=== PATIENT | female | born 1950 | race Caucasian/White ===

== ENCOUNTER 2019-10-05 01:14 | Day surgery (SDC) | payer MEDICARE, SELFPAY ==
[2019-10-03 10:12] VITALS: BMI 29.5
--- NOTE | 2019-10-05 08:41 | P.PNAN_ITS ---
Anes - Initial Pre Proc Eval Procedure: Operation Date: 10/05/19 10:30 Proposed Procedures p Removal Of Vaginal Cyst - Nick Foster MD Date/Time: 10/05/19 08:41 Surgeon: Nick Foster MD Pre Op Diagnosis: Vulvar Cyst Patient Data Age: 68 Gender: F Height: 5 ft 6.5 in Weight: 84.09 kg Allergies Allergy/AdvReac Type Severity Reaction Status Date / Time Penicillins Allergy Intermediate HIVES/RASH Verified 10/03/19 10:18 Home Medications Medication Instructions Recorded Confirmed Type levothyroxine 75 mcg PO DAILY 10/03/19 10/03/19 History quetiapine 100 mg PO DAILY 10/03/19 10/03/19 History quetiapine 300 mg PO HS 10/03/19 10/03/19 History Patient hx anesthesia problems: none Family hx anesthesia problems: none [facility] Past Medical History Medical History Hypothyroid Schizophrenia Seizure disorder Social History Social History Smoking status: Never smoker Anes - Eval Final PreProcedure Day of Procedure 10/05/19 08:41 Patient weight: overweight Heart: regular rate and rhythm Lungs: clear to auscultation Airway: Mallampati scale class II Neurological: other (alert) Last oral intake: >/= 8 hours ASA classification: III Emergent: no Anesthetic plan: proceed Anesthesia type and monitoring: general GIVS and standard monitoring Informed Consent: The patient's anesthetic plan and its attendant risks and benefits were discussed with the patient/family/POA. Questions were solicited and answers provided to the satisfaction of the patient/family/POA.
[2019-10-05] MEDS: LACTATED RINGERS 1,000 ML 30 ML IV CONT (09:00)
[2019-10-05] MEDS: IBUPROFEN IV 800 MG/200 ML 800 MG/200 ML BAG 400 MG IVPB (09:00)
--- NOTE | 2019-10-05 11:13 | WPDHPUPDATE1 ---
History and Physical Update Update Date/Time: 10/05/19 11:13 History and Physical has been reviewed, including an updated exam of the patient. There are NO changes in the patient's condition. Risks, benefits, and alternatives have been discussed and questions answered. Patient agrees to proceed with procedure.
[2019-10-05 11:20] VITALS: BP 129/85; PULSE 58; RESP 16; TEMP 36.9; O2SAT 97
--- NOTE | 2019-10-05 11:29 | SUR.PREOP ---
1129-PT INFORMED PRIOR SURGEON DELAYS ROOM ~30 MINUTES.
[2019-10-05] MEDS: CLINDAMYCIN 900 MG/NS 50 ML 900 MG/50 ML PIGGYBACK 50 MG IVPB (11:39)
[2019-10-05] MEDS: LIDO 1%/EPINEPHRINE 1:100,000 20 ML VIAL 10 ML INFILTRATE (12:01)
[2019-10-05 12:22] VITALS: BP 99/62; PULSE 73; RESP 16; O2SAT 99
--- NOTE | 2019-10-05 12:41 | PM.PROC ---
Procedure Note - Detailed Date of procedure: 10/05/19 Pre-op diagnosis: Vulvar Cyst Post-op diagnosis: same Procedure performed: Resection of vulvar cyst Description of procedure: The patient was placed in the dorsal lithotomy position after she was taken the operating room and mac anesthesia was administered. The subcutaneous tissue in the superior aspect of the vulva on the right side near the clitoris was infiltrated with lidocaine. A skin incision was made over the cyst. The cyst was dissected out using sharp,blunt dissection and Cautery. The base of the cyst was cauterized and again hemostatic. Subcutaneous sutures were placed to close the defect deep under the skin. The sutures with 3 0 Vicryl. 30 Vicryl was then used to close the skin in interrupted fashion. The patient tolerated the procedure well. Anesthesia: MAC Surgeon: Nick Foster MD Estimated blood loss (mL): 5 Drains: No Packing: No Pathology: yes Complications: No immediate complications Condition: stable Disposition: same day Findings: To have cm vulvar cyst in the periclitoral area on the right side. It was just beyond the inferior margin of the mons on the superior aspect of the vulva.
[2019-10-05 12:50] VITALS: BP 98/62; PULSE 69; RESP 14; O2SAT 95
--- NOTE | 2019-10-05 13:08 | SUR.PHASEII ---
130; report given to shahbaz garcia
[2019-10-05 13:15] VITALS: BP 109/67; PULSE 67; RESP 14; O2SAT 98
[2019-10-05 13:40] VITALS: BP 109/67; PULSE 62; RESP 14
== END 2019-10-05 13:41 | disposition home or self-care (01) ==
PROVIDERS: Visit Provider Obstetrics & Gynecology
PROC: (CPT 57135; principal; 2019-10-05 10:30)
DX: N90.7 Vulvar cyst (principal); E03.9 Hypothyroidism, unspecified; G40.909 Epilepsy, unspecified, not intractable, without status epilepticus; F20.9 Schizophrenia, unspecified
CPT/HCPCS: 57135; 88304; 88305; A9270; J1741; J2250; J2405; J2704; J3010; J7120

== ENCOUNTER → 2020-05-07 10:40 | Outpatient (CLI) | payer MEDICARE, SELFPAY ==
--- NOTE | ~2020-05-07 | MM_ITS ---
EXAMINATION: MM screening yaron BI w jenifer HISTORY: Screening mammogram TECHNIQUE: Craniocaudal and mediolateral oblique 3-D tomosynthesis images were obtained and synthetic 2-D images were generated. CAD analysis was submitted and interpreted. COMPARISON: 10/28/2018, 09/24/2017, 03/18/2016 bilateral digital screening mammogram examinations BREAST PARENCHYMAL COMPOSITION: The breasts are heterogeneously dense, which may obscure small masses ... FINDINGS: There are scattered bilateral benign calcifications. There is no evidence of suspicious mas s, calcification, or architectural distortion to suggest malignancy in either breast. There has been no suspicious interval change. IMPRESSION: 1. No mammographic evidence of malignancy. 2. Recommend routine screening mammography in one year. BI-RADS Category 2: Benign finding(s). Reviewed, dictated and finalized at location A.
== END ==
PROVIDERS: Visit Provider Obstetrics & Gynecology
DX: Z12.31 Encounter for screening mammogram for malignant neoplasm of breast (principal)
CPT/HCPCS: 77063; 77067

== ENCOUNTER → 2021-05-22 15:39 | Outpatient (CLI) | payer MEDICARE, SELFPAY ==
--- NOTE | ~2021-05-22 | MM_ITS ---
EXAMINATION: MM screening yaron BI w jenifer HISTORY: Screening TECHNIQUE: Craniocaudal and mediolateral oblique 3-D tomosynthesis images were obtained and synthetic 2-D images were generated. CAD analysis was submitted and interpreted. COMPARISON: Comparison to multiple prior studies sequentially, with oldest reviewed study dated 12/09. BREAST PARENCHYMAL COMPOSITION: The breasts are heterogenously dense, which may obscure small masses. FINDINGS: There is no evidence of suspicious mass, calcification, or architectural distortion to sugg est malignancy in either breast. There has been no suspicious interval change. IMPRESSION: 1. No mammographic evidence of malignancy. 2. Recommend routine screening mammography in one year. BI-RADS Category 1: Negative Reviewed, dictated and finalized at location A.
== END ==
PROVIDERS: PCP Family Medicine; Visit Provider Obstetrics & Gynecology
DX: Z12.31 Encounter for screening mammogram for malignant neoplasm of breast (principal)
CPT/HCPCS: 77063; 77067

== ENCOUNTER 2022-05-20 11:44 | Outpatient (CLI) | payer MEDICARE, SELFPAY ==
[2022-05-20 19:27] LABS: Basophils Percent Auto 0.4 % (0.2-1.2); Eosinophils Absolute Auto 0.2 K/mm3 (0-0.3); Eosinophils Percent Auto 3.2 % (0-4.4); Hemoglobin 10.9 g/dL (12.0-15.0); Immature Granulocyte Absolute 0.02 K/mm3 (0.00-0.031); Immature Granulocyte Percent A 0.4 % (0-0.5); Lymphocytes Absolute Auto 1.02 K/mm3 (0.9-3.2); Lymphocytes Percent Auto 18.4 % (18.3-44.2); Mean Corpuscular HGB Conc 31.1 g/dl (32-36); Mean Corpuscular Hemoglobin 30.1 pg (26-34); Mean Corpuscular Volume 96.7 fl (80-100); Mean Platelet Volume 10.4 fl (7.4-10.4); Monocytes Absolute Auto 0.8 K/mm3 (0.1-0.6); Neutrophils Absolute Auto 3.5 K/mm3 (1.3-6.7); Neutrophils Percent Auto 62.6 % (45.5-73.1); Platelet Count Result 166 k/mm3 (150-375); Red Blood Count 3.62 M/mm3 (4.2-5.4); Red Cell Distribution Width 13.5 % (11.5-14.5); White Blood Count 5.6 K/mm3 (4.5-10.0)
[2022-05-20 19:54] LABS: Alanine Aminotransferase 15 U/L (6-35); Albumin Level 3.5 g/dL (3.5-5.1); Alkaline Phosphatase 75 U/L (38-126); Anion Gap 9 mmol/L (8-16); Aspartate Amino Transferase 29 U/L (14-36); Bilirubin,Total 0.5 mg/dL (0.2-1.3); Blood Urea Nitrogen 11 mg/dL (7-17); Calcium 9.1 mg/dL (8.4-10.2); Carbon Dioxide 31 mmol/L (22-30); Chloride 103 mmol/L (98-107); Cholesterol 189 mg/dL (0-200); Estimated Glomerular Filt Rate 54; Glucose 111 mg/dL (65-110); HDL Direct 41 mg/dL; Sodium 143 mmol/L (137-145); Triglycerides 114 mg/dL (<150)
[2022-05-20 20:08] LABS: LDL Cholesterol Direct 90 mg/dL
== END 2022-05-20 11:45 | disposition home or self-care (01) ==
PROVIDERS: PCP Family Medicine; Visit Provider Family Medicine
DX: G40.909 Epilepsy, unspecified, not intractable, without status epilepticus (principal); F20.9 Schizophrenia, unspecified; E03.9 Hypothyroidism, unspecified
CPT/HCPCS: 36415; 80053; 80061; 84443; 85025

== ENCOUNTER → 2022-06-09 12:43 | Outpatient (CLI) | payer MEDICARE, SELFPAY ==
--- NOTE | ~2022-06-09 | MM_ITS ---
EXAMINATION: MM screening yaron BI w jenifer HISTORY: Screening mammogram TECHNIQUE: Craniocaudal and mediolateral oblique 3-D tomosynthesis images were obtained and synthetic 2-D images were generated. CAD analysis was submitted and interpreted. COMPARISON: 06/08/2021, 05/07/2020, 10/28/2018 bilateral screening mammogram examinations BREAST PARENCHYMAL COMPOSITION: The breasts are heterogeneously dense, which may obscure small masses . FINDINGS: Scattered bilateral benign calcifications. There is no evidence of suspicious mass, calcifi cation, or architectural distortion to suggest malignancy in either breast. There has been no suspici ous interval change. IMPRESSION: 1. No mammographic evidence of malignancy. 2. Recommend routine screening mammography in one year. BI-RADS Category 2: Benign finding(s). Reviewed, dictated and finalized at location A. [employer]
== END ==
PROVIDERS: PCP Family Medicine; Visit Provider Obstetrics & Gynecology
DX: Z12.31 Encounter for screening mammogram for malignant neoplasm of breast (principal)
CPT/HCPCS: 77063; 77067

== ENCOUNTER 2022-06-24 11:50 | Outpatient (CLI) | payer MEDICARE, SELFPAY ==
[2022-06-24 19:01] LABS: Hematocrit 36.8 % (37.0-47.0); Hemoglobin 11.6 g/dL (12.0-15.0); Mean Corpuscular HGB Conc 31.5 g/dl (32-36); Mean Corpuscular Hemoglobin 30.9 pg (26-34); Mean Corpuscular Volume 98.1 fl (80-100); Mean Platelet Volume 10.8 fl (7.4-10.4); Platelet Count Result 162 k/mm3 (150-375); Red Blood Count 3.75 M/mm3 (4.2-5.4); Red Cell Distribution Width 14.5 % (11.5-14.5); White Blood Count 3.9 K/mm3 (4.5-10.0)
== END 2022-06-24 11:51 | disposition home or self-care (01) ==
PROVIDERS: PCP Family Medicine; Visit Provider Family Medicine
DX: D23.5 Other benign neoplasm of skin of trunk (principal); E03.9 Hypothyroidism, unspecified; F20.9 Schizophrenia, unspecified; F32.9 Major depressive disorder, single episode, unspecified; G40.909 Epilepsy, unspecified, not intractable, without status epilepticus; M19.90 Unspecified osteoarthritis, unspecified site; R19.5 Other fecal abnormalities; R79.89 Other specified abnormal findings of blood chemistry
CPT/HCPCS: 36415; 85027

== ENCOUNTER 2022-07-01 13:47 | Outpatient (CLI) | payer MEDICARE, SELFPAY ==
[2022-07-01 19:47] LABS: Aspartate Amino Transferase 23 U/L (14-36)
[2022-07-01 20:28] LABS: Valproic Acid 41.6 ug/mL (50-120)
== END 2022-07-01 13:48 | disposition home or self-care (01) ==
PROVIDERS: PCP Family Medicine
DX: Z51.81 Encounter for therapeutic drug level monitoring (principal); Z79.899 Other long term (current) drug therapy
CPT/HCPCS: 36415; 80164; 84450

== ENCOUNTER 2022-08-05 00:37 | Day surgery (SDC) | payer MEDICARE, SELFPAY ==
[2022-07-24 09:56] VITALS: BMI 30.7
[2022-08-05 11:04] VITALS: BP 126/68; PULSE 82; RESP 16; TEMP 36.1; O2SAT 97; BMI 30.4
[2022-08-05] MEDS: LACTATED RINGERS 1,000 ML 150 ML IV CONT (11:08)
--- NOTE | 2022-08-05 11:42 | P.PNAN_ITS ---
Anes - Initial Pre Proc Eval Procedure: Operation Date: 08/05/22 12:30 Proposed Procedures p Screening Colonoscopy - Vinayak Sharp MD Date/Time: 08/05/22 11:42 Surgeon: Vinayak Sharp MD Pre Op Diagnosis: neoplasm screening Patient Data Age: 71 Gender: F Height: 1.68 m Weight: 85.4 kg Last Vital Signs Temp 96.9 F L 08/05/22 11:04 Pulse 82 08/05/22 11:04 Resp 16 08/05/22 11:04 BP 126/68 08/05/22 11:04 Pulse Ox 97 08/05/22 11:04 O2 Del Method Room Air 08/05/22 11:04 Allergies Allergy/AdvReac Type Severity Reaction Status Date / Time Penicillins Allergy Intermediate HIVES/RASH Verified 08/05/22 11:03 Home Medications Medication Instructions Recorded Confirmed Type levothyroxine 75 mcg tablet 75 mcg PO DAILY 10/03/19 08/05/22 History quetiapine 300 mg tablet 300 mg PO HS 10/03/19 08/05/22 History brexpiprazole 4 mg tablet (Rexulti) 4 mg PO DAILY 08/02/20 08/05/22 History divalproex 250 mg tablet,delayed 250 mg PO Q12H 08/02/20 08/05/22 History release omega-3 fatty acids 1,000 mg 1,000 mg PO DAILY 08/02/20 08/05/22 History capsule (Fish Oil Concentrate) sertraline 50 mg tablet 50 mg PO DAILY 07/24/22 08/05/22 History trifluoperazine 5 mg tablet 5 mg PO BID 07/24/22 08/05/22 History Patient hx anesthesia problems: none Family hx anesthesia problems: none Results Review: All pre-operative results and documents have been reviewed as part of the pre- operative evaluation. [facility] Past Medical History Medical History (Updated 05/15/22 @ 09:16 by Molina Medina MD) Arthritis Benign tumor of skin of breast Depression Hypothyroid Schizophrenia Seizure disorder Seizure disorder Thyroid disorder Surgical History Surgical History H/O tubal ligation Hx of tonsillectomy Family History Family History Mother COPD (chronic obstructive pulmonary disease) Father No problems noted. Social History Social History Smoking status: Never smoker Alcohol intake: never Substance use: never Substance use type: does not use Living arrangements: with family Gender identity (if verbalized by the patient): Female Sexual Orientation (if Verbalized by the Patient): Straight or Heterosexual Spiritual care concerns: No Anes - Eval Final PreProcedure Day of Procedure 08/05/22 11:42 Patient weight: obese Heart: regular rate and rhythm Lungs: clear to auscultation Airway: Mallampati scale class II Neurological: alert and oriented Last oral intake: >/= 8 hours ASA classification: III Emergent: no Anesthetic plan: proceed Anesthesia type and monitoring: general GIVS and standard monitoring Results Review: All pre-operative results and documents have been reviewed as part of the pre- operative evaluation. Informed Consent: The patient's anesthetic plan and its attendant risks and benefits were discussed with the patient/family/POA. Questions were solicited and answers provided to the satisfaction of the patient/family/POA.
--- NOTE | 2022-08-05 12:00 | PM.HPGS ---
History of Present Illness History of Present Illness Consent: Risks, benefits, and alternatives have been discussed and questions answered. Patient agrees to proceed with procedure. Chief complaint: neoplasm screening Narrative: Quinton Mckeon is a 71 year old female here for first screening colonoscopy Review of Systems Constitutional: Constitutional: Denies headache(s) and Denies weakness Eyes: Eyes: Denies blurry vision ENT: Reports Normal hearing present, Denies headache(s) and Denies neck pain Cardiovascular: Cardiovascular: Denies chest pain and Denies dyspnea Respiratory: Respiratory: Denies dyspnea Gastrointestinal: Gastrointestinal: Reports no additional gastrointestinal complaints Genitourinary: Genitourinary: Denies dysuria Musculoskeletal: Musculoskeletal: Denies neck pain Integumentary/Breasts: Skin/Breast: Denies dry skin Neurologic: Reports Normal hearing present, Denies headache(s) and Denies weakness Psychiatric: Psychiatric: Denies anxiety Endocrine: Endocrine: Denies change in body appearance Hematologic/Lymphatic: Hematologic/Lymphatic: Denies easy bleeding Allergic/Immunologic: Allergic/Immunologic: Denies urticaria PMFSH Past Medical History Medical History (Updated 05/15/22 @ 09:16 by Molina Medina MD) Arthritis Benign tumor of skin of breast Depression Hypothyroid Schizophrenia Seizure disorder Seizure disorder Thyroid disorder Surgical History Surgical History H/O tubal ligation Hx of tonsillectomy Family History Family History Mother COPD (chronic obstructive pulmonary disease) Father No problems noted. Social History Social History Smoking status: Never smoker Alcohol intake: never Substance use: never Substance use type: does not use Living arrangements: with family Gender identity (if verbalized by the patient): Female Sexual Orientation (if Verbalized by the Patient): Straight or Heterosexual Spiritual care concerns: No Meds Home Medications and Allergies Home Medications Medication Instructions Recorded Confirmed Type levothyroxine 75 mcg tablet 75 mcg PO DAILY 10/03/19 08/05/22 History quetiapine 300 mg tablet 300 mg PO HS 10/03/19 08/05/22 History brexpiprazole 4 mg tablet (Rexulti) 4 mg PO DAILY 08/02/20 08/05/22 History divalproex 250 mg tablet,delayed 250 mg PO Q12H 08/02/20 08/05/22 History release omega-3 fatty acids 1,000 mg 1,000 mg PO DAILY 08/02/20 08/05/22 History capsule (Fish Oil Concentrate) sertraline 50 mg tablet 50 mg PO DAILY 07/24/22 08/05/22 History trifluoperazine 5 mg tablet 5 mg PO BID 07/24/22 08/05/22 History Allergies Allergy/AdvReac Type Severity Reaction Status Date / Time Penicillins Allergy Intermediate HIVES/RASH Verified 08/05/22 11:03 Vital Signs Vital Signs - 24 hr 08/05/22 11:04 Temperature 96.9 F L Pulse Rate 82 Respiratory Rate 16 Blood Pressure 126/68 Pulse Oximetry 97 Oxygen Delivery Room Air Exam Const: General: comfortable and no acute distress HENMT: Face/Nose/Sinus: Normal nares present Eyes: General: appearance normal, both eyes and all related structures Neck: Neck: no JVD Resp: Auscultation: clear to auscultation bilaterally Cardio: Rate: regular rate Rhythm: regular rhythm GI: Inspection: non-distended GI Palp: Yes Soft to palpation Skin: General skin exam: normal color Neuro: General: gait normal Speech: normal speech Extrem: General: normal to inspection Psych: Mental Status: mental status grossly normal Assessment and Plan Assessment and plan (1) Colon cancer screening: Code(s): Z12.11 - Encounter for screening for malignant neoplasm of colon Status: Acute Assessment and Plan: colonoscopy
[2022-08-05 12:26] VITALS: BP 113/70; PULSE 66; RESP 21; O2SAT 98
[2022-08-05 12:36] VITALS: BP 135/60; PULSE 58; RESP 18; O2SAT 99
[2022-08-05 12:46] VITALS: BP 123/65; PULSE 54; RESP 18; O2SAT 97
[2022-08-05 13:10] LABS: Hematocrit 38.4 % (37.0-47.0); Hemoglobin 12.1 g/dL (12.0-15.0); Immature Platelet Fraction Pct 4.8 % (0.9-11.2); Mean Corpuscular HGB Conc 31.5 g/dl (32-36); Mean Corpuscular Hemoglobin 30.6 pg (26-34); Mean Platelet Volume 9.8 fl (7.4-10.4); Platelet Count Result 150 k/mm3 (150-375); Red Blood Count 3.96 M/mm3 (4.2-5.4); Red Cell Distribution Width 13.9 % (11.5-14.5); White Blood Count 3.2 K/mm3 (4.5-10.0)
[2022-08-05 13:23] LABS: Alanine Aminotransferase 10 U/L (6-35); Albumin Level 3.9 g/dL (3.5-5.1); Alkaline Phosphatase 59 U/L (38-126); Anion Gap 5 mmol/L (8-16); Aspartate Amino Transferase 17 U/L (14-36); Bilirubin,Total 0.4 mg/dL (0.2-1.3); Blood Urea Nitrogen 11 mg/dL (7-17); Carbon Dioxide 32 mmol/L (22-30); Chloride 103 mmol/L (98-107); Estimated CRCL calculation 49 ml/min; Estimated Glomerular Filt Rate 54; Glucose 117 mg/dL (65-110); Potassium 4.2 mmol/L (3.4-5.0); Sodium 140 mmol/L (137-145)
[2022-08-05 13:52] LABS: Carcinoembryonic Antigen 3.7 ng/mL (0.0-3.0)
== END 2022-08-05 13:28 | disposition home or self-care (01) ==
PROVIDERS: PCP Family Medicine; Visit Provider Internal Medicine Gastroenterology
PROC: 0DJD8ZZ Inspection of Lower Intestinal Tract, Via Natural or Artificial Opening Endoscopic (ICD-10-PCS; CPT 45378; principal; 2022-08-05 12:30)
DX: Z12.11 Encounter for screening for malignant neoplasm of colon (principal); C18.4 Malignant neoplasm of transverse colon; K57.30 Diverticulosis of large intestine without perforation or abscess without bleeding; E03.9 Hypothyroidism, unspecified; G40.909 Epilepsy, unspecified, not intractable, without status epilepticus; F20.9 Schizophrenia, unspecified; F32.A Depression, unspecified; E66.9 Obesity, unspecified; Z68.30 Body mass index [BMI] 30.0-30.9, adult
CPT/HCPCS: 45380; 45381; 36415; 80053; 82378; 85027; 85055; 88305; J2704; J7120

== ENCOUNTER 2022-08-07 06:53 | Outpatient (CLI) | payer MEDICARE, SELFPAY ==
--- NOTE | ~2022-08-07 | CT_ITS ---
EXAMINATION: CT abdomen pelvis w con DATE: 08/07/2022 07:35 INDICATION: Soft tissue mass of transverse colon detected during 08/05/2022 colonoscopy examination TECHNIQUE: Computed tomography (CT) of the abdomen and pelvis was performed with 100 CC Omnipaque 350 intravenous contrast. Automated exposure control and iterative reconstruction technique were employe d. Exam dose: 475.61 mGy-cm total exam DLP. COMPARISON: None. FINDINGS: The lung bases are clear of infiltrate or consolidation. Normal heart size. No pericardial or pleural effusion. There are multiple masses of left and right hepatic lobes consistent with metastatic disease, the lar gest situated in the lateral segment left hepatic lobe, measuring up to 2.2 cm. 1 cm splenic cyst. Occasional splenic calcified granulomas. No pancreatic mass lesion, calcification or ductal dilatation. The gallbladder is present. No gallbladder wall thickening or pericholecystic fluid or fat stranding. No bile duct dilatation. Normal morphology of the adrenal glands. Approximately 1.6 cm medial lower pole left renal mass lesion with mildly irregular margins. Differen tial diagnosis includes hypernephroma, metastasis, less likely infarct, infection or oncocytoma. No urinary tract calculus or hydroureteronephrosis. There is mild diffuse thickening of the urinary b ladder wall and some shagginess of the bladder outline which may indicate cystitis. 5.7 cm right adnexal cyst. Up to 1 cm left ovarian cyst or cluster of cysts. Bilateral fallopian tubal ligation. The uterus and adnexal areas are unremarkable. There is atherosclerotic calcification of the abdominal aorta but no aneurysm. There is calcification of the origins of celiac and superior mesenteric and renal arteries. No intraperitoneal or retroperi toneal or pelvic mass lesion or adenopathy is noted otherwise. Diverticulosis of colon; no CT evidence of diverticulitis. There is approximately 5.7 cm long prominent circumferential soft tissue thickening of the mid transv erse colon consistent with colon carcinoma. There is a prominent of fecal material in the colon proxi mal to this mass. Normal appendix. No intraperitoneal free air. Probable hemangioma of the right side of T10 and L1 and left side of L4 vertebral bodies. Mild anterior wedge compression fracture deformity of L2. Moderate anterior wedge compression fracture deformity of L3. These compression fracture deformities appear chronic. 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 Reviewed, dictated and finalized at location L. 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
== END 2022-08-07 06:54 | disposition home or self-care (01) ==
LOC: CHSIMG 06:56
PROVIDERS: PCP Family Medicine; Visit Provider Internal Medicine Gastroenterology
DX: C18.9 Malignant neoplasm of colon, unspecified (principal); K63.89 Other specified diseases of intestine; C18.4 Malignant neoplasm of transverse colon; C78.7 Secondary malignant neoplasm of liver and intrahepatic bile duct; N28.89 Other specified disorders of kidney and ureter; N83.8 Other noninflammatory disorders of ovary, fallopian tube and broad ligament; N83.202 Unspecified ovarian cyst, left side; K57.90 Diverticulosis of intestine, part unspecified, without perforation or abscess without bleeding; M48.56XA Collapsed vertebra, not elsewhere classified, lumbar region, initial encounter for fracture; D18.09 Hemangioma of other sites
CPT/HCPCS: 74177; Q9967

== ENCOUNTER 2022-08-14 14:23 | Outpatient (CLI) | payer MEDICARE, SELFPAY ==
[2022-08-14 14:58] LABS: Basophils Percent Auto 0.4 % (0.2-1.2); Eosinophils Absolute Auto 0.1 K/mm3 (0-0.3); Eosinophils Percent Auto 1.9 % (0-4.4); Hematocrit 39.1 % (37.0-47.0); Hemoglobin 12.3 g/dL (12.0-15.0); Immature Granulocyte Absolute 0.01 K/mm3 (0.00-0.031); Immature Granulocyte Percent A 0.2 % (0-0.5); Lymphocytes Absolute Auto 1.36 K/mm3 (0.9-3.2); Lymphocytes Percent Auto 29.2 % (18.3-44.2); Mean Corpuscular HGB Conc 31.5 g/dl (32-36); Mean Corpuscular Hemoglobin 30.4 pg (26-34); Mean Corpuscular Volume 96.8 fl (80-100); Mean Platelet Volume 10.1 fl (7.4-10.4); Monocytes Absolute Auto 0.5 K/mm3 (0.1-0.6); Monocytes Percent Auto 10.8 % (2.6-8.5); Neutrophils Absolute Auto 2.7 K/mm3 (1.3-6.7); Neutrophils Percent Auto 57.5 % (45.5-73.1); Platelet Count Result 159 k/mm3 (150-375); Red Blood Count 4.04 M/mm3 (4.2-5.4); Red Cell Distribution Width 13.8 % (11.5-14.5); White Blood Count 4.7 K/mm3 (4.5-10.0)
[2022-08-14 15:05] LABS: Partial Thromboplastin Time 25.5 SECONDS (22.3-36.8); Prothrombin Time 12.6 Seconds (11.1-14.7)
[2022-08-14 15:15] LABS: Valproic Acid 51.9 ug/mL (50-120)
== END 2022-08-14 14:24 | disposition home or self-care (01) ==
LOC: ANHSURGERY 14:26
PROVIDERS: Anesthesiology; PCP Family Medicine; Visit Provider Surgery
DX: Z01.812 Encounter for preprocedural laboratory examination (principal); C18.9 Malignant neoplasm of colon, unspecified; G40.909 Epilepsy, unspecified, not intractable, without status epilepticus
CPT/HCPCS: 36415; 80164; 85025; 85610; 85730

== ENCOUNTER 2022-08-18 01:11 | Day surgery (SDC) | payer MEDICARE, SELFPAY ==
[2022-08-14 11:10] VITALS: BMI 30.2
--- NOTE | 2022-08-14 11:17 | PC.NURSE ---
PRE-OP INSTRUCTIONS, PLEASE READ CAREFULLY Report to the Outpatient Waiting Room, entrance under the green pavilion located off [facility], at time _0930_ on date _08/18/22_. Planned Procedure Time: __1130 . Time changes happen often and if your time is changed the preop area will call you the afternoon before. - You and your visitor will be asked to self-screen and do not enter if you have any COVID symptoms. - Only one visitor is requested with a max of two and NO children visitors are allowed at this time. - The patient visitor may be requested to leave or wait in car when not with patient due to distancing restrictions. - A mask is optional within the hospital at this time. Patients may have clear liquids (water, carbonated beverages, clear teas, apple juice) until 3 hours prior to surgery (0830 AM) with a maximum of 20 ounces. - No food from midnight until time of surgery Take the following medications with a SIP of water the morning of surgery: _LEVOTHYROXINE, TRIFLUOPERAZINE_ DO NOT STOP ANY OF YOUR OTHER PRESCRIPTION MEDICATIONS PRIOR TO SURGERY ?EXCEPT THE FOLLOWING Medications to discontinue per physician _FISH OIL__ Date to take last dose____08/14/22 Please no make-up, nail korean, hairspray, perfume, deodorant, or body powder the day of surgery. No jewelry (including any body piercings) or valuables the day of surgery, leave them at home. Please take a shower or bath the night before, or the morning of, surgery with an antibacterial soap. Wear comfortable, loose fitting clothing. - Jewelry must be removed prior to entering the operating room. Rings and piercings that are not removed may be cut off. - The hospital will not accept responsibility for valuables. - Please leave all valuables, including medications, at home the day of surgery. If you are going home after surgery, a licensed dairy truck driver must drive you home. - NO public transportation without another adult if you receive anesthesia. - We recommend that an adult stay with you for 24 hours following discharge. - We also recommend that you do not drive, make important decision, drink alcoholic beverages, or take any drugs that were not prescribed by your health care provider for at least 24 hours after your discharge time. Follow any additional instructions given to you from your surgeon. If you or anyone in your household have experienced Covid symptoms in the past week, please notify your surgeon or the nurse liaison at the phone number below for possible testing. Telephone instructions given to _PATIENT & SPOUSE__and asked if any additional questions and then verbalized understanding. Patient advised to call surgeon office or pre surgery nurse liaison [phone] if any additional questions.
--- NOTE | ~2022-08-18 | XR_ITS ---
EXAMINATION: XR fl guide central line place DATE: 08/18/2022 12:30 INDICATION: Port catheter insertion TECHNIQUE: Single fluoroscopic image of the inferomedial right chest was obtained during procedure pe rformed by Dr. Turner. Radiologist was not present for the imaging or procedure. The amount of fluorosc opy time used during this procedure was 0.3 minutes. COMPARISON: None. FINDINGS/IMPRESSION: Central venous catheter tip at the superior cavoatrial junction. See procedure note for further kristin blackwell. Reviewed, dictated and finalized at location A. 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
--- NOTE | ~2022-08-18 | XR_ITS ---
EXAMINATION: XR chest port-a-cath/central INDICATION: Port-A-Cath insertion TECHNIQUE: Portable AP chest at 1248 hours COMPARISON: None available FINDINGS: A right internal jugular Port-A-Cath ends with its tip in the midsuperior vena cava. The cabrera ngs are free of acute opacities. No pleural effusion or pneumothorax. The cardiomediastinal silhouett e is normal. IMPRESSION: 1. Right internal jugular Port-A-Cath insertion. No pneumothorax. Reviewed, dictated and finalized at location B. HER MACHINE
[2022-08-18 09:45] VITALS: BP 145/82; PULSE 78; RESP 14; TEMP 36.1; O2SAT 93
[2022-08-18] MEDS: LACTATED RINGERS 1,000 ML 30 ML IV CONT (09:50)
--- NOTE | 2022-08-18 09:59 | WPDANESEPPF ---
Anes - Initial Pre Proc Eval Procedure: Operation Date: 08/18/22 11:30 Proposed Procedures p Insertion Agata Cath - Abad Turner MD Date/Time: 08/18/22 09:59 Surgeon: Abad Turner MD Pre Op Diagnosis: metastatic colon cancer in female Patient Data Age: 71 Gender: F Height: 1.68 m Weight: 87.45 kg Last Vital Signs Temp 36.1 C L 08/18/22 09:45 Pulse 78 08/18/22 09:45 Resp 14 08/18/22 09:45 BP 145/82 H 08/18/22 09:45 Pulse Ox 93 08/18/22 09:45 O2 Del Method Room Air 08/18/22 09:45 Allergies Allergy/AdvReac Type Severity Reaction Status Date / Time Penicillins Allergy Intermediate HIVES/RASH Verified 08/18/22 09:51 Home Medications Medication Instructions Recorded Confirmed Type levothyroxine 75 mcg tablet 75 mcg PO DAILY 10/03/19 08/14/22 History quetiapine 300 mg tablet 300 mg PO HS 10/03/19 08/14/22 History brexpiprazole 4 mg tablet (Rexulti) 4 mg PO DAILY 08/02/20 08/14/22 History divalproex 250 mg tablet,delayed 250 mg PO Q12H 08/02/20 08/14/22 History release omega-3 fatty acids 1,000 mg 1,000 mg PO DAILY 08/02/20 08/14/22 History capsule (Fish Oil Concentrate) sertraline 50 mg tablet 50 mg PO DAILY 07/24/22 08/14/22 History trifluoperazine 5 mg tablet 5 mg PO BID 07/24/22 08/14/22 History Patient hx anesthesia problems: none Family hx anesthesia problems: none Results Review: All pre-operative results and documents have been reviewed as part of the pre-operative evaluation. [facility] Past Medical History Medical History Adenocarcinoma of transverse colon Arthritis Benign tumor of skin of breast Depression Hypothyroid Schizophrenia Seizure disorder Seizure disorder Thyroid disorder Surgical History Surgical History H/O tubal ligation Hx of tonsillectomy Family History Family History Mother COPD (chronic obstructive pulmonary disease) Father No problems noted. Social History Social History Smoking status: Never smoker Alcohol intake: never Substance use: never Substance use type: does not use Living arrangements: with family Gender identity (if verbalized by the patient): Female Sexual Orientation (if Verbalized by the Patient): Straight or Heterosexual Spiritual care concerns: No Anes - Eval Final PreProcedure Day of Procedure 08/18/22 09:59 Patient weight: obese Heart: regular rate and rhythm Lungs: clear to auscultation Airway: Mallampati scale class II Neurological: alert and oriented Last oral intake: >/= 8 hours ASA classification: III Emergent: no Anesthetic plan: proceed Anesthesia type and monitoring: general GIVS and standard monitoring Results Review: All pre-operative results and documents have been reviewed as part of the pre-operative evaluation. Informed Consent: The patient's anesthetic plan and its attendant risks and benefits were discussed with the patient/family/POA. Questions were solicited and answers provided to the satisfaction of the patient/family/POA.
--- NOTE | 2022-08-18 11:44 | PM.IMHP ---
H&P: HPI History of Present Illness Date/Time: 08/18/22 11:44 Chief Complaint: Needs portacatheter placed. Narrative: Pt found to have large non obstructing transverse colon cancer on endoscopy. Also has evidence of multipe liver mets on CT scan. She is to start chemotherapy treatments and presents for placement of a portacatheter to administer the chemotherapy. Review of Systems Review of Systems: The remainder of the review of systems to include constitutional, HEENT, cardiovascular, respiratory, GI, , integumentary, musculoskeletal, endocrine, immunologic, hematologic, psychiatric, and neurologic are all negative except for which is mentioned above in the HPI. [facility]LY [facility] Past Medical History Medical History Adenocarcinoma of transverse colon Arthritis Benign tumor of skin of breast Depression Hypothyroid Schizophrenia Seizure disorder Seizure disorder Thyroid disorder Surgical History Surgical History H/O tubal ligation Hx of tonsillectomy Family History Family History Mother COPD (chronic obstructive pulmonary disease) Father No problems noted. Social History Social History Smoking status: Never smoker Alcohol intake: never Substance use: never Substance use type: does not use Living arrangements: with family Gender identity (if verbalized by the patient): Female Sexual Orientation (if Verbalized by the Patient): Straight or Heterosexual Spiritual care concerns: No Meds Home Medications and Allergies Home Medications Medication Instructions Recorded Confirmed Type levothyroxine 75 mcg tablet 75 mcg PO DAILY 10/03/19 08/14/22 History quetiapine 300 mg tablet 300 mg PO HS 10/03/19 08/14/22 History brexpiprazole 4 mg tablet (Rexulti) 4 mg PO DAILY 08/02/20 08/14/22 History divalproex 250 mg tablet,delayed 250 mg PO Q12H 08/02/20 08/14/22 History release omega-3 fatty acids 1,000 mg 1,000 mg PO DAILY 08/02/20 08/14/22 History capsule (Fish Oil Concentrate) sertraline 50 mg tablet 50 mg PO DAILY 07/24/22 08/14/22 History trifluoperazine 5 mg tablet 5 mg PO BID 07/24/22 08/14/22 History Allergies Allergy/AdvReac Type Severity Reaction Status Date / Time Penicillins Allergy Intermediate HIVES/RASH Verified 08/18/22 09:51 Vital Signs Vital Signs - 24 hr 08/18/22 09:45 Temperature 36.1 C L Pulse Rate 78 Respiratory Rate 14 Blood Pressure 145/82 H Pulse Oximetry 93 Oxygen Delivery Room Air Exam Const: General: comfortable and no acute distress HENMT: Ears: TM's normal bilaterally Face/Nose/Sinus: Normal nares present Mouth: Yes moist mucous membranes Eyes: General: appearance normal, both eyes and all related structures Sclera: sclerae normal Pupils: Equal, round and reactive pupils present Neck: Neck: supple and no JVD Resp: Effort & Inspection: normal respiratory effort Auscultation: clear to auscultation bilaterally Cardio: Rate: regular rate Rhythm: regular rhythm GI: GI Palp: Yes Soft to palpation Auscultation: normal bowel sounds Skin: General skin exam: normal color and no rashes or lesions noted Neuro: Speech: normal speech Motor exam (neuro): 5/5 motor strength present throughout Sensory Exam: normal sensation Extrem: General: normal to inspection Psych: Affect: normal affect Assessment and Plan Assessment and plan (1) Adenocarcinoma of transverse colon: Code(s): C18.4 - Malignant neoplasm of transverse colon Status: Acute Assessment and Plan: Pt presents for placement of portacatheter to administer chemotherapy treatments for her metastatic colon cancer. Risks, benefits, indications, and expected outcomes were discussed in detail with the patient and/or family. They und
[2022-08-18] MEDS: levoFLOXacin 500 MG/D5W 100 ML 500 MG/100 ML BAG 100 MG IVPB (11:47)
--- NOTE | 2022-08-18 11:48 | WPDHPUPDATE1 ---
History and Physical Update Update Date/Time: 08/18/22 11:48 History and Physical has been reviewed, including an updated exam of the patient. There are NO changes in the patient's condition. Risks, benefits, and alternatives have been discussed and questions answered. Patient agrees to proceed with procedure.
[2022-08-18] MEDS: LIDO 2%/EPINEPHRINE 1:100,000 50 ML VIAL 20 ML INFILTRATE (12:20)
[2022-08-18] MEDS: HEPARIN SODIUM, PORCINE 10,000 UNITS/10 ML VIAL 1000 UNITS IRRIGATION (12:22)
[2022-08-18] MEDS: HEPARIN SODIUM 5,000 UNITS/ML VIAL 5000 UNITS IRRIGATION (12:24)
--- NOTE | 2022-08-18 12:35 | W.PM.PROC2 ---
Procedure Note - Detailed Date of Procedure 08/18/22 Pre-op Diagnosis Transverse colon cancer with liver metastasis Post-op Diagnosis Same Procedure Performed Placement of right internal jugular vein single-lumen port a catheter with intraoperative ostomy Surgeon Abad Turner MD Student Activities Director Vannessa Vazquez MECHANICAL DRAWING TEACHER Anesthesia MAC Indications Patient is a 71-year-old female who presented for evaluation after endoscopic finding of a large nonobstructing transverse colon cancer. CT scan showed she had evidence of multiple liver Mets. She presents now for placement of a portacatheter for chemotherapy treatments. Findings None significant Description of Procedure After informed consent was obtained patient is brought to the operating room she is placed supine position and then IV sedation was administered. The bilateral upper anterior neck and chest was then prepped and draped in usual sterile fashion. A time-out was then performed tp correctly identify the patient as well as procedure to be performed and verified she was given Levaquin for IV antibiotics. We then placed her in the head down Trendelenburg position and I utilize a long 18gauge spinal needle to cannulate the right internal jugular vein between the 2 heads of the right sternocleidomastoid muscle on the 1st pass without any difficulty. There was prompt return of dark venous appearing blood and then a guidewire is advanced through the needle into the right internal jugular vein and subsequently into the superior vena cava. Intraoperative fluoroscopy was then used to analyze the tip of the guidewire and to confirm its proper positioning. I then anesthetized the area the port pocket the right upper anterior chest utilizing the 0.5% Marcaine see 2% lidocaine with epinephrine. I then made a transverse incision just below the medial 1/3 of the clavicle and then dissected down through the subcutaneous tissues with electric cautery until I encounterd the fascia of the pectoralis major muscle. Then with electro cautery and blunt finger dissection I created a subcutaneous port pocket. I then enlarged in neck incision where the insertion site of the wire was located with a scalpel and then tunneled the 9.6 Mohawk single-lumen catheter between the chest incision and the neck incision. I then advanced a dilator breakaway sheath over the guidewire and then removed the guide wire and dilator leaving the sheath in place. I then advanced the single-lumen catheter into the sheath and into right internal jugular vein and subsequently down into the right atrium of the heart. The sheath was then torn away then I used intraoperative fluoroscopy to visualize the tip of the catheter and then pulled back on the catheter until the tip was at the superior vena cava right atrial junction. We then cut the catheter to the appropriate length at the skin level and attached it to the Smart Port. The port was then secured inside the subcutaneous port pocket with 3 sutures utilizing 3 0 Prolene sutures. I then accessed the port and it aspirated blood easily and then was flushed with heparinized saline solution. I then proceeded to close the neck incision with a single 4 0 Monocryl suture and then the right upper chest wall incision was closed utilizing interrupted 3 0 Vicryl subcutaneous tissues. The skin edges were approximated utilizing a running subcuticular 4 Monocryl suture. I then accessed the the port 1 last time percutaneously and it norris back blood easily and was flushed with 5000 units of heparin. The incisions were then cleaned and then skin glue was applied. The patient tolerated the procedure well no complications. All sponges, needles, and instrument counts were correct at the end procedure. EBL was _10__cc. The patient was awakened and taken to recovery in stable satisfactory condition. Portable CXR post op reading pending at time of dictation. Implants Smart port with 9.6 latvian single lumen catheter. Estimated Bl
[2022-08-18 12:36] VITALS: BP 121/54; PULSE 57; RESP 12; O2SAT 98
--- NOTE | 2022-08-18 12:46 | SUR.PHASEII ---
PORTABLE CXR IN PROGRESS.
[2022-08-18 13:00] VITALS: BP 117/59; PULSE 61; RESP 20
[2022-08-18 13:25] VITALS: BP 117/59; PULSE 61; RESP 20
== END 2022-08-18 13:33 | disposition home or self-care (01) ==
PROVIDERS: PCP Family Medicine; Visit Provider Surgery
PROC: (CPT 36561; principal; 2022-08-18 11:30)
DX: C18.4 Malignant neoplasm of transverse colon (principal); C78.7 Secondary malignant neoplasm of liver and intrahepatic bile duct; G40.909 Epilepsy, unspecified, not intractable, without status epilepticus; F20.9 Schizophrenia, unspecified; E03.9 Hypothyroidism, unspecified; F32.A Depression, unspecified; E66.9 Obesity, unspecified; Z68.31 Body mass index [BMI] 31.0-31.9, adult
CPT/HCPCS: 36561; 77001; C1788; J1644; J1956; J2704; J3010; J7030; J7120

== ENCOUNTER 2022-11-28 07:40 | Outpatient (CLI) | payer MEDICARE, SELFPAY ==
--- NOTE | ~2022-11-28 | CT_ITS ---
Clinical Indication: Colon cancer CT Scan of the Chest, Abdomen, and Pelvis with Contrast: Technique: Contiguous sections were acquired throughout the chest, abdomen, and pelvis after intraven ous administration of 100 cc of Omnipaque 350. Dose reduction technique was used on this scan by uti monicoing automated exposure control and iterative reconstruction technique. The dose-length product (DL P) was 807.92 mGy-cm. COMPARISON: 08/07/2022 Findings: There is no evidence of any significant mediastinal, hilar or axillary lymphadenopathy. The mediastin al soft tissues appear normal. No aortic aneurysm or dissection. No large central pulmonary embolus. There is no evidence of pleural or pericardial effusion. The lungs are clear. No pulmonary nodules or infiltrates are noted. Previously noted hepatic metastases are decreased in size and density from prior exam. In particular, the largest lesion seen on prior exam the left hepatic lobe, now measures 1.3 cm in diameter (axial image 132 (previously 2.5 cm). Stable small cystic-appearing lesion in the spleen. The pancreas, gall bladder, adrenals and right kidney are within normal limits. Stable 1.5 cm low-density, noncystic jairo e cystic lesion at the lower pole the left kidney (axial image 137). There are atherosclerotic calcif ications of the aorta. No lymphadenopathy. There is a probable focal apple core type lesion of the mid transverse colon, which could reflect the underlying colon carcinoma. No delma bowel obstruction evident. Urinary bladder is unremarkable. 6.1 cm simple appearing right ovarian cyst is present. No other adne xal mass seen. No ascites. Stable chronic compression deformities of L2 and L3 noted. Impression: Hepatic metastases are significantly decreased in size and density as compared to prior exam, consist ent with significant partial interval response to therapy. Wall thickening and focal luminal narrowing at the mid transverse colon, consistent with colonic robert ocarcinoma at this region. No delma bowel obstruction evident, though there is prominent stool in the right colon proximal to the lesion. Stable 1.5 cm indeterminate lesion at the lower pole the left kidney. 6.1 cm right ovarian cyst, similar to prior exam. Reviewed, dictated and finalized at location M. Impression: Hepatic metastases are significantly decreased in size and density as compared to prior exam, consistent with significant partial interval response to therapy . Wall thickening and focal luminal narrowing at the mid transverse colon, consis tent with colonic adenocarcinoma at this region. No delma bowel obstruction lynette dent, though there is prominent stool in the right colon proximal to the lesion . Stable 1.5 cm indeterminate lesion at the lower pole the left kidney. 6.1 cm right ovarian cyst, similar to prior exam.
== END 2022-11-28 07:41 | disposition home or self-care (01) ==
LOC: CHSIMG 07:42
PROVIDERS: PCP Family Medicine; Visit Provider Internal Medicine Hematology & Oncology
DX: C18.9 Malignant neoplasm of colon, unspecified (principal); C78.7 Secondary malignant neoplasm of liver and intrahepatic bile duct; N28.9 Disorder of kidney and ureter, unspecified; N83.201 Unspecified ovarian cyst, right side
CPT/HCPCS: 71260; 74177; Q9967

== ENCOUNTER 2023-03-19 07:46 | Outpatient (CLI) | payer MEDICARE, SELFPAY ==
--- NOTE | ~2023-03-19 | MR_ITS ---
EXAMINATION: MR abdomen wo/w con DATE: 03/19/2023 11:18 INDICATION: Adenocarcinoma of colon metastatic to liver. TECHNIQUE: Magnetic resonance imaging (MRI) of the abdomen was performed without and with 18 mL Multi Mele intravenous contrast. COMPARISON: CT abdomen and pelvis 03/19/2023, 11/28/22 FINDINGS: There are 10 mm and 8 mm necrotic lesions in left hepatic lobe that previously measured 13 mm and 9 m m, respectively. There is a 13 mm cyst in the spleen. The gallbladder, pancreas, and adrenal glands a re normal. There are cysts in the kidneys measuring up to 13 mm on the left. There are no dilated loo ps of bowel. There is focal wall thickening of the transverse colon. There are no pathologically enla rged lymph nodes. There is no free intraperitoneal fluid. IMPRESSION: 1. Focal wall thickening of the transverse colon, consistent with primary malignancy. 2. Necrotic hepatic lesions with improvement from 11/28/2022, consistent metastatic disease. Reviewed, dictated and finalized at location E. IMPRESSION: 1. Focal wall thickening of the transverse colon, consistent with primary malig jose. 2. Necrotic hepatic lesions with improvement from 11/28/2022, consistent metasta tic disease.
--- NOTE | ~2023-03-19 | CT_ITS ---
Clinical Indication: Colon cancer CT Scan of the Chest, Abdomen, and Pelvis with Contrast: Technique: Contiguous sections were acquired throughout the chest, abdomen, and pelvis after intraven ous administration of 100 cc of Omnipaque 350. Dose reduction technique was used on this scan by sergio walker automated exposure control and iterative reconstruction technique. The dose-length product (DL P) was 505.63 mGy-cm. COMPARISON: 11/28/2022 Findings: There is no evidence of any significant mediastinal, hilar or axillary lymphadenopathy. The mediastin al soft tissues and vascular structures appear normal. There is no evidence of pleural or pericardial effusion. The lungs are clear. No pulmonary nodules or infiltrates are noted. 1 cm hypodense structure the left hepatic lobe is mildly decreased from prior exam (axial image 154). Other hepatic lesion seen on prior exam are difficult to appreciate on the current exam, nearly comp letely resolved. Stable splenic cyst. The pancreas, gallbladder, adrenals and right kidney are within normal limits. Stable 1.6 cm medial left lower pole renal mass. There are atherosclerotic calcificat ions of the aorta. No lymphadenopathy. There is persistent apple core type lesion of the mid transverse colon measuring approximately 3 cm i n length. There is prominent stool in the ascending colon and proximal transverse colon proximal to t he lesion. Urinary bladder is unremarkable. 5.4 cm right adnexal cyst present. No other adnexal mass seen. No as cites. Stable mild compression deformities of L2 and L3 noted. Impression: Colonic adenocarcinoma at the mid transverse colon, measuring approximately 3 cm in length. Prominent stool in the proximal large bowel, which could reflect an element of low-grade or partial bowel obst ruction/impaired transit through the lesion. Hepatic metastatic disease is improved from prior exam, as detailed above. This is compatible with pa rtial response to therapy. 5.4 cm right adnexal cyst. Stable compression deformities of L2 and L3. There is stable 1.6 cm medial left lower pole renal mass , indeterminate. Reviewed, dictated and finalized at location M. Impression: Colonic adenocarcinoma at the mid transverse colon, measuring approximately 3 c m in length. Prominent stool in the proximal large bowel, which could reflect a n element of low-grade or partial bowel obstruction/impaired transit through th e lesion. Hepatic metastatic disease is improved from prior exam, as detailed above. This is compatible with partial response to therapy. 5.4 cm right adnexal cyst. Stable compression deformities of L2 and L3. There is stable 1.6 cm medial left lower pole renal mass, indeterminate.
[2023-03-19 08:32] LABS: Estimated Glomerular Filt Rate 51
== END 2023-03-19 07:47 | disposition home or self-care (01) ==
LOC: CHSIMG 07:49
PROVIDERS: PCP Family Medicine; Visit Provider Internal Medicine Hematology & Oncology
DX: C18.9 Malignant neoplasm of colon, unspecified (principal); C78.7 Secondary malignant neoplasm of liver and intrahepatic bile duct; N83.8 Other noninflammatory disorders of ovary, fallopian tube and broad ligament; M48.56XA Collapsed vertebra, not elsewhere classified, lumbar region, initial encounter for fracture; N28.89 Other specified disorders of kidney and ureter
CPT/HCPCS: 71260; 74177; 74183; A9577; Q9967

== ENCOUNTER 2023-03-26 10:40 | Outpatient (CLI) | payer MEDICARE, SELFPAY ==
[2023-03-26 11:41] LABS: Alanine Aminotransferase 13 U/L (14-59); Albumin Level 3.4 g/dL (3.4-5.0); Alkaline Phosphatase 83 U/L (46-116); Aspartate Amino Transferase 19 U/L (15-37); Bilirubin Direct 0.1 mg/dL (0-0.2); Bilirubin,Total 0.4 mg/dL (0.00-1.00); Thyroid Stimulating Hormone 4.22 uIU/mL (0.36-3.74); Total Protein 6.8 g/dL (6.4-8.2)
[2023-04-03 06:07] LABS: CA 19-9 33 U/mL (<34)
[2023-04-04 06:51] LABS: Carcinoembryonic Antigen 2.9 ng/mL (<2.5)
== END 2023-03-26 10:41 | disposition home or self-care (01) ==
LOC: CHSLAB 10:48
PROVIDERS: PCP Family Medicine
DX: C78.7 Secondary malignant neoplasm of liver and intrahepatic bile duct (principal); C18.9 Malignant neoplasm of colon, unspecified; Z79.899 Other long term (current) drug therapy
CPT/HCPCS: 36415; 80076; 80164; 82378; 84443; 86301

== ENCOUNTER 2023-05-21 11:15 | Outpatient (CLI) | payer MEDICARE, SELFPAY | END 2023-05-21 11:16 | disposition home or self-care (01) | LOC: ANHBWCLAB 11:17 | PROVIDERS: PCP Nurse Practitioner Adult Health; Visit Provider Nurse Practitioner Adult Health | DX: E03.9 Hypothyroidism, unspecified (principal) | CPT/HCPCS: 36415; 84443 ==

== ENCOUNTER 2023-08-06 14:38 | Outpatient (CLI) | payer MEDICARE, SELFPAY ==
--- NOTE | ~2023-08-06 | CT_ITS ---
EXAMINATION: CT brain w con DATE: 08/06/2023 15:20 INDICATION: Dizziness. Headache. Numbness and tingling of hands, primarily on the right TECHNIQUE: Computed tomography (CT) of the head was performed without and subsequently with 100 CC Om nipaque 350 intravenous contrast. The mA was adjusted according to patient size. Iterative reconstruc tion technique was employed. Exam dose: 1362.00 mGy-cm total exam DLP. COMPARISON: None FINDINGS: Bilateral carotid siphon internal carotid artery calcifications. No intracranial mass lesion or hemorrhage or cerebrovascular accident is detected. No midline shift o r mass effect. Normal ventricular size. No subdural or epidural hematoma. The mastoid air cells and included paranasal sinuses are normally developed and aerated. Bilateral hyperostosis frontalis interna, which is not likely of any clinical significance. No skull fracture or bone destruction is detected. IMPRESSION: Cerebral atherosclerosis No significant intracranial abnormality Reviewed, dictated and finalized at Location A. Reviewed, dictated and finalized at location L. UNDER
== END 2023-08-06 14:39 | disposition home or self-care (01) ==
PROVIDERS: PCP Family Medicine; Visit Provider Internal Medicine Hematology & Oncology
DX: R42 Dizziness and giddiness (principal); I67.2 Cerebral atherosclerosis
CPT/HCPCS: 70460; 99212; G0463; Q9967

== ENCOUNTER 2023-08-10 14:39 | Emergency (ER) | payer MEDICARE, SELFPAY ==
--- NOTE | ~2023-08-10 | CT_ITS ---
EXAMINATION: CT orbit BI w con DATE: 08/10/2023 15:59 INDICATION: Right eye redness and swelling TECHNIQUE: High resolution computed tomography (CT) of the bilateral orbits was performed with 75 mL Omnipaque-350 intravenous contrast. Additional sagittal and coronal reconstructions were performed. A utomated exposure control and iterative reconstruction technique were employed. The dose-length produ ct was 282.77 mGy-cm. COMPARISON: Head CT dated 08/06/2023 FINDINGS: Mild preseptal soft tissue swelling and subcutaneous edema at the right orbit. Bilateral orbits appea r otherwise unremarkable with intact appearing globes and no post septal inflammatory stranding. No a bscess. Visualized portion of the brain are unremarkable. Small amount of atherosclerotic calcific a cyst without hemodynamically significant stenosis at the bilateral carotid siphons. Mild mucosal thic kening the bilateral ethmoid and maxillary sinuses. IMPRESSION: 1. Nonspecific mild preseptal inflammatory stranding and subcutaneous edema at the right orbit which could be seen with synovitis. No abscess or post septal stranding. Reviewed, dictated and finalized at location A. 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 Nonspecific mild preseptal inflammatory stranding and subcutaneous edema at the right orbit which could be seen with synovitis. No abscess or post septal s tranding.
[2023-08-10 14:39] VITALS: BP 132/84; PULSE 75; RESP 20; TEMP 36.6; O2SAT 96
--- NOTE | 2023-08-10 14:53 | ED.EYEPROB ---
HPI - Eye Problem General Chief complaint: Eye Problems Stated complaint: right eye redness and swelling Time Seen by Provider: 08/10/23 14:47 Source: patient and family (spouse) Mode of arrival: ambulatory Limitations: no limitations History of Present Illness HPI Narrative: 72 year old female presents to the Emergency Department complaining of right periorbital redness and swelling. Onset 5 days ago. Was started on Acyclovir yesterday for suspected shingles. Patient has a history of colon cancer with liver mets. She is currently on chemotherapy. Denies any visual problems. Periorbital region is tender to touch. Has had a little mattering from corner of eye. Patient was given Rx for Acyclovir that she started yesterday. States it is getting worse. chief complaint: eye redness Onset (ago): day(s) (5) Duration: constant Location: right eye Eye Symptoms: redness Severity: moderate Associated symptoms: none Treatments Prior to Arrival: other (acyclovir) Related Data Home Medications Medication Instructions Recorded Confirmed levothyroxine 75 mcg tablet 75 mcg PO DAILY 10/03/19 08/10/23 quetiapine 300 mg tablet 300 mg PO HS 10/03/19 08/10/23 divalproex 250 mg tablet,delayed 250 mg PO Q12H 08/02/20 08/10/23 release omega-3 fatty acids 1,000 mg 1,000 mg PO DAILY 08/02/20 08/10/23 capsule (Fish Oil Concentrate) sertraline 50 mg tablet 50 mg PO DAILY 07/24/22 08/10/23 trifluoperazine 5 mg tablet 5 mg PO BID 07/24/22 08/10/23 acyclovir 400 mg tablet 400 mg PO TID 08/10/23 08/10/23 gabapentin 300 mg capsule 300 mg PO DAILY 08/10/23 08/10/23 Allergies Allergy/AdvReac Type Severity Reaction Status Date / Time Penicillins Allergy Intermediate HIVES/RASH Verified 08/10/23 14:57 Review of Systems Review of Systems: All systems reviewed & are unremarkable except as noted in HPI and below Constitutional: Constitutional: Reports as per HPI, Reports no additional constitutional complaints, Denies chills and Denies fever(s) Eyes: Eyes: Reports as per HPI and Denies change in vision Comments: redness and right periorbital swelling ENT: Reports system reviewed and no additional complaints, except as documented, Denies nasal congestion and Denies sore throat Cardiovascular: Cardiovascular: Reports as per HPI Respiratory: Respiratory: Reports as per HPI Gastrointestinal: Gastrointestinal: Reports as per HPI Genitourinary: Genitourinary: Reports no additional female genitourinary complaints Musculoskeletal: Musculoskeletal: Reports no additional musculoskeletal complaints Neurologic: Reports system reviewed and no additional complaints, except as documented [facility] Past Medical History Medical History Adenocarcinoma of transverse colon Arthritis Benign tumor of skin of breast Depression Hypothyroid Schizophrenia Seizure disorder Seizure disorder Thyroid disorder Surgical History Surgical History H/O tubal ligation Hx of tonsillectomy Family History Family History Mother COPD (chronic obstructive pulmonary disease) Father No problems noted. Social History Social History Smoking status: Former smoker Alcohol intake: never Substance use: never Substance use type: does not use Lack of Transportation: No Lack of Food: Never True Current Housing: I Have Housing Concerned About Future Housing: No Difficulty Paying Gas/Electric Bills: No Difficulty Paying for Meds: No Currently Unemployed: No Education: Bachelor's Degree Difficulty w/ Childcare or Family Care: No Living arrangements: with family Gender identity (if verbalized by the patient): Female Sexual Orientation (if Verbalized by the Patient): Straight or Heterosexual Spir
[2023-08-10 15:11] LABS: Hematocrit 35.7 % (35.0-42.0); Hemoglobin 11.1 g/dL (11.7-13.8); Immature Platelet Fraction Pct 1.7 % (1.0-7.0); Mean Corpuscular HGB Conc 31.1 g/dL (32.0-36.0); Mean Corpuscular Hemoglobin 30.4 pg (27.0-31.0); Mean Corpuscular Volume 97.8 fL (78.0-102.0); Mean Platelet Volume 9.4 fl (9.2-11.8); Platelet Count Result 99 K/mm3 (150-420); Red Blood Count 3.65 M/mm3 (4.20-5.40); Red Cell Distribution Width 17.4 % (11.6-14.4); White Blood Count 2.6 K/mm3 (4.8-10.8)
[2023-08-10 15:24] LABS: Band Neutrophils Percent 0 % (0-6); Eosinophils Absolute Manual 0.05 K/mm3 (0.02-0.5); Eosinophils Percent Manual 2 % (1-6); Lymphocytes Percent Manual 31 % (18-44); Monocytes Absolute Manual 0.26 K/mm3 (0.1-0.90); Monocytes Percent Manual 10 % (3-9); Neutrophils Absolute Manual 1.48 K/mm3 (1.7-7.2); Neutrophils Percent Manual 57 % (46-73); Platelet Estimate Decreased (Adequate); Total Cells Counted 100
[2023-08-10 15:26] LABS: Alanine Aminotransferase 23 U/L (14-59); Albumin Level 2.9 g/dL (3.4-5.0); Alkaline Phosphatase 68 U/L (46-116); Anion Gap 7 mmol/L (8-16); Aspartate Amino Transferase 21 U/L (15-37); Bilirubin,Total 0.4 mg/dL (0.00-1.00); Blood Urea Nitrogen 17 mg/dL (7-18); Calcium 8.8 mg/dL (8.5-10.1); Carbon Dioxide 31 mmol/L (21-32); Chloride 101 mmol/L (98-108); Estimated CRCL calculation 46 ml/min; Estimated Glomerular Filt Rate 52; Glucose 93 mg/dL (70-99); Osmolality Calculated 289 mOsm/kg (285-295); Potassium 4.3 mmol/L (3.5-5.1); Sodium 139 mmol/L (136-145); Total Protein 6.9 g/dL (6.4-8.2)
--- NOTE | 2023-08-10 16:12 | PC.NURSE ---
PT IS SITTING ON STRETCHER IN EXAM ROOM WITH AT BEDSIDE. NAD NOTED. PT DENIES ANY NEEDS OR COMPLAINTS. PT REQUESTS SODA, ERP ADVISES TO AWAIT RESULTS, PT INFORMED. WILL CONTINUE TO MONITOR.
[2023-08-10 16:40] VITALS: BP 134/79; PULSE 72; RESP 18; O2SAT 99
== END 2023-08-10 16:40 | disposition home or self-care (01) ==
PROVIDERS: Emergency Provider Emergency Medicine; PCP Family Medicine
DX: L03.811 Cellulitis of head [any part, except face] (principal); B02.39 Other herpes zoster eye disease; E03.9 Hypothyroidism, unspecified; F32.A Depression, unspecified; Z79.899 Other long term (current) drug therapy; Z87.891 Personal history of nicotine dependence
CPT/HCPCS: 36415; 70481; 80053; 85025; 85055; 99284; Q9967

== ENCOUNTER 2023-09-28 09:45 | Outpatient (CLI) | payer MEDICARE, SELFPAY ==
--- NOTE | ~2023-09-28 | CT_ITS ---
EXAMINATION: CT chest abdomen pelvis w con DATE: 09/28/2023 10:17 INDICATION: Malignant neoplasm of colon. TECHNIQUE: Computed tomography (CT) of the chest, abdomen, and pelvis was performed without intraveno us contrast. Automated exposure control and iterative reconstruction technique were employed. The dos e-length product was 809.59 mGy-cm. COMPARISON: CT 03/19/2023 FINDINGS: CHEST CT: The lungs demonstrate mild atelectasis. No pleural effusion. The heart size is normal. There are linda nary artery calcifications. No pericardial effusion. There is a right internal jugular port with tip in right atrium. There are hemangiomas in T9, T10, and L1 vertebral bodies. There is moderate thoraci c spondylosis. ABDOMEN/PELVIS CT: There are 4 hypodense masses in the liver. For example, a 3.9 cm mass in left hepatic lobe measured 1 .1 cm on 03/09/2023. A 4.1 cm mass in left hepatic lobe measured 0.6 cm on 03/19/2023. Calcifications i n the spleen are consistent with old granulomatous disease. There is a 14 mm cyst in the spleen. The gallbladder, pancreas, and adrenal glands are normal. There is cortical thinning of the kidneys. Ther e is a 16 mm cyst in left kidney. There are no dilated loops of bowel. There is diverticulosis of the colon without evidence of diverticulitis. There are changes of right hemicolectomy. There is calcifi ed atherosclerosis of the aorta and many of the other arteries. There are no pathologically enlarged lymph nodes. There is no free intraperitoneal fluid. There is a 5.7 cm cyst in the right ovary. There are chronic burst fractures of L2 and L3. There is mild lumbar spondylosis. IMPRESSION: 1. Worsened liver masses, consistent with metastatic disease. 2. Stable 5.7 cm cyst in right ovary, likely benign. Pelvis ultrasound is recommended in one year. Reviewed, dictated and finalized at location A. IMPRESSION: 1. Worsened liver masses, consistent with metastatic disease. 2. Stable 5.7 cm cyst in right ovary, likely benign. Pelvis ultrasound is recom mended in one year.
[2023-09-28 11:01] LABS: Basophils Percent Auto 0.3 % (0.2-1.2); Eosinophils Absolute Auto 0.1 K/mm3 (0-0.3); Eosinophils Percent Auto 1.8 % (0-4.4); Hemoglobin 11.3 g/dL (12.0-15.0); Immature Granulocyte Absolute 0.02 K/mm3 (0.00-0.031); Immature Granulocyte Percent A 0.5 % (0-0.5); Lymphocytes Absolute Auto 1.56 K/mm3 (0.9-3.2); Lymphocytes Percent Auto 39.1 % (18.3-44.2); Mean Corpuscular HGB Conc 31.4 g/dl (32-36); Mean Corpuscular Volume 105.3 fl (80-100); Mean Platelet Volume 8.9 fl (7.4-10.4); Monocytes Absolute Auto 0.2 K/mm3 (0.1-0.6); Monocytes Percent Auto 5.5 % (2.6-8.5); Neutrophils Absolute Auto 2.1 K/mm3 (1.3-6.7); Neutrophils Percent Auto 52.8 % (45.5-73.1); Platelet Count Result 100 k/mm3 (150-375); Red Blood Count 3.42 M/mm3 (4.2-5.4); Red Cell Distribution Width 15.5 % (11.5-14.5)
[2023-09-28 11:12] LABS: Alanine Aminotransferase 13 U/L (6-35); Albumin Level 3.7 g/dL (3.5-5.1); Alkaline Phosphatase 80 U/L (38-126); Anion Gap 3 mmol/L (8-16); Aspartate Amino Transferase 25 U/L (14-36); Bilirubin,Total 0.6 mg/dL (0.2-1.3); Blood Urea Nitrogen 19 mg/dL (7-17); Calcium 9.5 mg/dL (8.4-10.2); Carbon Dioxide 32 mmol/L (22-30); Chloride 103 mmol/L (98-107); Estimated Glomerular Filt Rate > 60; Glucose 96 mg/dL (65-110); Potassium 4.6 mmol/L (3.4-5.0); Sodium 138 mmol/L (137-145)
[2023-09-28 11:42] LABS: Carcinoembryonic Antigen 6.2 ng/mL (0.0-3.0)
[2023-09-28 11:48] LABS: Hypochromasia 1+ (NORMAL); Schistocytes None Seen (NORMAL)
[2023-09-28 11:49] LABS: Microcytosis 1+ (NORMAL)
== END 2023-09-28 09:46 | disposition home or self-care (01) ==
PROVIDERS: PCP Family Medicine; Visit Provider Internal Medicine Hematology & Oncology
DX: C18.9 Malignant neoplasm of colon, unspecified (principal); N83.201 Unspecified ovarian cyst, right side
CPT/HCPCS: 36415; 71260; 74177; 80053; 82378; 85025; Q9967

== ENCOUNTER 2023-10-25 13:13 | Emergency (ER) | payer MEDICARE, SELFPAY ==
[2023-10-25 13:24] VITALS: BP 110/60; PULSE 89; RESP 20; TEMP 36.8; O2SAT 97
--- NOTE | 2023-10-25 13:55 | ED.URI ---
HPI - URI/Sore Throat General Chief Complaint: Upper Respiratory Infection Stated Complaint: Congestion/Cough History of Present Illness HPI Narrative: Patient presents with cough nasal congestion and bilateral ear pain. No shortness of breath no chest pain patient also complains of sore throat but no trouble swallowing no drooling. Related Data Home Medications Medication Instructions Recorded Confirmed levothyroxine 75 mcg tablet 75 mcg PO DAILY 10/03/19 10/23/23 divalproex 250 mg tablet,delayed 250 mg PO Q12H 08/02/20 10/23/23 release omega-3 fatty acids 1,000 mg 1,000 mg PO DAILY 08/02/20 10/23/23 capsule (Fish Oil Concentrate) trifluoperazine 5 mg tablet 5 mg PO BID 07/24/22 10/23/23 gabapentin 300 mg capsule 300 mg PO DAILY 08/10/23 10/23/23 Metamucil 1 tbsp PO DAILY 09/22/23 10/23/23 Allergies Allergy/AdvReac Type Severity Reaction Status Date / Time Penicillins Allergy Intermediate HIVES/RASH Verified 10/23/23 12:40 Review of Systems Review of Systems: CONSTITUTIONAL: Denies chills, or sweats. Reports fever and generalized body aches EYES: Denies visual changes, redness, or discharge. ENT: Denies otalgia. Reports nasal congestion runny nose and sore throat CARDIOVASCULAR: Denies chest pain, palpitations, or edema. RESPIRATORY: Denies dyspnea. Reports occasional cough GASTROINTESTINAL: Denies abdominal pain, nausea, vomiting, or diarrhea. GENITOURINARY: Denies dysuria or hematuria. SKIN: Denies rash or itching. MUSCULOSKELETAL: Denies back pain, joint pain, or myalgia. Reports generalized body aches NEUROLOGIC: Denies headache, numbness, or weakness. PSYCHIATRIC: Denies anxiety or depression. [facility] Past Medical History Medical History Adenocarcinoma of transverse colon Arthritis Benign tumor of skin of breast Depression Hypothyroid Schizophrenia Seizure disorder Seizure disorder Thyroid disorder Surgical History Surgical History H/O tubal ligation Hx of tonsillectomy Family History Family History Mother COPD (chronic obstructive pulmonary disease) Father No problems noted. Social History Social History Smoking status: Former smoker Alcohol intake: never Substance use: never Substance use type: does not use Lack of Transportation: No Lack of Food: Never True Current Housing: I Have Housing Concerned About Future Housing: No Difficulty Paying Gas/Electric Bills: No Difficulty Paying for Meds: No Currently Unemployed: No Education: Bachelor's Degree Difficulty w/ Childcare or Family Care: No Living arrangements: with family Gender identity (if verbalized by the patient): Female Sexual Orientation (if Verbalized by the Patient): Straight or Heterosexual Spiritual care concerns: No Comments At time of signature, agree with nursing past medical, surgical, social and family history. There is no relevant family history pertinent to the presenting complaint Exam Narrative: The patient is a well-developed, well-nourished in no acute distress. SKIN: Skin is warm and dry without erythema, swelling or exudate. There is good turgor. No tenting. HEAD: Atraumatic. Normocephalic. No temporal or scalp tenderness. EYES: Moist and bright. Sclera and conjunctivae normal. No discharge. PERRLA. Extraocular motions intact. Gross visual acuity intact. EARS: Pinna is normal shape and contour. Clear external auditory canals. TM pearly greenfield with good cone of light, no erythema or suppuration. Bilateral cerumen noted no gross hearing deficit. NOSE: pink, moist mucosa with good air movement. Clear rhinorrhea without nasal flaring. Septum midline. Mouth: moist mucous membranes. THROAT; mild erythema noted to posterior oropha
== END 2023-10-25 14:30 | disposition home or self-care (01) ==
PROVIDERS: Emergency Provider Nurse Practitioner Family; PCP Family Medicine
DX: J32.9 Chronic sinusitis, unspecified (principal); J40 Bronchitis, not specified as acute or chronic; J02.9 Acute pharyngitis, unspecified; Z87.891 Personal history of nicotine dependence; M19.90 Unspecified osteoarthritis, unspecified site; E03.9 Hypothyroidism, unspecified; G40.909 Epilepsy, unspecified, not intractable, without status epilepticus; F20.9 Schizophrenia, unspecified
CPT/HCPCS: 87070; 87804; 87880; 99213; G0463

== ENCOUNTER 2024-01-11 08:55 | Outpatient (CLI) | payer MEDICARE, SELFPAY ==
--- NOTE | ~2024-01-11 | CT_ITS ---
EXAMINATION: CT chest abdomen pelvis w con DATE: 01/11/2024 09:39 INDICATION: Malignant neoplasm of the colon TECHNIQUE: Computed tomography (CT) of the chest, abdomen, and pelvis was performed with 100 mL Omnip aque-350 intravenous contrast. Automated exposure control and iterative reconstruction technique were employed. The dose-length product was 694.45 mGy-cm. COMPARISON: 09/28/2023 FINDINGS: CHEST CT: Right internal jugular central venous port catheter with distal tip at the superior cavoatrial juncti on. 2 mm calcified right lower lobe nodule consistent with old granulomatous disease. Additional 3-4 mm noncalcified right lower lobe nodule unchanged since 11/28/2022 also most likely old granulomatous disease. No pneumonia, pulmonary edema or pleural effusion. Heart size is normal. Atherosclerotic cor onary artery calcification. No pericardial effusion. Thoracic aorta is normal in caliber with no diss ection. No pathologically enlarged thoracic lymphadenopathy. T6, T9, T10 and L1 hemangiomas. ABDOMEN/PELVIS CT: No significant interval change in size of 4 hypodense hepatic masses which currently measures 3.5 cm, 3.4 cm, 16 mm and 15 mm with prior measurements of 3.6 cm, 3.6 cm, 1.7 cm and 1.5 cm respectively. U nchanged 1.5 cm low-attenuation likely cyst in the spleen. Gallbladder, pancreas, bilateral adrenal g lands and right kidney are normal. Unchanged 1.5 cm cyst in the left kidney. Postoperative change of a proximal right hemicolectomy with ileocolic anastomosis in the right abdomen. There are several sca ttered colonic diverticula without adjacent inflammatory stranding to suggest diverticulitis. No cassy l obstruction. Decompressed bladder is normal. Bilateral adnexal cysts measuring 5.5 cm on the right and 1.4 cm on the left. Small likely tubal ligation rings along the bilateral ovaries. Anteverted ruddy krzysztof is normal. No free intraperitoneal gas or fluid. No pathologically enlarged abdominal or pelvic l ymphadenopathy. Mild lumbar spondylosis with chronic L2 and L3 compression fractures. IMPRESSION: 1. No interval change in several previously enlarging hepatic masses consistent with stable metastati c disease. 2. No interval change in a 5.5 similar right-sided and 1.4 cm left-sided adnexal cyst. Reviewed, dictated and finalized at location B. IMPRESSION: 1. No interval change in several previously enlarging hepatic masses consistent with stable metastatic disease. 2. No interval change in a 5.5 similar right-sided and 1.4 cm left-sided adnexa l cyst.
== END 2024-01-11 08:56 | disposition home or self-care (01) ==
LOC: CHSIMG 08:58
PROVIDERS: PCP Family Medicine; Visit Provider Internal Medicine Hematology & Oncology
DX: C18.9 Malignant neoplasm of colon, unspecified (principal); R16.0 Hepatomegaly, not elsewhere classified
CPT/HCPCS: 71260; 74177; Q9967

== ENCOUNTER 2024-05-04 00:43 | Day surgery (SDC) | payer MEDICARE, SELFPAY ==
[2024-05-04 11:05] VITALS: BP 139/76; PULSE 79; RESP 18; TEMP 36; O2SAT 95; BMI 30.2
[2024-05-04] MEDS: LACTATED RINGERS 1,000 ML 150 ML IV CONT (11:25)
--- NOTE | 2024-05-04 11:40 | PM.HPGS ---
History of Present Illness History of Present Illness Consent: Risks, benefits, and alternatives have been discussed and questions answered. Patient agrees to proceed with procedure. Chief complaint: history of cancer Narrative: Quinton Mckeon is a 73 year old female with colon cancer 2022 s/p rt hemicolectomy, liver mets currently on chemotherapy Review of Systems Review of Systems: All systems reviewed & are unremarkable except as noted in HPI and below PMFSH Past Medical History Medical History Adenocarcinoma of transverse colon Arthritis Benign tumor of skin of breast Depression Hypothyroid Schizophrenia Seizure disorder Seizure disorder Thyroid disorder Surgical History Surgical History H/O tubal ligation Hx of tonsillectomy Family History Family History Mother COPD (chronic obstructive pulmonary disease) Father No problems noted. Social History Social History Smoking status: Never smoker Alcohol intake: never Substance use: never Substance use type: does not use Lack of Transportation: No Lack of Food: Never True Current Housing: I Have Housing Concerned About Future Housing: No Difficulty Paying Gas/Electric Bills: No Difficulty Paying for Meds: No Currently Unemployed: No Education: Bachelor's Degree Difficulty w/ Childcare or Family Care: No Living arrangements: with family Gender identity (if verbalized by the patient): Female Sexual Orientation (if Verbalized by the Patient): Straight or Heterosexual Spiritual care concerns: No Meds Home Medications and Allergies Home Medications Medication Instructions Recorded Confirmed Type levothyroxine 75 mcg tablet 75 mcg PO DAILY 10/03/19 05/04/24 History divalproex 250 mg tablet,delayed 250 mg PO Q12H 08/02/20 05/04/24 History release omega-3 fatty acids 1,000 mg 1,000 mg PO DAILY 08/02/20 05/04/24 History capsule (Fish Oil Concentrate) trifluoperazine 5 mg tablet 5 mg PO BID 07/24/22 05/04/24 History gabapentin 300 mg capsule 300 mg PO DAILY 08/10/23 05/04/24 History Metamucil 1 tbsp PO DAILY 09/22/23 05/04/24 History acyclovir 200 mg capsule 400 mg PO DAILY 10/25/23 05/04/24 History cholestyramine (with sugar) 4 gram See Rx Instructions .Route 10/25/23 05/04/24 History oral powder .COMPLEX PRN Diarrhea quetiapine 200 mg tablet 200 mg PO DAILY 10/25/23 05/04/24 History sertraline 100 mg tablet 100 mg PO DAILY 10/25/23 05/04/24 History Allergies Allergy/AdvReac Type Severity Reaction Status Date / Time Penicillins Allergy Intermediate HIVES/RASH Verified 05/04/24 11:12 Vital Signs Vital Signs - 24 hr 05/04/24 11:05 Temperature 96.8 F L Pulse Rate 79 Respiratory Rate 18 Blood Pressure 139/76 Pulse Oximetry 95 Oxygen Delivery Room Air Exam Const: General: comfortable and no acute distress HENMT: Face/Nose/Sinus: Normal nares present Eyes: General: appearance normal, both eyes and all related structures Neck: Neck: no JVD Resp: Auscultation: clear to auscultation bilaterally Cardio: Rate: regular rate Rhythm: regular rhythm GI: Inspection: non-distended GI Palp: Yes Soft to palpation Skin: General skin exam: normal color Neuro: General: gait normal Speech: normal speech Extrem: General: normal to inspection Psych: Mental Status: mental status grossly normal Assessment and Plan Assessment and plan (1) Malignant neoplasm of colon, unspecified: Code(s): C18.9 - Malignant neoplasm of colon, unspecified Status: Acute Assessment and Plan: colonoscopy
--- NOTE | 2024-05-04 11:44 | WPDANESEPPF ---
Anes - Initial Pre Proc Eval Procedure: Operation Date: 05/04/24 12:30 Proposed Procedures p Colonoscopy - Vinayak Sharp MD Date/Time: 05/04/24 11:44 Surgeon: Vinayak Sharp MD Pre Op Diagnosis: history of cancer Patient Data Age: 73 Gender: F Height: 1.68 m Weight: 85 kg Last Vital Signs Temp 36.0 C L 05/04/24 11:05 Pulse 79 05/04/24 11:05 Resp 18 05/04/24 11:05 BP 139/76 05/04/24 11:05 Pulse Ox 95 05/04/24 11:05 O2 Del Method Room Air 05/04/24 11:05 Allergies Allergy/AdvReac Type Severity Reaction Status Date / Time Penicillins Allergy Intermediate HIVES/RASH Verified 05/04/24 11:12 Home Medications Medication Instructions Recorded Confirmed Type levothyroxine 75 mcg tablet 75 mcg PO DAILY 10/03/19 05/04/24 History divalproex 250 mg tablet,delayed 250 mg PO Q12H 08/02/20 05/04/24 History release omega-3 fatty acids 1,000 mg 1,000 mg PO DAILY 08/02/20 05/04/24 History capsule (Fish Oil Concentrate) trifluoperazine 5 mg tablet 5 mg PO BID 07/24/22 05/04/24 History gabapentin 300 mg capsule 300 mg PO DAILY 08/10/23 05/04/24 History Metamucil 1 tbsp PO DAILY 09/22/23 05/04/24 History acyclovir 200 mg capsule 400 mg PO DAILY 10/25/23 05/04/24 History cholestyramine (with sugar) 4 gram See Rx Instructions .Route 10/25/23 05/04/24 History oral powder .COMPLEX PRN Diarrhea quetiapine 200 mg tablet 200 mg PO DAILY 10/25/23 05/04/24 History sertraline 100 mg tablet 100 mg PO DAILY 10/25/23 05/04/24 History Patient hx anesthesia problems: none Family hx anesthesia problems: none Results Review: All pre-operative results and documents have been reviewed as part of the pre-operative evaluation. [facility] Past Medical History Medical History Adenocarcinoma of transverse colon Arthritis Benign tumor of skin of breast Depression Hypothyroid Schizophrenia Seizure disorder Seizure disorder Thyroid disorder Surgical History Surgical History H/O tubal ligation Hx of tonsillectomy Family History Family History Mother COPD (chronic obstructive pulmonary disease) Father No problems noted. Social History Social History Smoking status: Never smoker Alcohol intake: never Substance use: never Substance use type: does not use Lack of Transportation: No Lack of Food: Never True Current Housing: I Have Housing Concerned About Future Housing: No Difficulty Paying Gas/Electric Bills: No Difficulty Paying for Meds: No Currently Unemployed: No Education: Bachelor's Degree Difficulty w/ Childcare or Family Care: No Living arrangements: with family Gender identity (if verbalized by the patient): Female Sexual Orientation (if Verbalized by the Patient): Straight or Heterosexual Spiritual care concerns: No Anes - Eval Final PreProcedure Day of Procedure 05/04/24 11:44 Patient weight: normal Heart: regular rate and rhythm Lungs: clear to auscultation Airway: Mallampati scale class II Neurological: alert and oriented Last oral intake: >/= 8 hours ASA classification: III Emergent: no Anesthetic plan: proceed Anesthesia type and monitoring: general GIVS and standard monitoring Results Review: All pre-operative results and documents have been reviewed as part of the pre-operative evaluation. Informed Consent: The patient's anesthetic plan and its attendant risks and benefits were discussed with the patient/family/POA. Questions were solicited and answers provided to the satisfaction of the patient/family/POA.
[2024-05-04 12:03] VITALS: BP 108/66; BP 131/69; PULSE 58; PULSE 60; RESP 16; RESP 17; O2SAT 96; O2SAT 97
[2024-05-04 12:13] VITALS: BP 126/66; PULSE 60; RESP 15; O2SAT 98
== END 2024-05-04 12:40 | disposition home or self-care (01) ==
PROVIDERS: PCP Family Medicine; Visit Provider Internal Medicine Gastroenterology
PROC: 0DJD8ZZ Inspection of Lower Intestinal Tract, Via Natural or Artificial Opening Endoscopic (ICD-10-PCS; CPT 45378; principal; 2024-05-04 12:30)
DX: Z08 Encounter for follow-up examination after completed treatment for malignant neoplasm (principal); K57.30 Diverticulosis of large intestine without perforation or abscess without bleeding; F32.A Depression, unspecified; E03.9 Hypothyroidism, unspecified; F20.9 Schizophrenia, unspecified; G40.909 Epilepsy, unspecified, not intractable, without status epilepticus; E07.9 Disorder of thyroid, unspecified; Z79.630 Long term (current) use of alkylating agent; Z98.890 Other specified postprocedural states; Z98.51 Tubal ligation status; Z90.49 Acquired absence of other specified parts of digestive tract; Z98.0 Intestinal bypass and anastomosis status; Z85.038 Personal history of other malignant neoplasm of large intestine
CPT/HCPCS: 45378; J2003; J2704; J7120

== ENCOUNTER 2024-06-25 16:36 | Emergency (ER) | payer MEDICARE, SELFPAY ==
--- NOTE | ~2024-06-25 | CT_ITS ---
EXAMINATION: CT abdomen pelvis w con DATE: 06/25/2024 18:30 INDICATION: Right lower quadrant abdominal pain. Constipation. TECHNIQUE: Computed tomography (CT) of the abdomen and pelvis was performed with 100 mL Omnipaque 350 intravenous contrast. Automated exposure control and iterative reconstruction technique were employe d. The dose-length product was 690.54 mGy-cm. COMPARISON: CT abdomen and pelvis 01/11/2024 FINDINGS: The visualized portions of the lung bases demonstrate moderate atelectasis. No pleural effu heike. The heart size is normal. There are coronary artery calcifications. No pericardial effusion. Th ere is a 3.2 x 1.9 cm mass in left hepatic lobe. There is a 3.6 x 3.5 cm mass in left hepatic lobe. T here is a mass in right hepatic lobe measuring 5.3 x 3.4 x 14.3 cm with foci of gas. Calcifications i n the spleen are consistent with old granulomatous disease. There is a 1.6 cm cyst in the spleen. The gallbladder, pancreas, and adrenal glands are normal. There are cysts in the kidneys measuring up to 14 mm on the left. There is a 4.5 cm cyst in the right adnexa. The endometrial complex is thickened to 8 mm. There are changes of right hemicolectomy. There are multiple dilated loops of small bowel wi th gradual transition to normal caliber small bowel before the ileocolic anastomosis. There is a smal l volume of perihepatic ascites. There are no pathologically enlarged lymph nodes. There are chronic compression fractures of L2 on L3. There are hemangiomas in L1, T10, and T9 vertebral bodies. There i s severe degenerative disc disease at L2-L3 and mild degenerative disc disease at other levels. IMPRESSION: 1. Stable masses in left hepatic lobe, consistent with metastatic disease. 2. Large mass with foci of gas in right hepatic lobe, likely changes of ablation procedure. 3. Small volume of perihepatic ascites. 4. Dilated small bowel, likely adynamic ileus. 5. Stable 4.5 cm cyst in the right adnexa, likely benign. Pelvis ultrasound is recommended in one yea r. 6. Thickened endometrial complex. The differential diagnosis includes endometrial hyperplasia, polyp, and carcinoma. Consider biopsy. Reviewed, dictated and finalized at location A. AL MARKETING MANAGER IMPRESSION: 1. Stable masses in left hepatic lobe, consistent with metastatic disease. 2. Large mass with foci of gas in right hepatic lobe, likely changes of ablatio n procedure. 3. Small volume of perihepatic ascites. 4. Dilated small bowel, likely adynamic ileus. 5. Stable 4.5 cm cyst in the right adnexa, likely benign. Pelvis ultrasound is recommended in one year. 6. Thickened endometrial complex. The differential diagnosis includes endometri al hyperplasia, polyp, and carcinoma. Consider biopsy.
[2024-06-25 16:39] VITALS: BP 161/94; PULSE 109; RESP 20; TEMP 36.9; O2SAT 91
[2024-06-25 17:45] LABS: Hematocrit 38.7 % (35.0-42.0); Hemoglobin 12.5 g/dL (11.7-13.8); Immature Granulocyte Absolute 0.01 K/mm3 (0.00-0.00); Immature Granulocyte Percent A 0.2 % (0.0-0.0); Lymphocytes Absolute Auto 0.43 K/mm3 (1.10-4.50); Lymphocytes Percent Auto 6.6 % (18.0-42.0); Mean Corpuscular HGB Conc 32.3 g/dL (32-36); Mean Corpuscular Hemoglobin 33.1 pg (27.0-31.0); Mean Corpuscular Volume 102.4 fL (78.0-102.0); Mean Platelet Volume 10.1 fl (9.2-11.8); Monocytes Absolute Auto 0.81 K/mm3 (0.10-0.90); Monocytes Percent Auto 12.5 % (2.0-11.0); Neutrophils Absolute Auto 5.22 K/mm3 (1.70-7.20); Neutrophils Percent Auto 80.7 % (50.0-70.0); Platelet Count Result 146 K/mm3 (150-420); Red Blood Count 3.78 M/mm3 (4.20-5.40); White Blood Count 6.5 K/mm3 (4.8-10.8)
[2024-06-25 17:57] LABS: Partial Thromboplastin Time 30.8 Sec (23.9-30.70); Prothrombin Time 10.6 Seconds (9.50-12.1)
[2024-06-25 18:00] VITALS: BP 139/78; PULSE 79; RESP 18; TEMP 36.7; O2SAT 97
[2024-06-25 18:01] LABS: Lactic Acid Reflex 0.9 mmol/L (0.4-2.0)
[2024-06-25 18:09] LABS: Alanine Aminotransferase 133 U/L (14-59); Albumin Level 2.5 g/dL (3.4-5.0); Alkaline Phosphatase 117 U/L (46-116); Anion Gap 5 mmol/L (4-12); Aspartate Amino Transferase 55 U/L (15-37); Bilirubin,Total 0.5 mg/dL (0.00-1.00); Blood Urea Nitrogen 20 mg/dL (7-18); Calcium 9.8 mg/dL (8.5-10.1); Carbon Dioxide 36 mmol/L (21-32); Chloride 99 mmol/L (98-108); Estimated CRCL calculation 43 ml/min; Estimated Glomerular Filt Rate 46; Glucose 156 mg/dL (70-99); Lipase 11 U/L (16-77); Osmolality Calculated 295 mOsm/kg (285-295); Potassium 4.2 mmol/L (3.5-5.1); Sodium 140 mmol/L (136-145); Total Protein 6.7 g/dL (6.4-8.2)
--- NOTE | 2024-06-25 18:48 | ED_ITS ---
HPI - Abdominal Pain General Chief Complaint: Abdominal Pain Stated Complaint: pt. states no bowel movement in 4 days Time Seen by Provider: 06/25/24 16:39 Source: patient and family Mode of arrival: ambulatory Limitations: no limitations History of Present Illness HPI narrative: this is a 73-year-old female with a history of colon cancer with colon resection and metastases to the to the liver and recently had ablation of a metastatic lesion to the liver on Thursday. The patient states that she has been having issues with constipation for the last week. Patient has mild abdominal pain mainly located in the right upper quadrant where she had the ablation, the there is currently no fever chills no nausea vomiting no chest pain or shortness of breath. MD elicited complaint: abdominal pain and other ( constipation) Pertinent past history: constipation Onset (ago): day(s) Pain Consistency: constant Location: RUQ and suprapubic Severity: mild Quality: aching Related Data Home Medications Medication Instructions Recorded Confirmed levothyroxine 75 mcg tablet 75 mcg PO DAILY 10/03/19 06/25/24 divalproex 250 mg tablet,delayed 500 mg PO HS 08/02/20 06/25/24 release omega-3 fatty acids 1,000 mg 1,000 mg PO DAILY 08/02/20 06/25/24 capsule (Fish Oil Concentrate) trifluoperazine 5 mg tablet 5 mg PO BID 07/24/22 06/25/24 Metamucil 1 tbsp PO DAILY 09/22/23 06/25/24 quetiapine 200 mg tablet 200 mg PO DAILY 10/25/23 06/25/24 sertraline 100 mg tablet 100 mg PO DAILY 10/25/23 06/25/24 brexpiprazole 4 mg tablet (Rexulti) 4 mg PO DAILY 06/25/24 06/25/24 cholestyramine (with sugar) 4 gram 1 ea PO DAILY 06/25/24 06/25/24 oral powder diphenoxylate-atropine 2.5 1 tablet PO BID 06/25/24 06/25/24 mg-0.025 mg tablet Allergies Allergy/AdvReac Type Severity Reaction Status Date / Time Penicillins Allergy Intermediate HIVES/RASH Verified 06/25/24 16:46 Review of Systems Review of Systems: All systems reviewed & are unremarkable except as noted in HPI and below PMFSH Past Medical History Medical History Adenocarcinoma of transverse colon Arthritis Benign tumor of skin of breast Depression Hypothyroid Schizophrenia Seizure disorder Seizure disorder Thyroid disorder Surgical History Surgical History H/O tubal ligation Hx of tonsillectomy Family History Family History Mother COPD (chronic obstructive pulmonary disease) Father No problems noted. Social History Social History Smoking status: Never smoker Alcohol intake: never Substance use: never Substance use type: does not use Lack of Transportation: No Lack of Food: Never True Current Housing: I Have Housing Concerned About Future Housing: No Difficulty Paying Gas/Electric Bills: No Difficulty Paying for Meds: No Currently Unemployed: No Education: Bachelor's Degree Difficulty w/ Childcare or Family Care: No Living arrangements: with family Gender identity (if verbalized by the patient): Female Sexual Orientation (if Verbalized by the Patient): Straight or Heterosexual Spiritual care concerns: No Exam Const: General: healthy appearing, no acute distress and alert Nutritional Appearance: well nourished Orientation/consciousness: patient oriented x3 Limitations: no limitations HENMT: Head: normal to inspection Eyes: Conjunctivae: conjunctivae normal Pupils: Equal, round and reactive pupils present Neck: Neck: normal visual inspection Chest: Chest palpation & inspection: normal inspection of the chest Resp: Effort & Inspection: normal respiratory effort Auscultation: clear to auscultation bilaterally Cardio: Rate: regular rate Rhythm: regular rhythm GI: GI Palp: Yes Soft to palpation and Yes Tenderness to palpation present (GI) : General: Yes bladder normal to palpation Urinary Catheter: Urinary Catheter: patent and draining Skin: General skin exam: normal color Rashes: no rashes Neuro: General: patient oriented x3 and moves all extremities Extrem: General: normal to inspection and no clubbing, cyanosis or edema Course Course Emergency Course: Labs performed with no acute abnormality the patient has mild abdominal discomfort with constipation, CT scan performed and reviewed. CT scan performed shows a adynamic ileus of dilated small bowel, large mass foci gas in the right hepatic lobe likely changes from ablation procedure. Patient had blood work which was show a white cell count of 6.5 with a serum sodium of 140 with potassium 4.2. Patient was given IV fluids and Zofran for nausea and 2mg of morphine IV for pain control. Patient accepted for transfer at [facility] and spoke with surgeon which accepted the patient for transfer. Vital Signs Vital signs: Vital Signs Temperature 36.9 C 06/25/24 16:39 Pulse Rate 109 H 06/25/24 16:39 Respiratory Rate 20 06/25/24 16:39 Blood Pressure 161/94 H 06/25/24 16:39 Pulse Oximetry 91 06/25/24 16:39 Oxygen Delivery Room Air 06/25/24 16:39 Temperature 37.3 C 06/25/24 22:30 Pulse Rate 94 06/25/24 22:30 Respiratory Rate 18 06/25/24 22:30 Blood Pressure 144/74 H 06/25/24 22:30 Pulse Oximetry 99 06/25/24 22:30 Oxygen Delivery Room Air 06/25/24 22:30 MDM - Abdominal Pain Lab Data 06/25/24 17:27 06/25/24 17:27 Labs: Lab Results 06/25/24 Range/Units 17:27 WBC 6.5 (4.8-10.8) K/mm3 RBC 3.78 L (4.20-5.40) M/mm3 Hgb 12.5 (11.7-13.8) g/dL Hct 38.7 (35.0-42.0) % MCV 102.4 H (78.0-102.0) fL MCH 33.1 H (27.0-31.0) pg MCHC 32.3 (32-36) g/dL RDW 14.0 (11.6-14.4) % Plt Count 146 L (150-420) K/mm3 MPV 10.1 (9.2-11.8) fl Immature Gran % (Auto) 0.2 H (0.0-0.0) % Neut % (Auto) 80.7 H (50.0-70.0) % Lymph % (Auto) 6.6 L (18.0-42.0) % [place] % (Auto) 12.5 H (2.0-11.0) % Eos % (Auto) 0.0 L (1.0-6.0) % Baso % (Auto) 0.0 (0.0-1.0) % Lymph # (Auto) 0.43 L (1.10-4.50) K/mm3 [place] # (Auto) 0.81 (0.10-0.90) K/mm3 Eos # (Auto) 0.00 L (0.02-0.50) K/mm3 Baso # (Auto) 0.00 (0.00-0.10) K/mm3 Abs Immat Gran (auto) 0.01 H (0.00-0.00) K/mm3 Absolute Neuts (auto) 5.22 (1.70-7.20) K/mm3 Absolute Nucleated RBC 0.00 (0.00-0.00) K/mm3 Nucleated RBC % 0.0 (0-0.0) % PT 10.6 (9.50-12.1) Seconds INR 1.0 APTT 30.8 H (23.9-30.70) Sec Sodium 140 (136-145) mmol/L Potassium 4.2 (3.5-5.1) mmol/L Chloride 99 (98-108) mmol/L Carbon Dioxide 36 H (21-32) mmol/L Anion Gap 5 (4-12) mmol/L BUN 20 H (7-18) mg/dL Creatinine 1.14 H (0.55-1.02) mg/dL Estim Creat Clear Calc 43 ml/min Estimated GFR 46 L (59 - ) Glucose 156 H (70-99) mg/dL Calculated Osmolality 295 (285-295) mOsm/kg Lactic Acid 0.9 (0.4-2.0) mmol/L Calcium 9.8 (8.5-10.1) mg/dL Total Bilirubin 0.5 (0.00-1.00) mg/dL AST 55 H (15-37) U/L ALT 133 H (14-59) U/L Alkaline Phosphatase 117 H (46-116) U/L Total Protein 6.7 (6.4-8.2) g/dL Albumin 2.5 L (3.4-5.0) g/dL Lipase 11 L (16-77) U/L TSH 0.70 (0.36-3.74) uIU/mL Imaging Data Radiologist's impression: ITS Impressions Abdomen/Pelvis CT 06/25/24 19:58 IMPRESSION: 1. Stable masses in left hepatic lobe, consistent with metastatic disease. 2. Large mass with foci of gas in right hepatic lobe, likely changes of ablation procedure. 3. Small volume of perihepatic ascites. 4. Dilated small bowel, likely adynamic ileus. 5. Stable 4.5 cm cyst in the right adnexa, likely benign. Pelvis ultrasound is recommended in one year. 6. Thickened endometrial complex. The differential diagnosis includes endometrial hyperplasia, polyp, and carcinoma. Consider biopsy. Critical Care Time Critical Care Time Critical Care Time: No Discharge Plan Discharge Clinical Impression: Adynamic ileus Patient Disposition: Acute Care Hospital Condition: Stable Prescriptions: No Action Rexulti 4 mg Tablet 4 mg PO DAILY diphenoxylate-atropine 2.5-0.025 mg tablet 1 tablet PO BID cholestyramine (with sugar) 4 gram powder 1 ea PO DAILY sertraline 100 mg tablet 100 mg PO DAILY quetiapine 200 mg tablet 200 mg PO DAILY Metamucil 1 tablespoon 1 tbsp PO DAILY divalproex 250 mg tablet,delayed release (DR/EC) 500 mg PO HS omega-3 fatty acids [Fish Oil Concentrate] 1,000 mg capsule 1,000 mg PO DAILY tramadol 50 mg tablet 50 mg PO BID PRN (Reason: pain) Qty: 60 0RF levothyroxine 75 mcg Tablet 75 mcg PO DAILY Patient Comments: QAHarpreet trifluoperazine 5 mg Tablet 5 mg PO BID Follow-up/Referrals: Randal Horn [Other] Time of Disposition: 22:10
[2024-06-25 18:55] VITALS: BP 148/78; PULSE 93; RESP 20; TEMP 37.1; O2SAT 91
[2024-06-25] MEDS: MORPHINE SULFATE (*CRX) 2 MG/ML INJ IV PUSH (20:40)
[2024-06-25] MEDS: ONDANSETRON INJ 4 MG/2 ML VIAL IV PUSH (20:40)
[2024-06-25] MEDS: SODIUM CHLORIDE 0.9% IV 1,000 ML 999 ML IV CONT (20:41)
--- NOTE | 2024-06-25 22:00 | PC.NURSE ---
family going home, wants updated as soon as we know something. Waiting training and development professional back from [facility] for denial or acceptance. [employer] taking large volume of calls at this time.
--- NOTE | 2024-06-25 22:13 | PC.NURSE ---
called and son, updated on bed assignment and approximate time of departure from unit
[2024-06-25 22:30] VITALS: BP 144/74; PULSE 94; RESP 18; TEMP 37.3; O2SAT 99
--- NOTE | 2024-06-28 12:29 | PC.NURSE ---
preliminary blood cultures x2 reviewed. no growth to date
== END 2024-06-25 23:10 | disposition short-term general hospital (02) ==
PROVIDERS: Emergency Provider Emergency Medicine
DX: K56.0 Paralytic ileus (principal); E03.9 Hypothyroidism, unspecified; Z79.899 Other long term (current) drug therapy
CPT/HCPCS: 36415; 74177; 80053; 83605; 83690; 84443; 85025; 85610; 85730; 87040; 96361; 96374; 96375; 99285; J2270; J2405; J7030; Q9967

== ENCOUNTER 2024-08-04 08:53 | Outpatient (CLI) | payer MEDICARE, SELFPAY ==
--- NOTE | ~2024-08-04 | MR_ITS ---
EXAMINATION: MR abdomen wo/w con DATE: 08/04/2024 10:14 INDICATION: Cancer metastatic to the liver TECHNIQUE: Magnetic resonance imaging (MRI) of the abdomen was performed without and with 18 mL Multi saray intravenous contrast. Sequences included coronal T2-weighted SS-FSE, coronal and axial FS 2D-F IESTA, axial STIR FSE, axial T2-weighted SS-FSE, axial T2-weighted FS SS-FSE, axial diffusion-weighte d SE, axial dual-echo T1-weighted FSPGR, and axial and coronal T1-weighted LAVA. Postcontrast axial T 1-weighted LAVA images were obtained in a time course. Postcontrast coronal T1-weighted LAVA images w ere obtained. COMPARISON: CT dated 06/25/2024 and 01/11/2024 and MR dated 03/19/2023 FINDINGS: Size is normal. No pericardial or pleural effusion. Increase in size since 03/19/2023 and a previously 1.1 cm, currently 1.5 cm T2 hyperintense nonenhancing likely benign cystic lesion in the spleen with no abnormal enhancing soft tissue component. Multiple T2 hyperintense nonenhancing bilateral renal c ysts the largest on the left measuring 1.3 cm the remainder all measuring less than 5 mm. Pancreas, g allbladder and bilateral adrenal glands are normal. There is very thin peripheral rim of enhancement surrounding a large nonenhancing geographic region a long the lateral aspect of the right hepatic lobe which extends 14.4 similar craniocaudally and measu res up to 5.6 x 3.3 cm in maximal transaxial dimension which demonstrates mildly increased T1 signal and decreased T2 signal relative to the surrounding liver which encompasses the region of 2 hypoenhan cing lesions seen on the CT from 01/11/2024 and likely representing necrosis related to interval repor sophie microwave ablation. There are 2 additional nonenhancing masses with similar T1 and T2 signal alexandra racteristics in the segment 3 of the left hepatic lobe. The more cephalad along the lateral margin me asuring 2.7 x 1.6 cm and the more caudal along the ligamentum teres measuring 3.4 x 2.7 cm which also the site of smaller lesions on the prior MRI also consistent with necrosis related to prior ablation . There is a minimal amount of perihepatic ascites. No dilated bowel in the visualized abdomen or pel vis. No pathologically enlarged abdominal or upper pelvic lymphadenopathy. There are T2 hyperintense bilateral adnexal cysts measuring 1.5 similar on the left and incompletely visualized measuring at le ast 4.5 cm on the right. T1 and T2 hyperintense fat saturating hemangioma at T9, T10, L1 and L4 with corresponding typical change of a hemangioma with thickened central trabecula within region of relati ve lucency on the prior CT. No abnormally enhancing bone lesions. IMPRESSION: 1. No enhancement associated with 2 masses in the left hepatic lobe and a large geographic region at the periphery of the right hepatic lobe at the sites of previously enlarging masses consistent with a response to reported prior cryoablation of metastatic disease. No other lesions suspicious for metas tatic disease identified. 2. Minimal perihepatic ascites. Reviewed, dictated and finalized at location B. KAY MACHINE OPERATOR IMPRESSION: 1. No enhancement associated with 2 masses in the left hepatic lobe and a large geographic region at the periphery of the right hepatic lobe at the sites of p reviously enlarging masses consistent with a response to reported prior cryoabl ation of metastatic disease. No other lesions suspicious for metastatic disease identified. 2. Minimal perihepatic ascites.
== END 2024-08-04 08:54 | disposition home or self-care (01) ==
PROVIDERS: Absent Provider Internal Medicine Hematology & Oncology
DX: C78.7 Secondary malignant neoplasm of liver and intrahepatic bile duct (principal)
CPT/HCPCS: 74183; A9577

== ENCOUNTER 2024-09-18 14:40 | Emergency (ER) | payer MEDICARE, SELFPAY ==
[2024-09-18 14:48] VITALS: BP 138/76; PULSE 93; RESP 18; TEMP 36.2; O2SAT 97
--- NOTE | 2024-09-18 14:52 | ED.URI ---
HPI - URI/Sore Throat General Chief Complaint: Upper Respiratory Infection Stated Complaint: Left Ear Problem/Cough Time Seen by Provider: 09/18/24 14:52 Source: patient Mode of arrival: ambulatory Limitations: no limitations History of Present Illness HPI Narrative: 73 year old female presents with concern for 3 day history of cough, runny nose, stuffy nose, decreased hearing in the left ear. Reports she has been taking Mucinex. Denies fever, body aches, chills, sweats MD elicited complaint: cough Related Data Home Medications ?Medication ?Instructions ?Recorded ?Confirmed ?Last Taken ?Type levothyroxine 75 mcg tablet 75 mcg PO DAILY 10/03/19 07/07/24 06/25/24 History divalproex 250 mg tablet,delayed 500 mg PO HS 08/02/20 07/07/24 06/25/24 History release omega-3 fatty acids 1,000 mg 1,000 mg PO DAILY 08/02/20 07/07/24 06/25/24 History capsule (Fish Oil Concentrate) trifluoperazine 5 mg tablet 5 mg PO BID 07/24/22 07/07/24 06/25/24 History Metamucil 1 tbsp PO DAILY 09/22/23 07/07/24 06/25/24 History quetiapine 200 mg tablet 200 mg PO DAILY 10/25/23 07/07/24 06/25/24 History sertraline 100 mg tablet 100 mg PO DAILY 10/25/23 07/07/24 06/25/24 History brexpiprazole 4 mg tablet (Rexulti) 4 mg PO DAILY 06/25/24 08/09/24 06/25/24 History clonazepam 0.5 mg tablet mg 09/18/24 Unknown History Allergies Allergy/AdvReac Type Severity Reaction Status Date / Time Penicillins Allergy Intermediate HIVES/RASH Verified 09/18/24 14:43 Review of Systems Review of Systems: CONSTITUTIONAL: Denies malaise, chills, sweats, or fever. EYES: Denies visual changes, redness, or discharge. ENT: Reports rhinorrhea, congestion, decreased hearing left ear. Denies sinus pain, otalgia and sore throat. CARDIOVASCULAR: Denies chest pain, palpitations, or edema. RESPIRATORY: Reports cough. Denies dyspnea. GASTROINTESTINAL: Denies abdominal pain, nausea, vomiting, diarrhea SKIN: Denies rash or itching. MUSCULOSKELETAL: Denies myalgia. NEUROLOGIC: Denies headache. All systems reviewed & are unremarkable except as noted in HPI and below PMFSH Past Medical History Medical History Adenocarcinoma of transverse colon Arthritis Benign tumor of skin of breast Depression Hypothyroid Schizophrenia Seizure disorder Seizure disorder Thyroid disorder Surgical History Surgical History H/O tubal ligation Hx of tonsillectomy Family History Family History Mother COPD (chronic obstructive pulmonary disease) Father No problems noted. Social History Social History Smoking status: Never smoker Alcohol intake: never Substance use: never Substance use type: does not use Lack of Transportation: No Lack of Food: Never True Current Housing: I Have Housing Concerned About Future Housing: No Difficulty Paying Gas/Electric Bills: No Difficulty Paying for Meds: No Currently Unemployed: No Education: Bachelor's Degree Difficulty w/ Childcare or Family Care: No Living arrangements: with family Gender identity (if verbalized by the patient): Female Sexual Orientation (if Verbalized by the Patient): Straight or Heterosexual Spiritual care concerns: No Comments At time of signature, agree with nursing past medical, surgical, social and family history. There is no relevant family history pertinent to the presenting complaint Exam Narrative: GENERAL: Well-appearing, well-nourished, and in no acute distress. HEAD: Normocephalic EYES: PERRLA, conjunctivae clear ENT: Nares clear, turbinates edematous and erythematous, clear discharge. Mucous membranes moist. TM pearly nava with dull light reflex bilaterally; no tragal tenderness. Oropharynx not erythematous without lesions. Tonsils not enlarged and without exudate, no drooling, no hoarseness, no trismus, uvula midline. NECK: Supple. No lymphadenopathy CHEST: Clear to auscultation, breath sounds equal. No wheezing, rhonchi, rales, or stridor. No respiratory distress, speaks in full sentences. HEART: Regular rate and rhythm. No murmur heard. SKIN: Warm, dry, no rash. NEURO: Alert and oriented x3. PSYCH: Normal mood and affect Course Course Emergency Course: Patient is aware of diagnosis, understands and agrees to treatment plan. Anticipatory guidance given. Patient agrees to follow-up as directed and is aware of reasons to seek care at the emergency department. Portions of this record may have been created with voice recognition software Level of Care: Express Care Visit Vital Signs Vital signs: Vital Signs Temperature 97.1 F L 09/18/24 14:48 Pulse Rate 93 09/18/24 14:48 Respiratory Rate 18 09/18/24 14:48 Blood Pressure 138/76 09/18/24 14:48 Pulse Oximetry 97 09/18/24 14:48 Oxygen Delivery Room Air 09/18/24 14:48 Temperature 97.1 F L 09/18/24 14:48 Pulse Rate 93 09/18/24 14:48 Respiratory Rate 18 09/18/24 14:48 Blood Pressure 138/76 09/18/24 14:48 Pulse Oximetry 97 09/18/24 14:48 Oxygen Delivery Room Air 09/18/24 14:48 Reviewed. MDM - URI/Sore Throat MDM Narrative Medical decision making narrative: Differential diagnosis considered: Mcgovern virus, strep pharyngitis, allergic rhinitis, upper respiratory tract infection, sinusitis, rhinosinusitis, nasopharyngitis. viral pharyngitis, otitis media, otitis externa, pneumonia, bronchitis, viral cough syndrome, viral syndrome, and influenza. Exam findings show no acute concerns or changes; patient is non-toxic appearing and is in no distress. Patient is appropriate for outpatient treatment and follow-up. Lab Data Attestation: I reviewed the patient's lab results. Critical Care Time Critical Care Time Critical Care Time: No Discharge Plan Discharge Clinical Impression: Upper respiratory infection Patient Disposition: Home, Self-Care Condition: Stable Instructions: Upper Respiratory Infection (ED) Additional Instructions: Viral illness may last between 7-21 days; antibiotics do not cure viral illness and are NOT recommended at this time. Recommend antihistamine such as Benadryl at night time and Zyrtec or Sarah during the day Also, recommend symptomatic treatment includes: rest, fluids, and increase humidity of the air at home. Recommend Acetaminophen as directed on the bottle to reduce fever, pain, headache. Avoid smoking/second-hand smoke. Please schedule a follow-up visit with your personal physician for further evaluation and treatment within 3-5days. If your symptoms persist, change or worsen significantly before you can contact your personal physician then please, without delay, go to the emergency department for further evaluation. Patient Language: Macedonian Prescriptions: New benzonatate 200 mg capsule 200 mg PO TID PRN (Reason: cough) Qty: 14 0RF fluticasone propionate [Flonase Allergy Relief] 50 mcg/actuation spray,suspension 2 spray NASAL DAILY 14 Days Qty: 15.8 0RF Rx Instructions: administer into each nostril No Action Rexulti 4 mg Tablet 4 mg PO DAILY Patient Comments: ...... sertraline 100 mg tablet 100 mg PO DAILY quetiapine 200 mg tablet 200 mg PO DAILY clonazepam 0.5 mg tablet Metamucil 1 tablespoon 1 tbsp PO DAILY divalproex 250 mg tablet,delayed release (DR/EC) 500 mg PO HS omega-3 fatty acids [Fish Oil Concentrate] 1,000 mg capsule 1,000 mg PO DAILY levothyroxine 75 mcg Tablet 75 mcg PO DAILY Patient Comments: QAM trifluoperazine 5 mg Tablet 5 mg PO BID Follow-up/Referrals: Jeana Palacios APRN [Primary Care Provider] - Time of Disposition: 15:00
== END 2024-09-18 15:03 | disposition home or self-care (01) ==
PROVIDERS: Emergency Provider Nurse Practitioner; PCP Nurse Practitioner Adult Health
DX: J06.9 Acute upper respiratory infection, unspecified (principal); E03.9 Hypothyroidism, unspecified; M19.90 Unspecified osteoarthritis, unspecified site; F32.A Depression, unspecified
CPT/HCPCS: 99213; G0463

== ENCOUNTER 2024-11-09 07:42 | Outpatient (CLI) | payer MEDICARE, SELFPAY ==
--- NOTE | ~2024-11-09 | MM_ITS ---
EXAMINATION: MM screening yaron BI w jenifer HISTORY: Screening TECHNIQUE: Craniocaudal and mediolateral oblique 3-D tomosynthesis images were obtained and synthetic 2-D images were generated. CAD analysis was submitted and interpreted. COMPARISON: Comparison to multiple prior studies sequentially, with oldest reviewed study dated 03/18. BREAST PARENCHYMAL COMPOSITION: Dense: The breasts are heterogeneously dense, which may obscure small masses FINDINGS: There is no evidence of suspicious mass, calcification, or architectural distortion to sugg est malignancy in either breast. There has been no suspicious interval change. IMPRESSION: 1. No mammographic evidence of malignancy. 2. Recommend routine screening mammography in one year. BI-RADS Category 1: Negative Reviewed, dictated and finalized at location A.
--- NOTE | ~2024-11-09 | CT_ITS ---
Clinical Indication: Colon cancer CT Scan of the Chest, Abdomen, and Pelvis with Contrast: Technique: Contiguous sections were acquired throughout the chest, abdomen, and pelvis after intraven ous administration of 100 cc of Omnipaque 350. Dose reduction technique was used on this scan by uti lizing automated exposure control and iterative reconstruction technique. The dose-length product (DL P) was 717.50 mGy-cm. Comparison: 06/25/2024, 01/11/2024 Findings: There is no evidence of any significant mediastinal, hilar or axillary lymphadenopathy. The mediastin al soft tissues appear normal. There is no evidence of pleural or pericardial effusion. Anteroinferior right upper lobe pulmonary nodules measure 5 mm and 7 mm in size respectively (axial i mages 58, 62). Additional anteromedial right middle lobe nodule adjacent to the mediastinum measures 5 mm (axial image 71). 3 mm right lower lobe nodule present (axial image 94). 7 mm left lower lobe no dule present (axial image 81). 7 mm left upper lobe nodule noted (axial image 51). Additional 6 mm le ft upper lobe nodule present (axial image 46). These nodules all appear to be new since 01/11/2024. There are 3 circumscribed hypodense hepatic masses, 2 in the left hepatic lobe (axial images 120, 142 ), and an elongated large lesion in the periphery of the right hepatic lobe (axial image 128 for exam ple). There are several probable new more ill-defined hypodense satellite lesions adjacent to the per ipheral right hepatic lobe lesion (for example axial images 132, 143, 147), measuring up to 1.6 cm in diameter. Stable splenic cyst. The pancreas, gallbladder, adrenals and kidneys are within normal menendez its. No evidence of aortic aneurysm. No lymphadenopathy. No bowel obstruction or bowel wall thickening. Evidence of prior partial right colectomy. Urinary bladder is unremarkable. 4.2 cm right ovarian cyst present. No other pelvic mass seen. No asc ites. Stable chronic compression deformities of L2 and L3. Impression: Multiple new subcentimeter pulmonary nodules, suspicious for progression of metastatic disease. 3 circumscribed hypodense hepatic lesions which are essentially stable in distribution from prior ex am, and based on prior reports/history, compatible with treated lesions with prior ablation or other therapy. Several new/more ill-defined hypodense small lesions adjacent to the previously presumed treated righ t hepatic lobe lesion, which are suspicious for new/progressive metastatic lesions. Please see detail s above. 4.2 cm right ovarian cyst. Reviewed, dictated and finalized at location M. Impression: Multiple new subcentimeter pulmonary nodules, suspicious for progression of met astatic disease. 3 circumscribed hypodense hepatic lesions which are essentially stable in dist ribution from prior exam, and based on prior reports/history, compatible with t reated lesions with prior ablation or other therapy. Several new/more ill-defined hypodense small lesions adjacent to the previously presumed treated right hepatic lobe lesion, which are suspicious for new/progr essive metastatic lesions. Please see details above. 4.2 cm right ovarian cyst.
--- OUTSIDE RECORDS SUMMARY | 2024-11-09 07:48 | XMS_ITS | Encounter Summary ---
Author Organization [facility] Address [address] [place] [address] Care Team Providers Care Chief Executive Or Managing Director Name Role Phone Molina Medina MD Primary Care Provider [phone] [phone] Encounter Details Date Type Department Care Team (Late st Contact Info) Description 11/08/2024 Orders Only [facility] Oncology and Hematology - [place] [address] [place] [address] [facility] [address] [place] [address] Alvarado Jang MD [address] [facility] [address] [place] [address] Malignant neoplasm of colon, unspecified part of colon (CMS/HCC) Social History Tobacco Use Types Packs/Day Years Used Date Smoking Tobacco: Never Smokeless Tobacco: Never Alcohol Use Standard Drinks/Week Comments Never 0 (1 standard drink = 0.6 oz pur e alcohol) Feeling Safe Answer Date Recorded Are you in a relationship wi th someone who hurts you emotionally and/or physically? 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 Gender Identity Not on file Sexual Orientation Not on file documented as of this encounter Plan of Treatment Upcoming Encounters Date Type Department Care Team (Late st Contact Info) Description 11/15/2024 9:30 AM CDT Office Visit [facility] Oncology and Hematology - [place] [address] [place] [address] Arleen Vieira MD [address] [place] [address] documented as of this encounter Visit Diagnoses Diagnosis Malignant neoplasm of colon, unspecified part of colon (CMS/HCC) documented in this encounter Care Teams Chief Executive Or Managing Director Relationship Specialty Start Date End Date Molina Medina MD PCP - General Family Practice 08/12/22 documented as of this encounter
--- OUTSIDE RECORDS SUMMARY | 2024-11-09 07:48 | XMS_ITS | Encounter Summary ---
Author Organization [facility] Address [address] [place] [address] Care Team Providers Care Client Service Manager Name Role Phone Unavailable Primary Care Provider Unavailabl e Encounter Details Date Type Department Care Team (Latest Contact Info) Description 1948 8:30 AM CONSTRUCTION TECH - 1948 11:59 PM CONSTRUCTION TECH Hospital Encounter [facility] [place] [address] [place] [address] [facility], External Provider [address] [place] [address] Discharge Disposition: Home or Self Care Social History Tobacco Use Types Packs/Day Years Used Date Smoking Tobacco: Never Assessed Comments Unknown Sex and Gender Information Value Date Recorded Sex Assigned at Not on file Legal Sex Female 10:27 AM CONSTRUCTION TECH Gender Identity Not on file Sexual Orientation Not on file documented as of this encounter Plan of Treatment Upcoming Encounters Date Type Department Care Team (Late st Contact Info) Description 11/15/2024 9:30 AM CDT Office Visit [facility] Oncology and Hematology - [place] [address] [place] [address] Arleen Vieira MD [address] [place] [address] documented as of this encounter Procedures Procedure Name Priority Date/Time Associated Diagnosis Comments MRI PRIOR STUDY Routine 1948 8:30 AM CONSTRUCTION TECH Encounter for administrative examinations, unspecified documented in this encounter Results * MRI PRIOR STUDY (1950 8:30 AM CONSTRUCTION TECH) Narrative 08/09/2024 8:28 AM CONSTRUCTION TECH This exam was auto finalized to allow images to be scanned to PACS. us External Provider [facility] MR ORDERABLES Final Res ult documented in this encounter Visit Diagnoses Diagnosis Encounter for administrative examinations, unspecified documented in this encounter
--- OUTSIDE RECORDS SUMMARY | 2024-11-09 07:49 | XMS_ITS ---
Author Organization [facility] Leti Luna Address [address] [place] [address] Care Team Providers Care Telecommunications Cable Jointer Name Role Phone Molina Medina MD Primary Care Provider [phone] Active Problems Problem Noted Date Diagnosed Date Protein-calorie malnutrition, severe 06/27/2024 Adynamic ileus 06/26/2024 Constipation 06/26/2024 Right sided abdominal pain 06/26/2024 Small bowel obstruction 06/26/2024 History of ablation of neoplasm of liver 024 Iron deficiency 06/26/2024 Debility 06/26/2024 History of chemotherapy 06/26/2024 Chronic, continuous use of opioids 06/26/2024 Bipolar disorder 06/26/2024 Major depressive disorder 06/26/2024 Seizure disorder 06/26/2024 Hypothyroidism 05/01/2023 Acute blood loss anemia 05/01/2023 Other secondary thrombocytopenia 05/01/2023 Stage 3 chronic kidney disease 05/01/2023 DENIS (acute kidney injury) 05/01/2023 Metabolic alkalosis 05/01/2023 Hypoxia 05/01/2023 Metastatic colon cancer to liver 04/08/2023 Schizophrenia 08/10/2019 Current Treatment and Therapy Plans No current plan information found. Past Treatment and Therapy Plans No past plan information found. Lifetime Dose Tracking * Chemical Lifetime Dose Automatic Entry Manual Entr y Effective Dose 12.48 mSv 12.48 mSv 0 mSv Total DLP 1,041.79 DLP 1,041.79 DLP 0 DLP CTDIvol Max 18.49 mGy 18.49 mGy 0 mGy
--- OUTSIDE RECORDS SUMMARY | 2024-11-09 07:49 | XMS_ITS | Encounter Summary ---
Author Organization [facility] Address [address] [place] [address] Care Team Providers Care Vehicle And Equipment Cleaner Name Role Phone Molina Medina MD Primary Care Provider [phone] [phone] Encounter Details Date Type Department Care Team (Late st Contact Info) Description 11/07/2024 Orders Only [facility] Oncology and Hematology - [place] [address] [facility] [address] [place] [address] Alvarado Jang MD [address] [facility] [address] [place] [address] Malignant neoplasm of colon, unspecified [...] on file Legal Sex Female 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 Gender Identity Not on file Sexual Orientation Not on file documented as of this encounter Plan of Treatment Upcoming Encounters Date Type Department Care Team (Late st Contact Info) Description 11/15/2024 9:30 AM CDT Office Visit [facility] Oncology and Hematology - [place] [address] [place] [address] Arleen Vieira MD [address] [place] [address] documented as of this encounter Visit Diagnoses Diagnosis Malignant neoplasm of colon, unspecified part of colon (CMS/HCC) documented in this encounter Care Teams Vehicle And Equipment Cleaner Relationship Specialty Start Date End Date Molina Medina MD PCP - General Family Practice 08/12/22 documented as of this encounter
--- OUTSIDE RECORDS SUMMARY | 2024-11-09 07:49 | XMS_ITS | Data Portability ---
Author Organization [facility] [address] Address [address] [place] [address] Assessment No assessment recorded. Plan of Treatment Reminders Order Date Submit Date Provider Last Modified By Organization Details Last Modified Time Details Appointments None recorded. Lab None recorded. Referral None recorded. Procedures None recorded. Surgeries None recorded. Imaging None recorded. Medication Orders mupirocin 2 % topical ointment 2024 [facility] #[id number], [address] [place], [place], [id number], 15:04:58 cephalexin 500 mg capsule 2024 [facility] [employer] #[id number], [address] [place], [place], [id number], 15:04:59 ofloxacin 0.3 % ear drops 2024 [facility] [employer] #[id number], [address] [place], [place], [phone], 15:04:58 Patient TargetsNo targets recorded. Patient Instructions Encounter Date Encounter Id Patient Instructions Last Modified By Organization Details Last Modified Time 09/27/2024 [id number] skin tears: care instructions [email or web address] Not available 09/27/2024 17:11:44 swimmer's ear: care instructions [email or web address] Not available 09/27/2024 17:11:44 How do I take ca re of a minor wound on my own? Follow these basic first aid guidelines: Clean the wound Wash it well with soap and water. If there is dirt, glass, or another object in your cut that you can't get out after you wash it, call your doctor or nurse. Stop the bleeding If your wound is bleeding, press a clean cloth or bandage firmly on the area for 20 minutes. You can also help slow the bleeding by holding the wound above the level of your heart, if possible. If the bleeding doesn't stop after 20 minutes, call your doctor or nurse. Put a thin layer of antibiotic ointment on the wound. Cover the wound with a bandage or gauze. Keep the bandage clean and dry. Change the bandage 1 to 2 times every day until your wound heals. Do not swim or soak your wound in water until it has healed. Ask your doctor or nurse if you have any questions. Each time you change the bandage, look at your skin to check for signs of infection. These include redness that is getting worse or spreading, swelling, or warmth in the area. You might see some thin clear or yellow fluid as the wound heals, which is normal. Most minor wounds heal on their own within 7 to 10 days. As your wound heals, a scab will form. Do not pick at the scab or scratch the skin around it. When should I call the doctor or nurse? Call the doctor or nurse if you have any signs of an infection. These include: Fever Redness, swelling, warmth, or increased pain around the wound A bad smell coming from the wound Pus (thick yellow, green, or nava fluid) draining from the wound Red streaks on the skin around the wound, or red streaks going up your arm or leg Do not stick anything in your ears such as q-tips, earbuds, etc., and if you are trying to remove wax you can use OTC earwax removal drops and let warm water from shower rinse out. If you are experiencing discomfort, you can alternate 500mg Tylenol and 600mg Ibuprofen every 6 hours. If you are still experiencing pain or difficulty hearing after treatment, please follow up. An ear infection may start with a cold and affect the middle ear (otitis media). It can hurt a lot. Most ear infections clear up on their own in a couple of days and do not need antibiotics. Also, antibiotics do not work against viruses, which may be the cause of your infection. Regular doses of pain relievers are the best way to reduce your fever and help you feel better. Follow-up care is a de [place] santos part of your treatment and safety. Be sure to make and go to all appointments, and call your doctor if you are having problems. It's also a good idea to know your test results and keep a list of the medicines you take. How can you care for yourself at home? Take pain medicines exactly as directed. If the doctor gave you a prescription medicine for pain, take it as prescribed. If you are not taking a prescription pain medicine, take an oiie-tvr-hoikdxr medicine, such as acetaminophen (Tylenol), ibuprofen (Advil, Motrin), or naproxen (Aleve). Read and follow all instructions on the label. Try a warm, moist washcloth on the ear. It may help relieve pain. If your doctor prescribed antibiotics, take them as directed. Do not stop taking them just because you feel better. You need to take the full course of antibiotics. When should you call for help? Call your doctor now or seek immediate medical care if: You have new or increasing ear pain. You have new or increasing pus or blood draining from your ear. You have a fever with a stiff neck or a severe headache. Watch closely for changes in your health, and be sure to contact your doctor if: You have new or worse symptoms. You are not getting better after taking an antibiotic for 2 days. [email or web address] Not available 09/27/2024 17:11:43 Reason for Referral None Reported. Procedures Surgical History Date Name Laterality Status Provider Name and Address Organization Details Recorded Time Wound Care UC completed YUSUF ZHU NP [address] , [place], [address], [facility] 09/27/2024 17:13:06 Imaging Results None recorded. Procedure Notes None recorded. Medical Equipment None Reported. Allergies Allergen ID Allergen Name Allergen Category Reaction Reaction Severity Criticality Documentation Date Start Date Code Code System Note Provider Name and Address Organization Details Recorded Time Product containin g penicilli n (product) medicatio n hives mild low 09/27/2024 66561 8001 SNOMED Not Available Not Available Not Available Medications Name Sig Start Date Stop Date Status Note LastModified by Organization Details LastModified Time doxycycline hyclate 100 mg capsule TAKE ONE CAPSULE BY MOUTH DAILY FOR 7 DAYS active Not Available Not Available N ot Available benzonatate 200 mg capsule TAKE 1 CAPSULE BY MOUTH THREE TIMES DAILY NEEDED FOR COUGH active Not Available Not Available No t Available diphenoxylat e-atropine 2.5 mg-0.025 mg tablet TAKE 1 TABLET BY MOUTH TWICE DAILY active Not Available Not Available No t Available tramadol 50 mg tablet TAKE 1 TABLET BY MOUTH TWICE DAILY NEEDED FOR PAIN active Not Available Not Available No t Available ofloxacin 0.3 % ear drops INSTILL 2 DROPS TO AFFECTED EAR TWICE DAILY FOR 7 DAYS active Not Available Not Available No t Available cephalexin 500 mg capsule TAKE 1 CAPSULE BY MOUTH EVERY 8 HOURS FOR 7 DAYS active Not Available Not Available No t Available acyclovir 200 mg capsule TAKE 2 CAPSULES BY MOUTH ONCE A DAY active Not Available Not Available No t Available mupirocin 2 % topical ointment APPLY SMALL AMOUNT TOPICALLY TO THE AFFECTED AREA TWICE DAILY FOR 7 DAYS active Not Available Not Available No t Available methylpredni solone 4 mg tablets in a dose pack FOLLOW PACKAGE DIRECTIONS active Not Available Not Available N ot Available albuterol sulfate HFA 90 mcg/actuatio n aerosol inhaler INHALE 2 PUFFS BY MOUTH FOUR TIMES DAILY NEEDED FOR SHORTNESS OF BREATH active Not Available Not Available No t Available fluticasone propionate 50 mcg/actuatio n nasal spray,suspen heike SHAKE LIQUID AND USE 2 SPRAYS IN EACH NOSTRIL DAILY FOR 14 DAYS active Not Available Not Available No t Available levothyroxin e active Not Available Not Available Not Available Vitals Date Recorded Body height Respiratory rate Body temperature Body mass index (BMI) Body weight Heart rate Oxygen saturation Oxygen saturation in Arterial blood by Pulse oximetry Systolic blood pressure Diastolic blood pressure Provider Name and Address Organization Details Last Updated DateTime 5 170.18 cm 18 /min 97.8 [degF] 29.9 kg/m2 04237.4 2 g 76 /min 96 % 96 % 148 mm[Hg] 87 mm[Hg] Valentine Gonzalez [facility] 5 14:27:00 Social History Question Answer Notes LastModified by Organizat ion Details LastModified Time Tobacco Smoking Status Never Smoker Valentine Gonzalez null, [facility] 09/27/2024 14:29:15 What Is Your Level Of Alcohol Consumption? None [email or web address] Information not available 09/27/2024 Sex: Unknown Functional Status None recorded. Mental Status None recorded. Family History Nothing Reported. Medical History No medical history recorded. Gynecological HistoryNo gynecological history recorded. Obstetrics History GPAL:G 0 P 0 0 0 0 Past Encounters Encounter ID Performer Location Encounter Start Date Encounter Closed Date Diagnosis/Indication Diagnosis SNOMED-CT Code Diagnosis ICD10 Code Diagnosis Note [id number] YUSUF ZHU NP [facility] [address] [place] [address] 09/27/2024 14:15:10 09/27/2024 15:03:14 Otitis externa 3233592 H60.93 Advised to f/u if symptoms do not improve. Tear of skin 191517478 T 14.8XXA Advised to f/u if symptoms do not improve. Health Concerns Section Related Observation LastModified by Organization Detai ls LastModified Time None Recorded Concern Status LastModified by Organization Details LastModified Time None Recorded Advance Directives Directive None Recorded Payers Encounter Date Sequence Insurance Name Policy Number Policy Cueva Covered Member ID Cueva Member ID Guarantor Name 09/27/2024 1 [place]ARE [place] Quinton Mckeon [id number] Quinton Syvonnjerardo Mckeon Notes Date Note Type Note Provider Name and Address Organization Details Recorded Time 09/27/2024 text/html EaracheReported bypatient.Notes:Marielena ent was treated 09/16 approximately for a double ear infection with drops and an antibiotic thinks unresolved. Also had a recent fracture 3/4 to right foot would like to have checked to r/o infection PATIENT DID NOT HAVE ANTIBIOTICS, WAS TX W/ TESSLON PEARLS AND FLONASE. YUSUF ZHU NP [address], [place], [address], [facility] 09/27/2024 17:13:24 OBGyn Episode No OBEpisode recorded.
--- OUTSIDE RECORDS SUMMARY | 2024-11-09 07:49 | XMS_ITS | Data Portability ---
[facility] [address] [place] [address] Care Team Providers Care Hammer Operator Name Role Phone CORTES ALPHONSO Primary Care Provider Assessment No assessment recorded. Plan of Treatment Reminders Order Date Submit Date Provider Last Modified By Organization Details Last Modified Time Details Appointments None recorded. Lab None recorded. Referral None recorded. Procedures None recorded. Surgeries None recorded. Imaging None recorded. Medication Orders Cipro 500 mg tablet 2019 020 INTERFACE [facility], [address] [place] [address], [id number], 0 18:12:42 Tessalon Perles 100 mg capsule 2019 020 INTERFACE [facility], [address] [place] [address], [id number], 0 18:12:38 Patient TargetsNo targets recorded. Patient Instructions Encounter Date Encounter Id Patient Instructions Last Modified By Organization Details Last Modified Time 08/11/2019 [id number] schizophrenia: care instructions [email or web address] Not available 08/11/2019 18:12:30 Reason for Referral None Reported. Problems Name Problem SNOMED Code Status Onset Date Resolution Date Notes Provider Name and Address Organization Details Recorded Time Schizophrenia 66196085 Active 2019 MARGIE Pruitt, [facility] 0 17:51:14 Problem Notes None recorded. Procedures Surgical History Date Name Laterality Status Provider Name and Address Organization Details Recorded Time 10/19/19 19 Date of Last Mammogram completed Sil Gonzales MA [facility] 08/11/2019 17:56:38 tonsillectomy completed Sil Gonzales MA [facility] 08/11/2019 17:55:48 breast procedure completed Sil Gonzales MA [facility] 08/11/2019 17:56:00 Imaging Results None recorded. Procedure Notes None recorded. Medical Equipment None Reported. Allergies Allergen ID Allergen Name Allergen Category Reaction Reaction Severity Criticality Documentation Date Start Date Code Code System Note Provider Name and Address Organization Details Recorded Time 321181 Product containin g penicilli n (product) medicatio n Not available Not available Not available 08/11/2019 03665 8001 SNOMED Not Available Not Available Not Available Medications Name Sig Start Date Stop Date Status Note LastModified by Organization Details LastModified Time quetiapine 300 mg tablet Take 1 tablet every day by oral route for 90 days. active Not Available Not Available No t Available quetiapine 100 mg tablet Take 1 tablet every day by oral route for 90 days. active Not Available Not Available No t Available levothyroxin e 75 mcg tablet Take 1 tablet every day by oral route for 90 days. active Not Available Not Available No t Available Tessalon Perles 100 mg capsule Take 1 capsule 3 times a day by oral route as needed for 10 days. 2019 active Not Available Not Available Not Avai lable Cipro 500 mg tablet Take 1 tablet every 12 hours by oral route for 10 days. 2019 active Not Available Not Available Not Avai lable divalproex ER 250 mg tablet,exten ded release 24 hr 08/11 completed Not Available Not Available Not Available Rexulti 4 mg tablet Take 1 tablet every day by oral route at bedtime for 30 days. active Not Available Not Available No t Available Vitals Date Recorded Body weight Body height Body mass index (BMI) Body temperature Oxygen saturation Oxygen saturation in Arterial blood by Pulse oximetry Heart rate Systolic blood pressure Diastolic blood pressure Provider Name and Address Organization Details Last Updated DateTime 0 60269.3 3 g 168.91 cm 30.7 kg/m2 98.1 [degF] 98 % 98 % 78 /min 120 mm[Hg] 84 mm[Hg] Sil Gonzales MA [facility] 0 17:59:14 Social History Question Answer Notes LastModified by Organizat ion Details LastModified Time Tobacco Smoking Status Never Smoker Sil Gonzales MA [facility] [place] - [facility] 08/11/2019 17:55:11 What Is Your Level Of Alcohol Consumption? None Information not available 08/11/2019 What Is Your Level Of Caffeine Consumption? Occasional Information not available 08/11/2019 How Much Tobacco Do You Chew? None Information not available 08/11/2019 Do You Or Have You Ever Used E-cigarettes Or Vape? Never Used Electronic Cigarettes Information not available 08/11/2019 What Was The Date Of Your Most Recent Tobacco Screening? 08/11/2019 Information not available 08/11/2019 Are You Passively Exposed To Smoke? No Information not available 08/11/2019 Do You Or Have You Ever Used Smokeless Tobacco? Never Used Smokeless Tobacco Information not available 08/11/2019 How Much Tobacco Do You Smoke? No Information not available 08/11/2019 On What Date Was Tobacco Cessation Counseling Provided? 08/11/2019 Information not available 08/11/2019 How Many Years Have You Smoked Tobacco? 0 Information not available 08/11/2019 Sex: Unknown Functional Status None recorded. Mental Status None recorded. Family History Relationship Description Onset Age of this Age Resolved Age Notes LastModified by Organization Details LastModified Time Mother Malignant tumor of breast [email or web address] Not available 08/11 17:55:00 Mother Chronic obstructive pulmonary disease [email or web address] Not available 08/11 17:55:05 Medical History Condition Response Coronary Artery Disease N Other N Atrial Fibrillation N High Blood Pressure N Thyroid Problems Y Kidney or Bladder Problems N GI Problems N Depression N COPD N Blood Clots N Eating Disorder N Skin Problems N Anemia N Heart Attack (OR) N Anxiety Disorder N Diabetes N Muscle, Joint, or Bone Problems N Seizures/Epilepsy Y Acid Reflux (GERD) N Cancer N Stroke N Asthma N Allergies N ADHD N Substance Abuse N High Cholesterol N Hepatitis N Liver Disease N Schizophrenia Y Headaches N Heart Failure N Osteoporosis N Gynecological History Statement/Question Response Date of Last Mammogram 10/18/2018 Obstetrics History GPAL:G 0 P 0 0 0 0 Past Encounters Encounter ID Performer Location Encounter Start Date Encounter Closed Date Diagnosis/Indication Diagnosis SNOMED-CT Code Diagnosis ICD10 Code Diagnosis Note [id number] Alphonso Arizmendi PA-C [facility] [address] [place] [address] 08/11/2019 17:31:58 08/11/2019 18:46:23 Schizophrenia 57741520 F20.1 Acute bron chitis with bronchospasm 36407255 J20.8 Health Concerns Section Related Observation LastModified by Organization Detai ls LastModified Time None Recorded Concern Status LastModified by Organization Details LastModified Time None Recorded Advance Directives Directive None Recorded Payers Encounter Date Sequence Insurance Name Policy Number Policy Cueva Covered Member ID Cueva Member ID Guarantor Name 08/11/2019 1 [place] Quinton Yossi Mike [id number] Quintonjerardo Mckeon 08/11/2019 2 [place] [id number] Quinton Y Mike [id number] Quinton Mckeon Notes Date Note Type Note Provider Name and Address Organization Details Recorded Time 08/11/2019 text/html has a persistant cough with occasional production. no fever... Alphonso Arizmendi PA-C Attn: [facility]ing,[address] [place], [address], [facility] 08/11/2019 18:15:28 OBGyn Episode No OBEpisode recorded.
--- OUTSIDE RECORDS SUMMARY | 2024-11-09 07:49 | XMS_ITS | Clinical Summary ---
Author Organization [facility] Leti Luna Address [address] [place] [address] Care Team Providers Care Financial Examiner Name Role Phone Molina Medina MD Primary Care Provider [phone] Allergies Active Allergy Reactions Criticality Noted Date Comments Penicillins Rash Low 08/12/2022 Medications brexpiprazole (Rexulti) 4 mg Tablet Take 4 mg by mouth daily at bedtime. Active divalproex (DEPAKOTE ER) 250 mg Extended Release 24 hour tabletIndicati ons:seizure Take 500 mg by mouth daily at bedtime. 3 Active levothyroxine 75 mcg tablet Take 75 mcg by mouth daily. 2 Active QUEtiapine (SEROquel) 300 mg tablet Take 200 mg by mouth late in the day. 1 Active trifluoperazin e (STELAZINE) 5 mg tablet Take 5 mg by mouth 2 times daily. 3 Active oxyCODONE (ROXICODONE) 5 mg tabletIndicati ons:Cancer, metastatic to liver (CMS/HCC) Take 1 Tablet (5 mg) by mouth every 6 hours as needed for Severe pain unreleived by Acetominophin or Ibuprofen. Max Daily Amount: 20 mg 20 Tablet 05/28/2023 11:45 AM GARBAGE PICK UP WORKER 3 Active acyclovir (ZOVIRAX) 400 mg tablet Take 1 Tablet (400 mg) by mouth 3 times daily. 30 Tablet 1 4 Active sertraline (ZOLOFT) 100 mg tablet Take 100 mg by mouth late in the day. 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 Max Daily Amount: 4 Tablets 20 Tablet 06/21/2024 5:13 PM GARBAGE PICK UP WORKER 4 Active polyethylene glycol 3350 (MIRALAX) 17 gram/dose Powder Mix 1 Capful (17 Grams) and drink by mouth 1 time daily as needed for Constipation. 510 Gram 06/29/2024 4:02 PM GARBAGE PICK UP WORKER 4 Active naloxone (NARCAN) 4 mg/spray [place], Non-Aerosol EMERGENCY USE ONLY: Administer 1 spray (4 mg) in one nostril one time. May repeat in alternating nostrils every 2-3 min until responsive or EMS arrives. 2 Each 3 4 Active polyethylene glycol 3350 (MIRALAX) 17 gram/dose Powder Dissolve 1 Capful (17 Grams) in 8 ounces of liquid and take by mouth once daily as needed for Constipation. 510 Gram 4 Active lidocaine-pril ocaine (EMLA) 2.5-2.5 % CreamIndicatio ns: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) Apply a quarter size amount to port site 30 minutes before access. 30 Gram 3 5 Active ondansetron (ZOFRAN ODT) 8 mg Tablet, Rapid Dissolve Dissolve 1 tablet on top of tongue then swallow with saliva every 8 hours as needed for nausea or vomiting 30 Tablet 1 5 Active cephALEXin (KEFLEX) 500 mg capsule Take 1 Capsule by mouth 3 times daily. 5 Active Active Problems Problem Noted Date Diagnosed Date [...] colon cancer to liver 04/08/2023 Schizophrenia 08/10/2019 Encounters Date Type Department Care Team Description 11/08/2024 Orders Only [facility] - [place] [address] [place] [address] Alvarado Jang MD Malignant neoplasm of colon, unspecified part of colon (CMS/HCC) 11/07/2024 Orders Only [facility] - [place] [address] [place] [address] Alvarado Jang MD Malignant neoplasm of colon, unspecified part of colon (CMS/HCC) 11/01/2024 External Device Data STL ABSTRACTION Provider, Abstract 11/01/2024 Orders Only [facility] - [place] [address] [place] [address] Alvarado Jang MD Malignant neoplasm of colon, unspecified part of colon (CMS/HCC) 10/31/2024 Orders Only [facility] - [address] [place] [address] Alvarado Jang MD Malignant neoplasm of colon, unspecified part of colon (CMS/HCC) 10/26/2024 Orders Only [facility] - [place] [address] [place] [address] Alvarado Jang MD 10/25/2024 Orders Only [facility] - [place] [address] [place] [address] Alvarado Jang MD Malignant neoplasm of colon, unspecified part of colon (CMS/HCC) 10/24/2024 Orders Only [facility] - [address] [place] [id number] Alvarado Jang MD Malignant neoplasm of colon, unspecified part of colon (CMS/HCC) 10/18/2024 Orders Only [facility] - [place] [address] [place] [address] Alvarado Jang MD Malignant neoplasm of colon, unspecified part of colon (CMS/HCC) 10/17/2024 Orders Only [facility] - [address] [place] [id number] Alvarado Jang MD Malignant neoplasm of colon, unspecified part of colon (CMS/HCC) 10/11/2024 External Device Data STL ABSTRACTION Provider, Abstract 10/11/2024 External Device Data STL ABSTRACTION Provider, Abstract 10/11/2024 Orders Only [facility] - [address] [place] [id number] Alvarado Jang MD Malignant neoplasm of colon, unspecified part of colon (CMS/HCC) 2024 Orders Only [facility] - [place] [address] [place] [address] Alvarado Jang MD Malignant neoplasm of colon, unspecified part of colon (CMS/HCC) 10/05/2024 External Device Data STL ABSTRACTION Provider, Abstract 10/04/2024 9:00 AM CDT Office Visit [facility] - [place] [address] [place] [address] Alvarado Jang MD Malignant neoplasm of colon, unspecified part of colon (CMS/HCC) 10/03/2024 Telephone [facility] - [place] [address] [place] [address] Alvarado Jang MD Driving Clearance 10/03/2024 Abstract [facility] - [address] Alvarado Jang MD 10/03/2024 Orders Only [facility] - [place] [address] [place] [address] Alvarado Jang MD Malignant neoplasm of colon, unspecified part of colon (CMS/HCC) 09/30/2024 Telephone [facility] - [place] [address] [place] [address] Alvarado Jang MD Driving Paperwork 09/27/2024 Orders Only [facility] - [place] [address] [place] [address] Alvarado Jang MD Malignant neoplasm of colon, unspecified part of colon (CMS/HCC) 09/26/2024 Orders Only [facility] - [place] [address] [place] [address] Alvraado Jang MD Malignant neoplasm of colon, unspecified part of colon (CMS/HCC) 09/24/2024 External Device Data STL ABSTRACTION Provider, Abstract 09/23/2024 External Device Data STL ABSTRACTION Provider, Abstract 09/21/2024 Orders Only [facility] - [place] [address] [place] [address] Alvarado Jang MD 09/21/2024 Abstract [facility] - [place] [address] [place] [address] Alvarado Jang MD 09/20/2024 Orders Only [facility] - [place] [address] [place] [address] Alvarado Jang MD Malignant neoplasm of colon, unspecified part of colon (CMS/HCC) 09/19/2024 Orders Only [facility] - [place] [address] [place] [id number] Alvarado Jang MD Malignant neoplasm of colon, unspecified part of colon (CMS/HCC) 09/15/2024 Abstract [facility] - [place] [address] [place] [id number] Alvarado Jang MD 09/13/2024 Orders Only [facility] - [place] [address] [place] [address] Alvarado Jang MD Malignant neoplasm of colon, unspecified part of colon (CMS/HCC) 09/12/2024 Orders Only [facility] - [place] [address] [place] [address] Alvarado Jang MD Malignant neoplasm of colon, unspecified part of colon (CMS/HCC) 09/07/2024 External Device Data STL ABSTRACTION Provider, Abstract 09/06/2024 Orders Only [facility] - [place] [address] [place] [address] Alvarado Jang MD Malignant neoplasm of colon, unspecified part of colon (CMS/HCC) 09/05/2024 Orders Only [facility] - [place] [address] [place] [address] Alvarado Jang MD Malignant neoplasm of colon, unspecified part of colon (CMS/HCC) 08/30/2024 External Device Data STL ABSTRACTION Provider, Abstract 08/30/2024 Orders Only [facility] - [place] [address] [place] [address] Alvarado Jang MD Malignant neoplasm of colon, unspecified part of colon (CMS/HCC) 08/29/2024 Orders Only [facility] - [place] [address] [place] [address] Alvarado Jang MD Malignant neoplasm of colon, unspecified part of colon (CMS/HCC) 08/23/2024 9:00 AM GARBAGE PICK UP WORKER Office Visit [facility] [address] [place] [address] Alvarado Jang MD Malignant neoplasm of colon, unspecified part of colon ([facility]/HCC) 08/22/2024 Orders Only [facility] [address] [place] [address] Alvarado Jang MD Malignant neoplasm of colon, unspecified part of colon ([facility]/HCC) 08/17/2024 External Device Data STL ABSTRACTION Provider, Abstract 08/16/2024 Orders Only [facility] - [address] [place] [address] Alvarado Jang MD Malignant neoplasm of colon, unspecified part of colon ([facility]/HCC) 08/15/2024 Orders Only [facility] - [place] [address] [place] [address] Alvaardo Jang MD Malignant neoplasm of colon, unspecified part of colon ([facility]/HCC) 08/11/2024 External Device Data STL ABSTRACTION Provider, Abstract 08/11/2024 Abstract [facility] [address] [place] [address] Alvarado Jang MD from Last 3 Months Family History Medical History Relation Name Comments No Known Problems Daughter No Known Problems Father Breast Cancer Mother No Known Problems Sister No Known Problems Son Relation Name Status Comments Daughter Alive Father Mother Sister Alive Son Alive Social History Tobacco Use Types Packs/Day Years Used Date Smoking Tobacco: Never Smokeless Tobacco: Never Tobacco Cessation:Counseling Given: Not Answered Alcohol Use Standard Drinks/Week Comments Never 0 [...] on file Legal Sex Female 10:27 AM GARBAGE PICK UP WORKER Gender Identity Not on file Sexual Orientation Not on file Last Filed Vital Signs Vital Sign Reading Time Taken Comments Blood Pressure 117/70 10/04/2024 8:47 AM CDT Pulse 87 10/04/2024 8:47 AM CDT Temperature 35.3 C (95.5 F) 10/04/2024 8:47 AM CDT Respiratory Rate 15 10/04/2024 8:47 AM CDT Oxygen Saturation 97% 10/04/2024 8:47 AM CDT Inhaled Oxygen Concentration - - Weight 84.7 kg (186 lb 12.8 oz) 10/04/2024 8:47 AM CDT Height 170.2 cm (5' 7 ) 07/05/2024 11:2 7 AM GARBAGE PICK UP WORKER Body Mass Index 29.26 07/05/2024 11:27 AM GARBAGE PICK UP WORKER Plan of Treatment Upcoming Encounters Date Type Department Care Team (Late st Contact Info) Description 11/15/2024 9:30 AM CDT Office Visit [facility] - [place] [address] [place] [address] Arleen Vieira MD [address] [place] [address] Health Maintenance Due Date Last Done Comments DTAP/TDAP/TD VACCINES (1 - Tdap) 10/11/1967 PNEUMOCOCCAL VACCINE 50+ YEA RS (1 of 2 - PCV) 10/11/1967 Traditional Medicare (ACO) A nnual Wellness Visit 10/11/1967 ZOSTER VACCINE (1 of 2) 10/11/1967 OSTEOPOROSIS SCREENING 2013 RSV VACCINE (60+ or ) (1 - 1-dose 75+ series) 10/11/2023 INFLUENZA VACCINE (#1) 2024 COLORECTAL SCREENING Discontinued 05/04/2024, 05/04/2024, 08/05/2022, Additional history exists Colorectal Cancer Screening Discontinued FIT-DNA Q 3 years Discontinued FIT/FOBT Q 1 year Discontinued Flex Sig/CT Colonography Q 5 years Discontinued Medical Devices Implanted Type Area Log Washer Device Identifier Shelf Expiration Date Model / Serial / Lot Hemostat Surg Snow 2x4in 2081 - [id number] Implanted:Qt y: 1 on 06/20/2024 by Randal Betts MD at [facility] N/A: Abdomen [employer] [id number] 02/16/20262081 / / [id number] Port Procedures Procedure Name Priority Date/Time Associated Diagnosis Comments BASIC METABOLIC PANEL Routine 10/25/2024 3:49 PM CDT CBC WITH AUTODIFFERENTIAL Routine 2024 12:39 PM CDT COMPREHENSIVE METABOLIC PANEL Routine 10/25/2024 8:17 AM CDT COMPREHENSIVE METABOLIC PANEL Routine 09/13/2024 4:17 PM GARBAGE PICK UP WORKER CBC WITH DIFFERENTIAL Routine 09/13/2024 11:33 AM GARBAGE PICK UP WORKER COLONOSCOPY REPORT Routine 05/04/2024 11 :28 AM CDT from Last 3 Months or Most Recently Relevant to Health Maintenance Results * BASIC METABOLIC PANEL (10/25/2024 3:49 PM CDT) Blood us Alvarado Jang MD CHEMISTRY ORDERABLES Final Resu lt * CBC WITH AUTODIFFERENTIAL (10/25/2024 12:39 PM CDT) Blood us Alvarado Jang MD HEMATOLOGY ORDERABLES Final Res ult * COMPREHENSIVE METABOLIC PANEL (10/25/2024 8:17 AM CDT) Only the most recent of2 resultswithin the time period is included. Blood us Alvarado Jang MD CHEMISTRY ORDERABLES Final Resu lt * CBC WITH DIFFERENTIAL (09/13/2024 11:33 AM GARBAGE PICK UP WORKER) Blood Alvarado Jang MD HEMATOLOGY ORDERABLES Final Res ult * COLONOSCOPY REPORT (05/04/2024 11:28 AM CDT) Alvarado Jang MD GI PROCEDURE ORDERABLES Final R esult from Last 3 Months or Most Recently Relevant to Health Maintenance Insurance MEDICARE PART A AND B [facility] MEDICARE PART A AND B BCBS SUPP RX [employer] RX Member Subscriber Plan / Payer (Ef fective 2009-Present) Name:Quinton Mckeon Relation to Subscriber:Self Name:Quinton Mckeon Payer ID:Not on file Group ID:[id number] Type:RX Medicare Part D Address: [address] [place] [employer] HURT PLANS (INTERNAL) [facility] Internal Plans Advance Directives For more information, please contact: [phone] Documents on File Type Date Recorded Patient [place] Expl anation Advance Directive Living Will 06/23/2024 1:09 PM Advance Directive Living Will Advance Directive POA 06/23/2024 1:09 PM A dvance Directive POA * Full Code (Latest Code Status on File) Date Activated Date Inactivated Comments 06/26/2024 9:41 AM 06/29/2024 6:39 PM * Full Code Date Activated Date Inactivated Comments 06/20/2024 4:51 PM 06/21/2024 7:35 PM * Full Code Date Activated Date Inactivated Comments 06/20/2024 6:13 AM 06/20/2024 4:51 PM * Full Code Date Activated Date Inactivated Comments 05/27/2023 5:55 PM 05/28/2023 1:38 PM * Full Code Date Activated Date Inactivated Comments 05/27/2023 11:05 AM 05/27/2023 5:55 PM Care Teams Financial Examiner Relationship Specialty Start Date End Date Molina Medina MD PCP - General Family Practice 08/12/22
--- OUTSIDE RECORDS SUMMARY | 2024-11-09 07:49 | XMS_ITS | Clinical Summary ---
Author Organization [facility] Address [facility] [place] [address] Care Team Providers Care Geology Associate Name Role Phone Unavailable Primary Care Provider Unavailabl e Social History Tobacco Use Types Packs/Day Years Used Date Smoking Tobacco: Never Assessed Comments Unknown Sex and Gender Information Value Date Recorded Sex Assigned at Not on file Legal Sex Female 6:55 PM CDT Gender Identity Not on file Sexual Orientation Not on file Plan of Treatment Health Maintenance Due Date Last Done Comments Hepatitis C 1966 DTaP, Tdap and Td Vaccines ( 1 - Tdap) 10/11/1967 Pneumococcal Vaccine: 50+ Ye ars (1 of 1 - PCV) 1998 Zoster Vaccines (1 of 2) 1998 Dexa Scan (General) 2013 RSV Immunization or 60+ Years (1 - 1-dose 75+ series) 10/11/2023 COVID-19 Vaccine (2023-2 5 season) 2024 Meningococcal B Vaccine Aged Out No l onger eligible based on patient's age to complete this topic Meningococcal Vaccine Aged Out No kulwant ching eligible based on patient's age to complete this topic RSV Immunizations Under 20 Months Aged Out No longer eligible based on patient's age to complete this topic
== END 2024-11-09 07:43 | disposition home or self-care (01) ==
PROVIDERS: PCP Nurse Practitioner Adult Health; Visit Provider Internal Medicine Hematology & Oncology
DX: Z12.31 Encounter for screening mammogram for malignant neoplasm of breast (principal); C18.9 Malignant neoplasm of colon, unspecified; R91.8 Other nonspecific abnormal finding of lung field; K76.9 Liver disease, unspecified; N83.201 Unspecified ovarian cyst, right side
CPT/HCPCS: 71260; 74177; 77063; 77067; Q9967

== ENCOUNTER 2025-03-02 10:56 | Outpatient (CLI) | payer MEDICARE, SELFPAY ==
--- OUTSIDE RECORDS SUMMARY | 2025-03-02 11:20 | XMS_ITS ---
Author Organization [facility] Leti Luna Address [address] [place] [place] [address] Care Team Providers Care Shredded Filler Cutter Operator Name Role Phone Molina Medina MD Primary Care Provider [phone] Active Problems Problem Noted Date Diagnosed Date [...]
--- OUTSIDE RECORDS SUMMARY | 2025-03-02 11:20 | XMS_ITS ---
Author Organization [facility] Address [address] [place] [address] Care Team Providers Care Lap Checker Name Role Phone Molina Medina MD Unavailable [phone] Alvarado Jang MD Unavailable [phone] Jeana Palacios NP Primary Care Provider [phone] Mirella Robbins MD PhD Unavailable [phone] Active Problems Problem Noted Date Diagnosed Date Metastasis to liver 02/16/2025 Colon adenocarcinoma 12/22/2024 Current Treatment and Therapy Plans [id number] - [facility] - Phase 1 - [id number] - Part 1 Dose Escalation and Part 2a Dose Expansion - [id number] Monotherapy* Plan Start Date:03/06/2025 Plan Provider:Mirella Robbins MD PhD Linked Problems Colon adenocarcinoma (HCC)Me tastasis to liver Treatment Medications Current Day (Day 1 , Cycle 1 - Planned for 03/06/2025) Next Day (Day 8, Cycle 1 - Planned for 03/13/2025) [facility] [id number] (/[id number]) [facility] [id number] (/[id number]) tablet 500 mg [facility] [id number] (/[id number]) tablet 500 mg Hydration Therapy Plan* Plan Start Date:02/16/2025 Plan Provider:Mirella Robbins MD PhD Linked Problems Colon adenocarcinoma (HCC) Treatment Medications No medications scheduled. Past Treatment and Therapy Plans No past plan information found. Lifetime Dose Tracking * Chemical Lifetime Dose Automatic Entry Manual Entr y DLP 913 mGycm 913 mGycm 0 mGycm
--- OUTSIDE RECORDS SUMMARY | 2025-03-02 11:20 | XMS_ITS | Encounter Summary ---
Author Organization [facility] Address [address] [place] [address] Care Team Providers Care Neonatal Intensive Care Unit Nurse Name Role Phone Unavailable Primary Care Provider Unavailabl e Encounter Details Date Type Department Care Team (Latest Contact Info) Description 1950 8:30 AM FIELD ARTILLERY FIRE CONTROL MAN - 1950 11:59 PM FIELD ARTILLERY FIRE CONTROL MAN Hospital Encounter [facility] [place] [address] [place] [address] [facility], External Provider [address] [place] [address] Discharge Disposition: Home or Self Care Social History Tobacco Use Types Packs/Day Years Used Date Smoking Tobacco: Never Assessed Comments Unknown Sex and Gender Information Value Date Recorded Sex Assigned at Not on file Legal Sex Female 10:27 AM FIELD ARTILLERY FIRE CONTROL MAN Gender Identity Not on file Sexual Orientation Not on file documented as of this encounter Plan of Treatment Not on file documented as of this encounter Procedures Procedure Name Priority Date/Time Associated Diagnosis Comments MRI PRIOR STUDY Routine 1950 8:30 AM FIELD ARTILLERY FIRE CONTROL MAN Encounter for administrative examinations, unspecified documented in this encounter Results * MRI PRIOR STUDY (1950 8:30 AM FIELD ARTILLERY FIRE CONTROL MAN) Narrative 08/09/2024 8:28 AM FIELD ARTILLERY FIRE CONTROL MAN This exam was auto finalized to allow images to be scanned to PACS. us External Provider [facility] MR ORDERABLES Final Res ult documented in this encounter Visit Diagnoses Diagnosis Encounter for administrative examinations, unspecified documented in this encounter
--- OUTSIDE RECORDS SUMMARY | 2025-03-02 11:20 | XMS_ITS | Clinical Summary ---
Author Organization [facility] Leti Luna Address [address] [place] [address] Care Team Providers Care Clinical Pharmacy Manager Name Role Phone Molina Medina MD Primary Care Provider [phone] Allergies Active Allergy Reactions Criticality Noted Date [...] 20 mg 20 Tablet 05/28/2023 11:45 AM DATA SCIENTIST 3 Active acyclovir (ZOVIRAX) 400 mg tablet [...] 4 Tablets 20 Tablet 06/21/2024 5:13 PM DATA SCIENTIST 4 Active polyethylene glycol 3350 (MIRALAX) 17 gram/dose Powder Mix 1 Capful (17 Grams) and drink by mouth 1 time daily as needed for Constipation. 510 Gram 06/29/2024 4:02 PM DATA SCIENTIST 4 Active naloxone (NARCAN) 4 mg/spray [place], Non-Aerosol EMERGENCY USE ONLY: Administer 1 spray (4 mg) in one nostril one time. May repeat in alternating nostrils every 2-3 min until responsive or EMS arrives. 2 Each 3 4 Active polyethylene glycol 3350 (MIRALAX) 17 gram/dose Powder Dissolve 1 Capful (17 Grams) in 8 ounces of liquid and take by mouth once daily as needed for Constipation. 510 Gram 4 Active cephALEXin (KEFLEX) 500 mg capsule Take 1 Capsule by mouth 3 times daily. 5 Active lidocaine-pril ocaine (EMLA) 2.5-2.5 % CreamIndicatio [...] or vomiting 30 Tablet 1 5 Active Active Problems Problem Noted Date [...] Encounters Date Type Department Care Team Description 02/09/2025 Orders Only [facility] Oncology and Hematology - [address] [place] [address] Alvarado Jang MD 02/08/2025 Orders Only [facility] Oncology and Hematology - [place] [address] [place] [address] Alvarado Jang MD 02/07/2025 External Device Data STL ABSTRACTION Provider, Abstract 02/07/2025 Orders Only [facility] Oncology and Hematology - [place] [address] [place] [address] Alvarado Jang MD Malignant neoplasm of colon, unspecified part of colon (CMS/HCC) 01/31/2025 Orders Only [facility] Oncology and Hematology - [place] [address] [place] [address] Alvarado Jang MD Malignant neoplasm of colon, unspecified part of colon (CMS/HCC) 01/30/2025 Orders Only [facility] Oncology and Hematology - [place] [address] [place] [address] Alvarado Jang MD Malignant neoplasm of colon, unspecified part of colon (CMS/HCC) 01/24/2025 Orders Only [facility] Oncology and Hematology - [place] [address] [place] [address] Alvarado Jang MD Malignant neoplasm of colon, unspecified part of colon (CMS/HCC) 01/23/2025 9:30 AM CDT Office Visit [facility] Oncology and Hematology - [place] [address] Alvarado Jang MD Malignant neoplasm of colon, unspecified part of colon (CMS/HCC) 01/17/2025 Orders Only [facility] Oncology and Hematology - [place] [address] [place] [id number] Alvarado Jang MD Malignant neoplasm of colon, unspecified part of colon (CMS/HCC) 01/16/2025 Orders Only [facility] Oncology and Hematology - [address] [place] [address] Alvarado Jang MD Malignant neoplasm of colon, unspecified part of colon (CMS/HCC) 01/10/2025 Orders Only [facility] Oncology and Hematology - [place] [address] [place] [id number] Alvarado Jang MD Malignant neoplasm of colon, unspecified part of colon (CMS/HCC) 01/09/2025 8:30 AM CDT Office Visit [facility] Oncology and Hematology - [place] [address] [place] [address] Alvarado Jang MD Malignant neoplasm of colon, unspecified part of colon (CMS/HCC) 01/09/2025 Orders Only [facility] Oncology and Hematology - [place] [address] [place] [address] Alvarado Jang MD Malignant neoplasm of colon, unspecified part of colon (CMS/HCC) (Primary Dx) 01/09/2025 Abstract [facility] Oncology and Hematology - [place] [address] [place] [address] Alvarado Jang MD 01/09/2025 Abstract [facility] Oncology and Hematology - [place] [address] [place] [address] Alvarado Jang MD 01/02/2025 Orders Only [facility] Oncology and Hematology - [place] [address] Alvarado Jang MD Malignant neoplasm of colon, unspecified part of colon (CMS/HCC) 12/27/2024 Orders Only [facility] Oncology and Hematology - [place] [address] [place] [id number] Alvarado Jang MD Malignant neoplasm of colon, unspecified part of colon (CMS/HCC) 12/26/2024 Orders Only [facility] Oncology and Hematology - [place] [address] [place] [address] Alvarado Jang MD Malignant neoplasm of colon, unspecified part of colon (CMS/HCC) 12/20/2024 Refill [facility] Oncology and Hematology - [place] [address] [place] [address] Alvarado Jang MD 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) 12/20/2024 Orders Only [facility] Oncology and Hematology - [place] [address] [place] [address] Alvarado Jang MD Malignant neoplasm of colon, unspecified part of colon (CMS/HCC) 12/19/2024 Orders Only [facility] Oncology and Hematology - [address] [place] [address] Alvarado Jang MD Malignant neoplasm of colon, unspecified part of colon (CMS/HCC) 12/13/2024 External Device Data STL ABSTRACTION Provider, Abstract 12/13/2024 Orders Only [facility] Oncology and Hematology - [address] [place] [address] Alvarado Jang MD Malignant neoplasm of colon, unspecified part of colon (CMS/HCC) 12/12/2024 Orders Only [facility] Oncology and Hematology - [place] [address] [place] [address] Alvarado Jang MD Malignant neoplasm of colon, unspecified part of colon (CMS/HCC) 12/07/2024 External Device Data STL ABSTRACTION Provider, Abstract 12/06/2024 9:45 AM CDT Office Visit [facility] Oncology and Hematology [facility] [address] [place] [address] Alvarado Jang MD Malignant neoplasm of colon, unspecified part of colon (CMS/HCC) 12/06/2024 External Device Data STL ABSTRACTION Provider, Abstract 12/05/2024 Orders Only [facility] Oncology and Hematology [facility] [address] [place] [address] Alvarado Jang MD Malignant neoplasm of colon, unspecified part of colon (CMS/HCC) from Last 3 Months Family History Medical [...] drink = 0.6 oz pur e alcohol) Comments No Sex and Gender Information Value Date Recorded Sex Assigned at Not on file Legal Sex Female 10:27 AM DATA SCIENTIST Gender Identity Not on file Sexual Orientation Not on file Last Filed Vital Signs Vital Sign Reading Time Taken Comments Blood Pressure 122/78 01/23/2025 9:13 AM CDT Pulse 72 01/23/2025 9:13 AM CDT Temperature 35.8 C (96.5 F) 01/23/2025 9:13 AM CDT Respiratory Rate 15 01/23/2025 9:13 AM CDT Oxygen Saturation 93% 01/23/2025 9:13 AM CDT Inhaled Oxygen Concentration - - Weight 88.5 kg (195 lb 3.2 oz) 01/23/2025 9:13 A M CDT Height 170.2 cm (5' 7) 07/05/2024 11:27 AM DATA SCIENTIST Body Mass Index 30.57 07/05/2024 11:27 AM DATA SCIENTIST Plan of Treatment Health Maintenance Due Date Last Done Comments DTAP/TDAP/TD VACCINES (1 - Tdap) 10/11/1967 PNEUMOCOCCAL VACCINE 50+ YEA RS (1 of 2 - PCV) 10/11/1967 ZOSTER VACCINE (1 of 2) 10/11/1967 OSTEOPOROSIS SCREENING 2013 RSV VACCINE (60+ or ) (1 - 1-dose 75+ series) 10/11/2023 INFLUENZA VACCINE (#1) 2025 COLORECTAL SCREENING Discontinued 05/04/2024, 05/04/2024, 05/04/2024, Additional history exists Colorectal Cancer Screening Discontinued FIT-DNA Q 3 years Discontinued FIT/FOBT Q 1 year Discontinued Flex Sig/CT Colonography Q 5 years Discontinued Medical Devices Implanted Type Area Machine Inker Device Identifier Shelf Expiration Date Model / Serial / Lot Hemostat Surg Snow 2x4in 2081 - [id number] Implanted:Qt y: 1 on 06/20/2024 by Randal Betts MD at [facility] N/A: Abdomen [employer] [id number] 02/16/20262 / / [id number] Port Procedures Procedure Name Priority Date/Time Associated Diagnosis Comments COMPREHENSIVE METABOLIC PANEL Routine 02/06/2025 1:54 PM CDT BASIC METABOLIC PANEL Routine 02/06/2025 1:38 PM CDT BASIC METABOLIC PANEL Routine 01/09/2025 12:25 PM CDT COLONOSCOPY REPORT Routine 05/04/2024 11 :28 AM CDT from Last 3 Months or Most Recently Relevant to Health Maintenance Results * COMPREHENSIVE METABOLIC PANEL (02/06/2025 1:54 PM CDT) Blood us Alvarado Jang MD CHEMISTRY ORDERABLES Final Resu lt * BASIC METABOLIC PANEL (02/06/2025 1:38 PM CDT) Only the most recent of2 resultswithin the time period is included. Blood us Alvarado Jang MD CHEMISTRY ORDERABLES Final Resu lt * COLONOSCOPY REPORT (05/04/2024 11:28 AM CDT) Alvarado Jang MD GI PROCEDURE ORDERABLES Final R esult from Last 3 Months or Most Recently Relevant to Health Maintenance Insurance MEDICARE PART A AND B [facility] SUPP MEDICARE PART A AND B [facility] SUPP RX [employer] RX Member Subscriber Plan / Payer (Ef fective 2009-Present) Name:Quinton Mckeon Relation to Subscriber:Self Name:Quinton Mckeon Payer ID:Not on file Group ID:[id number] Type:RX Medicare Part D Address: [place], [place] RX HURT PLANS (INTERNAL) [facility] Advance Directives For more information, please contact: [phone] Documents on File Type Date Recorded 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
--- OUTSIDE RECORDS SUMMARY | 2025-03-02 11:20 | XMS_ITS | Encounter Summary ---
Author Organization [facility] [place] [employer] [facility] Address [address] [place] [address] Phone Care Team Providers Care Cup Trimming Machine Operator Name Role Phone Molina Medina MD Unavailable [phone] Alvarado Jang MD Unavailable [phone] Jeana Palacios NP Primary Care Provider [phone] Mirella Robbins MD PhD Unavailable [phone] Encounter Details Date Type Department Care Team (Latest Contact Info) Description 02/06/2025 Orders Only [facility] Scanning, Provider Social History Tobacco Use Types Packs/Day Years Used Date Smoking Tobacco: Never Smokeless Tobacco: Never Alcohol Use Standard Drinks/Week Comments Not Currently 0 (1 standard drink = 0.6 oz pur e alcohol) Comments Unknown Sex and Gender Information Value Date Recorded Sex Assigned at Not on file Legal Sex Female 6:45 PM CURRENCY COUNTER Gender Identity Not on file Sexual Orientation Not on file documented as of this encounter Plan of Treatment Not on file documented as of this encounter Procedures Procedure Name Priority Date/Time Associated Diagnosis Comments SCAN - LABS 02/06/2025 documented in this encounter Results * SCAN - LABS (02/06/2025) us Provider Scanning Final Result documented in this encounter Visit Diagnoses Not on filedocumented in this encounter Care Teams Cup Trimming Machine Operator Relationship Specialty Start Date End Date Jeana Palacios NP [address] [place] [address] PCP - General Nurse Practitioner 12/09/24 Molina Medina MD 12/07/24 [facility]var[facility] Jang MD [facility] [facility] [address] [address] Referring Physician Hematology 12/07/24 Mirella Robbins MD PhD [address] [facility], [facility] [address] [place] [address] Medical Oncologist/Estate Administrator Medical Oncology 12/09/24 documented as of this encounter
--- OUTSIDE RECORDS SUMMARY | 2025-03-02 11:20 | XMS_ITS | Encounter Summary ---
Author Organization [facility] [employer] [facility] Address [address] [place] [address] Phone Care Team Providers Care Recruitment Director Name Role Phone Adam Molina Lopez MD Unavailable [phone] Alvarado Jang MD Unavailable [phone] Jeana Palacios NP Primary Care Provider [phone] Mirella Robbins MD PhD Unavailable [phone] Reason for Visit * Reason Onset Date Comments Follow-up 03/01/2025 Encounter Details Date Type Department Care Team (Late st Contact Info) Description 03/01/2025 Telephone [facility] Floor [address] [place] [address] Renetta Hunter RN Follow-up Social History Tobacco Use Types Packs/Day Years Used Date Smoking Tobacco: Never Smokeless Tobacco: Never Alcohol Use Standard Drinks/Week Comments Not Currently 0 (1 standard drink = 0.6 oz pur e alcohol) Comments Unknown Sex and Gender Information Value Date Recorded Sex Assigned at Not on file Legal Sex Female 6:45 PM FULL STACK JAVA DEVELOPER Gender Identity Not on file Sexual Orientation Not on file documented as of this encounter Miscellaneous Notes * Telephone Encounter - Renetta Hunter RN - 03/01/2025 10:33 AM CDT Called pt's to let him know we would need repeat BMP to check on pt's kidney function priorto biopsy on Thursday. Pt's requested this take place at pt's PCP office as this is the closest doctor's office [facility]. Placed call to pt's PCP who was agreeable to assist with lab draw tomorrow. BMP ordered faxed to [facility] with request for results to be faxed to our office. Pt's is aware I will call him once we have reviewed results. documented in this encounter Plan of Treatment Not on file documented as of this encounter Visit Diagnoses Not on filedocumented in this encounter Care Teams Recruitment Director Relationship Specialty Start Date End Date Jeana Palacios NP [address] [place] [address] PCP - General Nurse Practitioner 12/09/24 Molina Medina MD 12/07/24 Alvarado Jang MD [address] [facility] [address] [place] [address] Referring Physician Hematology 12/07/24 Mirella Robbins MD PhD [address] [facility], [facility] [address] [place] [address] Medical Oncologist/Bagger And Stock Handler Helper Medical Oncology 12/09/24 documented as of this encounter
--- OUTSIDE RECORDS SUMMARY | 2025-03-02 11:20 | XMS_ITS | Clinical Summary ---
Author Organization [facility] Address [facility] [place] [address] Care Team Providers Care Central Office Repairer Name Role Phone Unavailable Primary Care Provider [...]
--- OUTSIDE RECORDS SUMMARY | 2025-03-02 11:20 | XMS_ITS | Clinical Summary ---
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 Active divalproex ER (DEPAKOTE ER) 250 mg 24 hr tablet Take 2 tablets (500 mg total) by mouth daily 3 Active ondansetron ODT (ZOFRAN-ODT) 8 mg disintegrating tablet as needed 5 Active sertraline (ZOLOFT) 100 mg tablet Take 1 tablet (100 mg total) by mouth 4 Active trifluoperazine (STELAZINE) 5 mg tablet Take 1 tablet (5 mg total) by mouth 2 (two) times a day 3 Active traMADoL (ULTRAM) 50 mg tablet Take 1 tablet (50 mg total) by mouth 2 (two) times a day as needed for pain Active polyethylene glycol (MIRALAX) 17 gram/dose bulk powder Take 17 g by mouth daily as needed 4 Active QUEtiapine (SEROquel) 200 mg tablet 5 Active Active Problems Problem Noted Date Diagnosed Date Metastasis to liver 02/16/2025 Colon adenocarcinoma 12/22/2024 Encounters Date Type Department Care Team Description 03/01/2025 Telephone [facility] [address] [place] [phone] Reentta Hunter, SHAQUILLE Follow-up 03/01/2025 Orders Only [facility] [address] [place] [phone] Renetta Hunter, SHAQUILLE Colon adenocarcinoma (HCC) (Primary Dx); Examination of participant in clinical trial 02/27/2025 Telephone [facility] [address] [place] [phone] Renetta Hunter RN Scheduling Appointments 02/27/2025 Orders Only [facility] [address] [place] [phone] Grisel Muniz BS Examination of participant in clinical trial (Primary Dx) 02/21/2025 Telephone Radiology [address] [place] [address] Gisela Medina, 02/21/2025 Orders Only [facility] [address] [place] [phone] Mirella Robbins MD PhD Colon adenocarcinoma (HCC) (Primary Dx); Examination of participant in clinical trial; Metastasis to liver (HCC) 02/20/2025 11:43 AM CDT - 02/20/2025 11:59 PM CDT Hospital Encounter [facility] [address] [place] [phone] Metastasis to liver (HCC); Colon adenocarcinoma (HCC); Clinical trial participant Discharge Disposition: Discharge to home or self care 02/20/2025 11:00 AM CDT Clinical Support [facility] [address] [place] [phone] Examination of participant in clinical trial 02/20/2025 10:00 AM CDT [facility] [address] [facility] [address] [place] [address] Colon adenocarcinoma (HCC); Examination of participant in clinical trial 02/17/2025 Orders Only [facility] [address] [place] [address] 5 [place] [phone] Grisel Muniz BS Examination of participant in clinical trial (Primary Dx); Colon adenocarcinoma (HCC) 02/16/2025 9:56 AM CDT - 02/16/2025 11:59 PM CDT Hospital Encounter [facility] [address] [place] [phone] Metastasis to liver (HCC) Discharge Disposition: Discharge to home or self care 02/16/2025 9:00 AM CDT Infusion [facility] at [address] [phone] Colon adenocarcinoma (HCC) (Primary Dx); Colon cancer metastasized to liver (HCC); Metastasis to liver (HCC) 02/16/2025 8:30 AM CDT Office Visit [facility] [address] [place] [phone] Mirella Robbins MD PhD Metastasis to liver (HCC) (Primary Dx); Colon adenocarcinoma (HCC); Colon cancer metastasized to liver (HCC) 02/16/2025 8:00 AM CDT Lab [facility] [address] [place] [phone] Colon adenocarcinoma (HCC); Colon cancer metastasized to liver (HCC) 02/16/2025 Orders Only [facility] [address] [place] [address] 5 [place] [phone] Mirella Robbins MD PhD Metastasis to liver (HCC) (Primary Dx); Colon adenocarcinoma (HCC); Clinical trial participant 02/16/2025 Documentation [facility] [address] [place] [phone] Giovani Jackson RN 02/14/2025 Orders Only [facility] [address] [place] [phone] Giovani Jackson, SHAQUILLE Colon adenocarcinoma (HCC) (Primary Dx); Colon cancer metastasized to liver (HCC) 02/13/2025 Orders Only [facility] [place] [address] Giovani Jackson RN 02/10/2025 Orders Only [facility] [place] [address] Giovani Jackson RN 02/07/2025 Orders Only [facility] [address] [place] [phone] Giovani Jackson RN Colon cancer metastasized to liver (HCC) (Primary Dx); Colon adenocarcinoma (HCC) 02/07/2025 Documentation [facility] [address] [place] [phone] Giovani Jackson RN 02/06/2025 Orders Only [facility] Scanning, Provider 12/29/2024 2:00 PM CDT Office Visit [address] [phone] Mirella Robbins MD PhD Colon adenocarcinoma (HCC) (Primary Dx); Colon cancer metastasized to liver (HCC) 12/19/2024 Orders Only [facility] [address] [address] Mirella Robbins MD PhD Colon cancer metastasized to liver (HCC) 12/16/2024 Orders Only [facility] [address] [place] [phone] Mirella Robbins MD PhD Colon cancer metastasized to liver (HCC) (Primary Dx) from Last 3 Months Surgical History Surgery Date Site/Laterality Comments TONSILLECTOMY BREAST LUMPECTOMY Left CYST REMOVAL COLON SURGERY COLON SURGERY 04/25/2023 Medical History Medical History Date Comments Schizo-affective schizophren ia, chronic condition with acute exacerbation (HCC) Family History Medical History Relation Name Comments Diverticulitis Father Breast cancer Mother pulmonary cardiovascular Mother Relation Name Status Comments Father Mother Social History Tobacco Use Types Packs/Day Years Used Date Smoking Tobacco: Never Smokeless Tobacco: Never Tobacco Cessation:Counseling Given: Not Answered Alcohol Use Standard Drinks/Week Comments Not Currently 0 (1 standard drink = 0.6 oz pur e alcohol) Comments Unknown Sex and Gender Information Value Date Recorded Sex Assigned at Not on file 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[employer] Gender Identity Not on file Sexual Orientation Not on file Obstetrics History Last Filed Vital Signs Vital Sign Reading Time Taken Comments Blood Pressure 130/81 02/20/2025 11:20 AM CDT Pulse 77 02/16/2025 8:52 AM CDT Temperature 36.4 C (97.6 F) 02/16/2025 8:52 AM CDT Respiratory Rate 18 02/16/2025 8:52 AM CDT Oxygen Saturation 97% 02/16/2025 8:52 AM CDT Inhaled Oxygen Concentration - - Weight 89.5 kg (197 lb 6.4 oz) 02/16/2025 8:52 A M CDT Height 166 cm (5' 5.35) 02/20/2025 11:21 AM CDT Body Mass Index 31.86 12/29/2024 1:51 PM CDT Plan of Treatment Health Maintenance Due Date Last Done Comments Depression Screening 1950 Fall Risk Assessment 1950 Osteoporosis Screening-Bone Density Scan 1950 DTaP/Tdap/Td Vaccine (1 - Tdap) 10/11/1959 Pneumococcal vaccine 65+ (1 of 2 - PCV) 10/11/1967 Zoster Vaccine (1 of 2) 10/11/1967 Well Visit 65+ 2013 Influenza Vaccine (#1) 2025 Hepatitis B Screening Completed 02/20/2025 Hepatitis C Screening Completed 02/20/2025 Procedures Procedure Name Priority Date/Time Associated Diagnosis Comments URINALYSIS, MICROSCOPIC ONLY Routine 02/20/2025 1:17 PM CDT Colon adenocarcinoma (HCC) URINALYSIS AND REFLEX TO MICROSCOPIC Routine 02/20/2025 1:17 PM CDT Colon adenocarcinoma (HCC) CT CHEST ABDOMEN PELVIS W CONTRAST Schedule Routine, Read Routine (OP Routine) 02/20/2025 12:45 PM CDT Metastasis to liver (HCC) Colon adenocarcinoma (HCC) Clinical trial participant PROTIME-INR Routine 02/20/2025 11:00 AM CDT Colon adenocarcinoma (HCC) APTT Routine 02/20/2025 11:00 AM CDT Colon adenocarcinoma (HCC) RETICULOCYTES Routine 02/20/2025 11:00 AM CDT Colon adenocarcinoma (HCC) MAGNESIUM Routine 02/20/2025 11:00 AM CDT Colon adenocarcinoma (HCC) CYSTATIN C Routine 02/20/2025 11:00 AM CDT Colon adenocarcinoma (HCC) URIC ACID Routine 02/20/2025 11:00 AM CDT Colon adenocarcinoma (HCC) PHOSPHORUS Routine 02/20/2025 11:00 AM CDT Colon adenocarcinoma (HCC) AMYLASE Routine 02/20/2025 11:00 AM CDT Colon adenocarcinoma (HCC) LIPASE Routine 02/20/2025 11:00 AM CDT Colon adenocarcinoma (HCC) CEA Routine 02/20/2025 11:00 AM CDT Colon adenocarcinoma (HCC) HEPATITIS B SURFACE ANTIGEN Routine 02/20/2025 11:00 AM CDT Colon adenocarcinoma (HCC) HEPATITIS B CORE ANTIBODY, TOTAL Routine 02/20/2025 11:00 AM CDT Colon adenocarcinoma (HCC) HEPATITIS B SURFACE ANTIBODY (IMMUNE STATUS) Routine 02/20/2025 11:00 AM CDT Colon adenocarcinoma (HCC) HEPATITIS C ANTIBODY Routine 02/20/2025 11:00 AM CDT Colon adenocarcinoma (HCC) HIV 1/2 ANTIBODY PLUS P24 ANTIGEN Routine 02/20/2025 11:00 AM CDT Colon adenocarcinoma (HCC) EGFR Routine 02/16/2025 10:58 AM CDT Metastasis to liver (HCC) BASIC METABOLIC PANEL Routine 02/16/2025 10:58 AM CDT Metastasis to liver (HCC) EGFR Routine 02/16/2025 8:33 AM CDT Colon adenocarcinoma (HCC) Colon cancer metastasized to liver (HCC) DIFFERENTIAL AUTO Routine 02/16/2025 8:3 3 AM CDT Colon adenocarcinoma (HCC) Colon cancer metastasized to liver (HCC) CBC WITH AUTO DIFFERENTIAL Routine 02/16/2025 8:33 AM CDT Colon adenocarcinoma (HCC) Colon cancer metastasized to liver (HCC) COMPREHENSIVE METABOLIC PANEL Routine 02/16/2025 8:33 AM CDT Colon adenocarcinoma (HCC) Colon cancer metastasized to liver (HCC) SCAN - LABS 02/06/2025 SURGICAL PATHOLOGY Routine 12/19/2024 9: 16 AM CDT Colon cancer metastasized to liver (HCC) from Last 3 Months Results * (ABNORMAL) Urinalysis reflex to microscopic (02/20/2025 1:17 PM CDT) Color, ur Yellow Yellow Clarity, ur Clear Clear [facility] Specific gravity, ur 1.032(H) 1.003 - 1.030 [facility] pH, urine 6.0 [facility] Comment: Interpretive Data U rine pH is affected by diet, medications, systemic acid-base disturbances, and renal tubular function. pH may affect urinary stone formation. For example, urine pH below 6.0 may help reduce the tendency for calcium phosphate stones and pH greater than 6.0 may reduce the tendency for uric acid stone formation. Source: [employer] [facility] Current Interpretive Data was last revised on 2017 Protein, ur ql Negative Negative [facility] Glucose, ur ql Negative Negative [facility] Ketones, ur Negative Negative [facility] Bilirubin, ur Negative Negative [facility] Blood, ur Negative Negative [facility] Urobilinogen, ur <2.0 <2.0 mg/dL [facility] Nitrite, ur Negative Negative [facility] Leukocyte esterase, ur 2+(A) [facility] UA reflex comment Reflex to microscopic UA will be performed. [facility] Urine 02/20/2025 1:17 PM CDT 02/20/2025 1:18 PM CDT Mirella Robbins MD PhD LAB URINE ORDERABLES Final Result Performing Organization Address [facility] de Phone Number [facility] [place] [address] * (ABNORMAL) Urinalysis, microscopic only (02/20/2025 1:17 PM CDT) WBC, ur 21-50(A) 0 - 5 /HPF RBC, ur 0-2 0 - 2 /HPF [facility] Bacteria, ur Trace(A) [facility] Mucous, ur Present(A) [facility] Hyaline casts, ur 1-5 0 - 10 /LPF [facility] Urine 02/20/2025 1:17 PM CDT 02/20/2025 1:18 PM CDT us Mirella Robbins MD PhD LAB URINE ORDERABLES Final Result Performing Organization Address [facility] de Phone Number [facility] [place] [address] * CT chest abdomen pelvis with contrast (02/20/2025 12:45 PM CDT) Anatomical Region Laterality Modality Body N/A Computed Tomogra phy 02/20/2025 1:01 PM CDT Impressions 02/20/2025 1:01 PM CDT 1. Multifocal pulmonary nodules in both lungs suspicious for metastatic disease. 2. Ablation changes within the liver, but with residual metastatic disease in the right hemiliver as detailed. 3. Cystic lesions in both ovaries for which attention on follow-up is recommended. Electronically signed by: Philip Kimball M.D. Narrative 02/20/2025 1:01 PM CDT EXAMINATION: Computed tomography of the chest, abdomen and pelvis with intravenous contrast HISTORY: Colorectal cancer staging TECHNIQUE: Transaxial computed tomographic images of the chest, abdomen and pelvis were obtained with intravenous contrast according to the standard protocol after the uneventful administration of 93 mL Opti-Ray 350 intravenous contrast. COMPARISON: None available FINDINGS: 5 mm right upper lobe pulmonary nodule on series 3 image 57. Left upper lobe 1 cm nodule on series 3 image 67. Right upper lobe pulmonary nodule measuring 1.3 cm on series 3 image 80. Left lower lobe 1.2 cm nodule on series 3 image 99. Additional pulmonary nodules are present in both lungs. No pleural effusion pneumothorax or pneumonic consolidation. Central airways widely patent. Right internal jugular port catheter terminates in the superior vena cava. Normal heart size without pericardial effusion. Coronary artery atherosclerotic calcifications are present. No axillary, supraclavicular, mediastinal, or hilar lymphadenopathy. Surgical changes from microwave ablation are present within hepatic segments 2, 5, and 8 as well as segment 3. There are additional low attenuating lesions separate from the ablation beds in segments 8 and 5 suspicious for residual or recurrent disease. This includes a 3.1 cm lesion on series 2 image 156 as well as a 1.8 cm lesion on series 2 image 174. There is no biliary duct dilatation. Nondistended gallbladder. Patent portal veins. Normal adrenal glands and pancreas. Hypoattenuating lesion in the spleen, likely a lymphangioma. Normal-appearing stomach and duodenum. No suspicious renal lesion or hydronephrosis. The abdominal aorta is atherosclerotic but nonaneurysmal. No abdominal or pelvic lymphadenopathy. Partially distended urinary bladder. 4.1 cm cystic lesion in the right ovary. The left ovary contains a 1.7 cm cystic lesion. No free intraperitoneal fluid or free gas. No intestinal obstruction or focal bowel wall thickening. Changes from right hemicolectomy are present. No peritoneal or omental nodularity. No suspicious osseous lesion or fracture. Procedure Note Philip Kimball MD - 02/20/2025 EXAMINATION: Computed tomography of the chest, abdomen and pelvis with intravenous contrast HISTORY: Colorectal cancer staging TECHNIQUE: Transaxial computed tomographic images of the chest, abdomen and pelvis were obtained with intravenous contrast according to the standard protocol after the uneventful administration of 93 mL Opti-Ray 350 intravenous contrast. COMPARISON: None available FINDINGS: 5 mm right upper lobe pulmonary nodule on series 3 image 57. Left upper lobe 1 cm nodule on series 3 image 67. Right upper lobe pulmonary nodule measuring 1.3 cm on series 3 image 80. Left lower lobe 1.2 cm nodule on series 3 image 99. Additional pulmonary nodules are present in both lungs. No pleural effusion pneumothorax or pneumonic consolidation. Central airways widely patent. Right internal jugular port catheter terminates in the superior vena cava. Normal heart size without pericardial effusion. Coronary artery atherosclerotic calcifications are present. No axillary, supraclavicular, mediastinal, or hilar lymphadenopathy. Surgical changes from microwave ablation are present within hepatic segments 2, 5, and 8 as well as segment 3. There are additional low attenuating lesions separate from the ablation beds in segments 8 and 5 suspicious for residual or recurrent disease. This includes a 3.1 cm lesion on series 2 image 156 as well as a 1.8 cm lesion on series 2 image 174. There is no biliary duct dilatation. Nondistended gallbladder. Patent portal veins. Normal adrenal glands and pancreas. Hypoattenuating lesion in the spleen, likely a lymphangioma. Normal-appearing stomach and duodenum. No suspicious renal lesion or hydronephrosis. The abdominal aorta is atherosclerotic but nonaneurysmal. No abdominal or pelvic lymphadenopathy. Partially distended urinary bladder. 4.1 cm cystic lesion in the right ovary. The left ovary contains a 1.7 cm cystic lesion. No free intraperitoneal fluid or free gas. No intestinal obstruction or focal bowel wall thickening. Changes from right hemicolectomy are present. No peritoneal or omental nodularity. No suspicious osseous lesion or fracture. IMPRESSION: 1. Multifocal pulmonary nodules in both lungs suspicious for metastatic disease. 2. Ablation changes within the liver, but with residual metastatic disease in the right hemiliver as detailed. 3. Cystic lesions in both ovaries for which attention on follow-up is recommended. Electronically signed by: Philip Kimball M.D. us Mirella Robbins MD PhD IMG CT PROCEDURES Final Res ult * HIV 1/2 Antibody plus p24 Antigen Blood (02/20/2025 11:00 AM CDT) HIV 1/2 ab + p24 ag Nonreactive Nonreactive Comment:Nonreactive for HIV- 1 antigen and HIV-1/HIV-2 antibodies. No laboratory evidence of HIV infection. If acute HIV infection is suspected, consider testing for HIV-1 RNA. Current interpretive data was last revised on 22. Blood 02/20/2025 11:0 0 AM CDT 02/20/2025 11:52 AM CDT Mirella Robbins MD PhD LAB MICROBIOLOGY - GENERAL ORDERABLES Final Result Performing Organization Address [facility] de Phone Number [facility] [place] [address] * (ABNORMAL) Cystatin C (02/20/2025 11:00 AM CDT) Pathologist [facility] [place] Cystatin C 1.44(H) 0.60 - 1.20 mg/L Comment: Interpretive Data Cystatin C concentrations vary widely in the first month of life, particularly in pre-term infants. Concentrations gradually diminish to adult levels by 1 year of life. Concentrations tend to rise with diminishing renal function in individuals greater than 60 years of age. Current Interpretive Data was last revised on 2020. Testing performed by: [facility], [place]., [address] Blood 02/20/2025 11:0 0 AM CDT 02/20/2025 1:28 PM CDT Mirella Robbins MD PhD LAB BLOOD ORDERABLES Final Result Performing Organization Address [facility] de Phone Number [facility] [place] [address] * Hepatitis C antibody Blood (02/20/2025 11:00 AM CDT) Pathologist [facility] [place] Hep C Ab Nonreactive Nonreactive Comment:Antibodies to HCV no t detected. Does NOT exclude the possibility of recent exposure to HCV. Current interpretive data was last revised on 22 Blood 02/20/2025 11:0 0 AM CDT 02/20/2025 11:52 AM CDT Mirella Robbins MD PhD LAB MICROBIOLOGY - GENERAL ORDERABLES Final Result Performing Organization Address [facility] [place] [address] * Hepatitis B core antibody, total Blood (02/20/2025 11:00 AM CDT) Hep B core IgG/IgM Nonreactive Nonreactive Blood 02/20/2025 11:0 0 AM CDT 02/20/2025 11:52 AM CDT Mirella Robbins MD PhD LAB MICROBIOLOGY - GENERAL ORDERABLES Final Result Performing Organization Address [facility] [place] [address] * Hepatitis B surface antibody (immune status) Blood (02/20/2025 11:00 AM CDT) HBsAb (immune status) Nonreactive Comment:This result is consi stent with a lack of immunity to Hepatitis B Virus when used in the setting of routine screening. Current interpretative data was last revised on 22 Blood 02/20/2025 11:0 0 AM CDT 02/20/2025 11:52 AM CDT Mirella Robbins MD PhD LAB MICROBIOLOGY - GENERAL ORDERABLES Final Result Performing Organization Address [facility] [place] [address] * Hepatitis B Surface Antigen Blood (02/20/2025 11:00 AM CDT) HepBsAg Nonreactive Nonreactive Blood 02/20/2025 11:0 0 AM CDT 02/20/2025 11:52 AM CDT Mirella Robbins MD PhD LAB MICROBIOLOGY - GENERAL ORDERABLES Final Result Performing Organization Address [facility] de Phone Number [facility] [place] [address] * aPTT (02/20/2025 11:00 AM CDT) aPTT 30 28 - 38 sec Comment: Interpretive Data Heparin therapeutic range: 66.0 - 100.0 seconds. Range based on correlation with therapeutic heparin activity range of 0.3 - 0.7 Units/mL. Current interpretive data was last revised on 2023. Blood 02/20/2025 11:0 0 AM CDT 02/20/2025 11:28 AM CDT Narrative [facility] - 02/20/2025 12:01 PM CDT PLEASE PERFORM AN ARM DRAW. Thank you :) Mirella Robbins MD PhD LAB BLOOD ORDERABLES Final Result Performing Organization Address [facility] de Phone Number [facility] [place] [address] * Protime-INR (02/20/2025 11:00 AM CDT) PT 10.3 9.7 - 13.0 sec INR 0.95 0.90 - 1.20 [facility] Comment: Interpretive data Oral anticoagulant therapeutic ranges: Venous thromboembolism prophylaxis or treatment: 2.0-3.0 CARDIOLOGY Standard range: 2.0-3.0 High-intensity range: 2.5-3.5 Refer to indication-specific guidelines for appropriate target ranges for prosthetic heart valve replacement. Current interpretive data was last revised on 2019. Blood 02/20/2025 11:0 0 AM CDT 02/20/2025 11:28 AM CDT Narrative [facility] - 02/20/2025 12:01 PM CDT PLEASE PERFORM AN ARM DRAW. Thank you :) Mirella Robbins MD PhD LAB BLOOD ORDERABLES Final Result [facility] [place] [address] * (ABNORMAL) Reticulocyte Count (02/20/2025 11:00 AM CDT) Pathologist [facility] [place] Retics, absolute 95 20 - 100 K/cumm Comment:Testing performed by : [facility], [address] [place] [phone] Retics 2.9(H) 0.5 - 1.8 % [facility] Comment:Testing performed by : [facility], [address] [place] [phone] Blood 02/20/2025 11:0 0 AM CDT 02/20/2025 11:02 AM CDT Mirella Robbins MD PhD LAB BLOOD ORDERABLES Final Result Performing Organization Address [facility]/ZIP Co de Phone Number [facility] [place] [address] * Uric acid (02/20/2025 11:00 AM CDT) Uric acid 3.3 2.5 - 7.0 mg/dL Blood 02/20/2025 11:0 0 AM CDT 02/20/2025 11:08 AM CDT Mirella Robbins MD PhD LAB [place]LO[place] [address] * Phosphorus (02/20/2025 11:00 AM CDT) Phosphorus, pl 3.8 2.3 - 4.5 mg/dL Blood 02/20/2025 11:0 0 AM CDT 02/20/2025 11:08 AM CDT Mirella Robbins MD PhD LAB BLOOD ORDERABLES Final Result Performing Organization Address [facility] de Phone Number [facility] [place] [address] * Magnesium (02/20/2025 11:00 AM CDT) Magnesium 2.1 1.4 - 2.5 mg/dL Blood 02/20/2025 11:0 0 AM CDT 02/20/2025 11:08 AM CDT Mirella Robbins MD PhD LAB BLOOD ORDERABLES Final Result Performing Organization Address [facility] de Phone Number [facility] [place] [address] * Lipase (02/20/2025 11:00 AM CDT) Pathologist [facility] [place] Lipase 38 10 - 99 Units/L Blood 02/20/2025 11:0 0 AM CDT 02/20/2025 11:08 AM CDT Mirella Robbins MD PhD LAB BLOOD ORDERABLES Final Result Performing Organization Address [facility] Phone Number [facility] [place] [address] * (ABNORMAL) CEA (02/20/2025 11:00 AM CDT) CEA 24.4(H) <=5.0 ng/mL Comment: Interpretive Data: Reference Range: Non-Smokers: 0.0 5.0 ng/mL Smokers: 0.0 6.5 ng/mL The Shae CEA assay procedure was used. Results from different manufacturers or methods may not be comparable. Serial testing should be performed using the same method. Current interpretive data was last revised 2021. Blood 02/20/2025 11:0 0 AM CDT 02/20/2025 11:28 AM CDT Mirella Robbins MD PhD LAB BLOOD ORDERABLES Final Result Performing Organization Address City/State/[facility] Co de Phone Number [facility] [place] [address] * Amylase (02/20/2025 11:00 AM CDT) Amylase 54 30 - 99 Units/L Blood 02/20/2025 11:0 0 AM CDT 02/20/2025 11:08 AM CDT Mirella Robbins MD PhD LAB BLOOD ORDERABLES Final Result Performing Organization Address [facility] de Phone Number [facility] [place] [address] * (ABNORMAL) eGFR (02/16/2025 10:58 AM CDT) eGFR 57(L) >=60 mL/min/1. 73 m2 Comment: Interpretive Data Reference Interval Normal >/= 90 mL/min/1.73m2 Mildly decreased* 60 - 89 mL/min/1.73m2 Mildly to moderately decreased 45 - 59 mL/min/1.73m2 Moderately to severely decreased 30 - 44 mL/min/1.73m2 Severely decreased 15 - 29 mL/min/1.73m2 Kidney Failure < 15 mL/min/1.73m2 *Relative to young adult level Estimated glomerular filtration rate is determined by the 2020 CKD-EPI equation recommended by the National Kidney Foundation (A Unifying Approach to GFR Estimation: Recommendations of the NKF-ASK Task Force on Reassessing the Inclusion of Race in Diagnosing Kidney Disease, JASN 2020). The CKD-EPI equation should not be used for patients with unstable renal function and has not been validated in children and those over 70. Current interpretive data was last reviewed 2021. Testing performed by: [facility] [place] [address] Blood 02/16/2025 10:5 8 AM CDT 02/16/2025 11:08 AM CDT Mirella Robbins MD PhD LAB BLOOD ORDERABLES Final Result [facility] [address] Department of Laboratories [place] [phone] * Basic metabolic panel (02/16/2025 10:58 AM CDT) Sodium 136 135 - 145 mmol/L Comment:Testing performed by : [facility] [place] [address] Potassium, pl 4.0 3.3 - 4.9 mmol/L CERNER Comment:Testing performed by : [facility] [place] [address] Chloride 101 97 - 110 mmol/L CERNER Comment:Testing performed by : [facility] [place] [address] CO2 25 22 - 32 mmol/L CERNER CH Comment:Testing performed by : [facility] [place] [address] Anion gap 10 2 - 15 mmol/L CERNER Comment:Testing performed by : [facility] [place] [address] BUN 15 6 - 25 mg/dL CERNER Comment:Testing performed by : [facility] [place] [address] Creatinine 1.02 0.60 - 1.10 mg/dL CERNER Comment:Testing performed by : [facility] [place] [address] Glucose 122 70 - 199 mg/dL CERNER Comment: Interpretive Data Fasting glucose >/= 126 mg/dl is diagnostic for diabetes. Fasting is defined as no caloric intake for at least 8 hours. Fasting glucose between 100 mg/dl to 125 mg/dl is diagnostic of prediabetes. In a patient with classic symptoms of hyperglycemia or hyperglycemic crisis, a random glucose >/= 200 mg/dl is diagnostic for diabetes. In the absence of unequivocal hyperglycemia, results should be confirmed by repeat testing. The classification and Diagnosis of Diabetes Diabetes Care 202; 46: S19-S40. Current interpretive data was last revised 2022. Testing performed by: [facility] [place] [address] Calcium 8.9 8.5 - 10.3 mg/dL [place] SERRANO Comment:Testing performed by : [facility] [place] [address] Blood 02/16/2025 10:5 8 AM CDT 02/16/2025 11:08 AM CDT us Mirella Robbins MD PhD LAB BLOOD ORDERABLES Final Result [place] [address] [place] [address] * (ABNORMAL) eGFR (02/16/2025 8:33 AM CDT) eGFR 50(L) >=60 mL/min/1. 73 m2 Comment: Interpretive Data Reference Interval Normal >/= 90 mL/min/1.73m2 Mildly decreased* 60 - 89 mL/min/1.73m2 Mildly to moderately decreased 45 - 59 mL/min/1.73m2 Moderately to severely decreased 30 - 44 mL/min/1.73m2 Severely decreased 15 - 29 mL/min/1.73m2 Kidney Failure < 15 mL/min/1.73m2 *Relative to young adult level Estimated glomerular filtration rate is determined by the 2020 CKD-EPI equation recommended by the National Kidney Foundation (A Unifying Approach to GFR Estimation: Recommendations of the NKF-ASK Task Force on Reassessing the Inclusion of Race in Diagnosing Kidney Disease, JASN 2020). The CKD-EPI equation should not be used for patients with unstable renal function and has not been validated in children and those over 70. Current interpretive data was last reviewed 2021. Testing performed by: [facility] [place] [address] Blood 02/16/2025 8:33 AM CDT 02/16/2025 8:33 AM CDT us Mirella Robbins MD PhD LAB BLOOD ORDERABLES Final Result [facility] [address] [place] [address] * Differential, auto (02/16/2025 8:33 AM CDT) Neutrophil abs 1.86 1.50 - 6.50 K/cumm Comment:Testing performed by : [facility] [place] [address] Imm gran abs 0.01 0.00 - 0.10 K/cumm CERNER CH Comment:Testing performed by : [facility] [place] [address] Lymphocyte abs 1.14 0.80 - 3.30 K/cumm CERNER CH Comment:Testing performed by : [facility] [place] [address] Monocyte abs 0.55 0.20 - 0.80 K/cumm CERNER CH Comment:Testing performed by : [facility] [place] [address] Eosinophil abs 0.09 0.00 - 0.50 K/cumm CERNER CH Comment:Testing performed by : [facility] [place] [address] Basophil abs 0.01 0.00 - 0.10 K/cumm CERNER CH Comment:Testing performed by : [facility] [place] [address] Neutrophil pct 50.8 % CERNER CH Comment: Interpretive Data Percent cell count reference ranges are not reported, since discordance with absolute values may lead to misinterpretation of CBC data. Current Interpretive Data was last revised on 2017. Testing performed by: [facility] [place] [address] Imm gran pct 0.3 % CERNER CH Comment: Interpretive Data Percent cell count reference ranges are not reported, since discordance with absolute values may lead to misinterpretation of CBC data. Current Interpretive Data was last revised on 2017. Testing performed by: [facility] [place] [address] Lymphocyte pct 31.1 % CERNER CH Comment: Interpretive Data Percent cell count reference ranges are not reported, since discordance with absolute values may lead to misinterpretation of CBC data. Current Interpretive Data was last revised on 2017. Testing performed by: [facility] [place] [address] Monocyte pct 15.0 % [place] Comment: Interpretive Data Percent cell count reference ranges are not reported, since discordance with absolute values may lead to misinterpretation of CBC data. Current Interpretive Data was last revised on 2017. Testing performed by: [facility] [place] [address] Eosinophil pct 2.5 % [place] Comment: Interpretive Data Percent cell count reference ranges are not reported, since discordance with absolute values may lead to misinterpretation of CBC data. Current Interpretive Data was last revised on 2017. Testing performed by: [facility] [place] [address] Basophil pct 0.3 % [place] Comment: Interpretive Data Percent cell count reference ranges are not reported, since discordance with absolute values may lead to misinterpretation of CBC data. Current Interpretive Data was last revised on 2017. Testing performed by: [facility] [place] [address] Blood 02/16/2025 8:33 AM CDT 02/16/2025 8:33 AM CDT us Mirella Robbins MD PhD LAB BLOOD ORDERABLES Final Result [place] [address] [place] [address] * (ABNORMAL) CBC with auto differential (02/16/2025 8:33 AM CDT) WBC 3.66(L) 3.80 - 9.90 K/cumm Comment:Testing performed by : [facility] [place] [address] Hgb 10.6(L) 11.9 - 15.5 g/dL [place] Comment:Testing performed by : [facility] [place] [address] Hct 32.0(L) 35.6 - 45.5 % CERNER CH Comment:Testing performed by : [facility] [place] [address] Plt 132(L) 150 - 400 K/cumm CERNER CH Comment:Testing performed by : [facility] [place] [address] MPV 9.9 9.1 - 12.3 fL CERNER CH Comment:Testing performed by : [facility] [place] [address] RBC 3.15(L) 3.90 - 5.20 M/cumm CERNER CH Comment:Testing performed by : [facility] [place] [address] MCV 101.6(H) 81.3 - 96.4 fL CERNER CH Comment:Testing performed by : [facility] [place] [address] MCH 33.7(H) 27.1 - 33.3 pg CERNER CH Comment:Testing performed by : [facility] [place] [address] MCHC 33.1 32.3 - 35.7 g/dL CERNER CH Comment:Testing performed by : [facility] [place] [address] RDW CV 15.6(H) 11.1 - 14.9 % CERNER CH Comment:Testing performed by : [facility] [place] [address] RDW SD 57.2(H) 35.7 - 48.1 fL CERNER CH Comment:Testing performed by : [facility] [place] [address] NRBC abs 0.00 0.00 - 0.01 K/cumm CERNER CH Comment:Testing performed by : [facility] [place] [address] ANC Prelim 1.86 1.50 - 6.50 K/cumm CERNER CH Comment: Interpretive Data The rapid ANC is a preliminary automated count and may vary from the final ANC (Neut Abs) reported in the WBC differential that follows. Current interpretive data was last revised 2024. Testing performed by: [facility] [place] [address] Blood 02/16/2025 8:33 AM CDT 02/16/2025 8:33 AM CDT us Mirella Robbins MD PhD LAB BLOOD ORDERABLES Final Result [place] [address] [address] Department [place] [address] * (ABNORMAL) Comprehensive metabolic panel (02/16/2025 8:33 AM CDT) Sodium 138 135 - 145 mmol/L Comment:Testing performed by : [facility] [place] [address] Potassium, pl 4.3 3.3 - 4.9 mmol/L [facility]Testing performed by : [facility] [place] [address] Chloride 98 97 - 110 mmol/L [facility] Comment:Testing performed by : [facility] [place] [address] CO2 27 22 - 32 mmol/L CERVERONIKA Comment:Testing performed by : [facility] [place] [address] Anion gap 13 2 - 15 mmol/L [facility] Comment:Testing performed by : [facility] [place] [address] BUN 16 6 - 25 mg/dL [facility] Comment:Testing performed by : [facility] [place] [address] Creatinine 1.13(H) 0.60 - 1.10 mg/dL [facility] Comment:Testing performed by : [facility] [place] [address] Glucose 87 70 - 199 mg/dL [facility] Comment: Interpretive Data Fasting glucose >/= 126 mg/dl is diagnostic for diabetes. Fasting is defined as no caloric intake for at least 8 hours. Fasting glucose between 100 mg/dl to 125 mg/dl is diagnostic of prediabetes. In a patient with classic symptoms of hyperglycemia or hyperglycemic crisis, a random glucose >/= 200 mg/dl is diagnostic for diabetes. In the absence of unequivocal hyperglycemia, results should be confirmed by repeat testing. The classification and Diagnosis of Diabetes Diabetes Care 2021; 46: S19-S40. Current interpretive data was last revised 2022. Testing performed by: [facility] [place] [address] Calcium 10.1 8.5 - 10.3 mg/dL CERNER CH Comment:Testing performed by : [facility] [place] [address] Bilirubin, total 0.2 0.1 - 1.2 mg/dL CERNER CH Comment:Testing performed by : [facility] [place] [address] Protein, pl 6.6 6.5 - 8.5 g/dL CERNER CH Comment:Testing performed by : [facility] [place] [address] Albumin 3.7 3.5 - 5.0 g/dL CERNER CH Comment:Testing performed by : [facility] [place] [address] Alk phos 87 40 - 130 Units/L CERNER CH Comment:Testing performed by : [facility] [place] [address] ALT 12 7 - 45 Units/L CERN[facility] CH Comment:Testing performed by : [facility] [place] [address] AST 27 10 - 45 Units/L CERNER CH Comment:Testing performed by : [facility] [place] [address] Blood 02/16/2025 8:33 AM CDT 02/16/2025 8:33 AM CDT us Mirella Robbins MD PhD LAB BLOOD ORDERABLES Final Result [facility] [address] [place] [address] * SCAN - LABS (02/06/2025) us Provider Scanning Final Result * Surgical pathology (12/19/2024 9:16 AM CDT) Tissue (Miscellaneous) 12/19/2024 9:16 AM CDT 12/19/2024 9:16 AM CDT Narrative [facility] - 12/20/2024 3:58 PM CDT EPIC results best viewed via link to PDF [facility] Pathology Consult Service [address], [address], [place] [address] Note to Patients: This report may contain a detailed description of human tissue sent by a health care provider to the laboratory for pathologic evaluation. The content of this report is essential for diagnosis and may provide important critical findings. This information may be unfamiliar to patients to review without a medical professional present. It is advised that the patient review this report in the presence of a health care provider who can answer questions and explain the details. SURGICAL PATHOLOGY REPORT * Consult Report * [facility] is providing an additional review of previously collected tissue. FINAL Patient Name: QUINTON NORRIS Address: [address] [place] [id number] Gender: F : 1950 (Age: 74) Hospital #: [id number] Patient Type: [facility] Location: UNKNOWN Taken: 12/19/2024 Received: 12/19/2024 Accessioned: 12/19/2024 Reported: 12/20/2024 Physician(s): Mirella Robbins M.D. [facility] Pathology [facility] Department of Pathology [address] [place] [address] P: [phone] F: [phone] Diagnosis: Consult material received from [place], [place] (OSC: [id number]; 04/25/2023). Large bowel, right and transverse colon, resection - Moderately differentiated colonic adenocarcinoma infiltrating through the muscularis propria into the pericolonic soft tissue (pT3) - Tumor measures 5.0 cm in greatest dimension, per report - Positive for lymphovascular invasion (large vessel) - Negative for perineural invasion - Margins negative for tumor - One soft tissue tumor deposit (pN1c) - Forty-four lymph nodes; negative for malignancy (0/44) - Unremarkable appendix kxb/12/20/2024 15:58 By this signature, I attest that the above diagnosis is based upon my personal examination of the slides(and/or other material indicated in the diagnosis). Alyx Grant MD Report Electronically Reviewed and Signed Out By Alyx Grant MD 12/20/2024 15:58:38 Microscopic Description and Comment: The results of MMR IHC are as follows: PMS2: retained hMLH1: retained hMSH2: retained hMSH6: retained Immunohistochemical (IHC) stains for the DNA mismatch repair (MMR) enzymes MLH1, MSH2, MSH6, and PMS2 have been performed and provided for our review. These show retained nuclear expression in the tumor cells equivalent to that seen in lymphocytes and smooth muscle in the adjacent normal tissue, a staining pattern that is usually not associated with a defect in mismatch repair function. Normal expression of all four proteins suggests this particular cancer is unlikely to be due to a hereditary germline mutation in the genes known to be associated with Cadena Syndrome. Clinical correlation is required. IHC is a reliable measure of DNA mismatch repair status but is neither completely sensitive nor specific and has limitations. History: The patient is a 74-year-old woman with history of colon cancer metastasized to liver. Materials Received: Received for review are thirty slides labeled [id number], accompanied by a corresponding pathology report. The material originates from [place], [place]. Selected slide(s) may be digitally scanned for our files, and all materials are returned to the referring institution, along with a copy of our final report. Any testing required for diagnostic purposes was performed in the Department of Pathology and Immunology at [facility], [address] [place] [address] CLIA # [id number] The performance characteristics of the testing cited in this report (if any) were determined by the [facility] Department of Pathology and Immunology [facility], as part of an ongoing quality control tech raw materials program and in compliance with federally mandated regulations drawn from the Clinical Laboratory Improvement Act of 1988 (CLIA '88). Some of these tests rely on the use of analyte specific reagents (ASR) and are subject to specific labeling requirements by the US Food and Drug Administration. Such diagnostic tests may only be performed in a facility that is certified by the Department of Health and Human Services as a high complexity laboratory under CLIA '88. The FDA has determined that such clearance or approval is not necessary. ASRs should not be regarded as investigational or for research. ASRs were developed and the performance characteristics determined by the [facility], [facility] Department of Pathology and Immunology. It has not been cleared or approved by the U.S. Food and Drug Administration. Any test designated as LDT was developed and its performance characteristics determined by [facility]. It has not been cleared or approved by the FDA. This test is used for clinical purposes and should not be regarded as investigational or for research. Report images and/or scanned reports, if included, only viewable in PDF version of report. Mirella Robbins MD PhD LAB PATHOLOGY ORDERABLES nal Result [facility] [address] [place] [address] from Last 3 Months Insurance MEDICARE The [employer] [facility] MEDICARE [facility] MEDICARE SUPPLEMENT MEDICARE [facility] MEDICARE SUPPLEMENT Care Teams Finishing And Shipping Supervisor Relationship Specialty Start Date End Date Jeana Palacios NP [address] [place] [address] PCP - General Nurse Practitioner 12/09/24 Molina Medina MD 12/07/24 Alvarado Jang MD [address] [facility] [address] [id number] Referring Physician Hematology 12/07/24 Mirella Robbins MD PhD [address] [facility]COL[facility], [facility] [address] [place] [address] Medical Oncologist/Inspector [employer] Medical Oncology 12/09/24
--- OUTSIDE RECORDS SUMMARY | 2025-03-02 11:20 | XMS_ITS | Encounter Summary ---
Author Organization [facility] Address [address] [place] [address] Care Team Providers Care Repair Manager Name Role Phone Molina Medina MD Unavailable [phone] Alvarado Jang MD Unavailable [phone] Jeana Palacios NP Primary Care Provider [phone] Mirella Robbins MD PhD Unavailable [phone] Encounter Details Date Type Department Care Team (Late st Contact Info) Description 02/21/2025 Telephone Radiology [address] [place] [address] Gisela Medina, RT Social History Tobacco Use Types Packs/Day Years Used Date Smoking Tobacco: Never Smokeless Tobacco: Never Alcohol Use Standard Drinks/Week Comments Not Currently 0 (1 standard drink = 0.6 oz pur e alcohol) Comments Unknown Sex and Gender Information Value Date Recorded Sex Assigned at Not on file Legal Sex Female 6:45 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 Spoke with Procedure Time Verified: Yes-1030 Arrival Time Verified: Yes-0900 Where to Report: Yes- [facility] OP Registration (#[facility]) on the [facility]. NPO Status Verified: Yes- 6 hrs before procedure time Journeyman Level Acoustic Analyst to and from procedure (if NO document why/plan): Yes - Recovery time reviewed (including pack overnight bag just in case): Yes-4 hours from start of biopsy to end of recovery Reviewed 23 hour observation stay for all kidney, spleen biopsies: N/A Prescribed Blood Thinners?: N/A If yes, date thinners stopped: Prescribed Diabetic medication?: N/A If yes, what directions given by prescriber? (ie: skip short acting insulin/hold antihyperglycemic): Other items discussed: Mild sedation--please discuss snapboard updated, meds, biopsy process, directions, result timeframe Contact number provided and encouraged to call with questions: Yes * Telephone Encounter - Pinky Mullins RN - 02/28/2025 7:25 AM CDT PRE-PROCEDURE SCREENING Risk Level of Procedure: High Procedure: US Guided Liver Lesion Planned Level of Sedation: Minimal Microbiology Orders in (if applicable) : ALLERGIES: Allergies Allergen Reactions Penicillins Hives and Rash Infection Status: N/A Does the patient have any of the following medical conditions? Sedation: Previous problems with anesthesia or sedation? No Cardiovascular/Respiratory: None Most recent blood pressure (include date): 130/81 as of 02/20/2025 Lung: None Renal/Liver/GI: h/o colon cancer, h/o small bowel obstruction, h/o DENIS, h/o CKD Bleeding/Clotting: None Most recent coag results: 02/16/25: UKR=724, 02/20/25: PT/INR=10.3/0.95, PTT=30 Date of redraw (if applicable): Medications: * * * For blood thinners/antiplatelet agents, REVIEW MED REC AND LIST THEM APPROPRIATE * * * No thinners including ASA * Telephone Encounter - Gisela Medina, RT - 02/22/2025 10:13 AM CDT Message sent to Renetta about US liver biopsy for study. Patient is scheduled for 03/03 at 10:30am. Not on blood thinners, CBC from 02/16, PT/INR from 02/[address] PRE-BIOPSY INSTRUCTIONS [facility] ~Please provide to patient at time of scheduling~ Patient will need to arrive 1.5 hours prior to appointment time. Report to the [facility] (#[facility]). Park in the [address], walk over in the walkway and report to Outpatient Admitting &Registration (right side of the lobby). Patient will need to have 'nothing by mouth' (NPO) 6 hours prior to procedure time. MEDICATIONS Pt may take medications as prescribed with the exception of: ANTICOAGULANTS (Blood thinner medications-includes aspirin 325mg): REFERRING OFFICE is responsible for contacting prescriber and ensuring that recommended hold is appropriate. Nurse Coordinators for Biopsy section will forward an ANTICOAGULANT CLEARANCE form to referring office for completion. Referring office to return completed form to Radiology Fax to [phone] (Attn: Bree and October).BIOPSY WILL NOT BE SCHEDULED UNTIL FORM IS RETURNED, SIGNED. ANTIHYPERGLYCEMICS (Blood sugar medications): 1) Pt should contact prescriber of the diabetic medication(s) to ask how they should be taken whilept is NPO. Pt will have no food or water for about 10 hours. 2) Schedule should also include when/how antihyperglycemic medication is to be restarted after biopsy. Pt should: Have had a CBC, PT/INR (PTT is ONLY if patient is on Heparin) completed within the 30 days prior tothe procedure date, and results either in EPIC or faxed to [phone] Attn: and October If pt has to hold an anticoagulant, please have them get PT/INR and (and PTT ONLY if patient is on Heparin) drawn after they have held the medication (otherwise we may get false highs). Pack a small overnight bag (in case observation/admission is needed). Patients should have a responsible individual identified as the person who will serve as the patient's reconciliation coordinator at the time of discharge. If a responsible individual is not identified prior to the start of the procedure, the procedure may be cancelled unless alternative arrangements can be made. Expect to be here for at least 4 hours from time of arrival to end of recovery period. (EXCEPTION: ALL KIDNEY and SPLEEN biopsies will require overnight stay for 23 hour observation, post-procedure). Rev. 8.7.24SW * Telephone Encounter - Rafy Barrios MD - 02/21/2025 1:01 PM CDT Images from the original note were not included. Abdominal Biopsy Planning Note Planned target / indication: Liver lesion Planned sampling method: Core Service to perform: Deep abdominal biopsy service Anticipated imaging modality for guidance: US routine Anticipated monitored recovery (final disposition determined at biopsy completion): Routine outpatient: (1- 2 hours) prior to discharge. Special instructions: Lesions adjacent to prior ablation site Bob image(s), if relevant: Confirmation of scheduling, a dedicated screening review of procedural risk factors and specific pre-procedural instructions will be documented separately. * Telephone Encounter - Gisela Medina RT - 02/21/2025 12:04 PM CDT Biopsy request- Dr. Robbins Liver lesion- [address] from 02/20 History of colon cancer Not on blood thinners documented in this encounter Plan of Treatment Not on file documented as of this encounter Visit Diagnoses Not on filedocumented in this encounter Care Teams Repair Manager Relationship Specialty Start Date End Date Jeana Palacios NP [address] [place] [address] PCP - General Nurse Practitioner 12/09/24 Molina Medina MD 12/07/24 Alvarado Jang MD [address] [id number] Referring Physician Hematology 12/07/24 Mirella Robbins MD PhD [address] DIV IM MEDICAL ONCOLOGY, [address] [place] [address] Medical Oncologist/Instructional Coordinator Medical Oncology 12/09/24 documented as of this encounter
--- OUTSIDE RECORDS SUMMARY | 2025-03-02 11:20 | XMS_ITS | Encounter Summary ---
Author Organization [facility] [employer] [facility] Address [address] [place] [address] Phone Care Team Providers Care Student Driving Instructor Name Role Phone Molina Medina MD Unavailable [phone] Alvarado Jang MD Unavailable [phone] Jeana Palacios NP Primary Care Provider [phone] Mirella Robbins MD PhD Unavailable [phone] Encounter Details Date Type Department Care Team (Late st Contact Info) Description 03/01/2025 Orders Only [facility] Oncology [facility] Floor [address] [place] [address] Renetta Hunter RN Colon adenocarcinoma (HCC) (Primary Dx); Examination of participant in clinical trial Social History Tobacco Use Types Packs/Day Years Used Date Smoking Tobacco: Never Smokeless Tobacco: Never Alcohol Use Standard Drinks/Week Comments Not Currently 0 (1 standard drink = 0.6 oz pur e alcohol) Comments Unknown Sex and Gender Information Value Date Recorded Sex Assigned at Not on file Legal Sex Female 6:45 PM GOLF TEACHER Gender Identity Not on file Sexual Orientation Not on file documented as of this encounter Plan of Treatment Scheduled Orders Name Type Priority Associated Diagnoses Orde r Schedule Basic metabolic panel Lab Routine Colon adenocarcinoma (HCC) Examination of participant in clinical trial Expected: 03/02/2025, Expires: 03/01/2026 documented as of this encounter Visit Diagnoses Diagnosis Colon adenocarcinoma (HCC)- Primary Malignant neoplasm of colon, unspecified site Examination of participant in clinical trial documented in this encounter Care Teams Student Driving Instructor Relationship Specialty Start Date End Date Jeana Palacios NP [address] [place] [address] PCP - General Nurse Practitioner 12/09/24 Molina Medina MD 12/07/24 Alvarado Jang MD [address] [facility] [address] [address] Referring Physician Hematology 12/07/24 Mirella Robbins MD PhD [address] [facility], [facility] [address] [place] [address] Medical Oncologist/Sander Hand Medical Oncology 12/09/24 documented as of this encounter
[2025-03-02 18:47] LABS: Anion Gap 8 mmol/L (4-12); Blood Urea Nitrogen 19 mg/dL (7-17); Calcium 10.1 mg/dL (8.4-10.2); Carbon Dioxide 30 mmol/L (22-30); Chloride 96 mmol/L (98-107); Estimated Glomerular Filt Rate 50; Glucose 102 mg/dL (65-110); Potassium 4.9 mmol/L (3.4-5.0); Sodium 134 mmol/L (137-145)
== END 2025-03-02 10:57 | disposition home or self-care (01) ==
PROVIDERS: PCP Nurse Practitioner Adult Health
DX: C18.9 Malignant neoplasm of colon, unspecified (principal); Z00.6 Encounter for examination for normal comparison and control in clinical research program
CPT/HCPCS: 36415; 80048

== ENCOUNTER 2025-03-23 09:32 | Outpatient (CLI) | payer MEDICARE, SELFPAY ==
[2025-03-23 09:49] LABS: Hematocrit 35.5 % (35.0-42.0); Hemoglobin 11.2 g/dL (11.7-13.8); Mean Corpuscular HGB Conc 31.5 g/dL (32-36); Mean Corpuscular Hemoglobin 33.1 pg (27.0-31.0); Mean Corpuscular Volume 105.0 fL (78.0-102.0); Platelet Count Result 121 K/mm3 (150-420); Red Blood Count 3.38 M/mm3 (4.20-5.40); White Blood Count 3.1 K/mm3 (4.8-10.8)
--- OUTSIDE RECORDS SUMMARY | 2025-03-23 09:58 | XMS_ITS ---
Author Organization [facility] Address [address] [place] [address] Care Team Providers Care Twister Hand Name Role Phone Molina Medina MD Unavailable [phone] Alvarado Jang MD Unavailable [phone] Jeana Palacios NP Primary Care Provider [phone] Mirella Robbins MD PhD Unavailable [phone] Active Problems Problem Noted Date Diagnosed Date Metastasis to liver 02/16/2025 Colon adenocarcinoma 12/22/2024 Current Treatment and Therapy Plans [id number] - [facility] - Phase 1 - [id number] - Part 1 Dose Escalation and Part 2a Dose Expansion - [id number] Monotherapy* Plan Start Date:03/06/2025 Plan Provider:Mirella Robbins MD PhD Linked Problems Colon adenocarcinoma (HCC)Me tastasis to liver Treatment Medications Current Day (Day 1 5, Cycle 1 - Planned for 03/27/2025) Next Day (Day 22, Cycle 1 - Planned for 04/03/2025) [facility] [id number] (/[id number]) [facility] [id number] (/[id number]) tablet 500 mg [facility] [id number] (/[id number]) tablet 500 mg Hydration Therapy Plan* Plan Start Date:02/16/2025 Plan Provider:Mirella Robbins MD PhD Linked Problems Colon adenocarcinoma (HCC) Treatment Medications No medications scheduled. IV Maintenance Therapy Plan* Plan Start Date:03/06/2025 Plan Provider:Mirella Robbins MD PhD Linked Problems Colon adenocarcinoma (HCC) Treatment Medications No medications scheduled. Past Treatment and Therapy Plans No past plan information found. Lifetime Dose Tracking * Chemical Lifetime Dose Automatic Entry Manual Entr y DLP 913 mGycm 913 mGycm 0 mGycm
--- OUTSIDE RECORDS SUMMARY | 2025-03-23 09:58 | XMS_ITS | Clinical Summary ---
Author Organization [facility] Address [facility] [place] [address] Care Team Providers Care Music Instructor Name Role Phone Unavailable Primary Care Provider [...] series) 10/11/2023 COVID-19 Vaccine (2023-2 5 season) 2025 Meningococcal B Vaccine Aged Out No l onger eligible based on patient's age to complete this topic Meningococcal Vaccine Aged Out No kulwant ching eligible based on patient's age to complete this topic RSV Immunizations Under 20 Months Aged Out No longer eligible based on patient's age to complete this topic
--- OUTSIDE RECORDS SUMMARY | 2025-03-23 09:58 | XMS_ITS | Clinical Summary ---
Author Organization [facility] Address [address] [place] [address] Care Team Providers Care Mainstreaming Facilitator Name Role Phone Molina Medina MD Unavailable [phone] Alvarado Jang MD Unavailable [phone] Jeana Palacios NP Primary Care Provider [phone] Mirella Robbins MD PhD Unavailable Allergies Active Allergy Reactions Criticality Noted Date Comments Penicillins Hives,Rash Medium 11/13/2020 Medications QUEtiapine (SEROquel) 100 mg tablet 021 Active levothyroxine (SYNTHROID) 75 mcg tablet daily Active brexpiprazole (Rexulti) 4 mg tablet Take 1 tablet every day by oral route at bedtime for 30 days. Active divalproex ER (DEPAKOTE ER) 250 mg 24 hr tablet Take 2 tablets (500 mg total) by mouth daily 023 Active ondansetron ODT (ZOFRAN-ODT) 8 mg disintegrating tablet as needed 025 Active sertraline (ZOLOFT) 100 mg tablet Take 1 tablet (100 mg total) by mouth 024 Active trifluoperazine (STELAZINE) 5 mg tablet Take 1 tablet (5 mg total) by mouth 2 (two) times a day 023 Active polyethylene glycol (MIRALAX) 17 gram/dose bulk powder Take 17 g by mouth daily as needed 024 Active QUEtiapine (SEROquel) 200 mg tablet 025 Active [facility] [id number] (/[id number] 1001) 100 mg tablet Take 5 tablets (500 mg total) by mouth 2 (two) times a day Take approximately 12 hours apart on an empty stomach with no food or liquids other than water for 2 hours before and 1 hour after each dose. Active traMADoL (ULTRAM) 50 mg tablet Take 1 tablet (50 mg total) by mouth 2 (two) times a day as needed for pain 2024 Discontinued [facility] [id number] (/[id number] 1001) 1 mg tablet Take 500 tablets (500 mg total) by mouth 2 (two) times a day Take approximately 12 hours apart on an empty stomach with no food or liquids other than water for 2 hours before and 1 hour after each dose. 2024 Discontinued(P atient Reported) Active Problems Problem Noted Date Diagnosed Date Metastasis to liver 02/16/2025 Colon adenocarcinoma 12/22/2024 Encounters Date Type Department Care Team Description 03/22/2025 Telephone [facility] [address] [place] [phone] Renetta Hunter, SHAQUILLE Follow-up 03/22/2025 Orders Only [facility] [address] [place] [phone] Mirella Robbins MD PhD Colon adenocarcinoma (HCC) (Primary Dx); Metastasis to liver; Examination of participant in clinical trial 03/22/2025 Orders Only [facility] [address] [place] [phone] Grisel Muniz BS Examination of participant in clinical trial (Primary Dx) 03/21/2025 10:30 AM CDT Clinical Support [facility] - Lab Collection [address] [place] [address] 6 [place] [address] Colon adenocarcinoma (HCC); Metastasis to liver; Examination of participant in clinical trial 03/21/2025 8:40 AM CDT Office Visit [facility] [address] [place] [phone] Mirella Robbins MD PhD Colon adenocarcinoma (HCC) (Primary Dx); Metastasis to liver 03/21/2025 8:15 AM CDT Clinical Support [facility] - Lab Collection [address] [place] [address] Floor 5 [place] [address] Colon adenocarcinoma (HCC); Metastasis to liver 03/21/2025 7:45 AM CDT Clinical Support [facility] [address] [place] [address] 5 [place] [address] Colon adenocarcinoma (HCC); Metastasis to liver 03/21/2025 Orders Only [facility] [address] [place] [address] 5 [place] [address] Mirella Robbins MD PhD Colon adenocarcinoma (HCC) (Primary Dx); Metastasis to liver; Examination of participant in clinical trial 03/13/2025 12:00 PM CDT Infusion [facility] - Infusion [address] [place] [address] Floor 6 [place] [address] Metastasis to liver (Primary Dx); Colon adenocarcinoma (HCC) 03/13/2025 11:00 AM CDT Office Visit [facility] [address] [place] [phone] Mirella Robbins MD PhD Colon adenocarcinoma (HCC) (Primary Dx); Metastasis to liver 03/13/2025 10:00 AM CDT Clinical Support [facility] - Lab Collection [address] [place] [address] 5 [place] [address] Colon adenocarcinoma (HCC); Metastasis to liver 03/13/2025 Orders Only [facility] [address] [place] [phone] Grisel Muniz, ADY Examination of participant in clinical trial (Primary Dx) 03/13/2025 Orders Only [facility] [address] [place] [phone] Grisel Muniz, ADY Examination of participant in clinical trial (Primary Dx) 03/07/2025 Telephone [facility] [address] [place] [address] 5 [place] [address] Renetta Hunter RN Follow-up 03/06/2025 12:00 PM CDT Clinical Support [facility] [address] [place] [address] 5 [place] [address] Examination of participant in clinical trial 03/06/2025 9:00 AM CDT Infusion [facility] [facility] 5 [place] [address] Metastasis to liver (Primary Dx); Colon adenocarcinoma (HCC) 03/06/2025 8:00 AM CDT Office Visit [facility] [address] [place] [phone] Mirella Robbins MD PhD Colon adenocarcinoma (HCC) (Primary Dx); Metastasis to liver 03/06/2025 7:30 AM CDT Clinical Support [facility] [address] [place] [phone] Examination of participant in clinical trial 03/06/2025 7:00 AM CDT Clinical Support [facility] - Lab Collection [address] [place] [address] 5 [place] [address] Colon adenocarcinoma (HCC); Metastasis to liver 03/03/2025 8:17 AM CDT - 03/03/2025 11:59 PM CDT Hospital Encounter [facility] [address] [place] [address] Colon adenocarcinoma (HCC); Examination of participant in clinical trial; Metastasis to liver Discharge Disposition: Discharge to home or self care 03/03/2025 Orders Only [facility] [address] [place] [phone] Grisel Muniz BS Colon adenocarcinoma (HCC) (Primary Dx) 03/03/2025 Telephone [facility] [address] [place] [phone] Renetta Hunter, RN Follow-up 03/02/[address] [facility] Scanning, Provider 03/02/2025 Documentation [facility] [address] [place] [phone] Renetta Hunter, RN Test Results 03/01/2025 Telephone [facility] [address] [place] [phone] Renetta Hunter, RN Follow-up 03/01/2025 Orders Only [facility] [address] [place] [phone] Renetta Hunter, RN Colon adenocarcinoma (HCC) (Primary Dx); Examination of participant in clinical trial 02/27/2025 Telephone [facility] [address] [place] [phone] Renetta Hunter, SHAQUILLE Scheduling Appointments 02/27/2025 Orders Only [facility] [address] [place] [phone] Grisel Muniz BS Examination of participant in clinical trial (Primary Dx) 02/21/2025 Telephone Radiology 1 [place] [address] Gisela Medina, RT 02/21/2025 Orders Only [facility] [address] [place] [phone] Mirella Robbins MD PhD Colon adenocarcinoma (HCC) (Primary Dx); Examination of participant in clinical trial; Metastasis to liver (HCC) 02/20/2025 11:43 AM CDT - 02/20/2025 11:59 PM CDT [facility] [address] [place] [address] Metastasis to liver (HCC); Colon adenocarcinoma (HCC); Clinical trial participant Discharge Disposition: Discharge to home or self care 02/20/2025 11:00 AM CDT Clinical Support [facility] [address] [place] [phone] Examination of participant in clinical trial 02/20/2025 10:00 AM CDT Clinical Support [facility] - Lab Collection [address] [place] [address] Colon adenocarcinoma (HCC); Examination of participant in clinical trial 02/17/2025 Orders Only [facility] [address] [place] [phone] Grisel Muniz BS Examination of participant in clinical trial (Primary Dx); Colon adenocarcinoma (HCC) 02/16/2025 9:56 AM CDT - 02/16/2025 11:59 PM CDT Hospital Encounter [facility] [address] [place] [phone] Metastasis to liver (HCC) Discharge Disposition: Discharge to home or self care 02/16/2025 9:00 AM CDT [place] [address] [place] [address] Colon adenocarcinoma (HCC) (Primary Dx); Colon cancer metastasized to liver (HCC); Metastasis to liver (HCC) 02/16/2025 8:30 AM CDT [facility] [place] [phone] Mirella Robbins MD PhD Metastasis to liver (HCC) (Primary Dx); Colon adenocarcinoma (HCC); Colon cancer metastasized to liver (HCC) 02/16/2025 8:00 AM CDT Lab [facility] [address] [place] [phone] Colon adenocarcinoma (HCC); Colon cancer metastasized to liver (HCC) 02/16/2025 Orders Only [facility] [address] [phone] Mirella Robbins MD PhD Metastasis to liver (HCC) (Primary Dx); Colon adenocarcinoma (HCC); Clinical trial participant 02/16/2025 Documentation [facility] [address] [place] [phone] Giovani Jackson, SHAQUILLE 02/14/2025 Orders Only [facility] [place] [address] Giovani Jackson, RN Colon adenocarcinoma (HCC) (Primary Dx); Colon cancer metastasized to liver (HCC) 02/13/2025 Orders Only [facility] [address] [place] [address] Giovani Jackson, SHAQUILLE 02/10/2025 Orders Only [facility] [address] [place] [phone] Giovani Jackson, SHAQUILLE 02/07/2025 Orders Only [facility] Floor 5 [place] [address] Giovani Jackson, RN Colon cancer metastasized to liver (HCC) (Primary Dx); Colon adenocarcinoma (HCC) 02/07/2025 Documentation [facility] Floor 5 [place] [address] Giovani Jackson, SHAQUILLE 02/06/[address] [facility] Scanning, Provider 12/29/2024 2:00 PM CDT Office Visit [facility] [address] [place] [phone] Mirella Robbins MD PhD Colon adenocarcinoma (HCC) (Primary Dx); Colon cancer metastasized to liver (HCC) from Last 3 Months Surgical History Surgery Date Site/Laterality Comments TONSILLECTOMY BREAST LUMPECTOMY Left CYST REMOVAL COLON SURGERY COLON SURGERY 04/25/2023 US GUIDED BIOPSY LIVER 03/03/2025 N/A Medical History Medical History Date Comments Schizo-affective [...] drink = 0.6 oz pur e alcohol) Personal Safety Answer Date Recorded Have you ever been in or are you currently in a harmful physical or emotional relationship or is someone making you feel afraid or unsafe? 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 Gender Identity Not on file Sexual Orientation Not on file Obstetrics History Last Filed Vital Signs Vital Sign Reading Time Taken Comments Blood Pressure 141/81 03/21/2025 8:59 AM CDT Pulse 70 03/21/2025 8:59 AM CDT Temperature 36.4 C (97.6 F) 03/21/2025 8:56 AM CDT Respiratory Rate 18 03/21/2025 8:56 AM CDT Oxygen Saturation 97% 03/21/2025 8:59 AM CDT Inhaled Oxygen Concentration - - Weight 87.2 kg (192 lb 4.8 oz) 03/21/2025 8:56 A M CDT Height 167.2 cm (5' 5.83) 03/21/2025 8:56 AM CD T Body Mass Index 31.2 03/21/2025 8:56 AM CDT Plan of Treatment Health Maintenance Due Date Last Done Comments Depression Screening 1950 Osteoporosis Screening-Bone Density Scan 1950 DTaP/Tdap/Td Vaccine (1 - Tdap) 10/11/1959 Pneumococcal vaccine 65+ (1 of 2 - PCV) 10/11/1967 Zoster Vaccine (1 of 2) 10/11/1967 Well Visit 65+ 2013 Influenza Vaccine (#1) 2025 Fall Risk Assessment 03/03/2026 03/03/2025 Hepatitis B Screening Completed 02/20/2025 Hepatitis C Screening Completed 02/20/2025 Procedures Procedure Name Priority Date/Time Associated Diagnosis Comments PROTIME-INR Routine 03/21/2025 10:26 AM CDT Colon adenocarcinoma (HCC) Metastasis to liver Examination of participant in clinical trial APTT Routine 03/21/2025 10:26 AM CDT Colon adenocarcinoma (HCC) Metastasis to liver Examination of participant in clinical trial CRITICAL RESULT CALLBACK HEMATOLOGY STAT 03/21/2025 8:44 AM CDT Colon adenocarcinoma (HCC) Metastasis to liver EGFR STAT 03/21/2025 8:44 AM CDT Colon adenocarcinoma (HCC) Metastasis to liver DIFFERENTIAL AUTO STAT 03/21/2025 8:4 4 AM CDT Colon adenocarcinoma (HCC) Metastasis to liver CBC WITH AUTO DIFFERENTIAL STAT 03/21/2025 8:44 AM CDT Colon adenocarcinoma (HCC) Metastasis to liver COMPREHENSIVE METABOLIC PANEL STAT 03/21/2025 8:44 AM CDT Colon adenocarcinoma (HCC) Metastasis to liver MAGNESIUM STAT 03/21/2025 8:44 AM CDT Colon adenocarcinoma (HCC) Metastasis to liver PHOSPHORUS STAT 03/21/2025 8:44 AM CDT Colon adenocarcinoma (HCC) Metastasis to liver URIC ACID STAT 03/21/2025 8:44 AM CDT Colon adenocarcinoma (HCC) Metastasis to liver AMYLASE STAT 03/21/2025 8:44 AM CDT Colon adenocarcinoma (HCC) Metastasis to liver LIPASE STAT 03/21/2025 8:44 AM CDT Colon adenocarcinoma (HCC) Metastasis to liver PROTIME-INR STAT 03/21/2025 8:44 AM CDT Colon adenocarcinoma (HCC) Metastasis to liver APTT STAT 03/21/2025 8:44 AM CDT Colon adenocarcinoma (HCC) Metastasis to liver RETICULOCYTES Routine 03/21/2025 8:44 AM CDT Colon adenocarcinoma (HCC) Metastasis to liver EGFR STAT 03/13/2025 10:25 AM CDT Colon adenocarcinoma (HCC) Metastasis to liver DIFFERENTIAL AUTO STAT 03/13/2025 10:25 AM CDT Colon adenocarcinoma (HCC) Metastasis to liver CBC WITH AUTO DIFFERENTIAL STAT 03/13/2025 10:25 AM CDT Colon adenocarcinoma (HCC) Metastasis to liver COMPREHENSIVE METABOLIC PANEL STAT 03/13/2025 10:25 AM CDT Colon adenocarcinoma (HCC) Metastasis to liver MAGNESIUM STAT 03/13/2025 10:25 AM CDT Colon adenocarcinoma (HCC) Metastasis to liver PHOSPHORUS STAT 03/13/2025 10:25 AM CDT Colon adenocarcinoma (HCC) Metastasis to liver URIC ACID STAT 03/13/2025 10:25 AM CDT Colon adenocarcinoma (HCC) Metastasis to liver AMYLASE STAT 03/13/2025 10:25 AM CDT Colon adenocarcinoma (HCC) Metastasis to liver LIPASE STAT 03/13/2025 10:25 AM CDT Colon adenocarcinoma (HCC) Metastasis to liver PROTIME-INR STAT 03/13/2025 10:25 AM CDT Colon adenocarcinoma (HCC) Metastasis to liver APTT STAT 03/13/2025 10:25 AM CDT Colon adenocarcinoma (HCC) Metastasis to liver RETICULOCYTES Routine 03/13/2025 10:25 AM CDT Colon adenocarcinoma (HCC) Metastasis to liver CEA Routine 03/06/2025 11:10 AM CDT Colon adenocarcinoma (HCC) URINALYSIS, MICROSCOPIC ONLY STAT 03/06/2025 9:23 AM CDT Colon adenocarcinoma (HCC) Metastasis to liver URINALYSIS AND REFLEX TO MICROSCOPIC AND CULTURE STAT 03/06/2025 9:23 AM CDT Colon adenocarcinoma (HCC) Metastasis to liver DIFFERENTIAL AUTO STAT 03/06/2025 7:2 9 AM CDT Colon adenocarcinoma (HCC) Metastasis to liver CBC WITH AUTO DIFFERENTIAL STAT 03/06/2025 7:29 AM CDT Colon adenocarcinoma (HCC) Metastasis to liver RETICULOCYTES Routine 03/06/2025 7:29 AM CDT Colon adenocarcinoma (HCC) Metastasis to liver CEA STAT 03/06/2025 7:24 AM CDT Colon adenocarcinoma (HCC) Metastasis to liver EGFR STAT 03/06/2025 7:24 AM CDT Colon adenocarcinoma (HCC) Metastasis to liver COMPREHENSIVE METABOLIC PANEL STAT 03/06/2025 7:24 AM CDT Colon adenocarcinoma (HCC) Metastasis to liver MAGNESIUM STAT 03/06/2025 7:24 AM CDT Colon adenocarcinoma (HCC) Metastasis to liver PHOSPHORUS STAT 03/06/2025 7:24 AM CDT Colon adenocarcinoma (HCC) Metastasis to liver URIC ACID STAT 03/06/2025 7:24 AM CDT Colon adenocarcinoma (HCC) Metastasis to liver AMYLASE STAT 03/06/2025 7:24 AM CDT Colon adenocarcinoma (HCC) Metastasis to liver LIPASE STAT 03/06/2025 7:24 AM CDT Colon adenocarcinoma (HCC) Metastasis to liver PROTIME-INR STAT 03/06/2025 7:24 AM CDT Colon adenocarcinoma (HCC) Metastasis to liver APTT STAT 03/06/2025 7:24 AM CDT Colon adenocarcinoma (HCC) Metastasis to liver US GUIDED BIOPSY LIVER Schedule Routine, Read Routine (OP Routine) 03/03/2025 11:17 AM CDT Colon adenocarcinoma (HCC) Examination of participant in clinical trial Metastasis to liver SCAN - LABS 03/02/2025 URINALYSIS, MICROSCOPIC ONLY Routine 02/20/2025 1:17 PM [...] to liver (HCC) SCAN - LABS 02/06/2025 from Last 3 Months Results * aPTT (03/21/2025 10:26 AM CDT) aPTT 29 26 - 38 sec Comment: Interpretive Data Heparin therapeutic range: 66.0 - 100.0 seconds. Range based on correlation with therapeutic heparin activity range of 0.3 - 0.7 Units/mL. Current interpretive data was last revised on 2023. Blood 03/21/2025 10:2 6 AM CDT 03/21/2025 10:45 AM CDT us Mirella Robbins MD PhD LAB BLOOD ORDERABLES Final Result [facility] Department of Laboratories [place], [place] [id number] * (ABNORMAL) Protime-INR (03/21/2025 10:26 AM CDT) PT 10.1(L) 10.2 - 13.5 sec INR 0.89(L) 0.90 - 1.20 [facility] Comment: Interpretive data Oral anticoagulant therapeutic ranges: Venous thromboembolism prophylaxis or treatment: 2.0-3.0 CARDIOLOGY Standard range: 2.0-3.0 High-intensity range: 2.5-3.5 Refer to indication-specific guidelines for appropriate target ranges for prosthetic heart valve replacement. Current interpretive data was last revised on 2019. Blood 03/21/2025 10:2 6 AM CDT 03/21/2025 10:45 AM CDT Mirella Robbins MD PhD LAB BLOOD ORDERABLES Final Result Performing Organization Address City/[facility] Co de Phone Number [facility] [place] [address] * eGFR (03/21/2025 8:44 AM CDT) eGFR 69 >=60 mL/min/1. 73 m2 Comment: Interpretive Data [...] Current interpretive data was last reviewed 2021. Blood 03/21/2025 8:44 AM CDT 03/21/2025 8:50 AM CDT Mirella Robbins MD PhD LAB BLOOD ORDERABLES Final Result Performing Organization Address [facility]/ZIP Co de [facility] Number [facility] [place] [address] * (ABNORMAL) Differential, auto (03/21/2025 8:44 AM CDT) Neutrophil abs 1.12(L) 1.50 - 6.50 K/cumm Comment:Testing performed by : [facility], [address] [place] [address] Lymphocyte abs 1.89 0.80 - 3.30 K/cumm [facility] Comment:Testing performed by : [facility], [address] [place], [place] [id number] Monocyte abs 0.32 0.20 - 0.80 K/cumm [facility] Comment:Testing performed by : [facility], [address] [place] [address] Eosinophil abs 0.28 0.00 - 0.50 K/cumm [facility] Comment:Testing performed by : [facility], [address] [place] [address] Basophil abs 0.02 0.00 - 0.10 K/cumm [facility] Comment:Testing performed by : [facility], [address] [place], [place] [id number] Neutrophil pct 30.8 % [facility] Comment: Interpretive Data Percent cell count reference ranges are not reported, since discordance with absolute values may lead to misinterpretation of CBC data. Current Interpretive Data was last revised on 2017. Testing performed by: [facility], [address] [place], [place] [id number] Lymphocyte pct 52.0 % [facility] Comment: Interpretive Data Percent cell count reference ranges are not reported, since discordance with absolute values may lead to misinterpretation of CBC data. Current Interpretive Data was last revised on 2017. Testing performed by: [facility], [address] [place] [address] Monocyte pct 8.9 % [facility] Comment: Interpretive Data Percent cell count reference ranges are not reported, since discordance with absolute values may lead to misinterpretation of CBC data. Current Interpretive Data was last revised on 2017. Testing performed by: [facility], [address] [place] [phone] Eosinophil pct 7.8 % [facility] Comment: Interpretive Data Percent cell count reference ranges are not reported, since discordance with absolute values may lead to misinterpretation of CBC data. Current Interpretive Data was last revised on 2017. Testing performed by: [facility], [address] [place] [phone] Basophil pct 0.5 % [facility] Comment: Interpretive Data Percent cell count reference ranges are not reported, since discordance with absolute values may lead to misinterpretation of CBC data. Current Interpretive Data was last revised on 2017. Testing performed by: [facility], [address] [place] [phone] Blood 03/21/2025 8:44 AM CDT 03/21/2025 8:55 AM CDT us Mirella Robbins MD PhD LAB BLOOD ORDERABLES Final Result [facility] Department [place] [address] * Critical Result Callback Hematology (03/21/2025 8:44 AM CDT) Date Notified [id number] Time Notified 9[facility] TestName aPTT [facility] Called/Read Back Emy [facility] Credentials [place] [facility] Blood 03/21/2025 8:44 AM CDT 03/21/2025 9:04 AM CDT us Mirella Robbins MD PhD LAB BLOOD ORDERABLES Final Result [facility] Department [place] [address] * (ABNORMAL) CBC with auto differential (03/21/2025 8:44 AM CDT) WBC 3.63(L) 3.80 - 9.90 K/cumm Comment:Testing performed by : [facility], [address] [place], [place] [phone] Hgb 11.8(L) 11.9 - 15.5 g/dL [facility] Comment:Testing performed by : [facility], [address] [place], [place] [phone] Hct 34.8(L) 35.6 - 45.5 % [facility] Comment:Testing performed by : [facility], [address] [place], [place] [phone] Plt 138(L) 150 - 400 K/cumm [facility] Comment:Testing performed by : [facility], [address] [place], [place] [phone] MPV 7.8 6.8 - 10.4 fL [facility] Comment:Testing performed by : [facility], [address] [place], [place] [phone] RBC 3.52(L) 3.90 - 5.20 M/cumm [facility] Comment:Testing performed by : [facility], [address] [place], [place] [phone] MCV 98.7(H) 81.3 - 96.4 fL [facility] Comment:Testing performed by : [facility], [address] [place], [place] [phone] MCH 33.5(H) 27.1 - 33.3 pg [facility] Comment:Testing performed by : [facility], [address] [place] [address] MCHC 33.9 32.3 - 35.7 g/dL [facility] Comment:Testing performed by : [facility], [address] [place], [place] [phone] RDW CV 17.2(H) 11.1 - 14.9 % [facility] Comment:Testing performed by : [facility], [address] [place] [address] NRBC abs 0.00 0.00 - 0.01 K/cumm [facility] Comment:Testing performed by : [facility], [address] [place] [phone] Blood 03/21/2025 8:44 AM CDT 03/21/2025 8:55 AM CDT Mirella Robbins MD PhD LAB BLOOD ORDERABLES Final Result Performing Organization Address [facility] de Phone Number [facility] [facility] Department [place] [address] * (ABNORMAL) aPTT (03/21/2025 8:44 AM CDT) aPTT >150(C) 28 - 38 sec Comment: No clot detected in sample Repeated and verified - [id number] - 03/21/25, 9:44 AM Interpretive Data Heparin therapeutic range: 66.0 - 100.0 seconds. Range based on correlation with therapeutic heparin activity range of 0.3 - 0.7 Units/mL. Current interpretive data was last revised on 2023. Blood 03/21/2025 8:44 AM CDT 03/21/2025 9:01 AM CDT Result [facility] Mirella Robbins MD PhD LAB BLOOD ORDERABLES Final Result Performing Organization Address [facility] de Phone Number [facility] [place] [address] * (ABNORMAL) Protime-INR (03/21/2025 8:44 AM CDT) PT 37.4(H) 10.2 - 13.5 sec INR 3.39(H) 0.90 - 1.20 [facility] Comment: Interpretive data Oral anticoagulant therapeutic ranges: Venous thromboembolism prophylaxis or treatment: 2.0-3.0 CARDIOLOGY Standard range: 2.0-3.0 High-intensity range: 2.5-3.5 Refer to indication-specific guidelines for appropriate target ranges for prosthetic heart valve replacement. Current interpretive data was last revised on 2019. Blood 03/21/2025 8:44 AM CDT 03/21/2025 9:01 AM CDT Mirella Robbins MD PhD LAB BLOOD ORDERABLES Final Result Performing Organization Address [facility] Co de Phone Number [facility] [place] [address] * Reticulocyte Count (03/21/2025 8:44 AM CDT) Retics, absolute 29 20 - 100 K/cumm Comment:Testing performed by : [facility], [address] [place] [phone] Retics 0.8 0.5 - 1.8 % [facility] Comment:Testing performed by : [facility], [address] [place] [phone] Blood 03/21/2025 8:44 AM CDT 03/21/2025 8:55 AM CDT Mirella Robbins MD PhD LAB BLOOD ORDERABLES Final Result Performing Organization Address [facility]/[place] [address] * Uric acid (03/21/2025 8:44 AM CDT) Uric acid 3.3 2.5 - 7.0 mg/dL Blood 03/21/2025 8:44 AM CDT 03/21/2025 8:50 AM CDT us Mirella Robbins MD PhD LAB BLOOD ORDERABLES Final Result Performing Organization Address [facility] Co de Phone Number [facility] [place] [address] * Phosphorus (03/21/2025 8:44 AM CDT) Phosphorus, pl 3.4 2.3 - 4.5 mg/dL Blood 03/21/2025 8:44 AM CDT 03/21/2025 8:50 AM CDT us Mirella Robbins MD PhD LAB BLOOD ORDERABLES Final Result Performing Organization Address [facility] de Phone Number [facility] [place] [address] * Magnesium (03/21/2025 8:44 AM CDT) [facility] Magnesium 2.0 1.4 - 2.5 mg/dL Blood 03/21/2025 8:44 AM CDT 03/21/2025 8:50 AM CDT Mirella Robbins MD PhD LAB BLOOD ORDERABLES Final Result Performing Organization Address [facility] de Phone Number [facility] [place] [address] * Lipase (03/21/2025 8:44 AM CDT) [facility] Lipase 61 10 - 99 Units/L Blood 03/21/2025 8:44 AM CDT 03/21/2025 8:50 AM CDT Mirella Robbins MD PhD LAB BLOOD ORDERABLES Final Result Performing Organization Address [facility] de Phone Number [facility] [place] [address] * Amylase (03/21/2025 8:44 AM CDT) [facility] Amylase 87 30 - 99 Units/L Blood 03/21/2025 8:44 AM CDT 03/21/2025 8:50 AM CDT us Mirella Robbins MD PhD LAB BLOOD ORDERABLES Final Result [facility] Department [place] [address] * Comprehensive metabolic panel (03/21/2025 8:44 AM CDT) Sodium 140 135 - 145 mmol/L Potassium, pl 4.5 3.3 - 4.9 mmol/L [facility] Chloride 103 97 - 110 mmol/L [facility] CO2 30 22 - 32 mmol/L [facility] Anion gap 7 2 - 15 mmol/L [facility] BUN 9 6 - 25 mg/dL [facility] Creatinine 0.87 0.60 - 1.10 mg/dL [facility] Glucose 110 70 - 199 mg/dL [facility] Comment: Interpretive Data Fasting glucose >/= 126 [...] Current interpretive data was last revised 2022. Calcium 9.5 8.5 - 10.3 mg/dL [facility] Bilirubin, total 0.3 0.1 - 1.2 mg/dL [facility] Protein, pl 6.7 6.5 - 8.5 g/dL [facility] Albumin 3.8 3.5 - 5.0 g/dL [facility] Alk phos 108 40 - 130 Units/L [facility] ALT 12 7 - 45 Units/L [facility] AST 27 10 - 45 Units/L [facility] Blood 03/21/2025 8:44 AM CDT 03/21/2025 8:50 AM CDT us Mirella Robbins MD PhD LAB BLOOD ORDERABLES Final Result [facility] Department [place] [address] * eGFR (03/13/2025 10:25 AM CDT) Pathologist [facility] eGFR 70 >=60 mL/min/1. 73 m2 Comment: Interpretive Data [...] Current interpretive data was last reviewed 2021. Blood 03/13/2025 10:2 5 AM CDT 03/13/2025 10:33 AM CDT Mirella Robbins MD PhD LAB BLOOD ORDERABLES Final Result Performing Organization Address [facility] Co de Phone Number [facility] Department [place] [address] * (ABNORMAL) Differential, auto (03/13/2025 10:25 AM CDT) Pathologist [facility] Neutrophil abs 1.42(L) 1.50 - 6.50 K/cumm Comment:Testing performed by : [facility], [address] [place] [phone] Lymphocyte abs 1.20 0.80 - 3.30 K/cumm [facility] Comment:Testing performed by : [facility], [address] [place] [phone] Monocyte abs 0.33 0.20 - 0.80 K/cumm [facility] Comment:Testing performed by : [facility], [address] [place] [phone] Eosinophil abs 0.12 0.00 - 0.50 K/cumm [facility] Comment:Testing performed by : [facility], [address] [place] [phone] Basophil abs 0.02 0.00 - 0.10 K/cumm [facility] Comment:Testing performed by : [facility], [address] [place] [phone] Neutrophil pct 46.0 % [facility] Comment: Interpretive Data Percent cell count reference ranges are not reported, since discordance with absolute values may lead to misinterpretation of CBC data. Current Interpretive Data was last revised on 2017. Testing performed by: [facility], [address] [place] [phone] Lymphocyte pct 39.0 % [facility] Comment: Interpretive Data Percent cell count reference ranges are not reported, since discordance with absolute values may lead to misinterpretation of CBC data. Current Interpretive Data was last revised on 2017. Testing performed by: [facility], [address] [place] [phone] Monocyte pct 10.6 % [facility] Comment: Interpretive Data Percent cell count reference ranges are not reported, since discordance with absolute values may lead to misinterpretation of CBC data. Current Interpretive Data was last revised on 2017. Testing performed by: [facility], [address] [place] [phone] Eosinophil pct 4.0 % [facility] Comment: Interpretive Data Percent cell count reference ranges are not reported, since discordance with absolute values may lead to misinterpretation of CBC data. Current Interpretive Data was last revised on 2017. Testing performed by: [facility], [address] [place] [phone] Basophil pct 0.5 % [facility] Comment: Interpretive Data Percent cell count reference ranges are not reported, since discordance with absolute values may lead to misinterpretation of CBC data. Current Interpretive Data was last revised on 2017. Testing performed by: [facility], [address] [place] [phone] Blood 03/13/2025 10:2 5 AM CDT 03/13/2025 10:32 AM CDT Mirella Robbins MD PhD LAB BLOOD ORDERABLES Final Result [facility] Department [place] [address] * (ABNORMAL) CBC with auto differential (03/13/2025 10:25 AM CDT) WBC 3.09(L) 3.80 - 9.90 K/cumm Comment:Testing performed by : [facility], [address] [place] [address] Hgb 11.7(L) 11.9 - 15.5 g/dL [facility] Comment:Testing performed by : [facility], [address] [place] [address] Hct 34.4(L) 35.6 - 45.5 % [facility] Comment:Testing performed by : [facility], [address] [place] [address] Plt 142(L) 150 - 400 K/cumm [facility] Comment:Testing performed by : [facility], [address] [place] [address] MPV 7.3 6.8 - 10.4 fL [facility] Comment:Testing performed by : [facility], [address] [place] [address] RBC 3.49(L) 3.90 - 5.20 M/cumm [facility] Comment:Testing performed by : [facility], [address] [place] [address] MCV 98.8(H) 81.3 - 96.4 fL [facility] Comment:Testing performed by : [facility], [address] [place], [place] [phone] MCH 33.6(H) 27.1 - 33.3 pg [facility] Comment:Testing performed by : [facility], [address] [place], [place] [phone] MCHC 34.0 32.3 - 35.7 g/dL [facility] Comment:Testing performed by : [facility], [address] [place] [phone] RDW CV 18.0(H) 11.1 - 14.9 % [facility] Comment:Testing performed by : [facility], [address] [place], [place] [phone] NRBC abs 0.00 0.00 - 0.01 K/cumm [facility] Comment:Testing performed by : [facility], [address] [place] [phone] Blood 03/13/2025 10:2 5 AM CDT 03/13/2025 10:32 AM CDT Mirella Robbins MD PhD LAB BLOOD ORDERABLES Final Result [facility] Department [place] [address] * aPTT (03/13/2025 10:25 AM CDT) aPTT 29 26 - 38 sec Comment: Interpretive Data Heparin therapeutic range: 66.0 - 100.0 seconds. Range based on correlation with therapeutic heparin activity range of 0.3 - 0.7 Units/mL. Current interpretive data was last revised on 2023. Blood 03/13/2025 10:2 5 AM CDT 03/13/2025 10:46 AM CDT Mirella Robbins MD PhD LAB BLOOD ORDERABLES Final Result [facility] [place] [address] * (ABNORMAL) Protime-INR (03/13/2025 10:25 AM CDT) [facility] PT 10.0(L) 10.2 - 13.5 sec INR 0.88(L) 0.90 - 1.20 [facility] Comment: Interpretive data Oral anticoagulant therapeutic ranges: Venous thromboembolism prophylaxis or treatment: 2.0-3.0 CARDIOLOGY Standard range: 2.0-3.0 High-intensity range: 2.5-3.5 Refer to indication-specific guidelines for appropriate target ranges for prosthetic heart valve replacement. Current interpretive data was last revised on 2019. Blood 03/13/2025 10:2 5 AM CDT 03/13/2025 10:46 AM CDT Mirella Robbins MD PhD LAB BLOOD ORDERABLES Final Result Performing Organization Address City/[facility] Co de Phone Number [facility] [place] [address] * Reticulocyte Count (03/13/2025 10:25 AM CDT) [facility] Retics, absolute 34 20 - 100 K/cumm Comment:Testing performed by : [facility], [address] [place] [phone] Retics 1.0 0.5 - 1.8 % [facility] Comment:Testing performed by : [facility], [address] [place] [phone] Blood 03/13/2025 10:2 5 AM CDT 03/13/2025 10:32 AM CDT us Mirella Robbins MD PhD LAB BLOOD ORDERABLES Final Result Performing Organization Address City/[facility]/ZIP Co de Phone Number [facility] [place] [address] * Uric acid (03/13/2025 10:25 AM CDT) Uric acid 3.3 2.5 - 7.0 mg/dL Blood 03/13/2025 10:2 5 AM CDT 03/13/2025 10:33 AM CDT Mirella Robbins MD PhD LAB BLOOD ORDERABLES Final Result [facility] [place] [address] * Phosphorus (03/13/2025 10:25 AM CDT) Pathologist [facility] Phosphorus, pl 3.5 2.3 - 4.5 mg/dL Blood 03/13/2025 10:2 5 AM CDT 03/13/2025 10:33 AM CDT Mirella Robbins MD PhD LAB BLOOD ORDERABLES Final Result Performing Organization Address City/[facility] Co de Phone Number [facility] [place] [address] * Magnesium (03/13/2025 10:25 AM CDT) Pathologist [facility] Magnesium 2.1 1.4 - 2.5 mg/dL Blood 03/13/2025 10:2 5 AM CDT 03/13/2025 10:33 AM CDT Mirella Robbins MD PhD LAB BLOOD ORDERABLES Final Result Performing Organization Address City/[facility] Co de Phone Number [facility] [place] [address] * Lipase (03/13/2025 10:25 AM CDT) Pathologist [facility] Lipase 61 10 - 99 Units/L Blood 03/13/2025 10:2 5 AM CDT 03/13/2025 10:33 AM CDT Mirella Robbins MD PhD LAB BLOOD ORDERABLES Final Result Performing Organization Address City/[facility]/ZIP Co de Phone Number [facility] Department [place] [address] * Amylase (03/13/2025 10:25 AM CDT) Pathologist [facility] Amylase 86 30 - 99 Units/L Blood 03/13/2025 10:2 5 AM CDT 03/13/2025 10:33 AM CDT Mirella Robbins MD PhD LAB BLOOD ORDERABLES Final Result Performing Organization Address [facility] de Phone Number [facility] Department [place] [address] * Comprehensive metabolic panel (03/13/2025 10:25 AM CDT) [facility] Sodium 142 135 - 145 mmol/L Potassium, pl 4.6 3.3 - 4.9 mmol/L [facility] Chloride 105 97 - 110 mmol/L [facility] CO2 29 22 - 32 mmol/L [facility] Anion gap 8 2 - 15 mmol/L [facility] BUN 13 6 - 25 mg/dL [facility] Creatinine 0.86 0.60 - 1.10 mg/dL [facility] Glucose 107 70 - 199 mg/dL [facility] Comment: Interpretive Data Fasting glucose >/= 126 [...] Current interpretive data was last revised 2022. Calcium 9.6 8.5 - 10.3 mg/dL [facility] Bilirubin, total 0.4 0.1 - 1.2 mg/dL [facility] Protein, pl 6.8 6.5 - 8.5 g/dL [facility] Albumin 3.9 3.5 - 5.0 g/dL [facility] Alk phos 108 40 - 130 Units/L [facility] ALT 19 7 - 45 Units/L [facility] AST 25 10 - 45 Units/L [facility] Blood 03/13/2025 10:2 5 AM CDT 03/13/2025 10:33 AM CDT Mirella Robbins MD PhD LAB BLOOD ORDERABLES Final Result Performing Organization Address [facility] de Phone Number [facility] [place] [address] * (ABNORMAL) CEA (03/06/2025 11:10 AM CDT) Pathologist [facility] CEA 19.7(H) <=5.0 ng/mL Comment: Interpretive Data: Reference Range: Non-Smokers: 0.0 5.0 ng/mL Smokers: 0.0 6.5 ng/mL The Shae CEA assay procedure was used. Results from different manufacturers or methods may not be comparable. Serial testing should be performed using the same method. Current interpretive data was last revised 2021. Blood 03/06/2025 11:1 0 AM CDT 03/06/2025 11:55 AM CDT Mirella Robbins MD PhD LAB BLOOD ORDERABLES Final Result Performing Organization Address [facility] Co de Phone Number [facility] [place] [address] * (ABNORMAL) Urinalysis reflex to microscopic and culture Urine (03/06/2025 9:23 AM CDT) Color, ur Yellow Yellow Clarity, ur Clear Clear [facility] Specific gravity, ur 1.010 1.003 - 1.030 [facility] pH, urine 6.0 [facility] Comment: Interpretive Data U rine pH is affected by diet, medications, systemic acid-base disturbances, and renal tubular function. pH may affect urinary stone formation. For example, urine pH below 6.0 may help reduce the tendency for calcium phosphate stones and pH greater than 6.0 may reduce the tendency for uric acid stone formation. Source: [facility] Current Interpretive Data was last revised on 2017 Protein, ur ql Negative Negative [facility] Glucose, ur ql Negative Negative [facility] Ketones, ur Negative Negative [facility] Bilirubin, ur Negative Negative [facility] Blood, ur Negative Negative [facility] Urobilinogen, ur <2.0 <2.0 mg/dL [facility] Nitrite, ur Negative Negative [facility] Leukocyte esterase, ur 1+(A) [facility] UA reflex comment Reflex to microscopic UA will be performed. [facility] Urine 03/06/2025 9:23 AM CDT 03/06/2025 9:23 AM CDT us Mirella Robbins MD PhD LAB MICROBIOLOGY - GENERAL ORDERABLES Final Result Performing Organization Address City/[facility]/ZIP Co de Phone Number [facility] Department [place] [address] * (ABNORMAL) Urinalysis, microscopic only (03/06/2025 9:23 AM CDT) WBC, ur 6-10(A) 0 - 5 /HPF RBC, ur 0-2 0 - 2 /HPF [facility] Epithelial cells, squamous, ur 1-5 0 - 5 /HPF [facility] Mucous, ur Present(A) [facility] Culture Reflex Comment Reflex conditions for urine culture (WBC >10) not met. [facility] Urine 03/06/2025 9:23 AM CDT 03/06/2025 9:23 AM CDT Mirella Robbins MD PhD LAB URINE ORDERABLES Final Result Performing Organization Address City/[facility]/ZIP Co de Phone Number [facility] Department [place] [address] * Differential, auto (03/06/2025 7:29 AM CDT) Neutrophil abs 2.12 1.50 - 6.50 K/cumm Comment:Testing performed by : [facility], [address] [place] [phone] Lymphocyte abs 1.43 0.80 - 3.30 K/cumm [facility] Comment:Testing performed by : [facility], [address] [place] [phone] Monocyte abs 0.51 0.20 - 0.80 K/cumm [facility] Comment:Testing performed by : [facility], [address] [place], [place] [phone] Eosinophil abs 0.14 0.00 - 0.50 K/cumm [facility] Comment:Testing performed by : [facility], [address] [place] [phone] Basophil abs 0.04 0.00 - 0.10 K/cumm [facility] Comment:Testing performed by : [facility], [address] [place] [address] Neutrophil pct 50.1 % [facility] Comment: Interpretive Data Percent cell count reference ranges are not reported, since discordance with absolute values may lead to misinterpretation of CBC data. Current Interpretive Data was last revised on 2017. Testing performed by: [facility], [address] [place] [phone] Lymphocyte pct 33.8 % [facility] Comment: Interpretive Data Percent cell count reference ranges are not reported, since discordance with absolute values may lead to misinterpretation of CBC data. Current Interpretive Data was last revised on 2017. Testing performed by: [facility], [address] [place], [place] [phone] Monocyte pct 11.9 % [facility] Comment: Interpretive Data Percent cell count reference ranges are not reported, since discordance with absolute values may lead to misinterpretation of CBC data. Current Interpretive Data was last revised on 2017. Testing performed by: [facility], [address] [place] [phone] Eosinophil pct 3.2 % [facility] Comment: Interpretive Data Percent cell count reference ranges are not reported, since discordance with absolute values may lead to misinterpretation of CBC data. Current Interpretive Data was last revised on 2017. Testing performed by: [facility], [address] [place] [phone] Basophil pct 0.9 % [facility] Comment: Interpretive Data Percent cell count reference ranges are not reported, since discordance with absolute values may lead to misinterpretation of CBC data. Current Interpretive Data was last revised on 2017. Testing performed by: [facility], [address] [place] [phone] Blood 03/06/2025 7:29 AM CDT 03/06/2025 7:30 AM CDT us Mirella Robbins MD PhD LAB BLOOD ORDERABLES Final Result [facility] Department of Laboratories [place], [place] [id number] * (ABNORMAL) CBC with auto differential (03/06/2025 7:29 AM CDT) WBC 4.24 3.80 - 9.90 K/cumm Comment:Testing performed by : [facility], [address] [place] [phone] Hgb 11.3(L) 11.9 - 15.5 g/dL [facility] Comment:Testing performed by : [facility], [address] [place] [address] Hct 33.3(L) 35.6 - 45.5 % [facility] Comment:Testing performed by : [facility], [address] [place] [address] Plt 152 150 - 400 K/cumm [facility] Comment:Testing performed by : [facility], [address] [place] [address] MPV 7.8 6.8 - 10.4 fL [facility] Comment:Testing performed by : [facility], [address] [place] [address] RBC 3.35(L) 3.90 - 5.20 M/cumm [facility] Comment:Testing performed by : [facility], [address] [place] [address] MCV 99.5(H) 81.3 - 96.4 fL [facility] Comment:Testing performed by : [facility], [address] [place], [place] [phone] MCH 33.8(H) 27.1 - 33.3 pg [facility] Comment:Testing performed by : [facility], [address] [place] [address] MCHC 34.0 32.3 - 35.7 g/dL [facility] Comment:Testing performed by : [facility], [address] [place] [address] RDW CV 18.6(H) 11.1 - 14.9 % [facility] Comment:Testing performed by : [facility], [address] [place] [address] NRBC abs 0.00 0.00 - 0.01 K/cumm [facility] Comment:Testing performed by : [facility], [address] [place] [address] Blood 03/06/2025 7:29 AM CDT 03/06/2025 7:30 AM CDT us Mirella Robbins MD PhD LAB BLOOD ORDERABLES Final Result [facility] Department [place] [address] * Reticulocyte Count (03/06/2025 7:29 AM CDT) Retics, absolute 60 20 - 100 K/cumm Comment:Testing performed by : [facility], [address] [place] [phone] Retics 1.8 0.5 - 1.8 % [facility] Comment:Testing performed by : [facility], [address] [place] [phone] Blood 03/06/2025 7:29 AM CDT 03/06/2025 7:30 AM CDT us Mirella Robbins MD PhD LAB BLOOD ORDERABLES Final Result [facility] Department [place] [address] * eGFR (03/06/2025 7:24 AM CDT) Pathologist [facility] eGFR 65 >=60 mL/min/1. 73 m2 Comment: Interpretive Data [...] Current interpretive data was last reviewed 2021. Blood 03/06/2025 7:24 AM CDT 03/06/2025 7:32 AM CDT us Mirella Robbins MD PhD LAB BLOOD ORDERABLES Final Result [facility] [place] [address] * aPTT (03/06/2025 7:24 AM CDT) aPTT 32 26 - 38 sec Comment: Interpretive Data Heparin therapeutic range: 66.0 - 100.0 seconds. Range based on correlation with therapeutic heparin activity range of 0.3 - 0.7 Units/mL. Current interpretive data was last revised on 2023. Blood 03/06/2025 7:24 AM CDT 03/06/2025 7:38 AM CDT Mirella Robbins MD PhD LAB BLOOD ORDERABLES Final Result Performing Organization Address [facility] [place] [place] [address] * Protime-INR (03/06/2025 7:24 AM CDT) PT 10.4 10.2 - 13.5 sec INR 0.92 0.90 - 1.20 [facility] Comment: Interpretive data Oral anticoagulant therapeutic ranges: Venous thromboembolism prophylaxis or treatment: 2.0-3.0 CARDIOLOGY Standard range: 2.0-3.0 High-intensity range: 2.5-3.5 Refer to indication-specific guidelines for appropriate target ranges for prosthetic heart valve replacement. Current interpretive data was last revised on 2019. Blood 03/06/2025 7:24 AM CDT 03/06/2025 7:38 AM CDT us Mirella Robbins MD PhD LAB BLOOD ORDERABLES Final Result Performing Organization Address [facility] Co de Phone Number [facility] [place] [address] * Uric acid (03/06/2025 7:24 AM CDT) Uric acid 4.0 2.5 - 7.0 mg/dL Blood 03/06/2025 7:24 AM CDT 03/06/2025 7:32 AM CDT us Mirella Robbins MD PhD LAB BLOOD ORDERABLES Final Result Performing Organization Address [facility] de Phone Number [facility] [place] [address] * Phosphorus (03/06/2025 7:24 AM CDT) Phosphorus, pl 3.0 2.3 - 4.5 mg/dL Blood 03/06/2025 7:24 AM CDT 03/06/2025 7:32 AM CDT us Mirella Robbins MD PhD LAB BLOOD ORDERABLES Final Result Performing Organization Address [facility] de Phone Number [facility] Department [place] [address] * Magnesium (03/06/2025 7:24 AM CDT) Magnesium 2.0 1.4 - 2.5 mg/dL Blood 03/06/2025 7:24 AM CDT 03/06/2025 7:32 AM CDT us Mirella Robbins MD PhD LAB BLOOD ORDERABLES Final Result Performing Organization Address [facility]/[place] [address] * Lipase (03/06/2025 7:24 AM CDT) Lipase 33 10 - 99 Units/L Blood 03/06/2025 7:24 AM CDT 03/06/2025 7:32 AM CDT us Mirella Robbins MD PhD LAB BLOOD ORDERABLES Final Result Performing Organization Address [facility] de Phone Number [facility] [place] [address] * (ABNORMAL) CEA (03/06/2025 7:24 AM CDT) [facility] CEA 21.0(H) <=5.0 ng/mL Comment: Interpretive Data: Reference Range: Non-Smokers: 0.0 5.0 ng/mL Smokers: 0.0 6.5 ng/mL The Shae CEA assay procedure was used. Results from different manufacturers or methods may not be comparable. Serial testing should be performed using the same method. Current interpretive data was last revised 2021. Blood 03/06/2025 7:24 AM CDT 03/06/2025 9:40 AM CDT Mirella Robbins MD PhD LAB BLOOD ORDERABLES Final Result Performing Organization Address [facility] Co de Phone Number [facility] [place] [address] * Amylase (03/06/2025 7:24 AM CDT) [facility] Amylase 61 30 - 99 Units/L Blood 03/06/2025 7:24 AM CDT 03/06/2025 7:32 AM CDT Mirella Robbins MD PhD LAB BLOOD ORDERABLES Final Result Performing Organization Address [facility] Co de Phone Number [facility] [place] [address] * (ABNORMAL) Comprehensive metabolic panel (03/06/2025 7:24 AM CDT) [facility] Sodium 144 135 - 145 mmol/L Potassium, pl 3.9 3.3 - 4.9 mmol/L [facility] Chloride 106 97 - 110 mmol/L [facility] CO2 27 22 - 32 mmol/L [facility] Anion gap 11 2 - 15 mmol/L [facility] BUN 13 6 - 25 mg/dL [facility] Creatinine 0.91 0.60 - 1.10 mg/dL [facility] Glucose 109 70 - 199 mg/dL [facility] Comment: Interpretive Data Fasting glucose >/= 126 [...] Current interpretive data was last revised 2022. Calcium 9.6 8.5 - 10.3 mg/dL [facility] Bilirubin, total 0.3 0.1 - 1.2 mg/dL [facility] Protein, pl 6.7 6.5 - 8.5 g/dL [facility] Albumin 3.9 3.5 - 5.0 g/dL [facility] Alk phos 82 40 - 130 Units/L [facility] ALT 6(L) 7 - 45 Units/L [facility] AST 17 10 - 45 Units/L [facility] Blood 03/06/2025 7:24 AM CDT 03/06/2025 7:32 AM CDT us Mirella Robbins MD PhD LAB BLOOD ORDERABLES Final Result [facility] [place] [address] * US Guided Biopsy Liver (03/03/2025 11:17 AM CDT) Anatomical Region Laterality Modality Leg N/A X-Ray Angiograph y 03/03/2025 3:58 PM CDT Impressions 03/03/2025 4:06 PM CDT 1. Successful ultrasound-guided core needle biopsy of target right hemiliver lesion. 2. Please see separate Surgical Pathology results for final interpretation. Dictated by: Kenya Isidro M.D. The radiology attending physician has personally reviewed this study, and had reviewed and/or edited this written report and agrees with it. Electronically signed by: Jose Antonio Donis M.D. Narrative 03/03/2025 4:06 PM CDT EXAMINATION: ULTRASOUND-GUIDED LIVER CORE BIOPSY HISTORY: Colon adenocarcinoma. Liver biopsy for clinical trial. COMPARISON: CT chest, abdomen, and pelvis dated 02/20/2025. FINDINGS: Target right hemiliver lesion was identified under sonographic guidance maximally measuring 2.1 cm. TECHNIQUE: The procedure for ultrasound-guided core renal biopsy was explained to and discussed with the patient. Risks were explained to include, but not be limited to, hemorrhage, infection, injury to adjacent organs, non-diagnostic specimen and adverse reaction to medications administered. The patient voiced understanding and wished to proceed and signed the consent form. PROCEDURAL SEDATION: Procedural sedation was administered under the attending physician's direction and continuous monitoring by a trained nurse specialist who was independent from those actually performing the procedure. Total monitored sedation time was 17 minutes. CORE BIOPSY: The lesion was located in right hemiliver and measures up to 2.1 cm. An appropriate site was localized for core biopsy. The patient's overlying skin was prepped and draped in the usual sterile fashion. Local anesthesia was achieved via subcutaneous and deep administration with 8 mL of Lidocaine 1%. Under realtime ultrasound guidance, 4 passes were made with an 18 gauge Corvocet core biopsy needle, 1.5 cm throw, with the use of a 17 gauge introducer needle. The core specimens were placed in research solution and submitted to the fire code inspector service for delivery to Surgical Pathology. The biopsy tract was embolized with a Gelfoam slurry The patient's skin was cleaned and dressed. The patient tolerated the entire procedure well without immediate complications. Dr. Jose Antonio Donis M.D., the attending radiologist, was present from the beginning to the end of the procedure. Dr. Kenya Isidro performed the biopsy. Procedure Note Jose Antonio Donis MD - 03/03/2025 EXAMINATION: ULTRASOUND-GUIDED LIVER CORE BIOPSY HISTORY: Colon adenocarcinoma. Liver biopsy for clinical trial. COMPARISON: CT chest, abdomen, and pelvis dated 02/20/2025. FINDINGS: Target right hemiliver lesion was identified under sonographic guidance maximally measuring 2.1 cm. TECHNIQUE: The procedure for ultrasound-guided core renal biopsy was explained to and discussed with the patient. Risks were explained to include, but not be limited to, hemorrhage, infection, injury to adjacent organs, non-diagnostic specimen and adverse reaction to medications administered. The patient voiced understanding and wished to proceed and signed the consent form. PROCEDURAL SEDATION: Procedural sedation was administered under the attending physician's direction and continuous monitoring by a trained nurse specialist who was independent from those actually performing the procedure. Total monitored sedation time was 17 minutes. CORE BIOPSY: The lesion was located in right hemiliver and measures up to 2.1 cm. An appropriate site was localized for core biopsy. The patient's overlying skin was prepped and draped in the usual sterile fashion. Local anesthesia was achieved via subcutaneous and deep administration with 8 mL of Lidocaine 1%. Under realtime ultrasound guidance, 4 passes were made with an 18 gauge Corvocet core biopsy needle, 1.5 cm throw, with the use of a 17 gauge introducer needle. The core specimens were placed in research solution and submitted to the fire code inspector service for delivery to Surgical Pathology. The biopsy tract was embolized with a Gelfoam slurry The patient's skin was cleaned and dressed. The patient tolerated the entire procedure well without immediate complications. Dr. Jose Antonio Donis M.D., the attending radiologist, was present from the beginning to the end of the procedure. Dr. Kenya Isidro performed the biopsy. IMPRESSION: 1. Successful ultrasound-guided core needle biopsy of target right hemiliver lesion. 2. Please see separate Surgical Pathology results for final interpretation. Dictated by: Kenya Isidro M.D. The radiology attending physician has personally reviewed this study, and had reviewed and/or edited this written report and agrees with it. Electronically signed by: Jose Antonio Donis M.D. us Mirella Robbins MD PhD IMG US PROCEDURES Final Res ult * SCAN - LABS (03/02/2025) us Provider Scanning Final Result * (ABNORMAL) Urinalysis reflex to microscopic (02/20/2025 1:17 PM CDT) Color, ur Yellow Yellow Clarity, ur Clear Clear [facility] Specific gravity, ur 1.032(H) 1.003 - 1.030 [facility] pH, urine 6.0 [facility] Comment: Interpretive Data U rine pH is affected by diet, medications, systemic acid-base disturbances, and renal tubular function. pH may affect urinary stone formation. For example, urine pH below 6.0 may help reduce the tendency for calcium phosphate stones and pH greater than 6.0 may reduce the tendency for uric acid stone formation. Source: [facility] [employer] Current Interpretive Data was last revised on 2017 Protein, ur ql Negative Negative [facility] Glucose, ur ql Negative Negative [facility] Ketones, ur Negative Negative [facility] Bilirubin, ur Negative Negative [facility] Blood, ur Negative Negative [facility] Urobilinogen, ur <2.0 <2.0 mg/dL [facility] Nitrite, ur Negative Negative [facility] Leukocyte esterase, ur 2+(A) [facility] UA reflex comment Reflex to microscopic UA will be performed. [facility] Urine 02/20/2025 1:17 PM CDT 02/20/2025 1:18 PM CDT us Mirella Robbins MD PhD LAB URINE ORDERABLES Final Result [facility] Department [place] [address] * (ABNORMAL) Urinalysis, microscopic only (02/20/2025 1:17 PM CDT) WBC, ur 21-50(A) 0 - 5 /HPF RBC, ur 0-2 0 - 2 /HPF [facility] Bacteria, ur Trace(A) [facility] Mucous, ur Present(A) [facility] Hyaline casts, ur 1-5 0 - 10 /LPF [facility] Urine 02/20/2025 1:17 PM CDT 02/20/2025 1:18 PM CDT us Mirella Robbins MD PhD LAB URINE ORDERABLES Final Result [facility] Department [place] [address] * CT chest abdomen pelvis with contrast [...] recommended. Electronically signed by: Philip Kimball M.D. Mirella Robbins MD PhD IMG CT PROCEDURES [...] LAB MICROBIOLOGY - GENERAL ORDERABLES Final Result [facility] Department [place] [address] * (ABNORMAL) Cystatin C (02/20/2025 11:00 AM CDT) Cystatin C 1.44(H) 0.60 - 1.20 mg/L Comment: Interpretive Data Cystatin C concentrations vary widely in the first month of life, particularly in pre-term infants. Concentrations gradually diminish to adult levels by 1 year of life. Concentrations tend to rise with diminishing renal function in individuals greater than 60 years of age. Current Interpretive Data was last revised on 2020. Testing performed by: [facility], [facility], [place]., [address] Blood 02/20/2025 11:0 0 AM CDT 02/20/2025 1:28 PM CDT Mirella Robbins MD PhD LAB BLOOD ORDERABLES Final Result [facility] Department [place] [address] * Hepatitis C antibody Blood (02/20/2025 11:00 AM CDT) Hep C Ab Nonreactive Nonreactive Comment:Antibodies to HCV no t detected. Does NOT exclude the possibility of recent exposure to HCV. Current interpretive data was last revised on 22 Blood 02/20/2025 11:0 0 AM CDT 02/20/2025 11:52 AM CDT Mirella Robbins MD PhD LAB MICROBIOLOGY - GENERAL ORDERABLES Final Result Performing Organization Address City/[facility]/[place] [address] * Hepatitis B core antibody, total Blood (02/20/2025 11:00 AM CDT) Hep B core IgG/IgM Nonreactive Nonreactive Blood 02/20/2025 11:0 0 AM CDT 02/20/2025 11:52 AM CDT Mirella Robbins MD PhD LAB MICROBIOLOGY - [place] [address] * Hepatitis B surface antibody (immune status) [...] GENERAL ORDERABLES Final Result Performing Organization Address [facility] Co de Phone Number [facility] [place] [address] * Hepatitis B Surface Antigen Blood (02/20/2025 11:00 AM CDT) HepBsAg Nonreactive Nonreactive Blood 02/20/2025 11:0 0 AM CDT 02/20/2025 11:52 AM CDT Mirella Robbins MD PhD LAB MICROBIOLOGY - GENERAL ORDERABLES Final Result Performing Organization Address [facility] [place] [address] * aPTT (02/20/2025 11:00 AM CDT) aPTT 30 28 - 38 sec Comment: Interpretive Data Heparin therapeutic range: 66.0 - 100.0 seconds. Range based on correlation with therapeutic heparin activity range of 0.3 - 0.7 Units/mL. Current interpretive data was last revised on 2023. Blood 02/20/2025 11:0 0 AM CDT 02/20/2025 11:28 AM CDT Narrative [facility] - 02/20/2025 12:01 PM CDT PLEASE PERFORM AN ARM DRAW. Thank you :) us Mirella Robbins MD PhD LAB BLOOD ORDERABLES Final Result Performing Organization Address [facility] Co de Phone Number [facility] [place] [address] * Protime-INR (02/20/2025 11:00 AM CDT) Pathologist [facility] PT 10.3 9.7 - 13.0 sec INR 0.95 0.90 - 1.20 [facility] Comment: Interpretive data Oral anticoagulant therapeutic ranges: Venous thromboembolism prophylaxis or treatment: 2.0-3.0 CARDIOLOGY Standard range: 2.0-3.0 High-intensity range: 2.5-3.5 Refer to indication-specific guidelines for appropriate target ranges for prosthetic heart valve replacement. Current interpretive data was last revised on 2019. Blood 02/20/2025 11:0 0 AM CDT 02/20/2025 11:28 AM CDT Narrative [facility] - 02/20/2025 12:01 PM CDT PLEASE PERFORM AN ARM DRAW. Thank you :) Mirella Robbins MD PhD LAB [place] [address] * (ABNORMAL) Reticulocyte Count (02/20/2025 11:00 AM CDT) Pathologist [facility] Retics, absolute 95 20 - 100 K/cumm Comment:Testing performed by : [facility], [address] [place] [phone] Retics 2.9(H) 0.5 - 1.8 % [facility] Comment:Testing performed by : [facility], [address] [place] [phone] Blood 02/20/2025 11:0 0 AM CDT 02/20/2025 11:02 AM CDT Mirella Robbins MD PhD LAB BLOOD ORDERABLES Final Result Performing Organization Address City/[facility]/[place] [address] * Uric acid (02/20/2025 11:00 AM CDT) Pathologist [facility] Uric acid 3.3 2.5 - 7.0 mg/dL Blood 02/20/2025 11:0 0 AM CDT 02/20/2025 11:08 AM CDT Mirella Robbins MD PhD LAB [place] [address] * Phosphorus (02/20/2025 11:00 AM CDT) Pathologist [facility] Phosphorus, pl 3.8 2.3 - 4.5 mg/dL Blood 02/20/2025 11:0 0 AM CDT 02/20/2025 11:08 AM CDT Mirella Robbins MD PhD LAB BLOOD ORDERABLES Final Result Performing Organization Address City/[facility] [place] [place] [address] * Magnesium (02/20/2025 11:00 AM CDT) Pathologist [facility] Magnesium 2.1 1.4 - 2.5 mg/dL Blood 02/20/2025 11:0 0 AM CDT 02/20/2025 11:08 AM CDT Mirella Robbins MD PhD LAB BLOOD ORDERABLES Final Result Performing Organization Address City/[facility]/[place] [address] * Lipase (02/20/2025 11:00 AM CDT) Pathologist [facility] Lipase 38 10 - 99 Units/L Blood 02/20/2025 11:0 0 AM CDT 02/20/2025 11:08 AM CDT Mirella Robbins MD PhD LAB BLOOD ORDERABLES Final Result Performing Organization Address [facility] de Phone Number [facility] [place] [address] * (ABNORMAL) CEA (02/20/2025 11:00 AM CDT) Pathologist [facility] CEA 24.4(H) <=5.0 ng/mL Comment: Interpretive Data: [...] BLOOD ORDERABLES Final Result Performing Organization Address [facility]/[place] [address] * Amylase (02/20/2025 11:00 AM CDT) Pathologist [facility] Amylase 54 30 - 99 Units/L Blood 02/20/2025 11:0 0 AM CDT 02/20/2025 11:08 AM CDT Mirella Robbins MD PhD LAB BLOOD ORDERABLES Final Result Performing Organization Address [facility] [place] [place] [address] * (ABNORMAL) eGFR (02/16/2025 10:58 AM CDT) Pathologist [facility] eGFR 57(L) >=60 mL/min/1. 73 m2 Comment: [...] was last reviewed 2021. Testing performed by: [facility] [place] [address] Blood 02/16/2025 10:5 8 AM CDT 02/16/2025 11:08 AM CDT us Mirella Robbins MD PhD LAB BLOOD ORDERABLES Final Result [facility] [address] [address] Department [place] [address] * Basic metabolic panel (02/16/2025 10:58 AM CDT) Sodium 136 135 - 145 mmol/L Comment:Testing performed by : [facility] [place] [address] Potassium, pl 4.0 3.3 - 4.9 mmol/L [facility] Comment:Testing performed by : [facility] [place] [address] Chloride 101 97 - 110 mmol/L [facility] Comment:Testing performed by : [facility] [place] [address] CO2 25 22 - 32 mmol/L [facility] Comment:Testing performed by : [facility] [place] [address] Anion gap 10 2 - 15 mmol/L [facility] Comment:Testing performed by : [facility] [place] [address] BUN 15 6 - 25 mg/dL [facility] Comment:Testing performed by : [facility] [place] [address] Creatinine 1.02 0.60 - 1.10 mg/dL [facility] Comment:Testing performed by : [facility] [place] [address] Glucose 122 70 - 199 mg/dL [facility] Comment: Interpretive Data Fasting glucose >/= 126 [...] was last revised 2022. Testing performed by: [facility] [place] [id number] Calcium 8.9 8.5 - 10.3 mg/dL [facility] Comment:Testing performed by : [facility] [place] [address] Blood 02/16/2025 10:5 8 AM CDT 02/16/2025 11:08 AM CDT Mirella Robbins MD PhD LAB BLOOD ORDERABLES Final Result [facility] [address] [address] Department [place] [address] * (ABNORMAL) eGFR (02/16/2025 8:33 [...] was last reviewed 2021. Testing performed by: [facility] [place] [address] Blood 02/16/2025 8:33 AM CDT 02/16/2025 8:33 AM CDT us Mirella Robbins MD PhD LAB BLOOD ORDERABLES Final Result [facility] [address] [address] Department [place] [address] * Differential, auto (02/16/2025 8:33 AM CDT) Neutrophil abs 1.86 1.50 - 6.50 K/cumm Comment:Testing performed by : [facility] [place] [address] Imm gran abs 0.01 0.00 - 0.10 K/cumm [facility] Comment:Testing performed by : [facility] [place] [address] Lymphocyte abs 1.14 0.80 - 3.30 K/cumm [facility] Comment:Testing performed by : [facility] [place] [address] Monocyte abs 0.55 0.20 - 0.80 K/cumm [facility] Comment:Testing performed by : [facility] [place] [address] Eosinophil abs 0.09 0.00 - 0.50 K/cumm [facility] Comment:Testing performed by : [facility] [place] [address] Basophil abs 0.01 0.00 - 0.10 K/cumm [facility] Comment:Testing performed by : [facility] [place] [address] Neutrophil pct 50.8 % [facility] Comment: Interpretive Data Percent cell count reference ranges are not reported, since discordance with absolute values may lead to misinterpretation of CBC data. Current Interpretive Data was last revised on 2017. Testing performed by: [facility] [place] [address] Imm gran pct 0.3 % [facility] Comment: Interpretive Data Percent cell count reference ranges are not reported, since discordance with absolute values may lead to misinterpretation of CBC data. Current Interpretive Data was last revised on 2017. Testing performed by: [facility] [place] [address] Lymphocyte pct 31.1 % [facility] Comment: Interpretive Data Percent cell count reference ranges are not reported, since discordance with absolute values may lead to misinterpretation of CBC data. Current Interpretive Data was last revised on 2017. Testing performed by: [facility] [place] [address] Monocyte pct 15.0 % [facility] Comment: Interpretive Data Percent cell count reference ranges are not reported, since discordance with absolute values may lead to misinterpretation of CBC data. Current Interpretive Data was last revised on 2017. Testing performed by: [facility] [place] [address] Eosinophil pct 2.5 % [facility] Comment: Interpretive Data Percent cell count reference ranges are not reported, since discordance with absolute values may lead to misinterpretation of CBC data. Current Interpretive Data was last revised on 2017. Testing performed by: [facility] [place] [address] Basophil pct 0.3 % [facility] Comment: Interpretive Data Percent cell count reference ranges are not reported, since discordance with absolute values may lead to misinterpretation of CBC data. Current Interpretive Data was last revised on 2017. Testing performed by: [facility] [place] [address] Blood 02/16/2025 8:33 AM CDT 02/16/2025 8:33 AM CDT us Mirella Robbins MD PhD LAB BLOOD ORDERABLES Final Result [facility] [address] [address] Department [place] [address] * (ABNORMAL) CBC with auto differential (02/16/2025 8:33 AM CDT) WBC 3.66(L) 3.80 - 9.90 K/cumm Comment:Testing performed by : [facility] [place] [address] Hgb 10.6(L) 11.9 - 15.5 g/dL CERNER CH Comment:Testing performed by : [facility] [place] [address] Hct 32.0(L) 35.6 - 45.5 % CERNER CH Comment:Testing performed by : [facility] [place] [address] Plt 132(L) 150 - 400 K/cumm CERNER CH Comment:Testing performed by : [facility] [place] [address] MPV 9.9 9.1 - 12.3 fL CERNER CH Comment:Testing performed by : [facility] [place] [address] RBC 3.15(L) 3.90 - 5.20 M/cumm CERNER CH Comment:Testing performed by : [facility] [place] [address] MCV 101.6(H) 81.3 - 96.4 fL CERNER CH Comment:Testing performed by : [facility] [place] [address] MCH 33.7(H) 27.1 - 33.3 pg CERNER CH Comment:Testing performed by : [facility] [place] [address] MCHC 33.1 32.3 - 35.7 g/dL CERNER CH Comment:Testing performed by : [facility] [place] [address] RDW CV 15.6(H) 11.1 - 14.9 % [place] Comment:Testing performed by : [facility] [place] [address] RDW SD 57.2(H) 35.7 - 48.1 fL [place] Comment:Testing performed by : [facility] [place] [address] NRBC abs 0.00 0.00 - 0.01 K/cumm [place] CH Comment:Testing performed by : [facility] [place] [address] ANC Prelim 1.86 1.50 - 6.50 K/cumm [place] CH Comment: Interpretive Data The rapid ANC is a preliminary automated count and may vary from the final ANC (Neut Abs) reported in the WBC differential that follows. Current interpretive data was last revised 2024. Testing performed by: [place] [address] Blood 02/16/2025 8:33 AM CDT 02/16/2025 8:33 AM CDT us Mirella Robbins MD PhD LAB BLOOD ORDERABLES Final Result [facility] [address] Department [place] [address] * (ABNORMAL) Comprehensive metabolic panel (02/16/2025 8:33 AM CDT) Sodium 138 135 - 145 mmol/L Comment:Testing performed by : [facility] [place] [address] Potassium, pl 4.3 3.3 - 4.9 mmol/L [place] Comment:Testing performed by : [facility] [place] [address] Chloride 98 97 - 110 mmol/L [place] Comment:Testing performed by : [facility] [place] [address] CO2 27 22 - 32 mmol/L [place] CH Comment:Testing performed by : [facility] [place] [address] Anion gap 13 2 - 15 mmol/L [place] CH Comment:Testing performed by : [facility] [place] [address] BUN 16 6 - 25 mg/dL CERNER CH Comment:Testing performed by : [facility] [place] [address] Creatinine 1.13(H) 0.60 - 1.10 mg/dL CERNER CH Comment:Testing performed by : [facility] [place] [address] Glucose 87 70 - 199 mg/dL CERNER CH Comment: Interpretive Data Fasting glucose >/= 126 [...] was last revised 2022. Testing performed by: [facility] [place] [address] Calcium 10.1 8.5 - 10.3 mg/dL CERNER CH Comment:Testing performed by : [facility] [place] [address] Bilirubin, total 0.2 0.1 - 1.2 mg/dL CERNER CH Comment:Testing performed by : [facility] [place] [address] Protein, pl 6.6 6.5 - 8.5 g/dL CERNER CH Comment:Testing performed by : [facility] [place] [address] Albumin 3.7 3.5 - 5.0 g/dL CERNER CH Comment:Testing performed by : [facility] [place] [address] Alk phos 87 40 - 130 Units/L CERNER CH Comment:Testing performed by : [facility] [place] [address] ALT 12 7 - 45 Units/L CERNER CH Comment:Testing performed by : [facility] [place] [address] AST 27 10 - 45 Units/L CERNER CH Comment:Testing performed by : [facility], [place] [address] Blood 02/16/2025 8:33 AM CDT 02/16/2025 8:33 AM CDT us Mirella Robbins MD PhD LAB BLOOD ORDERABLES Final Result [place] [address] Department [place] [address] * SCAN - LABS (02/06/2025) us Provider Scanning Final Result from Last 3 Months Insurance MEDICARE [facility] MEDICARE [facility] MEDICARE SUPPLEMENT MEDICARE [facility] MEDICARE SUPPLEMENT Advance Directives For more information, please contact: [phone] * Full Code (Latest Code Status on File) Date Activated Date Inactivated Comments 03/03/2025 9:36 AM 03/04/2025 4:53 AM Care Teams Mainstreaming Facilitator Relationship Specialty Start Date End Date Jeana Palacios NP [address] [place] [address] PCP - General Nurse Practitioner 12/09/24 Molina Medina MD 12/07/24 Alvarado Jang MD [address] [facility] [address] [place] [address] Referring Physician Hematology 12/07/24 Mirella Robbins MD PhD 4921 [facility] MEDICAL ONCOLOGY, [facility] 7A, 7B, [address] [place] [address] Medical Oncologist/Hot Box Operator Medical Oncology 12/09/24
--- OUTSIDE RECORDS SUMMARY | 2025-03-23 09:58 | XMS_ITS | Encounter Summary ---
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 MEDICAL ONCOLOGY, [facility] 7A, 7B, [address] [place] [address] Medical Oncologist/Fitness And Wellness Instructor Medical Oncology 12/09/24 documented as of this encounter
--- OUTSIDE RECORDS SUMMARY | 2025-03-23 09:58 | XMS_ITS | Encounter Summary ---
Author Organization [facility] [employer] of [facility] Address [address] [place] [address] Phone Care Team Providers Care Ground Crew Lines Person Name Role Phone Molina Medina MD Unavailable [phone] Alvarado Jang MD Unavailable [phone] Jeana Palacios NP Primary Care Provider [phone] Mirella Robbins MD PhD Unavailable Encounter Details Date Type Department Care Team (Late st Contact Info) Description 03/22/2025 Orders Only [facility] Medicine Oncology [address] 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 Gender Identity Not on file Sexual Orientation Not on file documented as of this encounter Plan of Treatment Scheduled Orders Name Type Priority Associated Diagnoses Orde r Schedule CBC with auto differential Lab Routine Colon adenocarcinoma (HCC) Metastasis to liver Examination of participant in clinical trial Expected: 03/22/2025, Expires: 03/22/2026 documented as of this encounter Visit Diagnoses Diagnosis Colon adenocarcinoma (HCC)- Primary Malignant neoplasm of colon, unspecified site Metastasis to liver Secondary malignant neoplasm of liver Examination of participant in clinical trial documented in this encounter Care Teams Ground Crew Lines Person Relationship Specialty Start Date End Date Jeana Palacios NP [address] [place] [address] PCP - General Nurse Practitioner 12/09/24 Molina Medina MD 12/07/24 Alvarado Jang MD 2[address] [facility] [address] [address] Referring Physician Hematology 12/07/24 Mirella Robbins MD PhD 4921 [facility] MEDICAL ONCOLOGY, [facility] 7A, 7B, [address] [place] [address] Medical Oncologist/Diploma Dental Assistant Medical Oncology 12/09/24 documented as of this encounter
--- OUTSIDE RECORDS SUMMARY | 2025-03-23 09:58 | XMS_ITS | Clinical Summary ---
Author Organization [facility] Leti Luna Address [address] [place] [address] Care Team Providers Care Dredge Boat Engineer Name Role Phone Molina Medina MD Primary Care Provider [phone] Allergies Active Allergy Reactions Criticality Noted Date [...] 20 mg 20 Tablet 05/28/2023 11:45 AM CHIEF OF FIELD OPERATIONS 3 Active acyclovir (ZOVIRAX) 400 mg tablet [...] 4 Tablets 20 Tablet 06/21/2024 5:13 PM CHIEF OF FIELD OPERATIONS 4 Active polyethylene glycol 3350 (MIRALAX) 17 gram/dose Powder Mix 1 Capful (17 Grams) and drink by mouth 1 time daily as needed for Constipation. 510 Gram 06/29/2024 4:02 PM CHIEF OF FIELD OPERATIONS 4 Active naloxone (NARCAN) 4 mg/spray [place], Non-Aerosol EMERGENCY USE ONLY: Administer 1 spray [...] Encounters Date Type Department Care Team Description 03/21/2025 External Device Data STL ABSTRACTION Provider, Abstract 03/20/2025 Orders Only [facility] Oncology and Hematology - Tommy [address] [place] [id number] Alvarado Jang MD Malignant neoplasm of colon, unspecified part of colon (CMS/HCC) 03/06/2025 Orders Only [facility] Oncology and Hematology - Tommy [address] [place] [id number] Alvarado Jang MD Malignant neoplasm of colon, unspecified part of colon (CMS/HCC) 02/09/2025 Orders Only [facility] Oncology and Hematology - Tommy [address] [place] [address] Alvarado Jang MD 02/08/2025 Orders Only [facility] Oncology and Hematology - Tommy [address] [place] [address] Alvarado Jang MD 02/07/2025 External Device Data STL ABSTRACTION Provider, Abstract 02/07/2025 Orders Only [facility] Oncology and Hematology - Tommy [address] [place] [address] Alvarado Jang MD Malignant neoplasm of colon, unspecified part of colon (CMS/HCC) 01/31/2025 Orders Only [facility] Oncology and Hematology - Tommy Jaz[address] [place] [address] Alvarado Jang MD Malignant neoplasm of colon, unspecified part of colon (CMS/HCC) 01/30/2025 Orders Only [facility] Oncology and Hematology - Tommy Judy [address] Alvarado Jang MD Malignant neoplasm of colon, unspecified part of colon (CMS/HCC) 01/24/2025 Orders Only [facility] Oncology and Hematology - Tommy [address] Alvarado Jang MD Malignant neoplasm of colon, unspecified part of colon (CMS/HCC) 01/23/2025 9:30 AM CDT Office Visit [facility] Oncology and Hematology - Tommy Judy [address] [place] [phone] Alvarado Jang MD Malignant neoplasm of colon, unspecified part of colon (CMS/HCC) 01/17/2025 Orders Only [facility] Oncology and Hematology - Tommy Judy [address] Alvarado Jang MD Malignant neoplasm of colon, unspecified part of colon (CMS/HCC) 01/16/2025 Orders Only [facility] Oncology and Hematology - Tommy Judy [address] [place] [phone] Alvarado Jang MD Malignant neoplasm of colon, unspecified part of colon (CMS/HCC) 01/10/2025 Orders Only [facility] Oncology and Hematology - Tommy [address] [place] [address] Alvarado Jang MD Malignant neoplasm of colon, unspecified part of colon (CMS/HCC) 01/09/2025 8:30 AM CDT Office Visit [facility] Oncology and Hematology - Tommy [address] [place] [phone] Alvarado Jang MD Malignant neoplasm of colon, unspecified part of colon (CMS/HCC) 01/09/2025 Orders Only [facility] Oncology and Hematology - Tommy Judy [address] Alvarado Jang MD Malignant neoplasm of colon, unspecified part of colon (CMS/HCC) (Primary Dx) 01/09/2025 Abstract [facility] Oncology and Hematology - Tommy [address] [place] [address] Alvarado Jang MD 01/09/2025 Abstract [facility] Oncology and Hematology - Tommy Cheryl [address] Alvarado Jang MD 01/02/2025 Orders Only [facility] Oncology and Hematology [facility] [address] [place] [id number] Alvarado Jang MD Malignant neoplasm of colon, unspecified part of colon (CMS/HCC) 12/27/2024 Orders Only [facility] Oncology and Hematology - [place] [address] Alvarado Jang MD Malignant neoplasm of colon, unspecified part of colon (CMS/HCC) 12/26/2024 Orders Only [facility] Oncology and Hematology [facility] Cheryl [address] Alvarado Jang MD Malignant neoplasm of [...] No 06/27/2024 Food Insecurity Answer Date Recorded Patient needs follow up regardin 11/09/2024 Transportation Needs Answer Date Record ed Patient needs follow up regardin 11/09/2024 Housing Stability Answer Date Recorded Social/Environmental Concerns No concerns Utility Needs Answer Date Recorded Patient needs follow up regardin 11/09/2024 Comments No Sex and Gender Information Value Date Recorded Sex Assigned at Not on file Legal Sex Female 10:27 AM CHIEF OF FIELD OPERATIONS Gender Identity Not on file Sexual Orientation [...] 170.2 cm (5' 7) 07/05/2024 11:27 AM CHIEF OF FIELD OPERATIONS Body Mass Index 30.57 07/05/2024 11:27 AM CHIEF OF FIELD OPERATIONS Plan of Treatment Health Maintenance Due Date [...] years Discontinued Medical Devices Implanted Type Area Patient Access Coordinator Device Identifier Shelf Expiration Date Model / Serial / Lot Hemostat Surg Snow 2x4in 2081 - [id number] Implanted:Qt y: 1 on 06/20/2024 by Randal Betts MD at [facility] Hemostatic N/A: Abdomen [employer] [id number] 02/16/2026 2082 / / [id number] Port Procedures Procedure Name [...] * COLONOSCOPY REPORT (05/04/2024 11:28 AM CDT) us Alvarado Jang MD GI PROCEDURE ORDERABLES Final R esult from Last 3 Months or Most Recently Relevant to Health Maintenance Insurance MEDICARE PART A AND B [facility] MEDICARE PART A AND B BS SUPP RX [employer] RX Member Subscriber Plan / Payer (Ef fective 2009-Present) Name:Mike Quinton Gallardo Relation to Subscriber:Self Name:Quinton Mckeon Paulina Payer ID:Not on file Group ID:[id number] Type:RX Medicare Part D Address: [place] [place] RX HURT PLANS (INTERNAL) [facility] Internal Plans Advance Directives For more information, please contact: [phone] Documents on File Type Date Recorded Patient Bending Machine Set Up Operator Expl anation Advance Directive Living Will 06/23/2024 [...] 11:05 AM 05/27/2023 5:55 PM Care Teams Dredge Boat Engineer Relationship Specialty Start Date End Date Molina Medina MD PCP - General Family Practice 08/12/22
--- OUTSIDE RECORDS SUMMARY | 2025-03-23 09:58 | XMS_ITS | Encounter Summary ---
Author Organization [facility] [employer] of [facility] Address [address] [place] [address] Phone Care Team Providers Care Cake Former Name Role Phone Molina Medina MD Unavailable [phone] Alvarado Jang MD Unavailable [phone] Jeana Palacios NP Primary Care Provider [phone] Mirella Robbins MD PhD Unavailable [phone] Encounter Details Date Type Department Care Team (Late st Contact Info) Description 03/22/2025 Orders Only [facility] Medicine Oncology [facility] Floor [address] [place] [address] Grisel Muniz BS Examination of participant in clinical trial (Primary Dx) Social History Tobacco Use Types Packs/Day Years [...] on file Legal Sex Female 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 ROOM 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 Gender Identity Not on file Sexual Orientation Not on file documented as of this encounter Plan of Treatment Not on file documented as of this encounter Visit Diagnoses Diagnosis Examination of participant in clinical trial- Primary documented in this encounter Orders Appointment Requests Count Last Ordered Date Fi rst Ordered Date ONCBCN RESEARCH VS APPT 1 03/22/2025 documented in this encounter Care Teams Cake Former Relationship Specialty Start Date End Date Jeana Palacios NP [address] [place] [address] PCP - General Nurse Practitioner 12/09/24 Molina Medina MD 12/07/24 Alvarado Jang MD [address] [facility] [address] [place] [address] Referring Physician Hematology 12/07/24 Mierlla Robbins MD PhD 4921 [facility] MEDICAL ONCOLOGY, [facility] 7A, 7B, [address] [place] [address] Medical Oncologist/Refrigerated Company Driver Medical Oncology 12/09/24 documented as of this encounter
--- OUTSIDE RECORDS SUMMARY | 2025-03-23 09:58 | XMS_ITS | Encounter Summary ---
Author Organization [facility] Address [address] [place] [address] Phone Care Team Providers Care Review Specialist Name Role Phone Molina Medina MD Unavailable [phone] Alvarado Jang MD Unavailable [phone] Jeana Palacios NP Primary Care Provider [phone] Mirella Robbins MD PhD Unavailable [phone] Reason for Visit * Reason Onset Date Comments Follow-up 03/22/2025 Encounter Details Date Type Department Care Team (Late st Contact Info) Description 03/22/2025 Telephone [facility] Medicine Oncology [facility] Floor [address] [place] [address] Renetta Hunter RN Follow-up Social [...] on file 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 Pt's requested lab be done at [facility]. Conf[facility] accepted[facility] orders and order faxed. CBC order faxed to [facility]: F: [phone] documented in this encounter Plan of Treatment Not on file documented as of this encounter Visit Diagnoses Not on filedocumented in this encounter Care Teams Review Specialist Relationship Specialty Start Date End Date Jeana Palacios NP [address] [place] [address] PCP - General Nurse Practitioner 12/09/24 Molina Medina MD 12/07/24 Alvarado Jang MD [facility] [facility] [address] [address] Referring Physician Hematology 12/07/24 Mirella Robbins MD PhD 4921 [facility] MEDICAL [facility], [facility] 7A, 7B, [address] [place] [address] Medical Oncologist/Cage Unloader Medical Oncology 12/09/24 documented as of this encounter
--- OUTSIDE RECORDS SUMMARY | 2025-03-23 09:58 | XMS_ITS | Encounter Summary ---
Author Organization [facility] [employer] [facility] Address [address] [place] [address] Care Team Providers Care Graphite Pan Drier Tender Name Role Phone Molina Medina MD Primary Care Provider [phone] Encounter Details Date Type Department Care Team (Late st Contact Info) Description 03/20/2025 Orders Only [facility] Oncology and Hematology - [place] [address] [place] [address] [facility] [address] [place] [address] Alvarado Jang MD 2[address] [facility] [address] [place] [address] Malignant neoplasm of colon, unspecified [...] on file Legal Sex Female 10:27 AM CARDIOPULMONARY TECHNICIAN Gender Identity Not on file Sexual Orientation Not on file documented as of this encounter Plan of Treatment Not on file documented as of this encounter Visit Diagnoses Diagnosis Malignant neoplasm of colon, unspecified part of colon (CMS/HCC) documented in this encounter Care Teams Graphite Pan Drier Tender Relationship Specialty Start Date End Date Molina Medina MD PCP - General Family Practice 08/12/22 documented as of this encounter
--- OUTSIDE RECORDS SUMMARY | 2025-03-23 09:58 | XMS_ITS | Encounter Summary ---
Author Organization [employer] [facility] Address 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
--- OUTSIDE RECORDS SUMMARY | 2025-03-23 09:58 | XMS_ITS | Encounter Summary ---
Author Organization [facility] Address [address] [place] [address] Care Team Providers Care Airport Ramp Agent Name Role Phone Unavailable Primary Care Provider Unavailabl e Encounter Details Date Type Department Care Team (Latest Contact Info) Description 1950 8:30 AM HOROLOGIST APPRENTICE - 1950 11:59 PM HOROLOGIST APPRENTICE Hospital [facility] [address] [place] [address] [facility], External Provider [address] [place] [address] Discharge Disposition: Home or Self Care Social History Tobacco Use Types Packs/Day Years Used Date Smoking Tobacco: Never Assessed Comments Unknown Sex and Gender Information Value Date Recorded Sex Assigned at Not on file Legal Sex Female 10:27 AM HOROLOGIST APPRENTICE Gender Identity Not on file Sexual Orientation Not on file documented as of this encounter Plan of Treatment Not on file documented as of this encounter Procedures Procedure Name Priority Date/Time Associated Diagnosis Comments MRI PRIOR STUDY Routine 1950 8:30 AM HOROLOGIST APPRENTICE Encounter for administrative examinations, unspecified documented in this encounter Results * MRI PRIOR STUDY (1950 8:30 AM HOROLOGIST APPRENTICE) Narrative 08/09/2024 8:28 AM HOROLOGIST APPRENTICE This exam was auto finalized to allow images to be scanned to PACS. us External Provider [facility] MR ORDERABLES Final Res ult documented in this encounter Visit Diagnoses Diagnosis Encounter for administrative examinations, unspecified documented in this encounter
--- OUTSIDE RECORDS SUMMARY | 2025-03-23 09:58 | XMS_ITS ---
Author Organization [facility] Leti Luna Address [address] [place] [address] Care Team Providers Care Assistant Film Editor Name Role Phone Molina Medina MD Primary Care Provider [phone] Active Problems Problem Noted Date Diagnosed Date [...]
--- OUTSIDE RECORDS SUMMARY | 2025-03-23 09:58 | XMS_ITS | Encounter Summary ---
Author Organization [facility] [address] of [facility] Address [address] [place] [address] Phone Care Team Providers Care Superintendent Tests Name Role Phone Molina Medina MD Unavailable [phone] Alvarado Jang MD Unavailable [phone] Jeana Palacios NP Primary Care Provider [phone] Mirella Robbins MD PhD Unavailable [phone] Encounter Details Date Type Department Care Team (Late st Contact Info) Description 03/21/2025 Orders Only [facility] Medicine Oncology [address] [facility] Floor 5 [place] [address] Mirella Robbins MD PhD [address] [facility] [address]A-C [address] [place], [place] [id number] Colon adenocarcinoma (HCC) (Primary Dx); Metastasis to [...] on file Legal 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 Gender Identity Not on file Sexual Orientation Not on file documented as of this encounter Plan of Treatment Scheduled Orders Name Type Priority Associated Diagnoses Orde r Schedule CBC with auto differential Lab Routine Colon adenocarcinoma (HCC) Metastasis to liver Examination of participant in clinical trial Expected: 03/24/2025, Expires: 03/21/2026 CBC with auto differential Lab STAT Colon adenocarcinoma (HCC) Metastasis to liver Expected: 03/27/2025, Expires: 03/27/2026 Comprehensive metabolic panel Lab STAT Colon adenocarcinoma (HCC) Metastasis to liver Expected: 03/27/2025, Expires: 03/27/2026 Magnesium Lab STAT Colon adenocarcinoma (HCC) Metastasis to liver Expected: 03/27/2025, Expires: 03/27/2026 Phosphorus Lab STAT Colon adenocarcinoma (HCC) Metastasis to liver Expected: 03/27/2025, Expires: 03/27/2026 Uric acid Lab STAT Colon adenocarcinoma (HCC) Metastasis to liver Expected: 03/27/2025, Expires: 03/27/2026 Amylase Lab STAT Colon adenocarcinoma (HCC) Metastasis to liver Expected: 03/27/2025, Expires: 03/27/2026 Lipase Lab STAT Colon adenocarcinoma (HCC) Metastasis to liver Expected: 03/27/2025, Expires: 03/27/2026 Protime-INR Lab STAT Colon adenocarcinoma (HCC) Metastasis to liver Expected: 03/27/2025, Expires: 03/27/2026 aPTT Lab STAT Colon adenocarcinoma (HCC) Metastasis to liver Expected: 03/27/2025, Expires: 03/27/2026 Reticulocyte Count Lab Routine Colon adenocarcinoma (HCC) Metastasis to liver Expected: 03/27/2025, Expires: 03/27/2026 documented as of this encounter Results * aPTT (03/21/2025 10:26 AM CDT) Pathologist [facility] aPTT 29 26 - 38 sec Comment: Interpretive Data Heparin therapeutic range: 66.0 - 100.0 seconds. Range based on correlation with therapeutic heparin activity range of 0.3 - 0.7 Units/mL. Current interpretive data was last revised on 2023. Blood 03/21/2025 10:2 6 AM CDT 03/21/2025 10:45 AM CDT Mirella Robbins MD PhD LAB BLOOD ORDERABLES Final Result [facility] [place] [address] documented in this encounter Visit Diagnoses Diagnosis Colon adenocarcinoma (HCC)- Primary Malignant neoplasm of colon, unspecified site Metastasis to liver Secondary malignant neoplasm of liver Examination of participant in clinical trial documented in this encounter Orders Lab Orders Without Results Count Last Ordered D ate First Ordered Date PROTIME-INR 1 03/21/2025 Appointment Requests Count Last Ordered Date Fi rst Ordered Date ONCBCN CLINIC APPOINTMENT REQUEST 1 025 ONCBCN EARLY HIGH STUDY 3HRS 1 03/21/2025 ONCBCN LAB APPOINTMENT 1 03/21/2025 documented in this encounter Care Teams Superintendent Tests Relationship Specialty Start Date End Date Jeana Palacios NP [address] [place] [address] PCP - General Nurse Practitioner 12/09/24 Molina Medina MD 12/07/24 Alvarado Jang MD [address] [facility] [address] [id number] Referring Physician Hematology 12/07/24 Mirella Robbins MD PhD [address] [facility], [facility] 7A, 7B, [address] [place] [address] Medical Oncologist/Newspaper Copy Editor Medical Oncology 12/09/24 documented as of this encounter
[2025-03-23 10:06] LABS: Band Neutrophils Percent 0 % (0-6); Basophils Absolute Manual 0.00 K/mm3 (0-0.1); Basophils Percent Manual 0 % (0-1); Eosinophils Absolute Manual 0.09 K/mm3 (0.02-0.50); Eosinophils Percent Manual 3 % (1-6); Lymphocytes Absolute Manual 0.96 K/mm3 (1.1-4.5); Lymphocytes Percent Manual 31 % (18-44); Monocytes Absolute Manual 0.31 K/mm3 (0.1-0.90); Monocytes Percent Manual 10 % (3-9); Neutrophils Absolute Manual 1.73 K/mm3 (1.3-6.7); Neutrophils Percent Manual 56 % (46-73); Total Cells Counted 100
== END 2025-03-23 09:33 | disposition home or self-care (01) ==
LOC: CHSLAB 09:37
PROVIDERS: PCP Nurse Practitioner Adult Health
DX: C18.9 Malignant neoplasm of colon, unspecified (principal); C78.7 Secondary malignant neoplasm of liver and intrahepatic bile duct; Z00.6 Encounter for examination for normal comparison and control in clinical research program
CPT/HCPCS: 36415; 85025

== ENCOUNTER 2025-04-20 11:23 | Outpatient (RCR) | payer MEDICARE, SELFPAY ==
[2025-04-20 11:36] LABS: Hematocrit 36.4 % (35.0-42.0); Hemoglobin 11.5 g/dL (11.7-13.8); Mean Corpuscular HGB Conc 31.6 g/dL (32-36); Mean Corpuscular Hemoglobin 33.1 pg (27.0-31.0); Mean Corpuscular Volume 104.9 fL (78.0-102.0); Platelet Count Result 199 K/mm3 (150-420); Red Blood Count 3.47 M/mm3 (4.20-5.40); White Blood Count 3.4 K/mm3 (4.8-10.8)
[2025-04-20 12:01] LABS: Band Neutrophils Percent 0 % (0-6); Basophils Absolute Manual 0.00 K/mm3 (0-0.1); Basophils Percent Manual 0 % (0-1); Eosinophils Absolute Manual 0.17 K/mm3 (0.02-0.50); Eosinophils Percent Manual 5 % (1-6); Lymphocytes Absolute Manual 1.59 K/mm3 (1.1-4.5); Lymphocytes Percent Manual 47 % (18-44); Monocytes Absolute Manual 0.20 K/mm3 (0.1-0.90); Monocytes Percent Manual 6 % (3-9); Neutrophils Absolute Manual 1.42 K/mm3 (1.3-6.7); Neutrophils Percent Manual 42 % (46-73); Total Cells Counted 100
== END 2025-07-19 23:59 | disposition home or self-care (01) ==
LOC: CHSLAB 11:23
PROVIDERS: PCP Nurse Practitioner Adult Health
DX: C18.9 Malignant neoplasm of colon, unspecified (principal); C78.7 Secondary malignant neoplasm of liver and intrahepatic bile duct; D70.1 Agranulocytosis secondary to cancer chemotherapy; T45.1X5A Adverse effect of antineoplastic and immunosuppressive drugs, initial encounter; Z00.6 Encounter for examination for normal comparison and control in clinical research program
CPT/HCPCS: 36415; 85025

== ENCOUNTER 2025-04-27 11:41 | Outpatient (CLI) | payer MEDICARE, SELFPAY ==
[2025-04-27 11:58] LABS: Hematocrit 36.0 % (35.0-42.0); Hemoglobin 11.2 g/dL (11.7-13.8); Mean Corpuscular HGB Conc 31.1 g/dL (32-36); Mean Corpuscular Hemoglobin 32.9 pg (27.0-31.0); Mean Corpuscular Volume 105.9 fL (78.0-102.0); Platelet Count Result 141 K/mm3 (150-420); Red Blood Count 3.40 M/mm3 (4.20-5.40); White Blood Count 15.8 K/mm3 (4.8-10.8)
[2025-04-27 12:34] LABS: Band Neutrophils Percent 11 % (0-6); Basophils Absolute Manual 0.15 K/mm3 (0-0.1); Basophils Percent Manual 1 % (0-1); Eosinophils Absolute Manual 0.47 K/mm3 (0.02-0.50); Eosinophils Percent Manual 3 % (1-6); Lymphocytes Absolute Manual 2.05 K/mm3 (1.1-4.5); Lymphocytes Percent Manual 13 % (18-44); Monocytes Absolute Manual 1.10 K/mm3 (0.1-0.90); Monocytes Percent Manual 7 % (3-9); Neutrophils Absolute Manual 12.00 K/mm3 (1.3-6.7); Neutrophils Percent Manual 65 % (46-73); Total Cells Counted 100
== END 2025-04-27 11:42 | disposition home or self-care (01) ==
PROVIDERS: Visit Provider Nurse Practitioner Adult Health
DX: C18.9 Malignant neoplasm of colon, unspecified (principal); C78.7 Secondary malignant neoplasm of liver and intrahepatic bile duct; D70.1 Agranulocytosis secondary to cancer chemotherapy; T45.1X5A Adverse effect of antineoplastic and immunosuppressive drugs, initial encounter
CPT/HCPCS: 36415; 85025

== ENCOUNTER 2025-05-23 08:26 | Outpatient (CLI) | payer MEDICARE, SELFPAY ==
--- OUTSIDE RECORDS SUMMARY | 2025-05-22 08:00 | XMS_ITS | Encounter Summary ---
Author Organization [facility] Address [address] [place] [address] Care Team Providers Care Oil And [employer] Principal Name Role Phone Molina Medina MD Unavailable [phone] Alvarado Jang MD Unavailable [phone] Jeana Palacios NP Primary Care Provider [phone] Mirella Robbins MD PhD Unavailable [phone] Reason for Visit * Episode Based Medications (Routine) - Authorized Specialty Diagnoses / Procedures Referred By Contac t Referred To Contact Diagnoses Colon adenocarcinoma (HCC) Metastasis to liver Mirella Robbins MD PhD [address] [address] [place] [address] Phone: tel: fax: [facility] - Infusion [address] [facility] 5 [place] [address] Referral ID Status Reason Start Date Expiration Date V isits Requested Visits Authorized [id number] Authorized 03/06/2025 08/03/2025 1 20 Encounter Details Date Type Department Care Team (Latest Contact Info) Description 05/22/2025 8:00 AM MACHINE PROGRAMMER Clinical Support [facility] - Lab Collection [address] [facility] [address] [place] [address] Colon adenocarcinoma (HCC); Metastasis to liver Social History Tobacco Use Types Packs/Day Years [...] on file Legal Sex Female 6:45 PM MACHINE PROGRAMMER Gender Identity Not on file Sexual Orientation Not on file documented as of this encounter Plan of Treatment Not on file documented as of this encounter Procedures Procedure Name Priority Date/Time Associated Diagnosis Comments DIFFERENTIAL AUTO STAT 05/22/2025 8:5 5 AM MACHINE PROGRAMMER Colon adenocarcinoma (HCC) Metastasis to liver CBC WITH AUTO DIFFERENTIAL STAT 05/22/2025 8:55 AM MACHINE PROGRAMMER Colon adenocarcinoma (HCC) Metastasis to liver RETICULOCYTES Routine 05/22/2025 8:55 AM MACHINE PROGRAMMER Colon adenocarcinoma (HCC) Metastasis to liver EGFR STAT 05/22/2025 8:55 AM MACHINE PROGRAMMER Colon adenocarcinoma (HCC) Metastasis to liver APTT STAT 05/22/2025 8:55 AM MACHINE PROGRAMMER Colon adenocarcinoma (HCC) Metastasis to liver PROTIME-INR STAT 05/22/2025 8:55 AM MACHINE PROGRAMMER Colon adenocarcinoma (HCC) Metastasis to liver URIC ACID STAT 05/22/2025 8:55 AM MACHINE PROGRAMMER Colon adenocarcinoma (HCC) Metastasis to liver PHOSPHORUS STAT 05/22/2025 8:55 AM MACHINE PROGRAMMER Colon adenocarcinoma (HCC) Metastasis to liver MAGNESIUM STAT 05/22/2025 8:55 AM MACHINE PROGRAMMER Colon adenocarcinoma (HCC) Metastasis to liver LIPASE STAT 05/22/2025 8:55 AM MACHINE PROGRAMMER Colon adenocarcinoma (HCC) Metastasis to liver AMYLASE STAT 05/22/2025 8:55 AM MACHINE PROGRAMMER Colon adenocarcinoma (HCC) Metastasis to liver COMPREHENSIVE METABOLIC PANEL STAT 05/22/2025 8:55 AM MACHINE PROGRAMMER Colon adenocarcinoma (HCC) Metastasis to liver documented in this encounter Results * (ABNORMAL) Differential, auto (05/22/2025 8:55 AM MACHINE PROGRAMMER) Neutrophil abs 1.02(L) 1.50 - 6.50 K/cumm Comment:Testing performed by : [facility], [address] [place], [place] [id number] Lymphocyte abs 1.32 0.80 - 3.30 K/cumm [facility] Comment:Testing performed by : [facility], [address] [place], [place] [id number] Monocyte abs 0.42 0.20 - 0.80 K/cumm [facility] Comment:Testing performed by : [facility], [address] [place] [address] Eosinophil abs 0.22 0.00 - 0.50 K/cumm [facility] Comment:Testing performed by : [facility], [address] [place] [address] Basophil abs 0.02 0.00 - 0.10 K/cumm [facility] Comment:Testing performed by : [facility], [address] [place] [address] Neutrophil pct 33.9 % [facility] Comment: Interpretive Data Percent cell count reference ranges are not reported, since discordance with absolute values may lead to misinterpretation of CBC data. Current Interpretive Data was last revised on 2017. Testing performed by: [facility], [address] [place] [address] Lymphocyte pct 43.9 % [facility] Comment: Interpretive Data Percent cell count reference ranges are not reported, since discordance with absolute values may lead to misinterpretation of CBC data. Current Interpretive Data was last revised on 2017. Testing performed by: [facility], [address] [place] [address] Monocyte pct 14.1 % [facility] Comment: Interpretive Data Percent cell count reference ranges are not reported, since discordance with absolute values may lead to misinterpretation of CBC data. Current Interpretive Data was last revised on 2017. Testing performed by: [facility], [address] [place] [phone] Eosinophil pct 7.4 % [facility] Comment: Interpretive Data Percent cell count reference ranges are not reported, since discordance with absolute values may lead to misinterpretation of CBC data. Current Interpretive Data was last revised on 2017. Testing performed by: [facility], [address] [place] [phone] Basophil pct 0.7 % [facility] Comment: Interpretive Data Percent cell count reference ranges are not reported, since discordance with absolute values may lead to misinterpretation of CBC data. Current Interpretive Data was last revised on 2017. Testing performed by: [facility], [address] [place] [phone] Blood 05/22/2025 8:55 AM MACHINE PROGRAMMER 05/22/2025 8:59 AM MACHINE PROGRAMMER Mirella Robbins MD PhD LAB BLOOD ORDERABLES Final Result [facility] One [facility] Department [place] [address] * (ABNORMAL) CBC with auto differential (05/22/2025 8:55 AM MACHINE PROGRAMMER) WBC 3.01(L) 3.80 - 9.90 K/cumm Comment:Testing performed by : [facility], [address] [place] [phone] Hgb 11.1(L) 11.9 - 15.5 g/dL [facility] Comment:Testing performed by : [facility], [address] [place] [address] Hct 33.7(L) 35.6 - 45.5 % [facility] Comment:Testing performed by : [facility], [address] [place] [address] Plt 146(L) 150 - 400 K/cumm [facility] Comment:Testing performed by : [facility], [address] [place] [address] MPV 7.8 6.8 - 10.4 fL [facility] Comment:Testing performed by : [facility], [address] [place] [address] RBC 3.47(L) 3.90 - 5.20 M/cumm [facility] Comment:Testing performed by : [facility], [address] [place] [address] MCV 97.0(H) 81.3 - 96.4 fL [facility] Comment:Testing performed by : [facility], [address] [place] [address] MCH 32.0 27.1 - 33.3 pg [facility] Comment:Testing performed by : [facility], [address] [place] [address] MCHC 33.0 32.3 - 35.7 g/dL [facility] Comment:Testing performed by : [facility], [address] [place] [address] RDW CV 15.6(H) 11.1 - 14.9 % [facility] Comment:Testing performed by : [facility], [address] [place] [address] NRBC abs 0.00 0.00 - 0.01 K/cumm [facility] Comment:Testing performed by : [facility], [address] [place] [address] Blood 05/22/2025 8:55 AM MACHINE PROGRAMMER 05/22/2025 8:59 AM MACHINE PROGRAMMER us Mirella Robbins MD PhD LAB BLOOD ORDERABLES Final Result [facility] One [facility] Department [place] [address] * Reticulocyte Count (05/22/2025 8:55 AM MACHINE PROGRAMMER) Retics, absolute 35 20 - 100 K/cumm Comment:Testing performed by : [facility], [address] [place] [phone] Retics 1.0 0.5 - 1.8 % [facility] Comment:Testing performed by : [facility], [address] [place] [phone] Blood 05/22/2025 8:55 AM MACHINE PROGRAMMER 05/22/2025 8:59 AM MACHINE PROGRAMMER Mirella Robbins MD PhD LAB BLOOD ORDERABLES Final Result [facility] [place] [address] * eGFR (05/22/2025 8:55 AM MACHINE PROGRAMMER) eGFR 77 >=60 mL/min/1. 73 m2 Comment: Interpretive Data [...] interpretive data was last reviewed 2021. Blood 05/22/2025 8:55 AM MACHINE PROGRAMMER 05/22/2025 9:01 AM MACHINE PROGRAMMER us Mirella Robbins MD PhD LAB BLOOD ORDERABLES Final Result [facility] [place] [address] * (ABNORMAL) Comprehensive metabolic panel (05/22/2025 8:55 AM MACHINE PROGRAMMER) Sodium 141 135 - 145 mmol/L Potassium, pl 4.1 3.3 - 4.9 mmol/L [facility] Chloride 106 97 - 110 mmol/L [facility] CO2 29 22 - 32 mmol/L [facility] Anion gap 6 2 - 15 mmol/L [facility] BUN 12 6 - 25 mg/dL [facility] Creatinine 0.79 0.60 - 1.10 mg/dL [facility] Glucose 104 70 - 199 mg/dL [facility] Comment: Interpretive Data Fasting glucose >/= [...] interpretive data was last revised 2022. Calcium 9.3 8.5 - 10.3 mg/dL [facility] Bilirubin, total 0.2 0.1 - 1.2 mg/dL [facility] Protein, pl 6.3(L) 6.5 - 8.5 g/dL [facility] Albumin 3.5 3.5 - 5.0 g/dL [facility] Alk phos 92 40 - 130 Units/L [facility] ALT 11 7 - 45 Units/L [facility] AST 26 10 - 45 Units/L [facility] Blood 05/22/2025 8:55 AM MACHINE PROGRAMMER 05/22/2025 9:01 AM MACHINE PROGRAMMER us Mirella Robbins MD PhD LAB BLOOD ORDERABLES Final Result [facility] One [facility] Department [place] [address] * Magnesium (05/22/2025 8:55 AM MACHINE PROGRAMMER) Magnesium 1.8 1.4 - 2.5 mg/dL Blood 05/22/2025 8:55 AM MACHINE PROGRAMMER 05/22/2025 9:01 AM MACHINE PROGRAMMER us Mirella Robbins MD PhD LAB BLOOD ORDERABLES Final Result Performing Organization Address City/[facility] Co de Phone Number [facility] [place] [address] * Phosphorus (05/22/2025 8:55 AM MACHINE PROGRAMMER) Pathologist [facility] Phosphorus, pl 3.5 2.3 - 4.5 mg/dL Blood 05/22/2025 8:55 AM MACHINE PROGRAMMER 05/22/2025 9:01 AM MACHINE PROGRAMMER us Mirella Robbins MD PhD LAB BLOOD ORDERABLES Final Result Performing Organization Address City/[facility] de Phone Number [facility] [place] [address] * Uric acid (05/22/2025 8:55 AM MACHINE PROGRAMMER) [facility] Uric acid 3.9 2.5 - 7.0 mg/dL Blood 05/22/2025 8:55 AM MACHINE PROGRAMMER 05/22/2025 9:01 AM MACHINE PROGRAMMER us Mirella Robbins MD PhD LAB BLOOD ORDERABLES Final Result Performing Organization Address City/[facility] Co de Phone Number [facility] [place] [address] * Lipase (05/22/2025 8:55 AM MACHINE PROGRAMMER) Pathologist [facility] Lipase 31 10 - 99 Units/L Blood 05/22/2025 8:55 AM MACHINE PROGRAMMER 05/22/2025 9:01 AM MACHINE PROGRAMMER us Mirella Robbins MD PhD LAB BLOOD ORDERABLES Final Result Performing Organization Address [facility] [place] [address] * Protime-INR (05/22/2025 8:55 AM MACHINE PROGRAMMER) PT 10.2 10.2 - 13.5 sec INR 0.90 0.90 - 1.20 [facility] Comment: Interpretive data Oral anticoagulant therapeutic ranges: Venous thromboembolism prophylaxis or treatment: 2.0-3.0 CARDIOLOGY Standard range: 2.0-3.0 High-intensity range: 2.5-3.5 Refer to indication-specific guidelines for appropriate target ranges for prosthetic heart valve replacement. Current interpretive data was last revised on 2019. Blood 05/22/2025 8:55 AM MACHINE PROGRAMMER 05/22/2025 9:12 AM MACHINE PROGRAMMER Result [facility] Mirella Robbins MD PhD LAB BLOOD ORDERABLES Final Result Performing Organization Address [facility] de Phone Number [facility] [place] [address] * Amylase (05/22/2025 8:55 AM MACHINE PROGRAMMER) Pathologist [facility] Amylase 62 30 - 99 Units/L Blood 05/22/2025 8:55 AM MACHINE PROGRAMMER 05/22/2025 9:01 AM MACHINE PROGRAMMER Result [facility] Mirella Robbins MD PhD LAB BLOOD ORDERABLES Final Result Performing Organization Address [facility] de Phone Number [facility] [place] [address] * aPTT (05/22/2025 8:55 AM MACHINE PROGRAMMER) aPTT 28 26 - 38 sec Comment: Interpretive Data Heparin therapeutic range: 66.0 - 100.0 seconds. Range based on correlation with therapeutic heparin activity range of 0.3 - 0.7 Units/mL. Current interpretive data was last revised on 2023. Blood 05/22/2025 8:55 AM MACHINE PROGRAMMER 05/22/2025 9:12 AM MACHINE PROGRAMMER Mirella Robbins MD PhD LAB BLOOD ORDERABLES Final Result [facility] One [facility] Department [place] [address] documented in this encounter Visit Diagnoses Diagnosis Colon adenocarcinoma (HCC) Malignant neoplasm of colon, unspecified site Metastasis to liver Secondary malignant neoplasm of liver documented in this encounter Orders Appointment Requests Count Last Ordered Date Fi rst Ordered Date ONCBCN LAB APPOINTMENT 1 05/22/2025 documented in this encounter Care Teams Oil [employer] Principal Relationship Specialty Start Date End Date Jeana Palacios NP [address] [place] [address] PCP - General Nurse Practitioner 12/09/24 Molina Medina MD 12/07/24 Alvarado Jang MD [address] [facility] [address] [place] [address] Referring Physician Hematology 12/07/24 Mirella Robbins MD PhD [address] [facility], [facility] [address]A, [address] [place] [address] Medical Oncologist/Pathology Manager Medical Oncology 12/09/24 documented as of this encounter
--- OUTSIDE RECORDS SUMMARY | 2025-05-22 09:00 | XMS_ITS | Encounter Summary ---
Author Organization [facility] Address [address] [place] [address] Phone Care Team Providers Care Contract Forester Name Role Phone Molina Medina MD Unavailable [phone] Alvarado Jang MD Unavailable [phone] Jeana Palacios NP Primary Care Provider [phone] Mirella Robbins MD PhD Unavailable [phone] Encounter Details Date Type Department Care Team (Late st Contact Info) Description 05/22/2025 9:00 AM NON LICENSED OPERATOR Office Visit [facility] Medicine Oncology [address] [facility] [address] [place] [address] Mirella Robbins MD PhD [id number] [facility] [address] [place], [place] [id number] Colon adenocarcinoma (HCC) (Primary Dx); Metastasis to liver Social History Tobacco Use [...] on file Legal Sex Female 6:45 PM NON LICENSED OPERATOR Gender Identity Not on file Sexual Orientation Not on file documented as of this encounter Last Filed Vital Signs Vital Sign Reading Time Taken Comments Blood Pressure 127/78 05/22/2025 9:18 AM NON LICENSED OPERATOR Pulse 69 05/22/2025 9:18 AM NON LICENSED OPERATOR Temperature 36.4 C (97.5 F) 05/22/2025 9:18 AM NON LICENSED OPERATOR Respiratory Rate 15 05/22/2025 9:18 AM NON LICENSED OPERATOR Oxygen Saturation 96% 05/22/2025 9:18 AM NON LICENSED OPERATOR Inhaled Oxygen Concentration - - Weight 87.5 kg (193 lb) 05/22/2025 9:18 AM NON LICENSED OPERATOR Height - - Body Mass Index 31.31 04/10/2025 8:11 AM CDT documented in this encounter Progress Notes * Mirella Robbins MD PhD - 05/22/2025 9:00 AM CST Images from the original note were not included. Oncology Clinic Note Reason for visit: Metastatic colon cancer KRAS mutation positive, LANDEN on HRPO#[id number] Requesting Provider: Dr. Alvarado Jang (Primary medical oncology) Oncologic history: 74 yo F with pmh/o LANDEN colon adenocarcinoma diagnosed in Jul 2022. She started C1D1 FOLFOX on August 27, 2022 and received 12 cycles last on March 05, 2023. On April 25, 2023 she had a laparoscopic adhesiolysis and a laparoscopic extended right colectomy with removal of the terminal ileum and ileocolostomy On May 28, 2023 he had a laparoscopic microwave ablation of the liver metastasis. She started maintenance chemotherapy with 5-FU leucovorin on every 3-week basis started on 2022. It was discontinued on September 22, 2023 due to progressive disease FOLFIRI Avastin was started on October 21, 2023. She completed 12 cycles of second line chemotherapy with FOLFIRI Avastin on April 27, 2024 Microwave ablation to the liver metastasis was done on June 20, 2024. Aug 04, 2024--MRI -No progression and disease response. She started maintainance chemotherapy until restaging scans done on November 09, 2024 showed progression. There were new subcentimeter pulmonary nodules, a stable 3 cm hepatic lesion. CEA--36.1 on 11-15-24. FOLFIRI-Brisa was resumed and she notes she last received it this week on 12-26-24. She had diarrhea 4-[address] Jang instructed her on the use of imdoium and she notes doing better. She was referred here to assess for trial eligibility for HRPO#[id number] CURRENT TREATMENT: Phase I [id number]--P0M2--8[birth year]30[birth year] Interval history: She is accompanied by spouse to continue the Phase I [id number] (hardin-KRAS inhibitor) trial. Note that [id number] was dose reduced to 250mg d/t neutropenia. She had a CT CAP on 05/05/25 that showed increased size but similar distribution of B/L pulm nodules and R hemiliver metastatic lesions, suspicious for increasing tumor burden, unchanged ablation zones in the liver and unchanged B/L adnexal cystic lesions. RECIST confirms progressive disease. Today, she reports fatigue but her activity levels are unchanged. She has 2-4 loose stools but notes that the imodium/lomotil relieves it completely. She has a fair appetite and stable weight. She has chronic/stable mild neuropathy in her hands/feet. No other complaints. Past Medical History: Diagnosis Date Schizo-affective schizophrenia, chronic condition with acute exacerbation (HCC) Past Surgical History: Procedure Laterality Date BREAST LUMPECTOMY Left COLON SURGERY COLON SURGERY 04/25/2023 CYST REMOVAL TONSILLECTOMY US GUIDED BIOPSY LIVER N/A 03/03/2025 (Not in a hospital admission) Current Outpatient Medications Medication Sig Dispense Refill brexpiprazole (Rexulti) 4 mg tablet Take 1 tablet every day by oral route at bedtime for 30 days. diclofenac sodium (Voltaren Arthritis Pain) 1 % gel Apply 2 g topically 3 (three) times a day as needed (Pain) 20 g 3 diphenoxylate-atropine (LOMOTIL) 2.5-0.025 mg per tablet Take 1 tablet by mouth 4 (four) times a day as needed for diarrhea 60 tablet 3 divalproex ER (DEPAKOTE ER) 250 mg 24 hr tablet Take 2 tablets (500 mg total) by mouth daily [facility] [id number] (/[id number]) 100 mg tablet Take 2 tablets (200 mg total) by mouth 2 (two) times a day Take with two of the 25 mg tablets for a total dose of 250 mg.Take approximately 12 hours apart on an empty stomach with no food or liquids other than water for 2 hours before and 1 hour after each dose. [facility] [id number] (/[id number]) 25 mg tablet Take 2 tablets (50 mg total) by mouth 2 (two) times a day Take with two of the 100 mg tablets for a total dose of 250 mg. Take approximately 12 hours apart on an empty stomach with no food or liquids other than water for 2 hours before and 1 hour after each dose. levothyroxine (SYNTHROID) 75 mcg tablet daily loperamide (IMODIUM) 2 mg capsule Take 2 capsules (4 mg total) by mouth every 6 (six) hours as needed for diarrhea 60 capsule 3 ondansetron ODT (ZOFRAN-ODT) 8 mg disintegrating tablet Take 1 tablet (8 mg total) by mouth every 8(eight) hours as needed for nausea or vomiting 30 tablet 2 polyethylene glycol (MIRALAX) 17 gram/dose bulk powder Take 17 g by mouth daily as needed QUEtiapine (SEROquel) 100 mg tablet QUEtiapine (SEROquel) 200 mg tablet sertraline (ZOLOFT) 100 mg tablet Take 1 tablet (100 mg total) by mouth trifluoperazine (STELAZINE) 5 mg tablet Take 1 tablet (5 mg total) by mouth 2 (two) times a day No current facility-administered medications for this visit. Allergies Allergen Reactions Penicillins Hives and Rash Social History Tobacco Use Smoking status: Never Smokeless tobacco: Never Substance and Sexual Activity Drug use: Never Sexual activity: Not on file Alcohol Use: Not on file Family History Problem Relation Age of Onset Breast cancer Mother 81 Other (pulmonary cardiovascular) Mother Diverticulitis Father Review of Systems: Negatve except as stated above. Objective Most Recent : Vitals BP 127/78 (BP Location: Right arm) Pulse 69 Temp 36.4 ??C (97.5 ??F) (Temporal) Resp 15 Wt 87.5 kg (193 lb) SpO2 96% BMI 31.31 kg/m?? ECO Physical Exam Constitutional: General: She is not in acute distress. Appearance: Normal appearance. She is normal weight. She is not ill-appearing or toxic-appearing. HENT: Head: Normocephalic. Mouth/Throat: Mouth: Mucous membranes are moist. Comments: Mild OP erythema Upper lip healed blister Eyes: General: No scleral icterus. Extraocular Movements: Extraocular movements intact. Conjunctiva/sclera: Conjunctivae normal. Pupils: Pupils are equal, round, and reactive to light. Cardiovascular: Rate and Rhythm: Normal rate and regular rhythm. Heart sounds: Normal heart sounds. No murmur heard. Pulmonary: Effort: Pulmonary effort is normal. No respiratory distress. Breath sounds: Normal breath sounds. No rhonchi. Abdominal: General: Bowel sounds are normal. There is no distension. Palpations: Abdomen is soft. There is no mass. Tenderness: There is no abdominal tenderness. There is no guarding. Hernia: No hernia is present. Musculoskeletal: General: Normal range of motion. Cervical back: Neck supple. Right lower leg: No edema. Left lower leg: No edema. Lymphadenopathy: Cervical: No cervical adenopathy. Skin: General: Skin is warm and dry. Coloration: Skin is not jaundiced. Findings: No rash. Neurological: General: No focal deficit present. Mental Status: She is alert and oriented to person, place, and time. Mental status is at baseline. Cranial Nerves: No cranial nerve deficit. Psychiatric: Mood and Affect: Mood normal. Behavior: Behavior normal. Thought Content: Thought content normal. Lab/Radiology/Diagnostic Review: Laboratory review: Hematology Lab History Latest Ref Rng & Units 04/24/2025 09:25 05/01/2025 09:19 05/08/2025 07:56 05/22/2025 08:55 Labs - Hematology WBC 3.80 - 9.90 K/cumm 2.50 5.03 3.29 3.01 Total Hb, POC 11.9 - 15.5 g/dL 11.6 11.4 11.2 11.1 Hct 35.6 - 45.5 % 34.6 34.1 33.1 33.7 Plt 150 - 400 K/cumm 179 120 98 146 Neutrophil abs 1.50 - 6.50 K/cumm 0.73 2.77 1.39 1.02 Lymphocytes, abs 0.80 - 3.30 K/cumm 1.34 1.31 1.48 1.32 Chem/LFT Lab History Latest Ref Rng & Units 04/24/2025 09:25 05/01/2025 09:19 05/08/2025 07:56 05/22/2025 08:55 Labs-Chem/LFT Sodium 135 - 145 mmol/L 144 143 142 141 Creatinine 0.60 - 1.10 mg/dL 0.82 0.91 0.80 0.79 Bilirubin, total 0.1 - 1.2 mg/dL 0.2 0.2 0.2 0.2 AST 10 - 45 Units/L 27 22 23 26 ALT 7 - 45 Units/L 11 11 12 11 Alk phos 40 - 130 Units/L 100 108 109 92 CrCl- Actual Body Weight (Cockcroft-Gault) 80.1 73.5 82.5 83.7 RADIOLOGY: RECIST, 05/05/2025: CT CAP, 05/05/25: 1. Increased size but similar distribution of bilateral pulmonary nodules and right hemiliver metastatic lesions compared to 02/20/2025, suspicious for increasing tumor burden. If the patient is receiving immunotherapy, these findings could represent pseudoprogression. Advise correlation with serum tumor markers and close interval follow-up. 2. Unchanged ablation zones in the liver. 3. Unchanged bilateral adnexal cystic lesions. CT CAP, 02/20/2025: 1. Multifocal pulmonary nodules in both lungs suspicious for metastatic disease. 2. Ablation changes within the liver, but with residual metastatic disease in the right hemiliver as detailed. 3. Cystic lesions in both ovaries for which attention on follow-up is recommended. Assessment /Plan 74 yo F with stage IV KRAS mutant LANDEN colon adenocarcinoma diagnosed in Jul 2022, s/p first line mFOLFOX X 12 followed by a laparoscopic adhesiolysis and extended right colectomy with removal of the terminal ileum and ileocolostomy. -On May 28, 2023 she had a laparoscopic microwave ablation of the liver metastasis and started maintenance chemotherapy with 5-FU leucovorin on every 3- week basis started on June 23, 2023. It was discontinued on September 22, 2023 due to progressive disease - Second line FOLFIRI Avastin was started on October 21, 2023. She completed 12 cycles of second line chemotherapy with FOLFIRI Avastin on April 27, 2024 - Microwave ablation to the liver metastasis was done on June 20, 2024. -Then as the Aug 04, 2024--MRI -showed no progression and disease response maintainance 5-FU/LV wasstarted until restaging scans done on November 09, 2024 showed progression. -There were new subcentimeter pulmonary nodules, a stable 3 cm hepatic lesion. CEA--36.1 on 11-15-24. -FOLFIRI-Brisa was resumed; last received it on 02-06-25. -She initiated therapy on study--Phase I [id number] on 03-06-25, 500mg - Dose reduced to 250mg bid due to neutropenia. - She presents today for C3D1. - Clinically she feels about the same - has chronic fatigue but activity levels are unchanged. Diarrhea is persistent, but she is not utilizing her Lomotil as prescribed (mostly takes it twice a day when prescribed QID) -CT CAP on 05/05/25 showed increased size but similar distribution of B/L pulm nodules and R hemiliver metastatic lesions, suspicious for increasing tumor burden, unchanged ablation zones in the liver and unchanged B/L adnexal cystic lesions. RECIST showed progression but protocol allows continuingtreatment for clinical benefit with close re-imaging in 4 weeks. Per study protocol, since patient is clinically stable and had some treatment delays d/t previous neutropenia, it was decided to treat beyond progression. Labs reviewed today and notable for neutropenia (WBC 3.01, ANC 1.02), and anemia (hgb 11.1); otherwise unremarkable CMP. Hold study drug and give zarxio x 1 today. Cbc/diff tomorrow and if ANC imrpoves will resume therapy. Diarrhea: - she averages 4-5 loose stools per day - Continue Lomotil QID - Alternate w/ imodium 2 pills QID prn RTC in 1week. In the interim she will call with any questions or concerns. Mirella Robbins MD PHD Sales Apprentice Division of Oncology [facility] in [facility] LICENSED OPERATOR documented in this encounter Plan of Treatment Scheduled Orders Name Type Priority Associated Diagnoses Orde r Schedule CBC with auto differential Lab Routine Colon adenocarcinoma (HCC) Metastasis to liver Expected: 05/23/2025, Expires: 05/22/2026 CBC with auto differential Lab Routine Colon adenocarcinoma (HCC) Metastasis to liver Expected: 05/29/2025, Expires: 08/27/2025 Comprehensive metabolic panel Lab Routine Colon adenocarcinoma (HCC) Metastasis to liver Expected: 05/29/2025, Expires: 08/27/2025 documented as of this encounter Visit Diagnoses Diagnosis Colon adenocarcinoma (HCC)- Primary Malignant neoplasm of colon, unspecified site Metastasis to liver Secondary malignant neoplasm of liver documented in this encounter Orders Appointment Requests Count Last Ordered Date Fi rst Ordered Date ONCBCN CLINIC APPOINTMENT REQUEST 2 025 ONCBCN INJECTION APPOINTMENT REQUEST 1 09/2024 ONCBCN LAB APPOINTMENT 1 05/22/2025 documented in this encounter Care Teams Contract Forester Relationship Specialty Start Date End Date Jeana Palacios NP [address] [place] [address] PCP - General Nurse Practitioner 12/09/24 Molina Medina MD 12/07/24 Alvarado Jang MD [address] [facility] [address] [place] [address] Referring Physician Hematology 12/07/24 Mirella Robbins MD PhD [address] [facility], [facility] [address] [place] [address] Medical Oncologist/Rubber Chemist Medical Oncology 12/09/24 documented as of this encounter
--- OUTSIDE RECORDS SUMMARY | 2025-05-22 10:00 | XMS_ITS | Encounter Summary ---
Author Organization [facility] Address [address] [place] [address] Care Team Providers Care Sequins Slinger Name Role Phone Molina Medina MD Unavailable [phone] Alvarado Jang MD Unavailable [phone] Jeana Palacios NP Primary Care Provider Mirella Robbins MD PhD Unavailable [phone] Reason for Visit * Reason Comments Injections Neupogen 480 mcg * Episode Based Medications (Routine) - Authorized Specialty Diagnoses / Procedures Referred By Contac t Referred To Contact Diagnoses Colon adenocarcinoma (HCC) Metastasis to liver Mirella Robbins MD PhD [id number] [place] [address] Phone: tel: fax: [facility] - Infusion [address] [place] [address] [address] [place] [address] Referral ID Status Reason Start Date Expiration Date V isits Requested Visits Authorized [id number] Authorized 03/06/2025 08/03/2025 1 20 Encounter Details Date Type Department Care Team (Late st Contact Info) Description 05/22/2025 10:00 AM NETWORK SYSTEMS INTEGRATOR Infusion [facility] - Infusion [address] [place] [address] 5 [place] [address] Chemotherapy-induced neutropenia (Primary Dx); Colon adenocarcinoma (HCC); Metastasis to liver Social [...] on file Legal Sex Female 6:45 PM NETWORK SYSTEMS INTEGRATOR Gender Identity Not on file Sexual Orientation Not on file documented as of this encounter Last Filed Vital Signs Vital Sign Reading Time Taken Comments Blood Pressure 121/79 05/22/2025 10:24 AM NETWORK SYSTEMS INTEGRATOR Pulse 61 05/22/2025 10:24 AM NETWORK SYSTEMS INTEGRATOR Temperature - - Respiratory Rate - - Oxygen Saturation 99% 05/22/2025 10:24 AM NETWORK SYSTEMS INTEGRATOR Inhaled Oxygen Concentration - - Weight - - Height - - Body Mass Index - - documented in this encounter Nursing Notes * Jamee May, SHAQUILLE - 05/22/2025 10:00 AM CST Oncology Nursing Note [facility] - INFUSION Quinton Mckeon is a 74 y.o. female who presents for the following injection: Neupogen 480 mcg. Nursing Assessment Nursing Assessment LOC: Alert, Awake Fatigue: Constant Any falls since your last visit?: No Orientation: Oriented x4 Behavior: Calm Speech: Clear Language: No aphasia Hearing: At Baseline Vision: At baseline Peripheral Neuropathy: Yes (fingers and feet) Oral Mucosa Grade: Painless ulcers, erythema or mild soreness no lesions (I) Pt states has potential to be ?: N/A Shortness of Breath?: No Respiratory Effort Characteristics: Dyspnea exertion Cough: Absent Appetite: Good Have You Recently Lost Weight Without Trying?: No Have you been eating poorly because of a decreased appetite?: No Malnutrition Screening Tool (MST) Score: 0 Nausea/Vomiting: No Abdomen: Soft Diarrhea: Yes (takes med after each episode) Constipation: No Last BM Date: 05/22/25 Skin Condition/Temp: Dry, Warm Swelling: Yes (both feet just a little) Swelling location: LLE, RLE Encounter Vitals BP: 121/79 (05/22/2025 10:24 AM) Pulse: 61 (05/22/2025 10:24 AM) Resp: 15 (05/22/2025 9:18 AM) Temp: 36.4 ??C (97.5 ??F) (05/22/2025 9:18 AM) Temp src: Temporal (05/22/2025 9:18 AM) SpO2: 99 % (05/22/2025 10:24 AM) Weight: 87.5 kg (193 lb) (05/22/2025 9:18 AM) Patient: met treatment parameters Quinton Mckeon tolerated injection well Discharge Plan Discharge instructions given to patient. Discharge Mode: Wheelchair Accompanied by: Spouse Discharged To: Home ORK SYSTEMS INTEGRATOR documented in this encounter Plan of Treatment Not on file documented as of this encounter Visit Diagnoses Diagnosis Chemotherapy-induced neutropenia- Primary Drug induced neutropenia Colon adenocarcinoma (HCC) Malignant neoplasm of colon, unspecified site Metastasis to liver Secondary malignant neoplasm of liver documented in this encounter Administered Medications Inactive Administered Medications - up to 3 most recent administrations Medication Order MAR Action Action Date Dose Rate Site filgrastim (NEUPOGEN) injection syringe 480 mcg 480 mcg, subcutaneous, Once, On Thu05/22/25 at 1045, For 1 dose, Non-preferred, use if required by insurance. Dose rounding guidance based on weight (5 mcg/kg): - Weight LESS than 80 kg - dose at 300 mcg - Weight GREATER than or EQUAL to 80 kg dose at 480 mcgIndications:Colon adenocarcinoma (HCC),Metastasis to liver,Chemotherapy-induced neutropenia Given 05/22/2025 10:19 AM NETWORK SYSTEMS INTEGRATOR 480 mcg Right Upper Arm documented in this encounter Orders Medications Ordered That Gregorio ht Not Have Been Administered Count Last Ordered Date First Ordered Date filgrastim (NEUPOGEN) inject ion syringe 480 mcg 1 05/22/2025 Nursing Count Last Ordered Date First Orde red Date ONCBCN PROVIDER COMMUNICATION 1 1 Appointment Requests Count Last Ordered Date Fi rst Ordered Date INFUSION APPT REQUEST 90 MIN 1 05/22/2025 documented in this encounter Care Teams Sequins Slinger Relationship Specialty Start Date End Date Jeana Palacios NP [address] [place] [address] PCP - General Nurse Practitioner 12/09/24 Molina Medina MD 12/07/24 Alvarado Jang MD [address] [facility] [address] [place] [address] Referring Physician Hematology 12/07/24 Mirella Robbins MD PhD [address] [place] [address] MEDICAL ONCOLOGY, [facility] [address] [place] [address] Medical Oncologist/Chiropractic Practice Manager Medical Oncology 12/09/24 documented as of this encounter
[2025-05-23 08:42] LABS: Hematocrit 36.2 % (35.0-42.0); Hemoglobin 11.3 g/dL (11.7-13.8); Immature Granulocyte Percent A 1.7 % (0.0-0.0); Immature Platelet Fraction Pct 2.4 % (1.0-7.0); Lymphocytes Absolute Auto 1.33 K/mm3 (1.10-4.50); Mean Corpuscular HGB Conc 31.2 g/dL (32-36); Mean Corpuscular Hemoglobin 32.0 pg (27.0-31.0); Mean Corpuscular Volume 102.5 fL (78.0-102.0); Nucleated Red Blood Cells Absolute Auto 0.00 K/mm3 (0.00-0.00); Nucleated Red Blood Cells Perc 0.0 % (0-0.0); Platelet Count Result 144 K/mm3 (150-420); Red Blood Count 3.53 M/mm3 (4.20-5.40); White Blood Count 16.1 K/mm3 (4.8-10.8)
--- OUTSIDE RECORDS SUMMARY | 2025-05-23 08:51 | XMS_ITS ---
Author Organization [facility] Address [address] [place] [address] Care Team Providers Care Side Trimmer Name Role Phone Molina Medina MD Unavailable [phone] Alvarado Jang MD Unavailable [phone] Jeana Palacios NP Primary Care Provider [phone] Mirella Robbins MD PhD Unavailable [phone] Active Problems Problem Noted Date Diagnosed Date Chemotherapy-induced neutropenia 04/03/2025 Metastasis to liver 02/16/2025 Colon adenocarcinoma 12/22/2024 Current Treatment and Therapy Plans [id number] - [facility] - Phase 1 - [id number] - Part 1 Dose Escalation and Part 2a Dose Expansion - [id number] Monotherapy* Plan Start Date:03/06/2025 Plan Provider:Mirella Robbins MD PhD Linked Problems Colon adenocarcinoma (HCC)Me tastasis to liver Treatment Medications Current Day (Day 1 , Cycle 3 - Planned for 05/08/2025) Next Day (Day 15, Cycle 3 - Planned for 05/22/2025) [facility] [id number] (/[id number]) IN[facility] [id number] (/[id number]) tablet 250 mg IN[facility] [id number] (/[id number]) tablet 250 mg Filgrastim or BIOSIMILAR Subcutaneous* Plan Start Date:04/03/2025 Plan Provider:Mirella Robbins MD PhD Linked Problems Chemotherapy-induced neutrop eniaColon adenocarcinoma (HCC)Metastasis to liver Treatment Medications No medications scheduled. Hydration Therapy Plan* Plan Start Date:02/16/2025 Plan [...] Dose Automatic Entry Manual Entr y DLP 1,598 mGycm 1,598 mGycm 0 mGycm
--- OUTSIDE RECORDS SUMMARY | 2025-05-23 08:51 | XMS_ITS | Clinical Summary ---
Author Organization [facility] Leti Luna Address [address] [place] [address] Care Team Providers Care Circuit Clerk Name Role Phone Molina Medina MD Primary Care Provider [phone] Allergies Active Allergy Reactions Criticality Noted Date [...] 20 mg 20 Tablet 05/28/2023 11:45 AM LANG INTERPRETER 3 Active acyclovir (ZOVIRAX) 400 mg tablet [...] 4 Tablets 20 Tablet 06/21/2024 5:13 PM LANG INTERPRETER 4 Active polyethylene glycol 3350 (MIRALAX) 17 gram/dose Powder Mix 1 Capful (17 Grams) and drink by mouth 1 time daily as needed for Constipation. 510 Gram 06/29/2024 4:02 PM LANG INTERPRETER 4 Active naloxone (NARCAN) 4 mg/spray [place], Non-Aerosol EMERGENCY USE ONLY: Administer 1 spray [...] Encounters Date Type Department Care Team Description 05/15/2025 Orders Only [facility] Oncology and Hematology - [address] [place] [address] Alvarado Jang MD Malignant neoplasm of colon, unspecified part of colon (CMS/HCC) 05/09/2025 Orders Only [facility] Oncology and Hematology - [address] [place] [address] Alvarado Jang MD 05/01/2025 Orders Only [facility] Oncology and Hematology - [address] [place] [address] Alvarado Jang MD Malignant neoplasm of colon, unspecified part of colon (CMS/HCC) 04/17/2025 Orders Only [facility] Oncology and Hematology - [address] [place] [address] Alvarado Jang MD Malignant neoplasm of colon, unspecified part of colon (CMS/HCC) 04/04/2025 External Device Data STL ABSTRACTION Provider, Abstract 04/03/2025 Orders Only [facility] Oncology and Hematology - [address] [place] [address] Alvarado Jang MD Malignant neoplasm of colon, unspecified part of colon (CMS/HCC) 03/21/2025 External Device Data STL ABSTRACTION Provider, Abstract 03/20/2025 Orders Only [facility] Oncology and Hematology - [address] [place] [address] Alvarado Jang MD Malignant neoplasm of colon, unspecified part of colon (CMS/HCC) 03/06/2025 Orders Only [facility] On[facility] H[facility]ology [facility] [address] [place] [phone] Alvarado Jang MD Malignant neoplasm of colon, [...] on file Legal Sex Female 10:27 AM LANG INTERPRETER Gender Identity Not on file Sexual Orientation [...] 170.2 cm (5' 7) 07/05/2024 11:27 AM LANG INTERPRETER Body Mass Index 30.57 07/05/2024 11:27 AM LANG INTERPRETER Plan of Treatment Health Maintenance Due Date [...] years Discontinued Medical Devices Implanted Type Area Slinger Sequins Device Identifier Shelf Expiration Date Model / Serial / Lot Hemostat Surg Snow 2x4in 2081 - [id number] Implanted:Qt y: 1 on 06/20/2024 by Randal Betts MD at [facility] N/A: Abdomen [employer] [id number] 02/16/20262 / / [id number] Port Procedures Procedure Name Priority Date/Time Associated Diagnosis Comments CT CHEST ABDOMEN PELVIS W CONT Routine 05/05/2025 7:55 AM CDT COLONOSCOPY REPORT Routine 05/04/2024 11 :28 AM CDT from Last 3 Months or Most Recently Relevant to Health Maintenance Results * CT CHEST ABDOMEN PELVIS W CONT (05/05/2025 7:55 AM CDT) Anatomical Region Laterality Modality Chest Computed Tomogra phy us Alvarado Jang MD CT ORDERABLES Final Result * COLONOSCOPY REPORT (05/04/2024 11:28 AM CDT) us Alvarado Jang MD GI PROCEDURE ORDERABLES Final R esult from Last 3 Months or Most Recently Relevant to Health Maintenance Insurance MEDICARE PART A AND B [facility] SUPP MEDICARE PART A AND B [facility] SUPP RX [employer] RX Member Subscriber Plan / Payer (Ef fective 2009-Present) Name:Quinton Mckeon Relation to Subscriber:Self Name:Quinton Mckeon Payer ID:Not on file Group ID:[id number] Type:RX Medicare Part D Address: [address] RX HURT PLANS (INTERNAL) [facility] Advance Directives For more information, please contact: [phone] Documents on File Type Date Recorded Patient Mobile Home 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
--- OUTSIDE RECORDS SUMMARY | 2025-05-23 08:51 | XMS_ITS | Clinical Summary ---
Author Organization [facility] Address [address] [place] [address] Care Team Providers Care Press Assistant Name Role Phone AdamMolina MD Unavailable [phone] Alvarado Jang MD Unavailable [phone] Jeana Palacios NP Primary Care Provider [phone] Mirella Robbins MD PhD Unavailable [phone] Allergies Active Allergy Reactions Criticality Noted Date Comments Penicillins Hives,Rash Medium 11/13/2020 Medications QUEtiapine (SEROquel) 100 mg tablet 04/22/20 21 Active levothyroxine (SYNTHROID) 75 mcg tablet daily Active brexpiprazole (Rexulti) 4 mg tablet Take 1 tablet every day by oral route at bedtime for 30 days. Active divalproex ER (DEPAKOTE ER) 250 mg 24 hr tablet Take 2 tablets (500 mg total) by mouth daily 07/26/19 23 Active sertraline (ZOLOFT) 100 mg tablet Take 1 tablet (100 mg total) by mouth 07/23/19 24 Active trifluoperazine (STELAZINE) 5 mg tablet Take 1 tablet (5 mg total) by mouth 2 (two) times a day 07/26/19 23 Active polyethylene glycol (MIRALAX) 17 gram/dose bulk powder Take 17 g by mouth daily as needed 06/28/20 24 Active QUEtiapine (SEROquel) 200 mg tablet 01/15/20 25 Active INV-[facility] [id number] (135/C542 1001) 100 mg tablet Take 2 tablets (200 mg total) by mouth 2 (two) times a day Take with two of the 25 mg tablets for a total dose of 250 mg.Take approximately 12 hours apart on an empty stomach with no food or liquids other than water for 2 hours before and 1 hour after each dose. Active diphenoxylate-atr opine (LOMOTIL) 2.5-0.025 mg per tabletIndications :diarrhea Take 1 tablet by mouth 4 (four) times a day as needed for diarrhea 60 tablet 3 03/27/20 25 Active ondansetron ODT (ZOFRAN-ODT) 8 mg disintegrating tabletIndications :Cancer Chemotherapy-Brittney evert Nausea and Vomiting Take 1 tablet (8 mg total) by mouth every 8 (eight) hours as needed for nausea or vomiting 30 tablet 2 04/26/20 25 025 Active diclofenac sodium (Voltaren Arthritis Pain) 1 % gelIndications:Os teoarthritis of the Knee Apply 2 g topically 3 (three) times a day as needed (Pain) 20 g 3 05/01/20 25 Active [facility] [id number] (/C542 1001) 25 mg tablet Take 2 tablets (50 mg total) by mouth 2 (two) times a day Take with two of the 100 mg tablets for a total dose of 250 mg. Take approximately 12 hours apart on an empty stomach with no food or liquids other than water for 2 hours before and 1 hour after each dose. 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[employer] Infusion [facility] [address] [facility] Floor 5 [place] [address] Chemotherapy-induced neutropenia (Primary Dx); Colon adenocarcinoma (HCC); Metastasis to liver 05/22/2025 9:00 AM 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 [facility] [address] [place] [address] Floor 5 [place] [address] Mirella Robbins MD PhD Colon adenocarcinoma (HCC) (Primary Dx); Metastasis to liver 05/22/2025 8:00 AM 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 Clinical Support [facility] Lab Collection [facility] Floor 5 [place] [address] Colon adenocarcinoma (HCC); Metastasis to liver 05/08/2025 9:00 AM CDT [facility] [address] [place] [address] Floor 5 [place] [address] Examination of participant in clinical trial 05/08/2025 9:00 AM CDT Infusion [facility] [address] [facility] Floor 5 [place] [address] Colon adenocarcinoma (HCC) (Primary Dx); Metastasis to liver 05/08/2025 8:00 AM CDT [facility] [address] [place] [address] Floor 5 [place] [address] Matilde Conley NP Colon adenocarcinoma (HCC) (Primary Dx); Metastasis to liver; Chemotherapy-induced neutropenia 05/08/2025 7:45 AM CDT [facility] [address] [place] [address] Floor 5 [place] [address] Examination of participant in clinical trial 05/08/2025 7:15 AM CDT Clinical Support [facility] [address] [place] [address] Floor 5 [place] [address] Colon adenocarcinoma (HCC); Metastasis to liver 05/08/2025 Research Med Pick-Up/CTRU 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 Floor 6 [place] [address] Valentine Vick RPh Colon adenocarcinoma (HCC) (Primary Dx); Metastasis to liver 05/05/2025 11:02 AM CDT - 05/05/2025 11:59 PM CDT Hospital Encounter [facility] [place] [address] [facility] Floor 8 [place] [address] Colon adenocarcinoma (HCC); Metastasis to liver Discharge Disposition: Discharge to home or self care 05/02/2025 Orders Only [facility] 5 [place] [address] Grisel Muniz, ADY Examination of participant in clinical trial (Primary Dx) 05/01/2025 10:45 AM CDT Research Med Pick-Up/CTRU International Relations Teacher [facility] [address] [place] [address] Floor 6 [place] [address] Metastasis to liver (Primary Dx); Colon adenocarcinoma (HCC) 05/01/2025 9:40 AM CDT [facility] [address] [place] [address] 5 [place] [address] Mirella Robbins MD PhD Colon adenocarcinoma (HCC) (Primary Dx); Metastasis to liver; Chemotherapy-induced neutropenia 05/01/2025 8:45 AM CDT Clinical Support [facility] [address] [place] [address] 5 [place] [address] Colon adenocarcinoma (HCC); Metastasis to liver; Chemotherapy-induced neutropenia 04/28/2025 Orders Only [facility] [address] [place] [address] 5 [place] [address] Mirella Robbins MD PhD 04/28/[address] [address] Hellen Cormier RN Clinical Trial 04/27/2025 Orders Only [facility] [address] [place] [address] 5 [place] [address] Grisel Muniz, ADY 04/27/2025 Orders Only [facility] [address] [place] [address] 5 [place] [address] Mirella Robbins MD PhD Colon adenocarcinoma (HCC) (Primary Dx); Metastasis to liver; Chemotherapy-induced neutropenia 04/26/2025 2:30 PM CDT Infusion [facility] [address] [facility] Floor 5 [place] [address] Chemotherapy-induced neutropenia (Primary Dx); Colon adenocarcinoma (HCC); Metastasis to liver 04/26/2025 Orders Only [facility] [address] [facility] Floor 5 [place] [address] Viridiana Castellanos, [facility] 04/26/2025 Orders Only [facility] [address] [place] [address] [address] [place] [address] Reginald Perez, [facility] 04/26/2025 Orders Only [facility] [address] [place] [address] 5 [place] [phone] Mirella Robbins MD PhD Metastasis to liver (Primary Dx); Colon adenocarcinoma (HCC) 04/26/2025 Telephone [facility] [address] [place] [address] 100 [place] [phone] Gilles Jasso RN 04/25/2025 11:00 AM CDT Infusion [facility] [address] [place] [address] 5 [place] [address] Chemotherapy-induced neutropenia (Primary Dx); Colon adenocarcinoma (HCC); Metastasis to liver 04/24/2025 2:15 PM CDT Infusion [facility] Floor 5 [place] [address] Chemotherapy-induced neutropenia (Primary Dx); Colon adenocarcinoma (HCC); Metastasis to liver 04/24/2025 10:00 AM CDT [facility] [address] [place] [address] 5 [place] [phone] Matilde Conley NP Colon adenocarcinoma (HCC) (Primary Dx); Metastasis to liver; Chemotherapy-induced neutropenia 04/24/2025 9:00 AM CDT Clinical Support [facility] [address] [place] [address] Floor 5 [place] [address] Colon adenocarcinoma (HCC); Metastasis to liver 04/24/2025 Orders Only [facility] [address] [place] [phone] Mirella Robbins MD PhD 04/21/2025 Telephone [facility] [address] [place] [address] 5 [place] [address] Renetta Hunter, RN Test Results 04/20/2025 Orders Only [facility] Scanning, Provider 04/18/[address] [phone] Renetta Hunter, RN Follow-up 04/12/2025 Orders Only [facility] [address] [place] [phone] Mirella Robbins MD PhD Colon adenocarcinoma (HCC) (Primary Dx); Metastasis to liver; Chemotherapy-induced neutropenia; Examination of participant in clinical trial 04/10/2025 9:00 AM CDT [facility] [address] [place] [phone] Examination of participant in clinical trial 04/10/2025 8:00 AM CDT Office Visit [address] [phone] Mirella Robbins MD PhD Colon adenocarcinoma (HCC) (Primary Dx); Metastasis to liver 04/10/2025 7:30 AM CDT [facility] [address] [place] [phone] 04/10/2025 7:00 AM CDT Clinical Support [facility] [address] [place] [address] 5 [place] [address] Colon adenocarcinoma (HCC); Metastasis to liver 04/10/2025 Research Med Pick-Up/CTRU International Relations Teacher [facility] [address] [place] [address] 6 [place] [address] Valentine Vick [facility] Colon adenocarcinoma (HCC) (Primary Dx); Metastasis to liver 04/10/2025 Documentation [facility] [address] [place] [address] 5 [place] [address] Renetta Hunter, SHAQUILLE Follow-up 04/04/2025 12:00 PM CDT Infusion [facility] [address] [place] [address] 5 [place] [address] Chemotherapy-induced neutropenia (Primary Dx); Colon adenocarcinoma (HCC); Metastasis to liver 04/04/2025 11:00 AM CDT Clinical Support [facility] Floor 5 [place] [address] Colon adenocarcinoma (HCC); Metastasis to liver; Examination of participant in clinical trial; Colon cancer metastasized to liver 04/04/2025 Orders Only [facility] [address] [place] [address] Floor 5 [place] [address] Mirella Robbins MD PhD 04/03/2025 9:45 AM CDT Infusion [facility] [address] [facility] Floor 5 [place] [address] Chemotherapy-induced neutropenia (Primary Dx); Colon adenocarcinoma (HCC); Metastasis to liver 04/03/2025 9:00 AM CDT [facility] [address] [place] [address] Floor 5 [place] [address] Mirella Robbins MD PhD Colon adenocarcinoma (HCC) (Primary Dx); Metastasis to liver 04/03/2025 8:30 AM CDT [facility] [address] [place] [address] Floor 5 [place] [address] Examination of participant in clinical trial 04/03/2025 7:30 AM CDT Clinical Support [facility] [address] [place] [address] Floor 5 [place] [address] Colon adenocarcinoma (HCC); Metastasis to liver 04/03/2025 Orders Only [facility] [address] [place] [address] Floor 5 [place] [address] Mirella Robbins MD PhD Metastasis to liver (Primary Dx); Colon adenocarcinoma (HCC) 04/03/2025 Orders Only [facility] [address] [place] [address] Floor 5 [place] [address] Mirella Robbins MD PhD Colon adenocarcinoma (HCC) (Primary Dx); Examination of participant in clinical trial 03/27/2025 11:00 AM CDT [facility] Floor 5 [place] [address] Examination of participant in clinical trial 03/27/2025 9:00 AM CDT Infusion [facility] [address] [facility] Floor 6 [place] [address] Metastasis to liver (Primary Dx); Colon adenocarcinoma (HCC) 03/27/2025 8:00 AM CDT [facility] [address] [place] [address] 5 [place] [address] Mirella Robbins MD PhD Colon adenocarcinoma (HCC) (Primary Dx); Metastasis to liver; Colon cancer metastasized to liver 03/27/2025 7:00 AM CDT Clinical Support [facility] [address] [place] [address] Floor [address] [place] [address] Colon adenocarcinoma (HCC); Metastasis to liver; Colon cancer metastasized to liver 03/27/2025 Orders Only [facility] [address] [place] [address] 5 [place] [address] Mirella Robbins MD PhD Metastasis to liver (Primary Dx); Colon adenocarcinoma (HCC) 03/23/2025 Orders Only [facility] Scanning, Provider 03/23/[address] [address] Giovani Jackson RN 03/23/2025 Telephone [facility] [address] [place] [phone] Renetta Hunter, SHAQUILLE Follow-up 03/22/2025 Telephone [facility] [address] [place] [phone] Renetta Hunter, RN Follow-up 03/22/2025 Orders Only [facility] [address] [place] [phone] Mirella Robbins MD PhD Colon adenocarcinoma (HCC) (Primary Dx); Metastasis to liver; Examination of participant in clinical trial 03/22/2025 Orders Only [facility] [address] [place] [address] 5 [place] [address] Grisel Muniz BS Examination of participant in clinical trial (Primary Dx) 03/21/2025 10:30 AM CDT Clinical Support [facility] [address] [place] [address] Floor 6 [place] [address] Colon adenocarcinoma (HCC); Metastasis to liver; Examination of participant in clinical trial 03/21/2025 8:40 AM CDT [facility] [address] [place] [phone] Mirella Robbins MD PhD Colon adenocarcinoma (HCC) (Primary Dx); Metastasis to liver 03/21/2025 8:15 AM CDT Clinical Support [facility] Collection [address] [place] [address] 5 [place] [address] Colon adenocarcinoma (HCC); Metastasis to liver 03/21/2025 7:45 AM CDT [facility] [address] [place] [phone] Colon adenocarcinoma (HCC); Metastasis to liver 03/21/2025 Orders Only [facility] [address] [place] [phone] Mirella Robbins MD PhD Colon adenocarcinoma (HCC) (Primary Dx); Metastasis to liver; Examination of participant in clinical trial 03/13/2025 12:00 PM CDT Infusion [facility] [address] [place] [address] Metastasis to liver (Primary Dx); Colon adenocarcinoma (HCC) 03/13/2025 11:00 AM CDT [facility] [address] [place] [phone] Mirella Robbins MD PhD Colon adenocarcinoma (HCC) (Primary Dx); Metastasis to liver 03/13/2025 10:00 AM CDT Clinical Support [facility] - Lab Collection [address] [place] [address] Colon adenocarcinoma (HCC); Metastasis to liver 03/13/2025 Orders Only [facility] [address] [place] [phone] Grisel Muniz BS Examination of participant in clinical trial (Primary Dx) 03/13/2025 Orders Only [facility] [address] [place] [phone] Grisel Muniz, ADY Examination of participant in clinical trial (Primary Dx) 03/07/2025 Telephone [facility] [address] [place] [phone] Renetta Hunter, RN Follow-up 03/06/2025 12:00 PM CDT [facility] [address] [place] [phone] Examination of participant in clinical trial 03/06/2025 9:00 AM CDT Infusion [facility] [address] [place] [address] Floor [address] [place] [address] Metastasis to liver (Primary Dx); Colon adenocarcinoma (HCC) 03/06/2025 8:00 AM CDT [facility] [address] [place] [phone] Mirella Robbins MD PhD Colon adenocarcinoma (HCC) (Primary Dx); Metastasis to liver 03/06/2025 7:30 AM CDT [facility] [address] [place] [phone] Examination of participant in clinical trial 03/06/2025 7:00 AM CDT Clinical Support [facility] [address] [place] [address] Colon adenocarcinoma (HCC); Metastasis to liver 03/03/2025 8:17 AM CDT - 03/03/2025 11:59 PM CDT Hospital Encounter [facility] [address] [place] [address] Colon adenocarcinoma (HCC); Examination of participant in clinical trial; Metastasis to liver Discharge Disposition: Discharge to home or self care 03/03/2025 Orders Only [facility] [address] [place] [phone] Grisel Muniz, ADY Colon adenocarcinoma (HCC) (Primary Dx) 03/03/2025 Telephone [facility] [address] [place] [phone] Renetta Hunter, RN Follow-up 03/02/2025 Orders Only [facility] Scanning, Provider 03/02/2025 Documentation [facility] [address] [place] [phone] Renetta Hunter, SHAQUILLE Test Results 03/01/2025 Telephone [facility] [address] [place] [phone] Renetta Hunter, SHAQUILLE Follow-up 03/01/2025 Orders Only [facility] [address] [place] [phone] Renetta Hunter, SHAQUILLE Colon adenocarcinoma (HCC) (Primary Dx); Examination of participant in clinical trial 02/27/2025 Telephone [facility] [address] [place] [phone] Renetta Hunter RN Scheduling Appointments 02/27/2025 Orders Only [address] [phone] Grisel Muniz BS Examination of participant in clinical trial (Primary Dx) 02/21/2025 Telephone Radiology 1 [place] [address] Gisela Medina, RT 02/21/2025 Orders Only [facility] [address] [place] [phone] Mirella Robbins MD PhD Colon adenocarcinoma (HCC) (Primary Dx); Examination of participant in clinical trial; Metastasis to liver (HCC) 02/20/2025 11:43 AM CDT - 02/20/2025 11:59 PM CDT Hospital [facility] [address] [place] [address] Metastasis to liver (HCC); Colon adenocarcinoma (HCC); Clinical trial participant Discharge Disposition: Discharge to home or self care 02/20/2025 11:00 AM CDT [facility] [address] [place] [phone] Examination of participant in clinical trial 02/20/2025 10:00 AM CDT Clinical Support [facility] - Lab Collection [address] [place] [address] [place] [address] Colon adenocarcinoma (HCC); Examination of participant in clinical trial from Last 3 Months Surgical History Surgery [...] on file Legal Sex Female 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 Gender Identity Not on file Sexual Orientation Not on file Last Filed Vital Signs Vital Sign Reading Time Taken Comments Blood Pressure 121/79 05/22/2025 10:24 AM 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[employer] Pulse 61 05/22/2025 10:24 AM 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[employer] Temperature 36.4 C (97.5 F) 05/22/2025 9:18 AM 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CASTER Respiratory Rate 15 05/22/2025 9:18 AM 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CASTER Oxygen Saturation 99% 05/22/2025 10:24 AM 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CASTER Inhaled Oxygen Concentration - - Weight 87.5 kg (193 lb) 05/22/2025 9:18 AM 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[employer]STER Height 167.2 cm (5' 5.83) 04/10/2025 8:11 AM CD T Body Mass Index 31.31 04/10/2025 8:11 AM CDT Plan of Treatment Health Maintenance Due Date Last Done Comments Depression Screening 1950 Osteoporosis Screening-Bone Density Scan 1950 DTaP/Tdap/Td Vaccine (1 - Tdap) 10/11/1959 Hepatitis B Screening 1966 Pneumococcal vaccine 65+ (1 of 2 - PCV) 10/11/1967 Zoster Vaccine (1 of 2) 10/11/1967 Well Visit 65+ 2013 Influenza Vaccine (#1) 2025 Fall Risk Assessment 03/03/2026 03/03/2025 Hepatitis C Screening Completed 02/20/2025 Procedures Procedure Name Priority Date/Time Associated Diagnosis Comments DIFFERENTIAL AUTO STAT 05/22/2025 8:5 5 AM 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 Colon adenocarcinoma (HCC) Metastasis to liver CBC WITH AUTO DIFFERENTIAL STAT 05/22/2025 8:55 AM 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 Colon adenocarcinoma (HCC) Metastasis to liver RETICULOCYTES Routine 05/22/2025 8:55 AM 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[employer]STER Colon adenocarcinoma (HCC) Metastasis to liver EGFR STAT 05/22/2025 8:55 AM 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CASTER Colon adenocarcinoma (HCC) Metastasis to liver COMPREHENSIVE METABOLIC PANEL STAT 05/22/2025 8:55 AM 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CASTER Colon adenocarcinoma (HCC) Metastasis to liver MAGNESIUM STAT 05/22/2025 8:55 AM 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CASTER Colon adenocarcinoma (HCC) Metastasis to liver PHOSPHORUS STAT 05/22/2025 8:55 AM 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CASTER Colon adenocarcinoma (HCC) Metastasis to liver URIC ACID STAT 05/22/2025 8:55 AM 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CASTER Colon adenocarcinoma (HCC) Metastasis to liver LIPASE STAT 05/22/2025 8:55 AM 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CASTER Colon adenocarcinoma (HCC) Metastasis to liver PROTIME-INR STAT 05/22/2025 8:55 AM 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CASTER Colon adenocarcinoma (HCC) Metastasis to liver AMYLASE STAT 05/22/2025 8:55 AM 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CASTER Colon adenocarcinoma (HCC) Metastasis to liver APTT STAT 05/22/2025 8:55 AM 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CASTER Colon adenocarcinoma (HCC) Metastasis to liver URINALYSIS, MICROSCOPIC ONLY STAT 05/08/2025 8:17 AM CDT Colon adenocarcinoma (HCC) Metastasis to liver URINALYSIS AND REFLEX TO MICROSCOPIC AND CULTURE STAT 05/08/2025 8:17 AM CDT Colon adenocarcinoma (HCC) Metastasis to liver EGFR STAT 05/08/2025 7:56 AM CDT Colon adenocarcinoma (HCC) Metastasis to liver DIFFERENTIAL AUTO STAT 05/08/2025 7:5 6 AM CDT Colon adenocarcinoma (HCC) Metastasis to liver RETICULOCYTES Routine 05/08/2025 7:56 AM CDT Colon adenocarcinoma (HCC) Metastasis to liver APTT STAT 05/08/2025 7:56 AM CDT Colon adenocarcinoma (HCC) Metastasis to liver PROTIME-INR STAT 05/08/2025 7:56 AM CDT Colon adenocarcinoma (HCC) Metastasis to liver LIPASE STAT 05/08/2025 7:56 AM CDT Colon adenocarcinoma (HCC) Metastasis to liver AMYLASE STAT 05/08/2025 7:56 AM CDT Colon adenocarcinoma (HCC) Metastasis to liver URIC ACID STAT 05/08/2025 7:56 AM CDT Colon adenocarcinoma (HCC) Metastasis to liver PHOSPHORUS STAT 05/08/2025 7:56 AM CDT Colon adenocarcinoma (HCC) Metastasis to liver MAGNESIUM STAT 05/08/2025 7:56 AM CDT Colon adenocarcinoma (HCC) Metastasis to liver COMPREHENSIVE METABOLIC PANEL STAT 05/08/2025 7:56 AM CDT Colon adenocarcinoma (HCC) Metastasis to liver CEA Routine 05/08/2025 7:56 AM CDT Colon adenocarcinoma (HCC) Metastasis to liver CBC WITH AUTO DIFFERENTIAL STAT 05/08/2025 7:56 AM CDT Colon adenocarcinoma (HCC) Metastasis to liver CT CHEST ABDOMEN PELVIS W CONTRAST Schedule Routine, Read Routine (OP Routine) 05/05/2025 11:32 AM CDT Colon adenocarcinoma (HCC) Metastasis to liver EGFR Routine 05/01/2025 9:19 AM CDT Colon adenocarcinoma (HCC) Metastasis to liver Chemotherapy-induced neutropenia MANUAL DIFFERENTIAL Routine 05/01/2025 9 :19 AM CDT Colon adenocarcinoma (HCC) Metastasis to liver Chemotherapy-induced neutropenia CBC WITH AUTO DIFFERENTIAL Routine 05/01/2025 9:19 AM CDT Colon adenocarcinoma (HCC) Metastasis to liver Chemotherapy-induced neutropenia COMPREHENSIVE METABOLIC PANEL Routine 05/01/2025 9:19 AM CDT Colon adenocarcinoma (HCC) Metastasis to liver Chemotherapy-induced neutropenia EGFR STAT 04/24/2025 9:25 AM CDT Colon adenocarcinoma (HCC) Metastasis to liver DIFFERENTIAL AUTO STAT 04/24/2025 9:2 5 AM CDT Colon adenocarcinoma (HCC) Metastasis to liver CBC WITH AUTO DIFFERENTIAL STAT 04/24/2025 9:25 AM CDT Colon adenocarcinoma (HCC) Metastasis to liver COMPREHENSIVE METABOLIC PANEL STAT 04/24/2025 9:25 AM CDT Colon adenocarcinoma (HCC) Metastasis to liver MAGNESIUM STAT 04/24/2025 9:25 AM CDT Colon adenocarcinoma (HCC) Metastasis to liver PHOSPHORUS STAT 04/24/2025 9:25 AM CDT Colon adenocarcinoma (HCC) Metastasis to liver URIC ACID STAT 04/24/2025 9:25 AM CDT Colon adenocarcinoma (HCC) Metastasis to liver AMYLASE STAT 04/24/2025 9:25 AM CDT Colon adenocarcinoma (HCC) Metastasis to liver LIPASE STAT 04/24/2025 9:25 AM CDT Colon adenocarcinoma (HCC) Metastasis to liver PROTIME-INR STAT 04/24/2025 9:25 AM CDT Colon adenocarcinoma (HCC) Metastasis to liver APTT STAT 04/24/2025 9:25 AM CDT Colon adenocarcinoma (HCC) Metastasis to liver RETICULOCYTES Routine 04/24/2025 9:25 AM CDT Colon adenocarcinoma (HCC) Metastasis to liver SCAN - LABS 04/20/2025 URINALYSIS, MICROSCOPIC ONLY STAT 04/10/2025 7:51 AM CDT Colon adenocarcinoma (HCC) Metastasis to liver URINALYSIS AND REFLEX TO MICROSCOPIC AND CULTURE STAT 04/10/2025 7:51 AM CDT Colon adenocarcinoma (HCC) Metastasis to liver EGFR STAT 04/10/2025 7:40 AM CDT Colon adenocarcinoma (HCC) Metastasis to liver MANUAL DIFFERENTIAL STAT 04/10/2025 7 :40 AM CDT Colon adenocarcinoma (HCC) Metastasis to liver CBC WITH AUTO DIFFERENTIAL STAT 04/10/2025 7:40 AM CDT Colon adenocarcinoma (HCC) Metastasis to liver CEA Routine 04/10/2025 7:40 AM CDT Colon adenocarcinoma (HCC) Metastasis to liver COMPREHENSIVE METABOLIC PANEL STAT 04/10/2025 7:40 AM CDT Colon adenocarcinoma (HCC) Metastasis to liver MAGNESIUM STAT 04/10/2025 7:40 AM CDT Colon adenocarcinoma (HCC) Metastasis to liver PHOSPHORUS STAT 04/10/2025 7:40 AM CDT Colon adenocarcinoma (HCC) Metastasis to liver URIC ACID STAT 04/10/2025 7:40 AM CDT Colon adenocarcinoma (HCC) Metastasis to liver AMYLASE STAT 04/10/2025 7:40 AM CDT Colon adenocarcinoma (HCC) Metastasis to liver LIPASE STAT 04/10/2025 7:40 AM CDT Colon adenocarcinoma (HCC) Metastasis to liver PROTIME-INR STAT 04/10/2025 7:40 AM CDT Colon adenocarcinoma (HCC) Metastasis to liver APTT STAT 04/10/2025 7:40 AM CDT Colon adenocarcinoma (HCC) Metastasis to liver RETICULOCYTES Routine 04/10/2025 7:40 AM CDT Colon adenocarcinoma (HCC) Metastasis to liver DIFFERENTIAL AUTO Routine 04/04/2025 10:35 AM CDT Colon adenocarcinoma (HCC) Metastasis to liver CBC WITH AUTO DIFFERENTIAL Routine 04/04/2025 10:35 AM CDT Colon adenocarcinoma (HCC) Metastasis to liver EGFR Routine 04/04/2025 10:34 AM CDT Colon cancer metastasized to liver Colon adenocarcinoma (HCC) COMPREHENSIVE METABOLIC PANEL Routine 04/04/2025 10:34 AM CDT Colon cancer metastasized to liver Colon adenocarcinoma (HCC) EGFR STAT 04/03/2025 7:53 AM CDT Colon adenocarcinoma (HCC) Metastasis to liver DIFFERENTIAL AUTO STAT 04/03/2025 7:5 3 AM CDT Colon adenocarcinoma (HCC) Metastasis to liver CBC WITH AUTO DIFFERENTIAL STAT 04/03/2025 7:53 AM CDT Colon adenocarcinoma (HCC) Metastasis to liver CEA Routine 04/03/2025 7:53 AM CDT Colon adenocarcinoma (HCC) Metastasis to liver COMPREHENSIVE METABOLIC PANEL STAT 04/03/2025 7:53 AM CDT Colon adenocarcinoma (HCC) Metastasis to liver MAGNESIUM STAT 04/03/2025 7:53 AM CDT Colon adenocarcinoma (HCC) Metastasis to liver PHOSPHORUS STAT 04/03/2025 7:53 AM CDT Colon adenocarcinoma (HCC) Metastasis to liver URIC ACID STAT 04/03/2025 7:53 AM CDT Colon adenocarcinoma (HCC) Metastasis to liver AMYLASE STAT 04/03/2025 7:53 AM CDT Colon adenocarcinoma (HCC) Metastasis to liver LIPASE STAT 04/03/2025 7:53 AM CDT Colon adenocarcinoma (HCC) Metastasis to liver PROTIME-INR STAT 04/03/2025 7:53 AM CDT Colon adenocarcinoma (HCC) Metastasis to liver APTT STAT 04/03/2025 7:53 AM CDT Colon adenocarcinoma (HCC) Metastasis to liver RETICULOCYTES Routine 04/03/2025 7:53 AM CDT Colon adenocarcinoma (HCC) Metastasis to liver URINALYSIS, MICROSCOPIC ONLY Routine 04/03/2025 7:42 AM CDT URINALYSIS AND REFLEX TO MICROSCOPIC AND CULTURE Routine 04/03/2025 7:42 AM CDT EGFR Routine 03/27/2025 7:19 AM CDT Colon adenocarcinoma (HCC) Colon cancer metastasized to liver DIFFERENTIAL AUTO Routine 03/27/2025 7:1 9 AM CDT Colon adenocarcinoma (HCC) Colon cancer metastasized to liver COMPREHENSIVE METABOLIC PANEL Routine 03/27/2025 7:19 AM CDT Colon adenocarcinoma (HCC) Colon cancer metastasized to liver CBC WITH AUTO DIFFERENTIAL Routine 03/27/2025 7:19 AM CDT Colon adenocarcinoma (HCC) Colon cancer metastasized to liver AMYLASE STAT 03/27/2025 7:19 AM CDT Colon adenocarcinoma (HCC) Metastasis to liver URIC ACID STAT 03/27/2025 7:19 AM CDT Colon adenocarcinoma (HCC) Metastasis to liver PHOSPHORUS STAT 03/27/2025 7:19 AM CDT Colon adenocarcinoma (HCC) Metastasis to liver MAGNESIUM STAT 03/27/2025 7:19 AM CDT Colon adenocarcinoma (HCC) Metastasis to liver LIPASE STAT 03/27/2025 7:19 AM CDT Colon adenocarcinoma (HCC) Metastasis to liver PROTIME-INR STAT 03/27/2025 7:19 AM CDT Colon adenocarcinoma (HCC) Metastasis to liver APTT STAT 03/27/2025 7:19 AM CDT Colon adenocarcinoma (HCC) Metastasis to liver RETICULOCYTES Routine 03/27/2025 7:19 AM CDT Colon adenocarcinoma (HCC) Metastasis to liver SCAN - LABS 03/23/2025 PROTIME-INR Routine 03/21/2025 10:26 AM CDT Colon [...] 02/20/2025 11:00 AM CDT Colon adenocarcinoma (HCC) from Last 3 Months Results * (ABNORMAL) Differential, auto (05/22/2025 8:55 AM 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) Pathologist [facility] Neutrophil abs 1.02(L) 1.50 - 6.50 K/cumm Comment:Testing performed by : [facility], [address] [place] [address] Lymphocyte abs 1.32 0.80 - 3.30 K/cumm CERNER BJ Comment:Testing performed by : [facility], [address] [place], [place] [id number] Monocyte abs 0.42 0.20 - 0.80 K/cumm CERNER BJ Comment:Testing performed by : [facility], [address] [place], [place] [id number] Eosinophil abs 0.22 0.00 - 0.50 K/cumm [facility] Comment:Testing performed by : [facility], [address] [place], [place] [id number] Basophil abs 0.02 0.00 - 0.10 K/cumm CERNER BJ Comment:Testing performed by : [facility], [address] [place] [address] Neutrophil pct 33.9 % CERNER BJ Comment: Interpretive Data Percent cell count reference ranges are not reported, since discordance with absolute values may lead to misinterpretation of CBC data. Current Interpretive Data was last revised on 2017. Testing performed by: [facility], [address] [place] [phone] Lymphocyte pct 43.9 % CERNER BJ Comment: Interpretive Data Percent cell count reference ranges are not reported, since discordance with absolute values may lead to misinterpretation of CBC data. Current Interpretive Data was last revised on 2017. Testing performed by: [facility], [address] [place] [phone] Monocyte pct 14.1 % [facility] Comment: Interpretive Data Percent cell count reference ranges are not reported, since discordance with absolute values may lead to misinterpretation of CBC data. Current Interpretive Data was last revised on 2017. Testing performed by: [facility], [address] [place] [address] Eosinophil pct 7.4 % [facility] Comment: Interpretive Data Percent cell count reference ranges are not reported, since discordance with absolute values may lead to misinterpretation of CBC data. Current Interpretive Data was last revised on 2017. Testing performed by: [facility], [address] [place] [phone] Basophil pct 0.7 % [facility] Comment: Interpretive Data Percent cell count reference ranges are not reported, since discordance with absolute values may lead to misinterpretation of CBC data. Current Interpretive Data was last revised on 2017. Testing performed by: [facility], [address] [place] [address] Blood 05/22/2025 8:55 AM 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 05/22/2025 8:59 AM 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 us Mirella Robbins MD PhD LAB BLOOD ORDERABLES Final Result [facility] Department [place] [address] * (ABNORMAL) CBC with auto differential (05/22/2025 8:55 AM 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) WBC 3.01(L) 3.80 - 9.90 K/cumm Comment:Testing performed by : [facility], [address] [place] [address] Hgb 11.1(L) 11.9 - 15.5 g/dL [facility] Comment:Testing performed by : [facility], [address] [place] [address] Hct 33.7(L) 35.6 - 45.5 % [facility] Comment:Testing performed by : [facility], [address] [place] [address] Plt 146(L) 150 - 400 K/cumm [facility] Comment:Testing performed by : [facility], [address] [place] [address] MPV 7.8 6.8 - 10.4 fL [facility] Comment:Testing performed by : [facility], [address] [place] [address] RBC 3.47(L) 3.90 - 5.20 M/cumm [facility] Comment:Testing performed by : [facility], [address] [place] [address] MCV 97.0(H) 81.3 - 96.4 fL [facility] Comment:Testing performed by : [facility], [address] [place] [address] MCH 32.0 27.1 - 33.3 pg [facility] Comment:Testing performed by : [facility], [address] [place] [address] MCHC 33.0 32.3 - 35.7 g/dL [facility] Comment:Testing performed by : [facility], [address] [place] [address] RDW CV 15.6(H) 11.1 - 14.9 % [facility] Comment:Testing performed by : [facility], [address] [place] [address] NRBC abs 0.00 0.00 - 0.01 K/cumm [facility] Comment:Testing performed by : [facility], [address] [place] [address] Blood 05/22/2025 8:55 AM 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 05/22/2025 8:59 AM 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 us Mirella Robbins MD PhD LAB BLOOD ORDERABLES Final Result [facility] Department [place] [address] * Reticulocyte Count (05/22/2025 8:55 AM 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) Retics, absolute 35 20 - 100 K/cumm Comment:Testing performed by : [facility], [address] [place] [address] Retics 1.0 0.5 - 1.8 % [facility] Comment:Testing performed by : [facility], [address] [place] [phone] Blood 05/22/2025 8:55 AM 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 05/22/2025 8:59 AM 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 us Mirella Robbins MD PhD LAB BLOOD ORDERABLES Final Result [facility] [place] [address] * eGFR (05/22/2025 8:55 AM 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) eGFR 77 >=60 mL/min/1. 73 m2 Comment: [...] of Race in Diagnosing Kidney Disease, JASN 202). The CKD-EPI equation should not be used for patients with unstable renal function and has not been validated in children and those over 70. Current interpretive data was last reviewed 2021. Blood 05/22/2025 8:55 AM 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 05/22/2025 9:01 AM 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 us Mirella Robbins MD PhD LAB BLOOD ORDERABLES Final Result [facility] [place] [address] * aPTT (05/22/2025 8:55 AM 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) aPTT 28 26 - 38 sec Comment: Interpretive Data Heparin therapeutic range: 66.0 - 100.0 seconds. Range based on correlation with therapeutic heparin activity range of 0.3 - 0.7 Units/mL. Current interpretive data was last revised on 2023. Blood 05/22/2025 8:55 AM 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 05/22/2025 9:12 AM 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 Result [facility] Mirella Robbins MD PhD LAB BLOOD ORDERABLES Final Result Performing Organization Address [facility] de Phone Number [facility] [place] [address] * Protime-INR (05/22/2025 8:55 AM 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) Pathologist [facility] PT 10.2 10.2 - 13.5 sec INR 0.90 0.90 - 1.20 [facility] Comment: Interpretive data Oral anticoagulant therapeutic ranges: Venous thromboembolism prophylaxis or treatment: 2.0-3.0 CARDIOLOGY Standard range: 2.0-3.0 High-intensity range: 2.5-3.5 Refer to indication-specific guidelines for appropriate target ranges for prosthetic heart valve replacement. Current interpretive data was last revised on 2019. Blood 05/22/2025 8:55 AM 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 05/22/2025 9:12 AM 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 Result [facility] Mirella Robbins MD PhD LAB BLOOD ORDERABLES Final Result Performing Organization Address [facility] de Phone Number [facility] [place] [place] [address] * Uric acid (05/22/2025 8:55 AM 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) Pathologist [facility] Uric acid 3.9 2.5 - 7.0 mg/dL Blood 05/22/2025 8:55 AM 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 05/22/2025 9:01 AM 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 Result [facility] Mirella Robbins MD PhD LAB [place] [address] * Phosphorus (05/22/2025 8:55 AM 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CA[employer]) [facility] Phosphorus, pl 3.5 2.3 - 4.5 mg/dL Blood 05/22/2025 8:55 AM 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 05/22/2025 9:01 AM 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 Mirella Robbins MD PhD LAB BLOOD ORDERABLES Final Result Performing Organization Address City/[facility]/ZIP Co de Phone Number [facility] Department [place] [address] * Magnesium (05/22/2025 8:55 AM 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CASTER) [facility] Magnesium 1.8 1.4 - 2.5 mg/dL Blood 05/22/2025 8:55 AM 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 05/22/2025 9:01 AM 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 Mirella Robbins MD PhD LAB BLOOD ORDERABLES Final Result Performing Organization Address City/[facility]/ZIP Co de Phone Number [facility] Department [place] [address] * Lipase (05/22/2025 8:55 AM 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CA[employer]) [facility] Lipase 31 10 - 99 Units/L Blood 05/22/2025 8:55 AM 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 05/22/2025 9:01 AM 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 Mirella Robbins MD PhD LAB BLOOD ORDERABLES Final Result [facility] Department [place] [address] * Amylase (05/22/2025 8:55 AM 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CA[employer]) Amylase 62 30 - 99 Units/L Blood 05/22/2025 8:55 AM 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CASTER 05/22/2025 9:01 AM 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 us Mirella Robbins MD PhD LAB BLOOD ORDERABLES Final Result [facility] Department [place] [address] * (ABNORMAL) Comprehensive metabolic panel (05/22/2025 8:55 AM 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[employer]) Sodium 141 135 - 145 mmol/L Potassium, pl 4.1 3.3 - 4.9 mmol/L [facility] Chloride 106 97 - 110 mmol/L [facility] CO2 29 22 - 32 mmol/L [facility] Anion gap 6 2 - 15 mmol/L [facility] BUN 12 6 - 25 mg/dL [facility] Creatinine 0.79 0.60 - 1.10 mg/dL [facility] Glucose 104 70 - 199 mg/dL [facility] Comment: Interpretive Data Fasting glucose >/= [...] 2022. Calcium 9.3 8.5 - 10.3 mg/dL [facility] Bilirubin, total 0.2 0.1 - 1.2 mg/dL [facility] Protein, pl 6.3(L) 6.5 - 8.5 g/dL [facility] Albumin 3.5 3.5 - 5.0 g/dL [facility] Alk phos 92 40 - 130 Units/L [facility] ALT 11 7 - 45 Units/L [facility] AST 26 10 - 45 Units/L [facility] Blood 05/22/2025 8:55 AM 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 05/22/2025 9:01 AM 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 us Mirella Robbins MD PhD LAB BLOOD ORDERABLES Final Result [facility] Department [place] [address] * (ABNORMAL) Urinalysis reflex to microscopic and culture Urine (05/08/2025 8:17 AM CDT) Color, ur Yellow Yellow Clarity, ur Clear Clear [facility] Specific gravity, ur 1.023 1.003 - 1.030 [facility] pH, urine 6.0 [facility] Comment: Interpretive Data U rine pH is affected by diet, medications, systemic acid-base disturbances, and renal tubular function. pH may affect urinary stone formation. For example, urine pH below 6.0 may help reduce the tendency for calcium phosphate stones and pH greater than 6.0 may reduce the tendency for uric acid stone formation. Source: [facility] Current Interpretive Data was last revised on 2017 Protein, ur ql Trace Negative [facility] Glucose, ur ql Negative Negative [facility] Ketones, ur Negative Negative [facility] Bilirubin, ur Negative Negative [facility] Blood, ur Negative Negative [facility] Urobilinogen, ur <2.0 <2.0 mg/dL [facility] Nitrite, ur Negative Negative [facility] Leukocyte esterase, ur Trace(A) [facility] UA reflex comment Reflex to microscopic UA will be performed. [facility] Urine 05/08/2025 8:17 AM CDT 05/08/2025 8:17 AM CDT us Mirella Robbins MD PhD LAB MICROBIOLOGY - GENERAL ORDERABLES Final Result [facility] Department [place] [address] * (ABNORMAL) Urinalysis, microscopic only (05/08/2025 8:17 AM CDT) WBC, ur 11-20(A) 0 - 5 /HPF RBC, ur 3-5(A) 0 - 2 /HPF [facility] Epithelial cells, squamous, ur 6-10(A) 0 - 5 /HPF [facility] Bacteria, ur Trace(A) [facility] Mucous, ur Present(A) [facility] Hyaline casts, ur 6-10 0 - 10 /LPF [facility] Culture Reflex Comment Reflex to urine culture will be performed. [facility] Urine 05/08/2025 8:17 AM CDT 05/08/2025 8:17 AM CDT us Mirella Robbins MD PhD LAB URINE ORDERABLES Final Result [facility] Department [place] [address] * eGFR (05/08/2025 7:56 AM CDT) eGFR 76 >=60 mL/min/1. 73 m2 Comment: Interpretive Data [...] interpretive data was last reviewed 2021. Blood 05/08/2025 7:56 AM CDT 05/08/2025 7:58 AM CDT us Mirella Robbins MD PhD LAB BLOOD ORDERABLES Final Result [facility] Department [place] [address] * (ABNORMAL) Differential, auto (05/08/2025 7:56 AM CDT) Neutrophil abs 1.39(L) 1.50 - 6.50 K/cumm Comment:Testing performed by : [facility], [address] [place], [place] [phone] Lymphocyte abs 1.48 0.80 - 3.30 K/cumm [facility]ER BJ Comment:Testing performed by : [facility], [address] [place] [address] Monocyte abs 0.21 0.20 - 0.80 K/cumm [facility]J Comment:Testing performed by : [facility], [address] [place], [place] [phone] Eosinophil abs 0.19 0.00 - 0.50 K/cumm [facility]J Comment:Testing performed by : [facility], [address] [place] [address] Basophil abs 0.03 0.00 - 0.10 K/cumm [facility]J Comment:Testing performed by : [facility], [address] [place] [address] Neutrophil pct 42.3 % [facility] Comment: Interpretive Data Percent cell count reference ranges are not reported, since discordance with absolute values may lead to misinterpretation of CBC data. Current Interpretive Data was last revised on 2017. Testing performed by: [facility], [address] [place] [address] Lymphocyte pct 44.8 % [facility] Comment: Interpretive Data Percent cell count reference ranges are not reported, since discordance with absolute values may lead to misinterpretation of CBC data. Current Interpretive Data was last revised on 2017. Testing performed by: [facility], [address] [place], [place] [phone] Monocyte pct 6.3 % [facility] Comment: Interpretive Data Percent cell count reference ranges are not reported, since discordance with absolute values may lead to misinterpretation of CBC data. Current Interpretive Data was last revised on 2017. Testing performed by: [facility], [address] [place] [phone] Eosinophil pct 5.6 % [facility] Comment: Interpretive Data Percent cell count reference ranges are not reported, since discordance with absolute values may lead to misinterpretation of CBC data. Current Interpretive Data was last revised on 2017. Testing performed by: [facility], [address] [place], [place] [phone] Basophil pct 1.0 % [facility] Comment: Interpretive Data Percent cell count reference ranges are not reported, since discordance with absolute values may lead to misinterpretation of CBC data. Current Interpretive Data was last revised on 2017. Testing performed by: [facility], [address] [place] [address] Blood 05/08/2025 7:56 AM CDT 05/08/2025 7:57 AM CDT us Mirella Robbins MD PhD LAB BLOOD ORDERABLES Final Result [facility] Department [place] [address] * (ABNORMAL) CBC with auto differential (05/08/2025 7:56 AM CDT) WBC 3.29(L) 3.80 - 9.90 K/cumm Comment:Testing performed by : [facility], [address] [place] [address] Hgb 11.2(L) 11.9 - 15.5 g/dL [facility] Comment:Testing performed by : [facility], [address] [place] [address] Hct 33.1(L) 35.6 - 45.5 % [facility] Comment:Testing performed by : [facility], [address] [place] [address] Plt 98(L) 150 - 400 K/cumm [facility] Comment:Testing performed by : [facility], [address] [place] [address] MPV 8.4 6.8 - 10.4 fL [facility] Comment:Testing performed by : [facility], [address] [place] [address] RBC 3.39(L) 3.90 - 5.20 M/cumm [facility]ER[facility]IKA BJ Comment:Testing performed by : [facility], [address] [place] [address] MCV 97.7(H) 81.3 - 96.4 fL [facility]IK[facility]J Comment:Testing performed by : [facility], [address] [place] [address] MCH 33.1 27.1 - 33.3 pg [facility]A [facility]J Comment:Testing performed by : [facility], [address] [place] [address] MCHC 33.9 32.3 - 35.7 g/dL [facility] Comment:Testing performed by : [facility] [facility], [address] [place] [address] RDW CV 15.2(H) 11.1 - 14.9 % CERVERONIKA BJ Comment:Testing performed by : [facility], [address] [place] [address] NRBC abs 0.00 0.00 - 0.01 K/cumm CERVERONIKA BJ Comment:Testing performed by : [facility], [address] [place] [address] Blood 05/08/2025 7:56 AM CDT 05/08/2025 7:57 AM CDT us Mirella Robbins MD PhD LAB BLOOD ORDERABLES Final Result [facility] [place] [address] * aPTT (05/08/2025 7:56 AM CDT) aPTT 29 26 - 38 sec Comment: Interpretive Data Heparin therapeutic range: 66.0 - 100.0 seconds. Range based on correlation with therapeutic heparin activity range of 0.3 - 0.7 Units/mL. Current interpretive data was last revised on 2023. Blood 05/08/2025 7:56 AM CDT 05/08/2025 8:05 AM CDT Mirella Robbins MD PhD LAB BLOOD ORDERABLES Final Result Performing Organization Address [facility] [place] [address] * (ABNORMAL) Protime-INR (05/08/2025 7:56 AM CDT) Pathologist [facility] PT 9.9(L) 10.2 - 13.5 sec INR 0.87(L) 0.90 - 1.20 [facility] Comment: Interpretive data Oral anticoagulant therapeutic ranges: Venous thromboembolism prophylaxis or treatment: 2.0-3.0 CARDIOLOGY Standard range: 2.0-3.0 High-intensity range: 2.5-3.5 Refer to indication-specific guidelines for appropriate target ranges for prosthetic heart valve replacement. Current interpretive data was last revised on 2019. Blood 05/08/2025 7:56 AM CDT 05/08/2025 8:05 AM CDT Mirella Robbins MD PhD LAB BLOOD ORDERABLES Final Result Performing Organization Address [facility] [place] [address] * Reticulocyte Count (05/08/2025 7:56 AM CDT) Pathologist [facility] Retics, absolute 23 20 - 100 K/cumm Comment:Testing performed by : [facility], [address] [place] [phone] Retics 0.7 0.5 - 1.8 % [facility] Comment:Testing performed by : [facility], [address] [place] [phone] Blood 05/08/2025 7:56 AM CDT 05/08/2025 7:57 AM CDT Mirella Robbins MD PhD LAB BLOOD ORDERABLES Final Result Performing Organization Address City/[facility]/[place] [address] * Uric acid (05/08/2025 7:56 AM CDT) Uric acid 4.5 2.5 - 7.0 mg/dL Blood 05/08/2025 7:56 AM CDT 05/08/2025 7:58 AM CDT Mirella Robbins MD PhD LAB BLOOD ORDERABLES Final Result Performing Organization Address City/[facility] Co de Phone Number [facility] [place] [address] * Phosphorus (05/08/2025 7:56 AM CDT) Phosphorus, pl 3.1 2.3 - 4.5 mg/dL Blood 05/08/2025 7:56 AM CDT 05/08/2025 7:58 AM CDT us Mirella Robbins MD PhD LAB BLOOD ORDERABLES Final Result Performing Organization Address City/[facility] Co de Phone Number [facility] [place] [address] * Magnesium (05/08/2025 7:56 AM CDT) Magnesium 2.2 1.4 - 2.5 mg/dL Blood 05/08/2025 7:56 AM CDT 05/08/2025 7:58 AM CDT Result [facility] Mirella Robbins MD PhD LAB BLOOD ORDERABLES Final Result Performing Organization Address [facility] Phone Number [facility] [place] [address] * Lipase (05/08/2025 7:56 AM CDT) [facility] Lipase 39 10 - 99 Units/L Blood 05/08/2025 7:56 AM CDT 05/08/2025 7:58 AM CDT Result [facility] Mirella Robbins MD PhD LAB BLOOD ORDERABLES Final Result Performing Organization Address [facility] Phone Number [facility] [place] [address] * (ABNORMAL) CEA (05/08/2025 7:56 AM CDT) [facility] CEA 90.7(H) <=5.0 ng/mL Comment: Interpretive Data: Reference Range: Non-Smokers: 0.0 5.0 ng/mL Smokers: 0.0 6.5 ng/mL The Shae CEA assay procedure was used. Results from different manufacturers or methods may not be comparable. Serial testing should be performed using the same method. Current interpretive data was last revised 2021. Blood 05/08/2025 7:56 AM CDT 05/08/2025 8:18 AM CDT Mirella Robbins MD PhD LAB BLOOD ORDERABLES Final Result Performing Organization Address [facility] de Phone Number [facility] [place] [place] [address] * Amylase (05/08/2025 7:56 AM CDT) Amylase 62 30 - 99 Units/L Blood 05/08/2025 7:56 AM CDT 05/08/2025 7:58 AM CDT us Mirella Robbins MD PhD LAB BLOOD ORDERABLES Final Result [facility] Department [place] [address] * Comprehensive metabolic panel (05/08/2025 7:56 AM CDT) Sodium 142 135 - 145 mmol/L Potassium, pl 4.3 3.3 - 4.9 mmol/L [facility] Chloride 106 97 - 110 mmol/L [facility] CO2 29 22 - 32 mmol/L [facility] Anion gap 7 2 - 15 mmol/L [facility] BUN 19 6 - 25 mg/dL [facility] Creatinine 0.80 0.60 - 1.10 mg/dL [facility] Glucose 113 70 - 199 mg/dL [facility] Comment: Interpretive Data Fasting glucose >/= [...] interpretive data was last revised 2022. Calcium 9.4 8.5 - 10.3 mg/dL [facility] Bilirubin, total 0.2 0.1 - 1.2 mg/dL [facility] Protein, pl 6.5 6.5 - 8.5 g/dL [facility] Albumin 3.6 3.5 - 5.0 g/dL [facility] Alk phos 109 40 - 130 Units/L [facility] ALT 12 7 - 45 Units/L [facility] AST 23 10 - 45 Units/L [facility] Blood 05/08/2025 7:56 AM CDT 05/08/2025 7:58 AM CDT us Mirella Robbins MD PhD LAB BLOOD ORDERABLES Final Result [facility] One [facility] Department [place] [address] * CT chest abdomen pelvis with contrast (05/05/2025 11:32 AM CDT) Anatomical Region Laterality Modality Body N/A Computed Tomogra phy 05/05/2025 12:1 0 PM CDT Impressions 05/05/2025 12:10 PM CDT 1. Increased size but similar distribution of bilateral pulmonary nodules and right hemiliver metastatic lesions compared to 02/20/2025, suspicious for increasing tumor burden. If the patient is receiving immunotherapy, these findings could represent pseudoprogression. Advise correlation with serum tumor markers and close interval follow-up. 2. Unchanged ablation zones in the liver. 3. Unchanged bilateral adnexal cystic lesions. Electronically signed by: Chester Worthy MD, MPHS Narrative 05/05/2025 12:10 PM CDT EXAMINATION: Computed tomography of the chest, abdomen and pelvis with intravenous contrast HISTORY: 74-year-old female with history of metastatic colon cancer receiving medical therapy via clinical trial since 03/06/2025 with KRAS-targeted therapy with prior microwave abalation of the liver on 05/28/2023 and 06/20/2024. CEA 31.8 on 04/10/2025, down from 37.7 on 04/03/2025. TECHNIQUE: Transaxial computed tomographic images of the chest, abdomen and pelvis were obtained with intravenous contrast according to the standard protocol after the uneventful administration of 68 mL Opti-Ray 350 intravenous contrast. COMPARISON: CT 11/06/2024. FINDINGS: CHEST: No axillary lymph node enlargement. Right chest Port-A-Cath with tip at the superior cavoatrial junction. No hilar or mediastinal lymph node enlargement. Normal heart size. Trace pericardial fluid.. Multivessel coronary calcification. Aortic annular calcification. The main pulmonary artery is normal in size. Normal caliber thoracic aorta. Moderate atherosclerosis. Small hiatal hernia. No pleural effusion or pneumothorax. No focal consolidation. No pulmonary parenchymal disease. Similar to mildly increased size of bilateral pulmonary nodules. For example, a 1.2 cm right upper lobe pulmonary nodule is unchanged in size, though a 0.8 cm nodule in the right lower lobe has increased from 0.5 cm previously (series 3/100) and a 1 cm nodule in the left upper lobe previously measured 0.7 cm (series 3/59). No new pulmonary nodules. 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 ABDOMEN/PELVIS: Increased size of the centrally hypoattenuating masses in the right hemiliver along the prior ablation zone. For example, the nodule in segment 5, now measures 3.6 x 3.7 cm in maximal transaxial dimensions compared to 3.1 x 2.6 cm on 02/20/2025 (series 2/163). Increased size of the nodule in segment 5/6, now measuring up to 2.5 cm compared to 1.5 cm previously (series 2/180). Unchanged mildly hypoattenuating zones in the anterior right hemiliver and left lateral section (series 2/147, 191, and 174 , for example). Patent hepatic and portal veins. No intrahepatic or extrahepatic bile duct dilation. The gallbladder is normal. No pancreatic masses or ductal dilation. Normal spleen size. Scattered calcifications. Unchanged splenic hypodensity, likely benign splenic cyst. Accessory splenule. No renal stones, masses, or hydronephrosis. Symmetric enhancement bilaterally. No adrenal masses. No abdominopelvic or inguinal lymphadenopathy. No small or large bowel wall thickening or obstruction. Postoperative changes from prior right hemicolectomy. No evidence of soft tissue recurrence about the surgical anastomosis. There is mild circumferential wall thickening of the distal small bowel, presumably infectious/inflammatory. No peritoneal or mesenteric mass or collection. Mild atherosclerotic disease of the aortobiiliac system without aneurysmal dilatation. The bladder is partially empty and not well assessed. Normal uterus for age. Unchanged 4.6 cm right and 2.0 cm left adnexal cysts. No suspicious osseous lesions. Postoperative changes in the abdominal wall with a few areas of laxity. Procedure Note Chester Worthy MD - 05/05/2025 EXAMINATION: Computed tomography of the chest, abdomen and pelvis with intravenous contrast HISTORY: 74-year-old female with history of metastatic colon cancer receiving medical therapy via clinical trial since 03/06/2025 with KRAS-targeted therapy with prior microwave abalation of the liver on 05/28/2023 and 06/20/2024. CEA 31.8 on 04/10/2025, down from 37.7 on 04/03/2025. TECHNIQUE: Transaxial computed tomographic images of the chest, abdomen and pelvis were obtained with intravenous contrast according to the standard protocol after the uneventful administration of 68 mL Opti-Ray 350 intravenous contrast. COMPARISON: CT 11/06/2024. FINDINGS: CHEST: No axillary lymph node enlargement. Right chest Port-A-Cath with tip at the superior cavoatrial junction. No hilar or mediastinal lymph node enlargement. Normal heart size. Trace pericardial fluid.. Multivessel coronary calcification. Aortic annular calcification. The main pulmonary artery is normal in size. Normal caliber thoracic aorta. Moderate atherosclerosis. Small hiatal hernia. No pleural effusion or pneumothorax. No focal consolidation. No pulmonary parenchymal disease. Similar to mildly increased size of bilateral pulmonary nodules. For example, a 1.2 cm right upper lobe pulmonary nodule is unchanged in size, though a 0.8 cm nodule in the right lower lobe has increased from 0.5 cm previously (series 3/100) and a 1 cm nodule in the left upper lobe previously measured 0.7 cm (series 3/59). No new pulmonary nodules. 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 ABDOMEN/PELVIS: Increased size of the centrally hypoattenuating masses in the right hemiliver along the prior ablation zone. For example, the nodule in segment 5, now measures 3.6 x 3.7 cm in maximal transaxial dimensions compared to 3.1 x 2.6 cm on 02/20/2025 (series 2/163). Increased size of the nodule in segment 5/6, now measuring up to 2.5 cm compared to 1.5 cm previously (series 2/180). Unchanged mildly hypoattenuating zones in the anterior right hemiliver and left lateral section (series 2/147, 191, and 174 , for example). Patent hepatic and portal veins. No intrahepatic or extrahepatic bile duct dilation. The gallbladder is normal. No pancreatic masses or ductal dilation. Normal spleen size. Scattered calcifications. Unchanged splenic hypodensity, likely benign splenic cyst. Accessory splenule. No renal stones, masses, or hydronephrosis. Symmetric enhancement bilaterally. No adrenal masses. No abdominopelvic or inguinal lymphadenopathy. No small or large bowel wall thickening or obstruction. Postoperative changes from prior right hemicolectomy. No evidence of soft tissue recurrence about the surgical anastomosis. There is mild circumferential wall thickening of the distal small bowel, presumably infectious/inflammatory. No peritoneal or mesenteric mass or collection. Mild atherosclerotic disease of the aortobiiliac system without aneurysmal dilatation. The bladder is partially empty and not well assessed. Normal uterus for age. Unchanged 4.6 cm right and 2.0 cm left adnexal cysts. No suspicious osseous lesions. Postoperative changes in the abdominal wall with a few areas of laxity. IMPRESSION: 1. Increased size but similar distribution of bilateral pulmonary nodules and right hemiliver metastatic lesions compared to 02/20/2025, suspicious for increasing tumor burden. If the patient is receiving immunotherapy, these findings could represent pseudoprogression. Advise correlation with serum tumor markers and close interval follow-up. 2. Unchanged ablation zones in the liver. 3. Unchanged bilateral adnexal cystic lesions. Electronically signed by: Chester Worthy MD, MPHS Mirella Robbins MD PhD IMG CT PROCEDURES Final Res ult * eGFR (05/01/2025 9:19 AM CDT) eGFR 65 >=60 mL/min/1. 73 m2 Comment: [...] interpretive data was last reviewed 2021. Blood 05/01/2025 9:19 AM CDT 05/01/2025 9:22 AM CDT us Matilde Conley DERMATOLOGY PHYSICIAN LAB BLOOD ORDERABLES Frida blackwell Result [facility] Department [place] [address] * (ABNORMAL) CBC with auto differential (05/01/2025 9:19 AM CDT) WBC 5.03 3.80 - 9.90 K/cumm Comment:Testing performed by : [facility], [address] [place] [address] Hgb 11.4(L) 11.9 - 15.5 g/dL [facility] Comment:Testing performed by : [facility], [address] [place] [address] Hct 34.1(L) 35.6 - 45.5 % [facility] Comment:Testing performed by : [facility], [address] [place] [address] Plt 120(L) 150 - 400 K/cumm [facility] Comment:Testing performed by : [facility], [address] [place] [address] MPV 7.9 6.8 - 10.4 fL [facility] Comment:Testing performed by : [facility], [address] [place] [address] RBC 3.45(L) 3.90 - 5.20 M/cumm [facility] Comment:Testing performed by : [facility], [address] [place] [address] MCV 98.9(H) 81.3 - 96.4 fL [facility] Comment:Testing performed by : [facility], [address] [place] [address] MCH 32.9 27.1 - 33.3 pg [facility] Comment:Testing performed by : [facility], [address] [place] [address] MCHC 33.3 32.3 - 35.7 g/dL [facility] Comment:Testing performed by : [facility], [address] [place] [address] RDW CV 15.4(H) 11.1 - 14.9 % [facility] Comment:Testing performed by : [facility], [address] [place] [address] NRBC abs 0.00 0.00 - 0.01 K/cumm [facility] Comment:Testing performed by : [facility], [address] [place] [address] Blood 05/01/2025 9:19 AM CDT 05/01/2025 9:20 AM CDT Matilde Conley DERMATOLOGY PHYSICIAN LAB BLOOD ORDERABLES Edit ed Result - Final [facility] Department [place] [address] * (ABNORMAL) Manual Differential (05/01/2025 9:19 AM CDT) Cells Counted 200 Comment:Testing performed by : [facility], [address] [place] [address] Neutrophil abs 2.77 1.50 - 6.50 K/cumm [facility] Comment:Testing performed by : [facility], [address] [place] [address] Lymphocyte abs 1.31 0.80 - 3.30 K/cumm [facility] Comment:Testing performed by : [facility], [address] [place] [phone] Monocyte abs 0.55 0.20 - 0.80 K/cumm [facility] Comment:Testing performed by : [facility], [address] [place] [phone] Eosinophil abs 0.15 0.00 - 0.50 K/cumm [facility] Comment:Testing performed by : [facility], [address] [place] [phone] Basophil abs 0.05 0.00 - 0.10 K/cumm [facility] Comment:Testing performed by : [facility], [address] [place] [phone] Neutrophil pct 55.0 % [facility] Comment: Interpretive Data Percent cell count reference ranges are not reported, since discordance with absolute values may lead to misinterpretation of CBC data. Current Interpretive Data was last revised on 2017. Testing performed by: [facility], [address] [place] [phone] Lymphocyte pct 26.0 % [facility] Comment: Interpretive Data Percent cell count reference ranges are not reported, since discordance with absolute values may lead to misinterpretation of CBC data. Current Interpretive Data was last revised on 2017. Testing performed by: [facility], [address] [place] [phone] Monocyte pct 11.0 % [facility] Comment: Interpretive Data Percent cell count reference ranges are not reported, since discordance with absolute values may lead to misinterpretation of CBC data. Current Interpretive Data was last revised on 2017. Testing performed by: [facility], [address] [place] [phone] Eosinophil pct 3.0 % [facility] Comment: Interpretive Data Percent cell count reference ranges are not reported, since discordance with absolute values may lead to misinterpretation of CBC data. Current Interpretive Data was last revised on 2017. Testing performed by: [facility], [address] [place] [phone] Basophil pct 1.0 % [facility] Comment: Interpretive Data Percent cell count reference ranges are not reported, since discordance with absolute values may lead to misinterpretation of CBC data. Current Interpretive Data was last revised on 2017. Testing performed by: [facility], [address] [place], [place] [phone] Metamyelocyte pct 3.0(H) 0.0 - 0.0 % [facility]J Comment:Testing performed by : [facility], [address] [place], [place] [phone] Myelocyte pct 1.0(H) 0.0 - 0.0 % [facility]ERNER BJ Comment:Testing performed by : [facility], [address] [place], [place] [phone] Promyelocyte pct 1.0(H) 0.0 - 0.0 % [facility]ERNER [facility]J Comment:Testing performed by : [facility], [address] [place], [place] [phone] Variant lymph pct 2.0(H) 0.0 - 0.0 % [facility] Comment:Testing performed by : [facility], [address] [place] [phone] Polychromasia 1+(A) [facility] Comment:Testing performed by : [facility], [address] [place] [phone] Anisocytosis 1+(A) [facility]ERNER [facility]J Comment:Testing performed by : [facility], [address] [place] [phone] Microcytes 1+(A) [facility]J Comment:Testing performed by : [facility], [address] [place] [phone] Macrocytes 1+(A) CERNER BJ Comment:Testing performed by : [facility], [address] [place] [phone] Teardrop cells 1+(A) [facility] Comment:Testing performed by : [facility], [address] [place] [phone] Platelet estimate Decreased (A) CERNER BJ Comment:Testing performed by : [facility], [address] [place], [place] [phone] Giant platelets Present(A ) [facility] Comment:Testing performed by : [facility], [address] [place] [phone] Blood 05/01/2025 9:19 AM CDT 05/01/2025 9:20 AM CDT us Matilde Conley DERMATOLOGY PHYSICIAN LAB BLOOD ORDERABLES Frida blackwell Result [facility] One [facility] Department [place] [address] * Comprehensive metabolic panel (05/01/2025 9:19 AM CDT) Sodium 143 135 - 145 mmol/L Potassium, pl 4.5 3.3 - 4.9 mmol/L [facility] Chloride 104 97 - 110 mmol/L [facility] CO2 32 22 - 32 mmol/L [facility] Anion gap 7 2 - 15 mmol/L [facility] BUN 11 6 - 25 mg/dL [facility] Creatinine 0.91 0.60 - 1.10 mg/dL [facility] Glucose 107 70 - 199 mg/dL [facility] Comment: Interpretive Data Fasting glucose >/= [...] 2022. Calcium 9.5 8.5 - 10.3 mg/dL [facility] Bilirubin, total 0.2 0.1 - 1.2 mg/dL [facility] Protein, pl 6.6 6.5 - 8.5 g/dL [facility] Albumin 3.7 3.5 - 5.0 g/dL [facility] Alk phos 108 40 - 130 Units/L [facility] ALT 11 7 - 45 Units/L [facility] AST 22 10 - 45 Units/L [facility] Blood 05/01/2025 9:19 AM CDT 05/01/2025 9:22 AM CDT us Matilde Vargasizzle DERMATOLOGY PHYSICIAN LAB BLOOD ORDERABLES Frida l Result Performing Organization Address City/[facility]/ZIP Co de Phone Number [facility] Department [place] [address] * eGFR (04/24/2025 9:25 AM CDT) eGFR 74 >=60 mL/min/1. 73 m2 Comment: Interpretive Data [...] of Race in Diagnosing Kidney Disease, JASN 202). The CKD-EPI equation should not be used for patients with unstable renal function and has not been validated in children and those over 70. Current interpretive data was last reviewed 2021. Blood 04/24/2025 9:25 AM CDT 04/24/2025 9:28 AM CDT us Mirella Robbins MD PhD LAB BLOOD ORDERABLES Final Result Performing Organization Address City/[facility]/ZIP Co de Phone Number [facility] Department [place] [address] * (ABNORMAL) Differential, auto (04/24/2025 9:25 AM CDT) Neutrophil abs 0.73(L) 1.50 - 6.50 K/cumm Comment:Testing performed by : [facility], [address] [place], [place] [id number] Lymphocyte abs 1.34 0.80 - 3.30 K/cumm [facility] Comment:Testing performed by : [facility] [facility], [address] [place], [place] [id number] Monocyte abs 0.25 0.20 - 0.80 K/cumm [facility] Comment:Testing performed by : [facility], [address] [place], [place] [id number] Eosinophil abs 0.16 0.00 - 0.50 K/cumm [facility] Comment:Testing performed by : [facility], [address] [place], [place] [id number] Basophil abs 0.03 0.00 - 0.10 K/cumm [facility] Comment:Testing performed by : [facility], [address] [place], [place] [id number] Neutrophil pct 29.2 % [facility] Comment: Interpretive Data Percent cell count reference ranges are not reported, since discordance with absolute values may lead to misinterpretation of CBC data. Current Interpretive Data was last revised on 2017. Testing performed by: [facility], [address] [place] [address] Lymphocyte pct 53.4 % [facility] Comment: Interpretive Data Percent cell count reference ranges are not reported, since discordance with absolute values may lead to misinterpretation of CBC data. Current Interpretive Data was last revised on 2017. Testing performed by: [facility], [address] [place] [address] Monocyte pct 9.8 % [facility] Comment: Interpretive Data Percent cell count reference ranges are not reported, since discordance with absolute values may lead to misinterpretation of CBC data. Current Interpretive Data was last revised on 2017. Testing performed by: [facility], [address] [place] [address] Eosinophil pct 6.5 % [facility] Comment: Interpretive Data Percent cell count reference ranges are not reported, since discordance with absolute values may lead to misinterpretation of CBC data. Current Interpretive Data was last revised on 2017. Testing performed by: [facility], [address] [place] [phone] Basophil pct 1.1 % [facility] Comment: Interpretive Data Percent cell count reference ranges are not reported, since discordance with absolute values may lead to misinterpretation of CBC data. Current Interpretive Data was last revised on 2017. Testing performed by: [facility], [address] [place] [phone] Blood 04/24/2025 9:25 AM CDT 04/24/2025 9:26 AM CDT us Mirella Robbins MD PhD LAB BLOOD ORDERABLES Final Result [facility] Department [place] [address] * (ABNORMAL) CBC with auto differential (04/24/2025 9:25 AM CDT) WBC 2.50(L) 3.80 - 9.90 K/cumm Comment:Testing performed by : [facility], [address] [place] [address] Hgb 11.6(L) 11.9 - 15.5 g/dL [facility] Comment:Testing performed by : [facility], [address] [place] [address] Hct 34.6(L) 35.6 - 45.5 % [facility] Comment:Testing performed by : [facility], [address] [place] [address] Plt 179 150 - 400 K/cumm [facility] Comment:Testing performed by : [facility], [address] [place] [address] MPV 8.6 6.8 - 10.4 fL [facility] Comment:Testing performed by : [facility], [address] [place], [place] [phone] RBC 3.46(L) 3.90 - 5.20 M/cumm [facility] Comment:Testing performed by : [facility], [address] [place], [place] [phone] MCV 100.0(H) 81.3 - 96.4 fL [facility] Comment:Testing performed by : [facility], [address] [place], [place] [phone] MCH 33.4(H) 27.1 - 33.3 pg [facility] Comment:Testing performed by : [facility], [address] [place], [place] [phone] MCHC 33.4 32.3 - 35.7 g/dL [facility] Comment:Testing performed by : [facility], [address] [place] [address] RDW CV 15.6(H) 11.1 - 14.9 % [facility] Comment:Testing performed by : [facility], [address] [place], [place] [phone] NRBC abs 0.00 0.00 - 0.01 K/cumm [facility] Comment:Testing performed by : [facility], [address] [place], [place] [phone] Blood 04/24/2025 9:25 AM CDT 04/24/2025 9:26 AM CDT us Mirella Robbins MD PhD LAB BLOOD ORDERABLES Final Result [facility] Department [place] [address] * aPTT (04/24/2025 9:25 AM CDT) aPTT 30 26 - 38 sec Comment: Interpretive Data Heparin therapeutic range: 66.0 - 100.0 seconds. Range based on correlation with therapeutic heparin activity range of 0.3 - 0.7 Units/mL. Current interpretive data was last revised on 2023. Blood 04/24/2025 9:25 AM CDT 04/24/2025 9:44 AM CDT Mirella Robbins MD PhD LAB BLOOD ORDERABLES Final Result Performing Organization Address [facility] Phone Number [facility] [place] [address] * Protime-INR (04/24/2025 9:25 AM CDT) PT 10.6 10.2 - 13.5 sec INR 0.94 0.90 - 1.20 [facility] Comment: Interpretive data Oral anticoagulant therapeutic ranges: Venous thromboembolism prophylaxis or treatment: 2.0-3.0 CARDIOLOGY Standard range: 2.0-3.0 High-intensity range: 2.5-3.5 Refer to indication-specific guidelines for appropriate target ranges for prosthetic heart valve replacement. Current interpretive data was last revised on 2019. Blood 04/24/2025 9:25 AM CDT 04/24/2025 9:44 AM CDT Mirella Robbins MD PhD LAB BLOOD ORDERABLES Final Result Performing Organization Address [facility] de Phone Number [facility] [address] * Reticulocyte Count (04/24/2025 9:25 AM CDT) Retics, absolute 23 20 - 100 K/cumm Comment:Testing performed by : [facility], [address] [place] [phone] Retics 0.7 0.5 - 1.8 % [facility] Comment:Testing performed by : [facility], [address] [place] [phone] Blood 04/24/2025 9:25 AM CDT 04/24/2025 9:26 AM CDT us Mirella Robbins MD PhD LAB BLOOD ORDERABLES Final Result Performing Organization Address City/[facility] Co de Phone Number [facility] [place] [address] * Uric acid (04/24/2025 9:25 AM CDT) Uric acid 4.4 2.5 - 7.0 mg/dL Blood 04/24/2025 9:25 AM CDT 04/24/2025 9:28 AM CDT us Mirella Robbins MD PhD LAB BLOOD ORDERABLES Final Result Performing Organization Address [facility] [place] [address] * Phosphorus (04/24/2025 9:25 AM CDT) Phosphorus, pl 3.6 2.3 - 4.5 mg/dL Blood 04/24/2025 9:25 AM CDT 04/24/2025 9:28 AM CDT us Mirella Robbins MD PhD LAB BLOOD ORDERABLES Final Result Performing Organization Address [facility] Co de Phone Number [facility] [place] [place] [address] * Magnesium (04/24/2025 9:25 AM CDT) Magnesium 2.0 1.4 - 2.5 mg/dL Blood 04/24/2025 9:25 AM CDT 04/24/2025 9:28 AM CDT us Mirella Robbins MD PhD LAB BLOOD ORDERABLES Final Result Performing Organization Address City/[facility] Co de Phone Number [facility] [place] [address] * Lipase (04/24/2025 9:25 AM CDT) Pathologist [facility] Lipase 41 10 - 99 Units/L Blood 04/24/2025 9:25 AM CDT 04/24/2025 9:28 AM CDT Mirella Robbins MD PhD LAB BLOOD ORDERABLES Final Result Performing Organization Address City/[facility] Co de Phone Number [facility] [place] [address] * Amylase (04/24/2025 9:25 AM CDT) Pathologist [facility] Amylase 75 30 - 99 Units/L Blood 04/24/2025 9:25 AM CDT 04/24/2025 9:28 AM CDT Mirella Robbins MD PhD LAB BLOOD ORDERABLES Final Result Performing Organization Address City/[facility] [place] [address] * Comprehensive metabolic panel (04/24/2025 9:25 AM CDT) [facility] Sodium 144 135 - 145 mmol/L Potassium, pl 4.7 3.3 - 4.9 mmol/L [facility] Chloride 105 97 - 110 mmol/L [facility] CO2 29 22 - 32 mmol/L [facility] Anion gap 10 2 - 15 mmol/L [facility] BUN 14 6 - 25 mg/dL [facility] Creatinine 0.82 0.60 - 1.10 mg/dL [facility] Glucose 98 70 - 199 mg/dL [facility] Comment: Interpretive Data Fasting glucose >/= [...] 2022. Calcium 9.3 8.5 - 10.3 mg/dL [facility] Bilirubin, total 0.2 0.1 - 1.2 mg/dL [facility] Protein, pl 6.5 6.5 - 8.5 g/dL [facility] Albumin 3.8 3.5 - 5.0 g/dL [facility] Alk phos 100 40 - 130 Units/L [facility] ALT 11 7 - 45 Units/L [facility] AST 27 10 - 45 Units/L [facility] Blood 04/24/2025 9:25 AM CDT 04/24/2025 9:28 AM CDT Mirella Robbins MD PhD LAB BLOOD ORDERABLES Final Result [facility] Department [place] [address] * SCAN - LABS (04/20/2025) us Provider Scanning Edited Result - Final * (ABNORMAL) Urinalysis reflex to microscopic and culture Urine (04/10/2025 7:51 AM CDT) Color, ur Yellow Yellow Clarity, ur Clear Clear [facility] Specific gravity, ur 1.017 1.003 - 1.030 [facility] pH, urine 6.0 [facility] Comment: Interpretive Data U rine pH is affected by diet, medications, systemic acid-base disturbances, and renal tubular function. pH may affect urinary stone formation. For example, urine pH below 6.0 may help reduce the tendency for calcium phosphate stones and pH greater than 6.0 may reduce the tendency for uric acid stone formation. Source: [facility] [employer] Current Interpretive Data was last revised on 2017 Protein, ur ql Negative Negative [facility] Glucose, ur ql Negative Negative [facility] Ketones, ur Negative Negative [facility] Bilirubin, ur Negative Negative [facility] Blood, ur Negative Negative [facility] Urobilinogen, ur <2.0 <2.0 mg/dL [facility] Nitrite, ur Negative Negative [facility] Leukocyte esterase, ur 1+(A) [facility] UA reflex comment Reflex to microscopic UA will be performed. [facility] Urine 04/10/2025 7:51 AM CDT 04/10/2025 7:51 AM CDT us Mirella Robbins MD PhD LAB MICROBIOLOGY - GENERAL ORDERABLES Final Result Performing Organization Address [facility] Co de Phone Number [facility] [place] [place] [address] * (ABNORMAL) Urinalysis, microscopic only (04/10/2025 7:51 AM CDT) Pathologist [facility] WBC, ur 0-5 0 - 5 /HPF RBC, ur 3-5(A) 0 - 2 /HPF [facility] Epithelial cells, squamous, ur 1-5 0 - 5 /HPF [facility] Epithelial cells, transitional, ur 1-5 0 - 0 /HPF [facility] Mucous, ur Present(A) [facility] Culture Reflex Comment Reflex conditions for urine culture (WBC >10) not met. [facility] Urine 04/10/2025 7:51 AM CDT 04/10/2025 7:51 AM CDT us Mirella Robbins MD PhD LAB URINE ORDERABLES Final Result Performing Organization Address [facility] Co de Phone Number [facility] [place] [address] * (ABNORMAL) eGFR (04/10/2025 7:40 AM CDT) eGFR 59(L) >=60 mL/min/1. 73 m2 Comment: Interpretive Data [...] interpretive data was last reviewed 2021. Blood 04/10/2025 7:40 AM CDT 04/10/2025 7:48 AM CDT Mirella Robbins MD PhD LAB BLOOD ORDERABLES Final Result [facility] Department [place] [address] * (ABNORMAL) CBC with auto differential (04/10/2025 7:40 AM CDT) WBC 4.20 3.80 - 9.90 K/cumm Comment:Testing performed by : [facility], [address] [place] [address] Hgb 10.8(L) 11.9 - 15.5 g/dL [facility] Comment:Testing performed by : [facility], [address] [place] [address] Hct 31.3(L) 35.6 - 45.5 % [facility] Comment:Testing performed by : [facility], [address] [place] [address] Plt 135(L) 150 - 400 K/cumm [facility] Comment:Testing performed by : [facility], [address] [place] [address] MPV 7.7 6.8 - 10.4 fL [facility] Comment:Testing performed by : [facility], [address] [place] [address] RBC 3.17(L) 3.90 - 5.20 M/cumm [facility] Comment:Testing performed by : [facility], [address] [place] [address] MCV 98.8(H) 81.3 - 96.4 fL [facility] Comment:Testing performed by : [facility], [address] [place] [address] MCH 34.0(H) 27.1 - 33.3 pg [facility] Comment:Testing performed by : [facility], [address] [place] [address] MCHC 34.5 32.3 - 35.7 g/dL [facility] Comment:Testing performed by : [facility], [address] [place] [address] RDW CV 16.0(H) 11.1 - 14.9 % [facility] Comment:Testing performed by : [facility], [address] [place] [address] NRBC abs 0.00 0.00 - 0.01 K/cumm [facility] Comment:Testing performed by : [facility], [address] [place] [address] Blood 04/10/2025 7:40 AM CDT 04/10/2025 7:47 AM CDT us Mirella Robbins MD PhD LAB BLOOD ORDERABLES Edited Result - Final [facility] Department [place] [address] * (ABNORMAL) Manual Differential (04/10/2025 7:40 AM CDT) Cells Counted 197 Comment:Testing performed by : [facility], [address] [place], [place] [phone] Neutrophil abs 1.68 1.50 - 6.50 K/cumm [facility] Comment:Testing performed by : [facility], [address] [place] [address] Lymphocyte abs 1.55 0.80 - 3.30 K/cumm [facility] Comment:Testing performed by : [facility], [address] [place], [place] [id number] Monocyte abs 0.71 0.20 - 0.80 K/cumm [facility] Comment:Testing performed by : [facility], [address] [place], [place] [id number] Eosinophil abs 0.25 0.00 - 0.50 K/cumm [facility] Comment:Testing performed by : [facility], [address] [place], [place] [id number] Basophil abs 0.00 0.00 - 0.10 K/cumm [facility] Comment:Testing performed by : [facility], [address] [place], [place] [phone] Neutrophil pct 40.0 % [facility] Comment: Interpretive Data Percent cell count reference ranges are not reported, since discordance with absolute values may lead to misinterpretation of CBC data. Current Interpretive Data was last revised on 2017. Testing performed by: [facility], [address] [place], [place] [phone] Lymphocyte pct 37.0 % [facility] Comment: Interpretive Data Percent cell count reference ranges are not reported, since discordance with absolute values may lead to misinterpretation of CBC data. Current Interpretive Data was last revised on 2017. Testing performed by: [facility], [address] [place], [place] [phone] Monocyte pct 17.0 % [facility] Comment: Interpretive Data Percent cell count reference ranges are not reported, since discordance with absolute values may lead to misinterpretation of CBC data. Current Interpretive Data was last revised on 2017. Testing performed by: [facility], [address] [place], [place] [phone] Eosinophil pct 6.0 % [facility] Comment: Interpretive Data Percent cell count reference ranges are not reported, since discordance with absolute values may lead to misinterpretation of CBC data. Current Interpretive Data was last revised on 2017. Testing performed by: [facility], [address] [place] [address] Basophil pct 0.0 % [facility] Comment: Interpretive Data Percent cell count reference ranges are not reported, since discordance with absolute values may lead to misinterpretation of CBC data. Current Interpretive Data was last revised on 2017. Testing performed by: [facility], [address] [place] [address] Myelocyte pct 1.0(H) 0.0 - 0.0 % [facility] Comment:Testing performed by : [facility], [address] [place], [place] [id number] Hypochromasia 1+(A) [facility] Comment:Testing performed by : [facility], [address] [place], [place] [id number] Anisocytosis 1+(A) [facility] Comment:Testing performed by : [facility], [address] [place], [place] [id number] Poikilocytosis 1+(A) [facility] Comment:Testing performed by : [facility], [address] [place], [place] [id number] Elliptocytes 1+(A) [facility] Comment:Testing performed by : [facility], [address] [place], [place] [id number] Platelet estimate Decreased (A) [facility] Comment:Testing performed by : [facility], [address] [place], [place] [phone] Blood 04/10/2025 7:40 AM CDT 04/10/2025 7:47 AM CDT us Mirella Robbins MD PhD LAB BLOOD ORDERABLES Final Result [facility] One [facility] Department [place] [address] * aPTT (04/10/2025 7:40 AM CDT) aPTT 27 26 - 38 sec Comment: Interpretive Data Heparin therapeutic range: 66.0 - 100.0 seconds. Range based on correlation with therapeutic heparin activity range of 0.3 - 0.7 Units/mL. Current interpretive data was last revised on 2023. Blood 04/10/2025 7:40 AM CDT 04/10/2025 8:20 AM CDT Mirella Robbins MD PhD LAB BLOOD ORDERABLES Final Result Performing Organization Address [facility] [place] [place] [address] * Protime-INR (04/10/2025 7:40 AM CDT) Pathologist [facility] PT 10.4 10.2 - 13.5 sec INR 0.92 0.90 - 1.20 [facility] Comment: Interpretive data Oral anticoagulant therapeutic ranges: Venous thromboembolism prophylaxis or treatment: 2.0-3.0 CARDIOLOGY Standard range: 2.0-3.0 High-intensity range: 2.5-3.5 Refer to indication-specific guidelines for appropriate target ranges for prosthetic heart valve replacement. Current interpretive data was last revised on 2019. Blood 04/10/2025 7:40 AM CDT 04/10/2025 8:20 AM CDT Mirella Robbins MD PhD LAB BLOOD ORDERABLES Final Result Performing Organization Address City/[facility]/[place] [address] * Reticulocyte Count (04/10/2025 7:40 AM CDT) Pathologist [facility] Retics, absolute 57 20 - 100 K/cumm Comment:Testing performed by : [facility], [address] [place] [phone] Retics 1.8 0.5 - 1.8 % [facility] Comment:Testing performed by : [facility], [address] [place] [phone] Blood 04/10/2025 7:40 AM CDT 04/10/2025 7:47 AM CDT Mirella Robbins MD PhD LAB BLOOD ORDERABLES Final Result [facility] [place] [address] * Uric acid (04/10/2025 7:40 AM CDT) Uric acid 4.7 2.5 - 7.0 mg/dL Blood 04/10/2025 7:40 AM CDT 04/10/2025 7:48 AM CDT Mirella Robbins MD PhD LAB BLOOD ORDERABLES Final Result Performing Organization Address City/[facility]/[place] [address] * Phosphorus (04/10/2025 7:40 AM CDT) Phosphorus, pl 3.2 2.3 - 4.5 mg/dL Blood 04/10/2025 7:40 AM CDT 04/10/2025 7:48 AM CDT us Mirella Robbins MD PhD LAB BLOOD ORDERABLES Final Result Performing Organization Address City/[facility]/[place] [address] * Magnesium (04/10/2025 7:40 AM CDT) Magnesium 2.1 1.4 - 2.5 mg/dL Blood 04/10/2025 7:40 AM CDT 04/10/2025 7:48 AM CDT Mirella Robbins MD PhD LAB BLOOD ORDERABLES Final Result Performing Organization Address [facility] de Phone Number [facility] [place] [place] [address] * Lipase (04/10/2025 7:40 AM CDT) Lipase 87 10 - 99 Units/L Blood 04/10/2025 7:40 AM CDT 04/10/2025 7:48 AM CDT Mirella Robbins MD PhD LAB BLOOD ORDERABLES Final Result Performing Organization Address [facility] [place] [address] * (ABNORMAL) CEA (04/10/2025 7:40 AM CDT) CEA 31.8(H) <=5.0 ng/mL Comment: Interpretive Data: Reference Range: Non-Smokers: 0.0 5.0 ng/mL Smokers: 0.0 6.5 ng/mL The Shae CEA assay procedure was used. Results from different manufacturers or methods may not be comparable. Serial testing should be performed using the same method. Current interpretive data was last revised 2021. Blood 04/10/2025 7:40 AM CDT 04/10/2025 8:10 AM CDT Mirella Robbins MD PhD LAB BLOOD ORDERABLES Final Result Performing Organization Address [facility] [place] [address] * Amylase (04/10/2025 7:40 AM CDT) Amylase 83 30 - 99 Units/L Blood 04/10/2025 7:40 AM CDT 04/10/2025 7:48 AM CDT Mirella Robbins MD PhD LAB BLOOD ORDERABLES Final Result [facility] One [facility] Department [place] [address] * Comprehensive metabolic panel (04/10/2025 7:40 AM CDT) Sodium 143 135 - 145 mmol/L Potassium, pl 4.6 3.3 - 4.9 mmol/L [facility] Chloride 106 97 - 110 mmol/L [facility] CO2 30 22 - 32 mmol/L [facility] Anion gap 7 2 - 15 mmol/L [facility] BUN 15 6 - 25 mg/dL [facility] Creatinine 0.99 0.60 - 1.10 mg/dL [facility] Glucose 99 70 - 199 mg/dL [facility] Comment: Interpretive Data Fasting glucose >/= [...] interpretive data was last revised 2022. Calcium 9.4 8.5 - 10.3 mg/dL [facility] Bilirubin, total 0.2 0.1 - 1.2 mg/dL [facility] Protein, pl 6.5 6.5 - 8.5 g/dL [facility] Albumin 3.7 3.5 - 5.0 g/dL [facility] Alk phos 103 40 - 130 Units/L [facility] ALT 8 7 - 45 Units/L [facility] AST 18 10 - 45 Units/L [facility] Blood 04/10/2025 7:40 AM CDT 04/10/2025 7:48 AM CDT Mirella Robbins MD PhD LAB BLOOD ORDERABLES Final Result [facility] Department [place] [address] * (ABNORMAL) Differential, auto (04/04/2025 10:35 AM CDT) Neutrophil abs 7.98(H) 1.50 - 6.50 K/cumm Comment:Testing performed by : [facility], [address] [place] [address] Lymphocyte abs 0.69(L) 0.80 - 3.30 K/cumm [facility] Comment:Testing performed by : [facility], [address] [place] [address] Monocyte abs 0.65 0.20 - 0.80 K/cumm [facility] Comment:Testing performed by : [facility], [address] [place], [place] [phone] Eosinophil abs 0.09 0.00 - 0.50 K/cumm [facility] Comment:Testing performed by : [facility], [address] [place] [phone] Basophil abs 0.06 0.00 - 0.10 K/cumm [facility] Comment:Testing performed by : [facility], [address] [place] [phone] Neutrophil pct 84.3 % [facility] Comment: Interpretive Data Percent cell count reference ranges are not reported, since discordance with absolute values may lead to misinterpretation of CBC data. Current Interpretive Data was last revised on 2017. Testing performed by: [facility], [address] [place] [phone] Lymphocyte pct 7.3 % [facility] Comment: Interpretive Data Percent cell count reference ranges are not reported, since discordance with absolute values may lead to misinterpretation of CBC data. Current Interpretive Data was last revised on 2017. Testing performed by: [facility], [address] [place] [phone] Monocyte pct 6.9 % [facility] Comment: Interpretive Data Percent cell count reference ranges are not reported, since discordance with absolute values may lead to misinterpretation of CBC data. Current Interpretive Data was last revised on 2017. Testing performed by: [facility], [address] [place] [phone] Eosinophil pct 1.0 % [facility] Comment: Interpretive Data Percent cell count reference ranges are not reported, since discordance with absolute values may lead to misinterpretation of CBC data. Current Interpretive Data was last revised on 2017. Testing performed by: [facility], [address] [place] [phone] Basophil pct 0.6 % [facility] Comment: Interpretive Data Percent cell count reference ranges are not reported, since discordance with absolute values may lead to misinterpretation of CBC data. Current Interpretive Data was last revised on 2017. Testing performed by: [facility], [address] [place] [phone] Blood 04/04/2025 10:3 5 AM CDT 04/04/2025 10:42 AM CDT us Mirella Robbins MD PhD LAB BLOOD ORDERABLES Final Result [facility] Department [place] [address] * (ABNORMAL) CBC with auto differential (04/04/2025 10:35 AM CDT) WBC 9.47 3.80 - 9.90 K/cumm Comment:Testing performed by : [facility], [address] [place] [phone] Hgb 11.4(L) 11.9 - 15.5 g/dL [facility] Comment:Testing performed by : [facility], [address] [place], [place] [phone] Hct 33.1(L) 35.6 - 45.5 % [facility] Comment:Testing performed by : [facility], [address] [place], [place] [phone] Plt 149(L) 150 - 400 K/cumm [facility] Comment:Testing performed by : [facility], [address] [place], [place] [phone] MPV 7.7 6.8 - 10.4 fL [facility] Comment:Testing performed by : [facility], [address] [place], [place] [phone] RBC 3.37(L) 3.90 - 5.20 M/cumm [facility] Comment:Testing performed by : [facility], [address] [place], [place] [phone] MCV 98.4(H) 81.3 - 96.4 fL [facility] Comment:Testing performed by : [facility], [address] [place], [place] [phone] MCH 33.8(H) 27.1 - 33.3 pg [facility] Comment:Testing performed by : [facility], [address] [place], [place] [phone] MCHC 34.4 32.3 - 35.7 g/dL [facility] Comment:Testing performed by : [facility], [address] [place], [place] [phone] RDW CV 16.5(H) 11.1 - 14.9 % [facility] Comment:Testing performed by : [facility], [address] [place], [place] [phone] NRBC abs 0.00 0.00 - 0.01 K/cumm [facility] Comment:Testing performed by : [facility], [address] [place], [place] [phone] Blood 04/04/2025 10:3 5 AM CDT 04/04/2025 10:42 AM CDT us Mirella Robbins MD PhD LAB BLOOD ORDERABLES Final Result Performing Organization Address [facility] Co de Phone Number [facility] Department [place] [address] * eGFR (04/04/2025 10:34 AM CDT) eGFR 74 >=60 mL/min/1. 73 m2 Comment: Interpretive Data [...] interpretive data was last reviewed 2021. Blood 04/04/2025 10:3 4 AM CDT 04/04/2025 10:48 AM CDT us Mirella Robbins MD PhD LAB BLOOD ORDERABLES Final Result Performing Organization Address City/[facility] Co de Phone Number [facility] [place] [address] * (ABNORMAL) Comprehensive metabolic panel (04/04/2025 10:34 AM CDT) Sodium 144 135 - 145 mmol/L Potassium, pl 4.4 3.3 - 4.9 mmol/L [facility] Chloride 106 97 - 110 mmol/L [facility] CO2 30 22 - 32 mmol/L [facility] Anion gap 8 2 - 15 mmol/L [facility] BUN 12 6 - 25 mg/dL [facility] Creatinine 0.82 0.60 - 1.10 mg/dL [facility] Glucose 122 70 - 199 mg/dL [facility] Comment: Interpretive Data Fasting glucose >/= [...] 2022. Calcium 9.6 8.5 - 10.3 mg/dL [facility] Bilirubin, total 0.3 0.1 - 1.2 mg/dL [facility] Protein, pl 6.4(L) 6.5 - 8.5 g/dL [facility] Albumin 3.6 3.5 - 5.0 g/dL [facility] Alk phos 106 40 - 130 Units/L [facility] ALT 10 7 - 45 Units/L [facility] AST 23 10 - 45 Units/L [facility] Blood 04/04/2025 10:3 4 AM CDT 04/04/2025 10:48 AM CDT us Mirella Robbins MD PhD LAB BLOOD ORDERABLES Final Result [facility] Department [place] [address] * eGFR (04/03/2025 7:53 AM CDT) eGFR 71 >=60 mL/min/1. 73 m2 Comment: Interpretive Data [...] interpretive data was last reviewed 2021. Blood 04/03/2025 7:53 AM CDT 04/03/2025 7:57 AM CDT us Mirella Robbins MD PhD LAB BLOOD ORDERABLES Final Result [facility] Department [place] [address] * (ABNORMAL) Differential, auto (04/03/2025 7:53 AM CDT) Neutrophil abs 0.84(L) 1.50 - 6.50 K/cumm Comment:Testing performed by : [facility], [address] [place] [address] Lymphocyte abs 1.72 0.80 - 3.30 K/cumm [facility] Comment:Testing performed by : [facility], [address] [place] [address] Monocyte abs 0.25 0.20 - 0.80 K/cumm [facility] Comment:Testing performed by : [facility], [address] [place] [address] Eosinophil abs 0.14 0.00 - 0.50 K/cumm [facility] Comment:Testing performed by : [facility], [address] [place] [address] Basophil abs 0.02 0.00 - 0.10 K/cumm [facility] Comment:Testing performed by : [facility], [address] [place] [phone] Neutrophil pct 28.3 % [facility] Comment: Interpretive Data Percent cell count reference ranges are not reported, since discordance with absolute values may lead to misinterpretation of CBC data. Current Interpretive Data was last revised on 2017. Testing performed by: [facility], [address] [place] [phone] Lymphocyte pct 58.1 % [facility] Comment: Interpretive Data Percent cell count reference ranges are not reported, since discordance with absolute values may lead to misinterpretation of CBC data. Current Interpretive Data was last revised on 2017. Testing performed by: [facility], [address] [place] [phone] Monocyte pct 8.4 % [facility] Comment: Interpretive Data Percent cell count reference ranges are not reported, since discordance with absolute values may lead to misinterpretation of CBC data. Current Interpretive Data was last revised on 2017. Testing performed by: [facility], [address] [place] [phone] Eosinophil pct 4.6 % [facility] Comment: Interpretive Data Percent cell count reference ranges are not reported, since discordance with absolute values may lead to misinterpretation of CBC data. Current Interpretive Data was last revised on 2017. Testing performed by: [facility], [address] [place] [phone] Basophil pct 0.5 % [facility] Comment: Interpretive Data Percent cell count reference ranges are not reported, since discordance with absolute values may lead to misinterpretation of CBC data. Current Interpretive Data was last revised on 2017. Testing performed by: [facility], [address] [place] [phone] Blood 04/03/2025 7:53 AM CDT 04/03/2025 7:55 AM CDT us Mirella Robbins MD PhD LAB BLOOD ORDERABLES Final Result [facility] Department [place] [address] * (ABNORMAL) CBC with auto differential (04/03/2025 7:53 AM CDT) WBC 2.95(L) 3.80 - 9.90 K/cumm Comment:Testing performed by : [facility], [address] [place] [address] Hgb 11.0(L) 11.9 - 15.5 g/dL [facility] Comment:Testing performed by : [facility], [address] [place] [address] Hct 32.1(L) 35.6 - 45.5 % [facility] Comment:Testing performed by : [facility], [address] [place], [place] [phone] Plt 148(L) 150 - 400 K/cumm [facility] Comment:Testing performed by : [facility], [address] [place] [address] MPV 7.3 6.8 - 10.4 fL [facility] Comment:Testing performed by : [facility], [address] [place] [address] RBC 3.25(L) 3.90 - 5.20 M/cumm [facility] Comment:Testing performed by : [facility], [address] [place] [address] MCV 98.7(H) 81.3 - 96.4 fL [facility] Comment:Testing performed by : [facility], [address] [place] [address] MCH 33.8(H) 27.1 - 33.3 pg [facility] Comment:Testing performed by : [facility], [address] [place] [address] MCHC 34.2 32.3 - 35.7 g/dL [facility] Comment:Testing performed by : [facility], [address] [place] [address] RDW CV 16.5(H) 11.1 - 14.9 % [facility] Comment:Testing performed by : [facility], [address] [place] [phone] NRBC abs 0.00 0.00 - 0.01 K/cumm [facility] Comment:Testing performed by : [facility], [address] [place] [phone] Blood 04/03/2025 7:53 AM CDT 04/03/2025 7:55 AM CDT Mirella Robbins MD PhD LAB BLOOD ORDERABLES Final Result Performing Organization Address [facility] de Phone Number [facility] [place] [place] [address] * aPTT (04/03/2025 7:53 AM CDT) aPTT 29 26 - 38 sec Comment: Interpretive Data Heparin therapeutic range: 66.0 - 100.0 seconds. Range based on correlation with therapeutic heparin activity range of 0.3 - 0.7 Units/mL. Current interpretive data was last revised on 2023. Blood 04/03/2025 7:53 AM CDT 04/03/2025 8:19 AM CDT Mirella Robbins MD PhD LAB BLOOD ORDERABLES Final Result Performing Organization Address [facility] de Phone Number [facility] [place] [place] [address] * (ABNORMAL) Protime-INR (04/03/2025 7:53 AM CDT) PT 9.7(L) 10.2 - 13.5 sec INR 0.86(L) 0.90 - 1.20 [facility] Comment: Interpretive data Oral anticoagulant therapeutic ranges: Venous thromboembolism prophylaxis or treatment: 2.0-3.0 CARDIOLOGY Standard range: 2.0-3.0 High-intensity range: 2.5-3.5 Refer to indication-specific guidelines for appropriate target ranges for prosthetic heart valve replacement. Current interpretive data was last revised on 2019. Blood 04/03/2025 7:53 AM CDT 04/03/2025 8:19 AM CDT Mirella Robbins MD PhD LAB BLOOD ORDERABLES Final Result Performing Organization Address [facility] Co de Phone Number [facility] [place] [address] * Reticulocyte Count (04/03/2025 7:53 AM CDT) Retics, absolute 36 20 - 100 K/cumm Comment:Testing performed by : [facility], [address] [place] [phone] Retics 1.1 0.5 - 1.8 % [facility] Comment:Testing performed by : [facility], [address] [place] [phone] Blood 04/03/2025 7:53 AM CDT 04/03/2025 7:55 AM CDT Mirella Robbins MD PhD LAB BLOOD ORDERABLES Final Result Performing Organization Address [facility] [place] [address] * Uric acid (04/03/2025 7:53 AM CDT) Uric acid 4.0 2.5 - 7.0 mg/dL Blood 04/03/2025 7:53 AM CDT 04/03/2025 7:57 AM CDT us Mirella Robbins MD PhD LAB BLOOD ORDERABLES Final Result Performing Organization Address City/[facility] Co de Phone Number [facility] [place] [address] * Phosphorus (04/03/2025 7:53 AM CDT) [facility] Phosphorus, pl 2.7 2.3 - 4.5 mg/dL Blood 04/03/2025 7:53 AM CDT 04/03/2025 7:57 AM CDT us Mirella Robbins MD PhD LAB BLOOD ORDERABLES Final Result Performing Organization Address [facility] de Phone Number [facility] [place] [address] * Magnesium (04/03/2025 7:53 AM CDT) [facility] Magnesium 1.9 1.4 - 2.5 mg/dL Blood 04/03/2025 7:53 AM CDT 04/03/2025 7:57 AM CDT Mirella Robbins MD PhD LAB BLOOD ORDERABLES Final Result Performing Organization Address [facility] de Phone Number [facility] [place] [address] * Lipase (04/03/2025 7:53 AM CDT) [facility] Lipase 67 10 - 99 Units/L Blood 04/03/2025 7:53 AM CDT 04/03/2025 7:57 AM CDT Mirella Robbins MD PhD LAB BLOOD ORDERABLES Final Result Performing Organization Address [facility] de Phone Number [facility] [place] [address] * (ABNORMAL) CEA (04/03/2025 7:53 AM CDT) [facility] CEA 37.7(H) <=5.0 ng/mL Comment: Interpretive Data: Reference Range: Non-Smokers: 0.0 5.0 ng/mL Smokers: 0.0 6.5 ng/mL The Shae CEA assay procedure was used. Results from different manufacturers or methods may not be comparable. Serial testing should be performed using the same method. Current interpretive data was last revised 2021. Blood 04/03/2025 7:53 AM CDT 04/03/2025 8:19 AM CDT Mirella Robbins MD PhD LAB BLOOD ORDERABLES Final Result Performing Organization Address [facility] Co de Phone Number [facility] [place] [address] * Amylase (04/03/2025 7:53 AM CDT) Pathologist [facility] Amylase 75 30 - 99 Units/L Blood 04/03/2025 7:53 AM CDT 04/03/2025 7:57 AM CDT Mirella Robbins MD PhD LAB BLOOD ORDERABLES Final Result Performing Organization Address [facility] de Phone Number [facility] [place] [address] * (ABNORMAL) Comprehensive metabolic panel (04/03/2025 7:53 AM CDT) Pathologist [facility] Sodium 143 135 - 145 mmol/L Potassium, pl 4.0 3.3 - 4.9 mmol/L [facility] Chloride 106 97 - 110 mmol/L [facility] CO2 28 22 - 32 mmol/L [facility] Anion gap 9 2 - 15 mmol/L [facility] BUN 13 6 - 25 mg/dL [facility] Creatinine 0.85 0.60 - 1.10 mg/dL [facility] Glucose 152 70 - 199 mg/dL [facility] Comment: Interpretive Data Fasting glucose >/= [...] 2022. Calcium 9.3 8.5 - 10.3 mg/dL [facility] Bilirubin, total 0.2 0.1 - 1.2 mg/dL [facility] Protein, pl 6.3(L) 6.5 - 8.5 g/dL [facility] Albumin 3.6 3.5 - 5.0 g/dL [facility] Alk phos 101 40 - 130 Units/L [facility] ALT 10 7 - 45 Units/L [facility] AST 24 10 - 45 Units/L [facility] Blood 04/03/2025 7:53 AM CDT 04/03/2025 7:57 AM CDT us Mirella Robbins MD PhD LAB BLOOD ORDERABLES Final Result [facility] Department [place] [address] * (ABNORMAL) Urinalysis reflex to microscopic and culture Urine (04/03/2025 7:42 AM CDT) Color, ur Yellow Yellow Clarity, ur Clear Clear [facility] Specific gravity, ur 1.022 1.003 - 1.030 [facility] pH, urine 6.0 [facility] Comment: Interpretive Data U rine pH is affected by diet, medications, systemic acid-base disturbances, and renal tubular function. pH may affect urinary stone formation. For example, urine pH below 6.0 may help reduce the tendency for calcium phosphate stones and pH greater than 6.0 may reduce the tendency for uric acid stone formation. Source: [employer] Current Interpretive Data was last revised on 2017 Protein, ur ql Trace Negative [facility] Glucose, ur ql Negative Negative [facility] Ketones, ur Negative Negative [facility] Bilirubin, ur Negative Negative [facility] Blood, ur Negative Negative [facility] Urobilinogen, ur <2.0 <2.0 mg/dL [facility] Nitrite, ur Negative Negative [facility] Leukocyte esterase, ur 1+(A) [facility] UA reflex comment Reflex to microscopic UA will be performed. [facility] Urine 04/03/2025 7:42 AM CDT 04/03/2025 9:30 AM CDT Mirella Robbins MD PhD LAB MICROBIOLOGY - GENERAL ORDERABLES Final Result Performing Organization Address [facility] Co de Phone Number [facility] Department [place] [address] * (ABNORMAL) Urinalysis, microscopic only (04/03/2025 7:42 AM CDT) WBC, ur 0-5 0 - 5 /HPF RBC, ur 3-5(A) 0 - 2 /HPF [facility] Epithelial cells, squamous, ur 6-10(A) 0 - 5 /HPF [facility] Epithelial cells, transitional, ur 1-5 0 - 0 /HPF [facility] Bacteria, ur Trace(A) [facility] Mucous, ur Present(A) [facility] Hyaline casts, ur 1-5 0 - 10 /LPF [facility] Culture Reflex Comment Reflex conditions for urine culture (WBC >10) not met. [facility] Urine 04/03/2025 7:42 AM CDT 04/03/2025 9:30 AM CDT us Mirella Robbins MD PhD LAB URINE ORDERABLES Final Result Performing Organization Address [facility] de Phone Number [facility] Department [place] [address] * eGFR (03/27/2025 7:19 AM CDT) eGFR 65 >=60 mL/min/1. 73 m2 Comment: [...] interpretive data was last reviewed 2021. Blood 03/27/2025 7:19 AM CDT 03/27/2025 7:22 AM CDT us Mirella Robbins MD PhD LAB BLOOD ORDERABLES Final Result [facility] One [facility] Department [place] [address] * Differential, auto (03/27/2025 7:19 AM CDT) Neutrophil abs 1.70 1.50 - 6.50 K/cumm Comment:Testing performed by : [facility], [address] [place] [phone] Lymphocyte abs 2.43 0.80 - 3.30 K/cumm [facility] Comment:Testing performed by : [facility], [address] [place], [place] [phone] Monocyte abs 0.37 0.20 - 0.80 K/cumm [facility] Comment:Testing performed by : [facility], [address] [place], [place] [phone] Eosinophil abs 0.21 0.00 - 0.50 K/cumm [facility] Comment:Testing performed by : [facility], [address] [place] [phone] Basophil abs 0.02 0.00 - 0.10 K/cumm [facility] Comment:Testing performed by : [facility], [address] [place] [phone] Neutrophil pct 35.9 % CERVERONIKA BJ Comment: Interpretive Data Percent cell count reference ranges are not reported, since discordance with absolute values may lead to misinterpretation of CBC data. Current Interpretive Data was last revised on 2017. Testing performed by: [facility], [address] [place] [phone] Lymphocyte pct 51.4 % CERVERONIKA ACOSTA Comment: Interpretive Data Percent cell count reference ranges are not reported, since discordance with absolute values may lead to misinterpretation of CBC data. Current Interpretive Data was last revised on 2017. Testing performed by: [facility], [address] [place] [phone] Monocyte pct 7.8 % CERVERONIKA ACOSTA Comment: Interpretive Data Percent cell count reference ranges are not reported, since discordance with absolute values may lead to misinterpretation of CBC data. Current Interpretive Data was last revised on 2017. Testing performed by: [facility], [address] [place] [phone] Eosinophil pct 4.4 % CERVERONIKA ACOSTA Comment: Interpretive Data Percent cell count reference ranges are not reported, since discordance with absolute values may lead to misinterpretation of CBC data. Current Interpretive Data was last revised on 2017. Testing performed by: [facility], [address] [place] [phone] Basophil pct 0.5 % CERVERONIKA ACOSTA Comment: Interpretive Data Percent cell count reference ranges are not reported, since discordance with absolute values may lead to misinterpretation of CBC data. Current Interpretive Data was last revised on 2017. Testing performed by: [facility], [address] [place] [phone] Blood 03/27/2025 7:19 AM CDT 03/27/2025 7:21 AM CDT us Mirella Robbins MD PhD LAB BLOOD ORDERABLES Final Result [facility] ACO[facility] Department [place] [address] * (ABNORMAL) CBC with auto differential (03/27/2025 7:19 AM CDT) WBC 4.72 3.80 - 9.90 K/cumm Comment:Testing performed by : [facility], [address] [place] [address] Hgb 11.8(L) 11.9 - 15.5 g/dL CERVERONIKA ACOSTA Comment:Testing performed by : [facility], [address] [place] [address] Hct 34.7(L) 35.6 - 45.5 % [facility]STA Comment:Testing performed by : [facility], [address] [place] [address] Plt 173 150 - 400 K/cumm [facility] Comment:Testing performed by : [facility], [address] [place] [address] MPV 7.3 6.8 - 10.4 fL [facility] Comment:Testing performed by : [facility], [address] [place] [address] RBC 3.53(L) 3.90 - 5.20 M/cumm [facility] Comment:Testing performed by : [facility], [address] [place] [address] MCV 98.3(H) 81.3 - 96.4 fL CERVERONIKA ACOSTA Comment:Testing performed by : [facility], [address] [place] [address] MCH 33.4(H) 27.1 - 33.3 pg CERVERONIKA ACOSTA Comment:Testing performed by : [facility], [address] [place] [address] MCHC 34.0 32.3 - 35.7 g/dL [facility] Comment:Testing performed by : [facility], [address] [place] [address] RDW CV 16.6(H) 11.1 - 14.9 % [facility] Comment:Testing performed by : [facility], [address] [place] [phone] NRBC abs 0.00 0.00 - 0.01 K/cumm [facility] Comment:Testing performed by : [facility], [address] [place] [phone] Blood 03/27/2025 7:19 AM CDT 03/27/2025 7:21 AM CDT Mirella Robbins MD PhD LAB BLOOD ORDERABLES Final Result Performing Organization Address [facility] de Phone Number [facility] [place] [address] * aPTT (03/27/2025 7:19 AM CDT) aPTT 28 26 - 38 sec Comment: Interpretive Data Heparin therapeutic range: 66.0 - 100.0 seconds. Range based on correlation with therapeutic heparin activity range of 0.3 - 0.7 Units/mL. Current interpretive data was last revised on 2023. Blood 03/27/2025 7:19 AM CDT 03/27/2025 7:50 AM CDT Mirella Robbins MD PhD LAB BLOOD ORDERABLES Final Result Performing Organization Address [facility] de Phone Number [facility] [place] [address] * (ABNORMAL) Protime-INR (03/27/2025 7:19 AM CDT) PT 9.6(L) 10.2 - 13.5 sec INR 0.85(L) 0.90 - 1.20 [facility] Comment: Interpretive data Oral anticoagulant therapeutic ranges: Venous thromboembolism prophylaxis or treatment: 2.0-3.0 CARDIOLOGY Standard range: 2.0-3.0 High-intensity range: 2.5-3.5 Refer to indication-specific guidelines for appropriate target ranges for prosthetic heart valve replacement. Current interpretive data was last revised on 2019. Blood 03/27/2025 7:19 AM CDT 03/27/2025 7:50 AM CDT us Mirella Robbins MD PhD LAB BLOOD ORDERABLES Final Result Performing Organization Address [facility] Co de Phone Number [facility] [place] [address] * Reticulocyte Count (03/27/2025 7:19 AM CDT) Retics, absolute 44 20 - 100 K/cumm Comment:Testing performed by : [facility], [address] [place] [phone] Retics 1.2 0.5 - 1.8 % [facility] Comment:Testing performed by : [facility], [address] [place] [phone] Blood 03/27/2025 7:19 AM CDT 03/27/2025 7:21 AM CDT us Mirella Robbins MD PhD LAB BLOOD ORDERABLES Final Result Performing Organization Address [facility] de Phone Number [facility] [place] [address] * Uric acid (03/27/2025 7:19 AM CDT) Uric acid 4.1 2.5 - 7.0 mg/dL Blood 03/27/2025 7:19 AM CDT 03/27/2025 7:22 AM CDT us Mirella Robbins MD PhD LAB BLOOD ORDERABLES Final Result Performing Organization Address City/[facility] Co de Phone Number [facility] [place] [address] * Phosphorus (03/27/2025 7:19 AM CDT) Phosphorus, pl 3.5 2.3 - 4.5 mg/dL Blood 03/27/2025 7:19 AM CDT 03/27/2025 7:22 AM CDT Mirella Robbins MD PhD LAB BLOOD ORDERABLES Final Result Performing Organization Address [facility] Co de Phone Number [facility] [place] [address] * Magnesium (03/27/2025 7:19 AM CDT) Pathologist [facility] Magnesium 2.0 1.4 - 2.5 mg/dL Blood 03/27/2025 7:19 AM CDT 03/27/2025 7:22 AM CDT Mirella Robbins MD PhD LAB BLOOD ORDERABLES Final Result Performing Organization Address [facility] Co de Phone Number [facility] [place] [address] * Lipase (03/27/2025 7:19 AM CDT) Pathologist [facility] Lipase 55 10 - 99 Units/L Blood 03/27/2025 7:19 AM CDT 03/27/2025 7:22 AM CDT Mirella Robbins MD PhD LAB BLOOD ORDERABLES Final Result Performing Organization Address [facility] [place] [address] * Amylase (03/27/2025 7:19 AM CDT) Amylase 75 30 - 99 Units/L Blood 03/27/2025 7:19 AM CDT 03/27/2025 7:22 AM CDT Mirella Robbins MD PhD LAB BLOOD ORDERABLES Final Result [facility] Department [place] [address] * Comprehensive metabolic panel (03/27/2025 7:19 AM CDT) Sodium 140 135 - 145 mmol/L Potassium, pl 4.5 3.3 - 4.9 mmol/L [facility] Chloride 105 97 - 110 mmol/L [facility] CO2 27 22 - 32 mmol/L [facility] Anion gap 8 2 - 15 mmol/L [facility] BUN 17 6 - 25 mg/dL [facility] Creatinine 0.92 0.60 - 1.10 mg/dL [facility] Glucose 126 70 - 199 mg/dL [facility] Comment: Interpretive Data Fasting glucose >/= [...] 2022. Calcium 9.6 8.5 - 10.3 mg/dL [facility] Bilirubin, total 0.2 0.1 - 1.2 mg/dL [facility] Protein, pl 6.8 6.5 - 8.5 g/dL [facility] Albumin 3.8 3.5 - 5.0 g/dL [facility] Alk phos 123 40 - 130 Units/L CERNER [facility] ALT 13 7 - 45 Units/L [facility] AST 27 10 - 45 Units/L [facility] Blood 03/27/2025 7:19 AM CDT 03/27/2025 7:22 AM CDT Result [facility] Mirella Robbins MD PhD LAB BLOOD ORDERABLES Final Result Performing Organization Address [facility] Co de Phone Number [facility] [place] [address] * SCAN - LABS (03/23/2025) Provider Scanning Final Result * aPTT (03/21/2025 10:26 AM CDT) aPTT 29 26 - 38 sec Comment: Interpretive Data Heparin therapeutic range: 66.0 - 100.0 seconds. Range based on correlation with therapeutic heparin activity range of 0.3 - 0.7 Units/mL. Current interpretive data was last revised on 2023. Blood 03/21/2025 10:2 6 AM CDT 03/21/2025 10:45 AM CDT Result [facility] Mirella Robbins MD PhD LAB BLOOD ORDERABLES Final Result Performing Organization Address [facility] de Phone Number [facility] [place] [address] * (ABNORMAL) Protime-INR (03/21/2025 10:26 AM CDT) PT 10.1(L) 10.2 - 13.5 sec INR 0.89(L) 0.90 - 1.20 [facility] Comment: Interpretive data Oral anticoagulant therapeutic [...] BLOOD ORDERABLES Final Result Performing Organization Address [facility] Co de Phone Number [facility] ACOSTA [facility] Department [place] [address] * eGFR (03/21/2025 8:44 AM CDT) eGFR [...] BLOOD ORDERABLES Final Result Performing Organization Address [facility] de Phone Number [facility] ACO[facility] Department [place] [address] * (ABNORMAL) Differential, auto (03/21/2025 8:44 AM CDT) Neutrophil abs 1.12(L) 1.50 - 6.50 K/cumm Comment:Testing performed by : [facility], [address] [place] [phone] Lymphocyte abs 1.89 0.80 - 3.30 K/cumm [facility] Comment:Testing performed by : [facility], [address] [place] [phone] Monocyte abs 0.32 0.20 - 0.80 K/cumm [facility] Comment:Testing performed by : [facility], [facility] [place] [address] Eosinophil abs 0.28 0.00 - 0.50 K/cumm [facility] Comment:Testing performed by : [facility], [address] [place] [phone] Basophil abs 0.02 0.00 - 0.10 K/cumm [facility] Comment:Testing performed by : [facility], [address] [place] [phone] Neutrophil pct 30.8 % [facility] Comment: Interpretive Data Percent cell count reference ranges are not reported, since discordance with absolute values may lead to misinterpretation of CBC data. Current Interpretive Data was last revised on 2017. Testing performed by: [facility], [address] [place] [phone] Lymphocyte pct 52.0 % [facility] Comment: Interpretive Data Percent cell count reference ranges are not reported, since discordance with absolute values may lead to misinterpretation of CBC data. Current Interpretive Data was last revised on 2017. Testing performed by: [facility], [address] [place] [phone] Monocyte pct 8.9 % [facility] Comment: Interpretive Data Percent cell count reference ranges are not reported, since discordance with absolute values may lead to misinterpretation of CBC data. Current Interpretive Data was last revised on 2017. Testing performed by: [facility], [facility] [place] [phone] Eosinophil pct 7.8 % [facility] Comment: Interpretive Data Percent cell count reference ranges are not reported, since discordance with absolute values may lead to misinterpretation of CBC data. Current Interpretive Data was last revised on 2017. Testing performed by: [facility], [address] [place] [phone] Basophil pct 0.5 % [facility] Comment: Interpretive Data Percent cell count reference ranges are not reported, since discordance with absolute values may lead to misinterpretation of CBC data. Current Interpretive Data was last revised on 2017. Testing performed by: [facility], [address] [place] [phone] Blood 03/21/2025 8:44 AM CDT 03/21/2025 8:55 AM CDT Mirella Robbins MD PhD LAB BLOOD ORDERABLES Final Result Performing Organization Address [facility] Co de Phone Number [facility] Department [place] [address] * Critical Result Callback Hematology (03/21/2025 8:44 AM CDT) Date Notified [id number] Time Notified 949 [facility] TestName aPTT [facility] Called/Read Back Emy CONRAD [facility] Credentials [place] [facility] Called By [facility] Blood 03/21/2025 8:44 AM CDT 03/21/2025 9:04 AM CDT Mirella Robbins MD PhD LAB BLOOD ORDERABLES Final Result Performing Organization Address [facility] Co de Phone Number [facility] Department [place] [address] * (ABNORMAL) CBC with auto differential (03/21/2025 8:44 AM CDT) WBC 3.63(L) 3.80 - 9.90 K/cumm Comment:Testing performed by : [facility], [address] [place] [phone] Hgb 11.8(L) 11.9 - 15.5 g/dL [facility] Comment:Testing performed by : [facility], [address] [place] [phone] Hct 34.8(L) 35.6 - 45.5 % [facility] Comment:Testing performed by : [facility], [address] [place] [address] Plt 138(L) 150 - 400 K/cumm CERVERONIKA BJ Comment:Testing performed by : [facility], [address] [place] [address] MPV 7.8 6.8 - 10.4 fL [facility]ERV[facility]IKA [facility] Comment:Testing performed by : [facility], [address] [place], [place] [phone] RBC 3.52(L) 3.90 - 5.20 M/cumm CERVERONIKA [facility] Comment:Testing performed by : [facility], [address] [place], [place] [phone] MCV 98.7(H) 81.3 - 96.4 fL CERVERONIKA BJ Comment:Testing performed by : [facility], [address] [place], [place] [phone] MCH 33.5(H) 27.1 - 33.3 pg CERVERONIKA BJ Comment:Testing performed by : [facility], [address] [place] [address] MCHC 33.9 32.3 - 35.7 g/dL CERVERONIKA [facility]J Comment:Testing performed by : [facility], [address] [place] [address] RDW CV 17.2(H) 11.1 - 14.9 % CERVERONIKA BJ Comment:Testing performed by : [facility], [address] [place] [address] NRBC abs 0.00 0.00 - 0.01 K/cumm CERVERONIKA BJ Comment:Testing performed by : [facility], [address] [place] [address] Blood 03/21/2025 8:44 AM CDT 03/21/2025 8:55 AM CDT us Mirella Robbins MD PhD LAB BLOOD ORDERABLES Final Result [facility] ACO[facility] [place] [address] * (ABNORMAL) aPTT (03/21/2025 8:44 AM CDT) aPTT >150(C) 28 - 38 sec Comment: No clot detected in sample Repeated and verified - [id number] - 03/21/25, 9:44 AM Interpretive Data Heparin therapeutic range: 66.0 - 100.0 seconds. Range based on correlation with therapeutic heparin activity range of 0.3 - 0.7 Units/mL. Current interpretive data was last revised on 2023. Blood 03/21/2025 8:44 AM CDT 03/21/2025 9:01 AM CDT Mirella Robbins MD PhD LAB BLOOD ORDERABLES Final Result Performing Organization Address [facility] [place] [address] * (ABNORMAL) Protime-INR (03/21/2025 8:44 AM CDT) PT 37.4(H) 10.2 - 13.5 sec INR 3.39(H) 0.90 - 1.20 [facility] Comment: Interpretive data Oral anticoagulant therapeutic ranges: Venous thromboembolism prophylaxis or treatment: 2.0-3.0 CARDIOLOGY Standard range: 2.0-3.0 High-intensity range: 2.5-3.5 Refer to indication-specific guidelines for appropriate target ranges for prosthetic heart valve replacement. Current interpretive data was last revised on 2019. Blood 03/21/2025 8:44 AM CDT 03/21/2025 9:01 AM CDT Mirella Robbins MD PhD LAB BLOOD ORDERABLES Final Result Performing Organization Address [facility] [place] [address] * Reticulocyte Count (03/21/2025 8:44 AM CDT) Pathologist [facility] Retics, absolute 29 20 - 100 K/cumm Comment:Testing performed by : [facility], [address] [place] [phone] Retics 0.8 0.5 - 1.8 % [facility] Comment:Testing performed by : [facility], [address] [place] [phone] Blood 03/21/2025 8:44 AM CDT 03/21/2025 8:55 AM CDT us Mirella Robbins MD PhD LAB BLOOD ORDERABLES Final Result [facility] Department [place] [address] * Uric acid (03/21/2025 8:44 AM CDT) [facility] Uric acid 3.3 2.5 - 7.0 mg/dL Blood 03/21/2025 8:44 AM CDT 03/21/2025 8:50 AM CDT us Mirella Robbins MD PhD LAB BLOOD ORDERABLES Final Result Performing Organization Address [facility]/ZIP Co de Phone Number [facility] Department [place] [address] * Phosphorus (03/21/2025 8:44 AM CDT) Pathologist [facility] Phosphorus, pl 3.4 2.3 - 4.5 mg/dL Blood 03/21/2025 8:44 AM CDT 03/21/2025 8:50 AM CDT us Mirella Robbins MD PhD LAB BLOOD ORDERABLES Final Result [facility] Department [place] [address] * Magnesium (03/21/2025 8:44 AM CDT) [facility] Magnesium 2.0 1.4 - 2.5 mg/dL Blood 03/21/2025 8:44 AM CDT 03/21/2025 8:50 AM CDT Mirella Robbins MD PhD LAB BLOOD ORDERABLES Final Result Performing Organization Address [facility] Co de Phone Number [facility] [place] [address] * Lipase (03/21/2025 8:44 AM CDT) [facility] Lipase 61 10 - 99 Units/L Blood 03/21/2025 8:44 AM CDT 03/21/2025 8:50 AM CDT Mirella Robbins MD PhD LAB BLOOD ORDERABLES Final Result Performing Organization Address [facility] de Phone Number [facility] [place] [address] * Amylase (03/21/2025 8:44 AM CDT) [facility] Amylase 87 30 - 99 Units/L Blood 03/21/2025 8:44 AM CDT 03/21/2025 8:50 AM CDT Mirella Robbins MD PhD LAB BLOOD ORDERABLES Final Result Performing Organization Address [facility] [place] [address] * Comprehensive metabolic panel (03/21/2025 8:44 AM CDT) [facility] Sodium 140 135 - 145 mmol/L Potassium, pl 4.5 3.3 - 4.9 mmol/L [facility] Chloride 103 97 - 110 mmol/L [facility] CO2 30 22 - 32 mmol/L [facility] Anion gap 7 2 - 15 mmol/L [facility] BUN 9 6 - 25 mg/dL [facility] Creatinine 0.87 0.60 - 1.10 mg/dL [facility] Glucose 110 70 - 199 mg/dL [facility] Comment: Interpretive Data Fasting glucose >/= [...] 2022. Calcium 9.5 8.5 - 10.3 mg/dL [facility] Bilirubin, total 0.3 0.1 - 1.2 mg/dL [facility] Protein, pl 6.7 6.5 - 8.5 g/dL [facility] Albumin 3.8 3.5 - 5.0 g/dL [facility] Alk phos 108 40 - 130 Units/L [facility] ALT 12 7 - 45 Units/L [facility] AST 27 10 - 45 Units/L [facility] Blood 03/21/2025 8:44 AM CDT 03/21/2025 8:50 AM CDT us Mirella Robbins MD PhD LAB BLOOD ORDERABLES Final Result [facility] Department [place] [address] * eGFR (03/13/2025 10:25 AM CDT) eGFR 70 >=60 mL/min/1. 73 m2 Comment: [...] 5 AM CDT 03/13/2025 10:33 AM CDT us Mirella Robbins MD PhD LAB BLOOD ORDERABLES Final Result [facility] Department [place] [address] * (ABNORMAL) Differential, auto (03/13/2025 10:25 AM CDT) Neutrophil abs 1.42(L) 1.50 - 6.50 K/cumm Comment:Testing performed by : [facility], [address] [place] [phone] Lymphocyte abs 1.20 0.80 - 3.30 K/cumm [facility] Comment:Testing performed by : [facility], [address] [place] [phone] Monocyte abs 0.33 0.20 - 0.80 K/cumm [facility] Comment:Testing performed by : [facility], [address] [place] [phone] Eosinophil abs 0.12 0.00 - 0.50 K/cumm [facility] Comment:Testing performed by : [facility], [address] [place] [address] Basophil abs 0.02 0.00 - 0.10 K/cumm [facility] Comment:Testing performed by : [facility], [address] [place] [phone] Neutrophil pct 46.0 % [facility] Comment: Interpretive Data Percent cell count reference ranges are not reported, since discordance with absolute values may lead to misinterpretation of CBC data. Current Interpretive Data was last revised on 2017. Testing performed by: [facility], [address] [place] [phone] Lymphocyte pct 39.0 % [facility] Comment: Interpretive Data Percent cell count reference ranges are not reported, since discordance with absolute values may lead to misinterpretation of CBC data. Current Interpretive Data was last revised on 2017. Testing performed by: [facility], [address] [place] [phone] Monocyte pct 10.6 % [facility] Comment: Interpretive Data Percent cell count reference ranges are not reported, since discordance with absolute values may lead to misinterpretation of CBC data. Current Interpretive Data was last revised on 2017. Testing performed by: [facility], [address] [place] [phone] Eosinophil pct 4.0 % [facility] Comment: Interpretive Data Percent cell count reference ranges are not reported, since discordance with absolute values may lead to misinterpretation of CBC data. Current Interpretive Data was last revised on 2017. Testing performed by: [facility], [address] [place] [phone] Basophil pct 0.5 % [facility] Comment: Interpretive Data Percent cell count reference ranges are not reported, since discordance with absolute values may lead to misinterpretation of CBC data. Current Interpretive Data was last revised on 2017. Testing performed by: [facility], [address] [place] [phone] Blood 03/13/2025 10:2 5 AM CDT 03/13/2025 10:32 AM CDT Mirella Robbins MD PhD LAB BLOOD ORDERABLES Final Result [facility] Department [place] [address] * (ABNORMAL) CBC with auto differential (03/13/2025 10:25 AM CDT) WBC 3.09(L) 3.80 - 9.90 K/cumm Comment:Testing performed by : [facility], [address] [place] [address] Hgb 11.7(L) 11.9 - 15.5 g/dL [facility] Comment:Testing performed by : [facility], [address] [place] [address] Hct 34.4(L) 35.6 - 45.5 % [facility] Comment:Testing performed by : [facility], [address] [place] [address] Plt 142(L) 150 - 400 K/cumm [facility]J Comment:Testing performed by : [facility], [address] [place] [address] MPV 7.3 6.8 - 10.4 fL [facility]J Comment:Testing performed by : [facility], [address] [place] [address] RBC 3.49(L) 3.90 - 5.20 M/cumm [facility] BJ Comment:Testing performed by : [facility], [address] [place] [address] MCV 98.8(H) 81.3 - 96.4 fL [facility] Comment:Testing performed by : [facility], [address] [place] [address] MCH 33.6(H) 27.1 - 33.3 pg [facility] Comment:Testing performed by : [facility], [address] [place] [address] MCHC 34.0 32.3 - 35.7 g/dL [facility] Comment:Testing performed by : [facility], [address] [place] [address] RDW CV 18.0(H) 11.1 - 14.9 % [facility] Comment:Testing performed by : [facility], [address] [place] [phone] NRBC abs 0.00 0.00 - 0.01 K/cumm [facility] Comment:Testing performed by : [facility], [address] [place] [phone] Blood 03/13/2025 10:2 5 AM CDT 03/13/2025 10:32 AM CDT Mirella Robbins MD PhD LAB BLOOD ORDERABLES Final Result Performing Organization Address [facility] de Phone Number [facility] [place] [id number] * aPTT (03/13/2025 10:25 AM CDT) aPTT [...] BLOOD ORDERABLES Final Result Performing Organization Address [facility] Co de Phone Number [facility] [place] [address] * (ABNORMAL) Protime-INR (03/13/2025 10:25 AM CDT) PT 10.0(L) 10.2 - 13.5 sec INR 0.88(L) 0.90 - 1.20 [facility] Comment: Interpretive data Oral anticoagulant therapeutic [...] BLOOD ORDERABLES Final Result Performing Organization Address City/[facility] Co de Phone Number [facility] [place] [address] * Reticulocyte Count (03/13/2025 10:25 AM CDT) Pathologist [facility], absolute 34 20 - 100 K/cumm Comment:Testing performed by : [facility], [address] [place] [phone] Retics 1.0 0.5 - 1.8 % [facility] Comment:Testing performed by : [facility], [address] [place] [phone] Blood 03/13/2025 10:2 5 AM CDT 03/13/2025 10:32 AM CDT us Mirella Robbins MD PhD LAB BLOOD ORDERABLES Final Result Performing Organization Address [facility] de Phone Number [facility] Department [place] [address] * Uric acid (03/13/2025 10:25 AM CDT) Pathologist [facility] Uric acid 3.3 2.5 - 7.0 mg/dL Blood 03/13/2025 10:2 5 AM CDT 03/13/2025 10:33 AM CDT us Mirella Robbins MD PhD LAB BLOOD ORDERABLES Final Result Performing Organization Address [facility] [place] [address] * Phosphorus (03/13/2025 10:25 AM CDT) Pathologist [facility] Phosphorus, pl 3.5 2.3 - 4.5 mg/dL Blood 03/13/2025 10:2 5 AM CDT 03/13/2025 10:33 AM CDT Mirella Robbins MD PhD LAB BLOOD ORDERABLES Final Result Performing Organization Address City/[facility] [place] [address] * Magnesium (03/13/2025 10:25 AM CDT) Pathologist [facility] Magnesium 2.1 1.4 - 2.5 mg/dL Blood 03/13/2025 10:2 5 AM CDT 03/13/2025 10:33 AM CDT Mirella Robbins MD PhD LAB BLOOD ORDERABLES Final Result Performing Organization Address City/[facility] [place] [address] * Lipase (03/13/2025 10:25 AM CDT) Pathologist [facility] Lipase 61 10 - 99 Units/L Blood 03/13/2025 10:2 5 AM CDT 03/13/2025 10:33 AM CDT Mirella Robbins MD PhD LAB BLOOD ORDERABLES Final Result Performing Organization Address [facility] [place] [address] * Amylase (03/13/2025 10:25 AM CDT) Pathologist [facility] Amylase 86 30 - 99 Units/L Blood 03/13/2025 10:2 5 AM CDT 03/13/2025 10:33 AM CDT us Mirella Robbins MD PhD LAB BLOOD ORDERABLES Final Result [facility] Department [place] [address] * Comprehensive metabolic panel (03/13/2025 10:25 AM CDT) Sodium 142 135 - 145 mmol/L Potassium, pl 4.6 3.3 - 4.9 mmol/L [facility] Chloride 105 97 - 110 mmol/L [facility] CO2 29 22 - 32 mmol/L [facility] Anion gap 8 2 - 15 mmol/L [facility] BUN 13 6 - 25 mg/dL [facility] Creatinine 0.86 0.60 - 1.10 mg/dL [facility] Glucose 107 70 - 199 mg/dL [facility] Comment: Interpretive Data Fasting glucose >/= [...] 2022. Calcium 9.6 8.5 - 10.3 mg/dL [facility] Bilirubin, total 0.4 0.1 - 1.2 mg/dL [facility] Protein, pl 6.8 6.5 - 8.5 g/dL [facility] Albumin 3.9 3.5 - 5.0 g/dL [facility] Alk phos 108 40 - 130 Units/L [facility] ALT 19 7 - 45 Units/L [facility] AST 25 10 - 45 Units/L [facility] Blood 03/13/2025 10:2 5 AM CDT 03/13/2025 10:33 AM CDT Mirella Robbins MD PhD LAB BLOOD ORDERABLES Final Result Performing Organization Address [facility] [place] [address] * (ABNORMAL) CEA (03/06/2025 11:10 AM CDT) CEA 19.7(H) <=5.0 ng/mL Comment: Interpretive Data: [...] BLOOD ORDERABLES Final Result Performing Organization Address [facility] [place] [address] * (ABNORMAL) Urinalysis reflex to microscopic and culture Urine (03/06/2025 9:23 AM CDT) Color, ur Yellow Yellow Clarity, ur Clear Clear [facility] Specific gravity, ur 1.010 1.003 - 1.030 [facility] pH, urine 6.0 [facility] Comment: Interpretive Data U rine pH is affected by diet, medications, systemic acid-base disturbances, and renal tubular function. pH may affect urinary stone formation. For example, urine pH below 6.0 may help reduce the tendency for calcium phosphate stones and pH greater than 6.0 may reduce the tendency for uric acid stone formation. Source: [facility] [employer] Current Interpretive Data was last revised on 2017 Protein, ur ql Negative Negative [facility] Glucose, ur ql Negative Negative [facility] Ketones, ur Negative Negative [facility] Bilirubin, ur Negative Negative [facility] Blood, ur Negative Negative [facility] Urobilinogen, ur <2.0 <2.0 mg/dL [facility] Nitrite, ur Negative Negative [facility] Leukocyte esterase, ur 1+(A) [facility] UA reflex comment Reflex to microscopic UA will be performed. [facility] Urine 03/06/2025 9:23 AM CDT 03/06/2025 9:23 AM CDT Mirella Robbins MD PhD LAB MICROBIOLOGY - GENERAL ORDERABLES Final Result Performing Organization Address City/[facility]/ZIP Co de Phone Number [facility] Department [place] [address] * (ABNORMAL) Urinalysis, microscopic only (03/06/2025 9:23 AM CDT) WBC, ur 6-10(A) 0 - 5 /HPF RBC, ur 0-2 0 - 2 /HPF [facility] Epithelial cells, squamous, ur 1-5 0 - 5 /HPF [facility] Mucous, ur Present(A) [facility] Culture Reflex Comment Reflex conditions for urine culture (WBC >10) not met. [facility] Urine 03/06/2025 9:23 AM CDT 03/06/2025 9:23 AM CDT us Mirella Robbins MD PhD LAB URINE ORDERABLES Final Result [facility] Department [place] [address] * Differential, auto (03/06/2025 7:29 AM CDT) Neutrophil abs 2.12 1.50 - 6.50 K/cumm Comment:Testing performed by : [facility], [address] [place] [phone] Lymphocyte abs 1.43 0.80 - 3.30 K/cumm [facility] Comment:Testing performed by : [facility], [address] [place] [phone] Monocyte abs 0.51 0.20 - 0.80 K/cumm [facility] Comment:Testing performed by : [facility], [address] [place] [phone] Eosinophil abs 0.14 0.00 - 0.50 K/cumm [facility] Comment:Testing performed by : [facility], [address] [place] [phone] Basophil abs 0.04 0.00 - 0.10 K/cumm [facility] Comment:Testing performed by : [facility], [address] [place] [phone] Neutrophil pct 50.1 % [facility] Comment: Interpretive Data Percent cell count reference ranges are not reported, since discordance with absolute values may lead to misinterpretation of CBC data. Current Interpretive Data was last revised on 2017. Testing performed by: [facility], [address] [place] [phone] Lymphocyte pct 33.8 % [facility] Comment: Interpretive Data Percent cell count reference ranges are not reported, since discordance with absolute values may lead to misinterpretation of CBC data. Current Interpretive Data was last revised on 2017. Testing performed by: [facility], [address] [place] [phone] Monocyte pct 11.9 % [facility] Comment: Interpretive Data Percent cell count reference ranges are not reported, since discordance with absolute values may lead to misinterpretation of CBC data. Current Interpretive Data was last revised on 2017. Testing performed by: [facility], [address] [place] [phone] Eosinophil pct 3.2 % [facility] Comment: Interpretive Data Percent cell count reference ranges are not reported, since discordance with absolute values may lead to misinterpretation of CBC data. Current Interpretive Data was last revised on 2017. Testing performed by: [facility], [address] [place] [phone] Basophil pct 0.9 % [facility] Comment: Interpretive Data Percent cell count reference ranges are not reported, since discordance with absolute values may lead to misinterpretation of CBC data. Current Interpretive Data was last revised on 2017. Testing performed by: [facility], [address] [place] [address] Blood 03/06/2025 7:29 AM CDT 03/06/2025 7:30 AM CDT us Mirella Robbins MD PhD LAB BLOOD ORDERABLES Final Result [facility] Department [place] [address] * (ABNORMAL) CBC with auto differential (03/06/2025 7:29 AM CDT) WBC 4.24 3.80 - 9.90 K/cumm Comment:Testing performed by : [facility], [address] [place] [address] Hgb 11.3(L) 11.9 - 15.5 g/dL [facility] Comment:Testing performed by : [facility], [address] [place] [address] Hct 33.3(L) 35.6 - 45.5 % [facility] Comment:Testing performed by : [facility], [address] [place] [address] Plt 152 150 - 400 K/cumm [facility] Comment:Testing performed by : [facility], [address] [place] [address] MPV 7.8 6.8 - 10.4 fL [facility] Comment:Testing performed by : [facility], [address] [place] [address] RBC 3.35(L) 3.90 - 5.20 M/cumm [facility] Comment:Testing performed by : [facility], [address] [place] [address] MCV 99.5(H) 81.3 - 96.4 fL [facility] Comment:Testing performed by : [facility], [address] [place] [address] MCH 33.8(H) 27.1 - 33.3 pg [facility] Comment:Testing performed by : [facility], [address] [place] [address] MCHC 34.0 32.3 - 35.7 g/dL [facility] Comment:Testing performed by : [facility], [address] [place] [address] RDW CV 18.6(H) 11.1 - 14.9 % [facility] Comment:Testing performed by : [facility], [address] [place] [address] NRBC abs 0.00 0.00 - 0.01 K/cumm [facility] Comment:Testing performed by : [facility], [address] [place] [address] Blood 03/06/2025 7:29 AM CDT 03/06/2025 7:30 AM CDT Mirella Robbins MD PhD LAB BLOOD ORDERABLES Final Result [facility] Department [place] [address] * Reticulocyte Count (03/06/2025 7:29 AM CDT) Retics, absolute 60 20 - 100 K/cumm Comment:Testing performed by : [facility], [address] [place] [address] Retics 1.8 0.5 - 1.8 % [facility] Comment:Testing performed by : [facility], [address] [place] [address] Blood 03/06/2025 7:29 AM CDT 03/06/2025 7:30 AM CDT Mirella Robbins MD PhD LAB BLOOD ORDERABLES Final Result Performing Organization Address [facility] Co de Phone Number [facility] [place] [address] * eGFR (03/06/2025 7:24 AM CDT) eGFR 65 >=60 mL/min/1. 73 m2 Comment: [...] BLOOD ORDERABLES Final Result Performing Organization Address [facility] Co de Phone Number [facility] Department [place] [address] * aPTT (03/06/2025 7:24 AM CDT) aPTT [...] BLOOD ORDERABLES Final Result Performing Organization Address [facility] de Phone Number [facility] [place] [address] * Protime-INR (03/06/2025 7:24 AM CDT) PT 10.4 10.2 - 13.5 sec INR 0.92 0.90 - 1.20 [facility] Comment: Interpretive data Oral anticoagulant therapeutic ranges: Venous thromboembolism prophylaxis or treatment: 2.0-3.0 CARDIOLOGY Standard range: 2.0-3.0 High-intensity range: 2.5-3.5 Refer to indication-specific guidelines for appropriate target ranges for prosthetic heart valve replacement. Current interpretive data was last revised on 2019. Blood 03/06/2025 7:24 AM CDT 03/06/2025 7:38 AM CDT Mirella Robbins MD PhD LAB BLOOD ORDERABLES Final Result Performing Organization Address [facility] [place] [address] * Uric acid (03/06/2025 7:24 AM CDT) Uric acid 4.0 2.5 - 7.0 mg/dL Blood 03/06/2025 7:24 AM CDT 03/06/2025 7:32 AM CDT Mirella Robbins MD PhD LAB BLOOD ORDERABLES Final Result Performing Organization Address [facility] Co de Phone Number [facility] [place] [address] * Phosphorus (03/06/2025 7:24 AM CDT) [facility] Phosphorus, pl 3.0 2.3 - 4.5 mg/dL Blood 03/06/2025 7:24 AM CDT 03/06/2025 7:32 AM CDT Mirella Robbins MD PhD LAB BLOOD ORDERABLES Final Result Performing Organization Address [facility] de Phone Number [facility] [place] [address] * Magnesium (03/06/2025 7:24 AM CDT) [facility] Magnesium 2.0 1.4 - 2.5 mg/dL Blood 03/06/2025 7:24 AM CDT 03/06/2025 7:32 AM CDT Mirella Robbins MD PhD LAB BLOOD ORDERABLES Final Result Performing Organization Address [facility] de Phone Number [facility] [place] [address] * Lipase (03/06/2025 7:24 AM CDT) [facility] Lipase 33 10 - 99 Units/L Blood 03/06/2025 7:24 AM CDT 03/06/2025 7:32 AM CDT Result [facility] Mirella Robbins MD PhD LAB BLOOD ORDERABLES Final Result Performing Organization Address [facility] de Phone Number [facility] [place] [address] * (ABNORMAL) CEA (03/06/2025 7:24 AM CDT) [facility] CEA 21.0(H) <=5.0 ng/mL Comment: Interpretive Data: [...] BLOOD ORDERABLES Final Result Performing Organization Address [facility] Co de Phone Number [facility] Department [place] [address] * Amylase (03/06/2025 7:24 AM CDT) Pathologist [facility] Amylase 61 30 - 99 Units/L Blood 03/06/2025 7:24 AM CDT 03/06/2025 7:32 AM CDT Mirella Robbins MD PhD LAB BLOOD ORDERABLES Final Result Performing Organization Address [facility] de Phone Number [facility] [place] [address] * (ABNORMAL) Comprehensive metabolic panel (03/06/2025 7:24 AM CDT) [facility] Sodium 144 135 - 145 mmol/L Potassium, pl 3.9 3.3 - 4.9 mmol/L [facility] Chloride 106 97 - 110 mmol/L [facility] CO2 27 22 - 32 mmol/L [facility] Anion gap 11 2 - 15 mmol/L [facility] BUN 13 6 - 25 mg/dL [facility] Creatinine 0.91 0.60 - 1.10 mg/dL [facility] Glucose 109 70 - 199 mg/dL [facility] Comment: Interpretive Data Fasting glucose >/= [...] 2022. Calcium 9.6 8.5 - 10.3 mg/dL [facility] Bilirubin, total 0.3 0.1 - 1.2 mg/dL [facility] Protein, pl 6.7 6.5 - 8.5 g/dL [facility] Albumin 3.9 3.5 - 5.0 g/dL [facility] Alk phos 82 40 - 130 Units/L [facility] ALT 6(L) 7 - 45 Units/L [facility] AST 17 10 - 45 Units/L [facility] Blood 03/06/2025 7:24 AM CDT 03/06/2025 7:32 AM CDT us Mirella Robbins MD PhD LAB BLOOD ORDERABLES Final Result [facility] Department [place] [address] * US Guided Biopsy Liver (03/03/2025 11:17 [...] in research solution and submitted to the quality assurance analyst service for delivery to Surgical Pathology. The [...] in research solution and submitted to the quality assurance analyst service for delivery to Surgical Pathology. The [...] Electronically signed by: Jose Antonio Donis M.D. Mirella Robbins MD PhD IMG US PROCEDURES Final Res ult * SCAN - LABS (03/02/2025) us Provider Scanning Final Result * (ABNORMAL) Urinalysis reflex to microscopic (02/20/2025 1:17 PM CDT) Color, ur Yellow Yellow Clarity, ur Clear Clear [facility] Specific gravity, ur 1.032(H) 1.003 - 1.030 [facility] pH, urine 6.0 [facility] Comment: Interpretive Data U rine pH is affected by diet, medications, systemic acid-base disturbances, and renal tubular function. pH may affect urinary stone formation. For example, urine pH below 6.0 may help reduce the tendency for calcium phosphate stones and pH greater than 6.0 may reduce the tendency for uric acid stone formation. Source: [facility] Current Interpretive Data was last revised on 2017 Protein, ur ql Negative Negative [facility] Glucose, ur ql Negative Negative [facility] Ketones, ur Negative Negative [facility] Bilirubin, ur Negative Negative [facility] Blood, ur Negative Negative [facility] Urobilinogen, ur <2.0 <2.0 mg/dL [facility] Nitrite, ur Negative Negative [facility] Leukocyte esterase, ur 2+(A) [facility] UA reflex comment Reflex to microscopic UA will be performed. [facility] Urine 02/20/2025 1:17 PM CDT 02/20/2025 1:18 PM CDT Mirella Robbins MD PhD LAB URINE ORDERABLES Final Result Performing Organization Address [facility] Co de Phone Number [facility] Department [place] [address] * (ABNORMAL) Urinalysis, microscopic only (02/20/2025 1:17 PM CDT) WBC, ur 21-50(A) 0 - 5 /HPF RBC, ur 0-2 0 - 2 /HPF [facility] Bacteria, ur Trace(A) [facility] Mucous, ur Present(A) [facility] Hyaline casts, ur 1-5 0 - 10 /LPF [facility] Urine 02/20/2025 1:17 PM CDT 02/20/2025 1:18 PM CDT Mirella Robbins MD PhD LAB URINE ORDERABLES Final Result Performing Organization Address [facility] Co de Phone Number [facility] [place] [address] * CT chest abdomen pelvis with contrast [...] GENERAL ORDERABLES Final Result Performing Organization Address [facility] de Phone Number [facility] [place] [address] * (ABNORMAL) Cystatin C (02/20/2025 11:00 AM [...] last revised on 2020. Testing performed by: [facility], [facility], [place]., [address] Blood 02/20/2025 11:0 0 AM CDT 02/20/2025 1:28 PM CDT Mirella Robbins MD PhD LAB BLOOD ORDERABLES Final Result Performing Organization Address City/[facility] Co de Phone Number [facility] [place] [address] * Hepatitis C antibody Blood (02/20/2025 11:00 AM CDT) Hep C Ab Nonreactive Nonreactive Comment:Antibodies to HCV no t detected. Does NOT exclude the possibility of recent exposure to HCV. Current interpretive data was last revised on 22 Blood 02/20/2025 11:0 0 AM CDT 02/20/2025 11:52 AM CDT Mirella Robbins MD PhD LAB MICROBIOLOGY - GENERAL ORDERABLES Final Result Performing Organization Address [facility] Co de Phone Number [facility] Department [place] [address] * Hepatitis B core antibody, total Blood (02/20/2025 11:00 AM CDT) Pathologist [facility] Hep B core IgG/IgM Nonreactive Nonreactive Blood 02/20/2025 11:0 0 AM CDT 02/20/2025 11:52 AM CDT Mirella Robbins MD PhD LAB MICROBIOLOGY - GENERAL ORDERABLES Final Result Performing Organization Address [facility] de Phone Number [facility] Department [place] [address] * Hepatitis B surface antibody (immune status) Blood (02/20/2025 11:00 AM CDT) Pathologist [facility] HBsAb (immune status) Nonreactive Comment:This result is consi stent with a lack of immunity to Hepatitis B Virus when used in the setting of routine screening. Current interpretative data was last revised on 22 Blood 02/20/2025 11:0 0 AM CDT 02/20/2025 11:52 AM CDT us Mirella Robbins MD PhD LAB MICROBIOLOGY - GENERAL ORDERABLES Final Result Performing Organization Address City/[facility] Co de Phone Number [facility] Department [place] [address] * Hepatitis B Surface Antigen Blood (02/20/2025 11:00 AM CDT) Pathologist [facility] HepBsAg Nonreactive Nonreactive Blood 02/20/2025 11:0 0 AM CDT 02/20/2025 11:52 AM CDT Mirella Robbins MD PhD LAB MICROBIOLOGY - GENERAL ORDERABLES Final Result Performing Organization Address [facility] [place] [address] * aPTT (02/20/2025 11:00 AM CDT) Pathologist [facility] aPTT 30 28 - 38 sec Comment: Interpretive Data Heparin therapeutic range: 66.0 - 100.0 seconds. Range based on correlation with therapeutic heparin activity range of 0.3 - 0.7 Units/mL. Current interpretive data was last revised on 2023. Blood 02/20/2025 11:0 0 AM CDT 02/20/2025 11:28 AM CDT Narrative [facility] - 02/20/2025 12:01 PM CDT PLEASE PERFORM AN ARM DRAW. Thank you :) Mirella Robbins MD PhD LAB BLOOD ORDERABLES Final Result Performing Organization Address [facility] [place] [address] * Protime-INR (02/20/2025 11:00 AM CDT) Pathologist [facility] PT 10.3 9.7 - 13.0 sec INR 0.95 0.90 - 1.20 [facility] Comment: Interpretive data Oral anticoagulant therapeutic ranges: Venous thromboembolism prophylaxis or treatment: 2.0-3.0 CARDIOLOGY Standard range: 2.0-3.0 High-intensity range: 2.5-3.5 Refer to indication-specific guidelines for appropriate target ranges for prosthetic heart valve replacement. Current interpretive data was last revised on 2019. Blood 02/20/2025 11:0 0 AM CDT 02/20/2025 11:28 AM CDT Narrative [facility] - 02/20/2025 12:01 PM CDT PLEASE PERFORM AN ARM DRAW. Thank you :) Mirella Robbins MD PhD LAB BLOOD ORDERABLES Final Result Performing Organization Address [facility] Co de Phone Number [facility] [place] [address] * (ABNORMAL) Reticulocyte Count (02/20/2025 11:00 AM CDT) Retics, absolute 95 20 - 100 K/cumm Comment:Testing performed by : [facility], [address] [place] [phone] Retics 2.9(H) 0.5 - 1.8 % [facility] Comment:Testing performed by : [facility], [address] [place] [phone] Blood 02/20/2025 11:0 0 AM CDT 02/20/2025 11:02 AM CDT us Mirella Robbins MD PhD LAB BLOOD ORDERABLES Final Result Performing Organization Address [facility] de Phone Number [facility] Department [place] [address] * Uric acid (02/20/2025 11:00 AM CDT) Uric acid 3.3 2.5 - 7.0 mg/dL Blood 02/20/2025 11:0 0 AM CDT 02/20/2025 11:08 AM CDT us Mirella Robbins MD PhD LAB BLOOD ORDERABLES Final Result Performing Organization Address [facility] Co de Phone Number [facility] [place] [address] * Phosphorus (02/20/2025 11:00 AM CDT) Pathologist [facility] Phosphorus, pl 3.8 2.3 - 4.5 mg/dL Blood 02/20/2025 11:0 0 AM CDT 02/20/2025 11:08 AM CDT us Mirella Robbins MD PhD LAB BLOOD ORDERABLES Final Result Performing Organization Address [facility] Co de Phone Number [facility] [place] [address] * Magnesium (02/20/2025 11:00 AM CDT) [facility] Magnesium 2.1 1.4 - 2.5 mg/dL Blood 02/20/2025 11:0 0 AM CDT 02/20/2025 11:08 AM CDT Mirella Robbins MD PhD LAB BLOOD ORDERABLES Final Result Performing Organization Address [facility] Co de Phone Number [facility] [place] [address] * Lipase (02/20/2025 11:00 AM CDT) [facility] Lipase 38 10 - 99 Units/L Blood 02/20/2025 11:0 0 AM CDT 02/20/2025 11:08 AM CDT us Mirella Robbins MD PhD LAB BLOOD ORDERABLES Final Result Performing Organization Address [facility] Co de Phone Number [facility] [place] [address] * (ABNORMAL) CEA (02/20/2025 11:00 AM CDT) [...] MD PhD LAB BLOOD ORDERABLES Final Result [facility] Department [place] [address] * Amylase (02/20/2025 11:00 AM CDT) Pathologist [facility] Amylase 54 30 - 99 Units/L Blood 02/20/2025 11:0 0 AM CDT 02/20/2025 11:08 AM CDT Mirella Robbins MD PhD LAB BLOOD ORDERABLES Final Result Performing Organization Address City/State/[facility] Co de Phone Number [facility] Department [place] [address] from Last 3 Months Insurance MEDICARE [employer] [facility] MEDICARE [employer] MEDICARE SUPPLEMENT MEDICARE [facility] MEDICARE SUPPLEMENT Advance Directives For more information, please contact: [phone] * Full Code (Latest Code Status on File) Date Activated Date Inactivated Comments 03/03/2025 9:36 AM 03/04/2025 4:53 AM Care Teams Press Assistant Relationship Specialty Start Date End Date Jeana Palacios NP [address] [place] [address] PCP - General Nurse Practitioner 12/09/24 Molina Medina MD 12/07/24 Alvarado Jang MD [address] [id number] Referring Physician Hematology 12/07/24 Mirella Robbins MD PhD [address] [facility], [facility] [address] [place] [address] Medical Oncologist/Deck Supervisor Medical Oncology 12/09/24
--- OUTSIDE RECORDS SUMMARY | 2025-05-23 08:51 | XMS_ITS | Encounter Summary ---
Author Organization [facility] Address [address] [place] [address] Care Team Providers Care Curriculum Counselor Name Role Phone Unavailable Primary Care Provider Unavailabl e Encounter Details Date Type Department Care Team (Latest Contact Info) Description 1950 8:30 AM OFFICE EQUIPMENT TECHNICIAN - 1950 11:59 PM OFFICE EQUIPMENT TECHNICIAN Hospital Encounter [facility] [place] [address] [place] [address] [facility], External Provider [address] [place] [address] Discharge Disposition: Home or Self Care Social History Tobacco Use Types Packs/Day Years Used Date Smoking Tobacco: Never Assessed Comments Unknown Sex and Gender Information Value Date Recorded Sex Assigned at Not on file Legal Sex Female 10:27 AM OFFICE EQUIPMENT TECHNICIAN Gender Identity Not on file Sexual Orientation Not on file documented as of this encounter Plan of Treatment Not on file documented as of this encounter Procedures Procedure Name Priority Date/Time Associated Diagnosis Comments MRI PRIOR STUDY Routine 1950 8:30 AM OFFICE EQUIPMENT TECHNICIAN Encounter for administrative examinations, unspecified documented in this encounter Results * MRI PRIOR STUDY (1950 8:30 AM OFFICE EQUIPMENT TECHNICIAN) Narrative 08/09/2024 8:28 AM OFFICE EQUIPMENT TECHNICIAN This exam was auto finalized to allow images to be scanned to PACS. us External Provider [facility] MR ORDERABLES Final Res ult documented in this encounter Visit Diagnoses Diagnosis Encounter for administrative examinations, unspecified documented in this encounter
--- OUTSIDE RECORDS SUMMARY | 2025-05-23 08:51 | XMS_ITS ---
Author Organization [facility] Leti Luna Address [address] [place] [address] Care Team Providers Care Associate Chemist Name Role Phone Molina Medina MD Primary Care Provider [phone] Active Problems Problem Noted Date Diagnosed Date [...]
--- OUTSIDE RECORDS SUMMARY | 2025-05-23 08:51 | XMS_ITS | Encounter Summary ---
Author Organization 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 Gender Identity Not on file Sexual Orientation [...] on filedocumented in this encounter Care Teams Concrete Form Setter And Finisher Relationship Specialty Start Date End Date Jeana Palacios NP [address] [place] [address] PCP - General Nurse Practitioner 12/09/24 Molina Medina MD 12/07/24 Alvarado Jang MD [facility] [address] [address] Referring Physician Hematology 12/07/24 Mirella Robbins MD PhD [address] [facility], [facility] [address] [place] [address] Medical Oncologist/Wind Projects Supervisor Medical Oncology 12/09/24 documented as of this encounter
== END 2025-05-23 08:27 | disposition home or self-care (01) ==
PROVIDERS: PCP Nurse Practitioner Adult Health
DX: C18.9 Malignant neoplasm of colon, unspecified (principal)
CPT/HCPCS: 36415; 85025; 85055

== ENCOUNTER 2025-06-09 10:52 | Outpatient (CLI) | payer MEDICARE, SELFPAY ==
--- OUTSIDE RECORDS SUMMARY | 2025-06-09 10:59 | XMS_ITS | Encounter Summary ---
Author Organization [facility] Address [address] [place] [address] Phone Care Team Providers Care Language Assistant Name Role Phone Molina Medina MD Unavailable [phone] Alvarado Jang MD Unavailable [phone] Jeana Palacios NP Primary Care Provider [phone] Mirella Robbins MD PhD Unavailable [phone] Reason for Visit * Reason Onset Date Comments Advice Only 06/08/2025 Encounter Details Date Type Department Care Team (Late st Contact Info) Description 06/08/2025 Telephone [facility] Medicine Oncology [facility] Floor [address] [place] [address] Renetta Hunter, donor services specialist Only Social History Tobacco Use Types Packs/Day Years Used Date Smoking Tobacco: Never Passive Smoke Exposure: Never Smokeless Tobacco: Never Alcohol Use Standard [...] on file 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 He denied any other accompanying signs/symptoms including fever, new respiratory or urinary symptoms, etc. Discussed that the GCSF injection can cause some fatigue and that it could potentially be related to that. He was unable to remember if previous GCSF injections the pt has received have caused her fatigue to be worse like it is now. He reports the pt is eating and drinking at baseline and that her only pain is in her knee. He would like to go to their local hospital tomorrow to have labs checked. Orders faxed as requested and he is aware to call me once she has had them drawn so I can be on the lookout for results. I instructed pt's to call the after hours number and/or my office number if pt developed a fever or any other new symptoms as discussed above prior to her visit on Thursday. Pt's verbalized understanding. TABLE VENDOR documented in this encounter Plan of Treatment Not on file documented as of this encounter Visit Diagnoses Not on filedocumented in this encounter Care Teams Language Assistant Relationship Specialty Start Date End Date Jeana Palacios NP [address] [place] [address] PCP - General Nurse Practitioner 12/09/24 Molina Medina MD 12/07/24 Alvarado Jang MD [address] [phone] Referring Physician Hematology 12/07/24 Mirella Robbins MD PhD [address] [place] [address] Medical Oncologist/Lining Maker Hand Medical Oncology 12/09/24 documented as of this encounter
--- OUTSIDE RECORDS SUMMARY | 2025-06-09 10:59 | XMS_ITS ---
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 Colon adenocarcinoma 12/22/2024 Current Treatment and Therapy Plans [id number] - [facility] - Phase 1 - [id number] - Part 1 Dose Escalation and Part 2a Dose Expansion - [id number] Monotherapy* Plan Start Date:03/06/2025 Plan Provider:Mirella Robbins MD PhD Linked Problems Colon adenocarcinoma (HCC)Me tastasis to liver Treatment Medications Current Day (Day 1 , Cycle 4 - Planned for 06/12/2025) Next Day (Day 15, Cycle 4 - Planned for 06/26/2025) [facility] [id number] (/[id number]) INV-[facility] [id number] (/[id number]) tablet 125 mg [facility] [id number] (/[id number]) tablet 125 mg Filgrastim or BIOSIMILAR Subcutaneous* Plan Start [...] Dose Automatic Entry Manual Entr y DLP 2,150 mGycm 2,150 mGycm 0 mGycm
--- OUTSIDE RECORDS SUMMARY | 2025-06-09 10:59 | XMS_ITS | Data Portability ---
Author Organization [facility] Address [address] [place] [address] Care Team Providers Care Elementary School Tutor Name Role Phone CORTES ALPHONSO Primary Care Provider Assessment No assessment recorded. Plan of Treatment Reminders Order Date Submit Date Provider Last Modified By Organization Details Last Modified Time Details Appointments None recorded. Lab None recorded. Referral None recorded. Procedures None recorded. Surgeries None recorded. Imaging None recorded. Medication Orders Cipro 500 mg tablet 2019 020 INTERFACE [facility], [address] [place] [address], [address], 0 18:12:42 Tessalon Perles 100 mg capsule 2019 020 INTERFACE [facility], [address] [place] [address], [id number], 0 18:12:38 Patient TargetsNo targets recorded. Patient Instructions Encounter Date Encounter Id Patient Instructions Last Modified By Organization Details Last Modified Time 08/11/2019 [id number] schizophrenia: care instructions jnanney Not available 08/11/2019 18:12:30 Reason for Referral None Reported. Problems Name Problem SNOMED Code Status Onset Date Resolution Date Notes Provider Name and Address Organization Details Recorded Time Schizophrenia 96958441 Active 2019 Sil Gonzales MA null, [facility] 0 17:51:14 Problem Notes None recorded. Procedures Surgical History Date Name Laterality Status Provider Name and Address Organization Details Recorded Time 10/19/19 19 Date of Last Mammogram completed Sil Gonzales MA [facility] 08/11/2019 17:56:38 tonsillectomy completed Sil Gonzales MA [facility] 08/11/2019 17:55:48 breast procedure completed Sil Gonzales MA [facility] 08/11/2019 17:56:00 Imaging Results None recorded. Procedure Notes None recorded. Medical Equipment None Reported. Allergies Allergen ID Allergen Name Allergen Category Reaction Reaction Severity Criticality Documentation Date Start Date Code Code System Note Provider Name and Address Organization Details Recorded Time 090261 Product containin g penicilli n (product) medicatio n Not available Not available Not available 08/11/2019 36873 8001 SNOMED Sil Gonzales MA null, [facility] 0 17:54:18 Medications Name Sig Start Date Stop Date [...] mass index (BMI) Body temperature Oxygen saturation Heart rate Systolic And Diastolic Provider Name and Address Organization Details Last Updated DateTime 0 [address]40.3 3 g 168.91 cm 30.7 kg/m2 98.1 [degF] 98 % 78 /min 120/84 mm[Hg] Sil Gonzales MA [facility] 0 17:59:14 Social History Question Answer Notes LastModified by Organizat ion Details LastModified Time Tobacco Smoking Status Never Smoker Sil Gonzales MA [facility], [place] - [place] 08/11/2019 17:55:11 What Is Your Level Of Caffeine Consumption? Occasional Information not available 08/11/2019 How Much Tobacco Do You Chew? None Information not available 08/11/2019 What Was The Date Of Your Most Recent Tobacco Screening? 08/11/2019 Information not available 08/11/2019 Are You Passively Exposed To Smoke? No Information not available 08/11/2019 How Much Tobacco Do You Smoke? No Information not available 08/11/2019 On What Date Was Tobacco Cessation Counseling Provided? 08/11/2019 Information not available 08/11/2019 How Many Years Have You Smoked Tobacco? 0 Information not available 08/11/2019 Sex: Unknown Functional Status Question Answer Note LastModified by Organizat ion Details LastModified Time What is your level of alcohol consumption? None Information not available 08/11/2019 Do you or have you ever used smokeless tobacco? Never used smokeless tobacco Information not available 08/11/2019 Do you or have you ever used e-cigarettes or vape? Never used electronic cigarettes Information not available 08/11/2019 Mental Status None recorded. Family History Relationship Description Onset Age of this Age Resolved Age Notes LastModified by Organization Details LastModified Time Mother Malignant neoplasm of breast [email or web address] Not available 08/11 17:55:00 Mother Chronic obstructive pulmonary disease [email or web address] Not available 08/11 17:55:05 Medical History Condition Response Coronary Artery Disease N Other N High Blood Pressure N Atrial Fibrillation N Kidney or Bladder Problems N Thyroid Problems Y Depression N COPD N Blood Clots N GI Problems N Skin Problems N Eating Disorder N Anemia N Heart Attack ([place]) N Anxiety Disorder N Diabetes N Muscle, Joint, or Bone Problems N Seizures/Epilepsy Y Acid Reflux (GERD) N Cancer N Stroke N Asthma N Allergies N ADHD N Substance Abuse N High Cholesterol N Hepatitis N Liver Disease N Headaches N Schizophrenia Y Osteoporosis N Heart Failure N Gynecological History Statement/Question Response Date of Last Mammogram 10/18/2018 Obstetrics History GPAL:G 0 P 0 0 0 0 Past Encounters Encounter ID Performer Location Encounter Start Date Encounter Closed Date Diagnosis/Indication Diagnosis SNOMED-CT Code Diagnosis ICD10 Code Diagnosis IMO Codes Diagnosis Note [id number] Alphonso Arizmendi PA-C [facility] [address] [place] [address] 08/11/2019 17:31:58 08/11/2019 18:46:23 Schizophrenia 27601171 F20.1 Acute bron chitis with bronchospasm 94562754 J20.8 Health Concerns Section Related Observation LastModified by Organization Detai ls LastModified Time None Recorded Concern Status LastModified by Organization Details LastModified Time None Recorded Advance Directives Directive None Recorded Payers Insurance Date Sequence Insurance Name Policy Number Policy Cueva Covered Member ID Cueva Member ID Guarantor Name 08/15/2019 [place] [facility] Quinton Mckeon [id number] Quinton Mckeon 08/11/2019 1 [place] Quinton Mckeon [id number] Quinton Mckeon 08/11/2019 2 [place] [id number] Quinton Mckeon [id number] Quinton Mckeon Notes Date Note Type Note Provider Name and Address Organization Details Recorded Time 08/11/2019 text/html ROS as noted in the HPI has a persistant cough with occasional production. no fever... Alphonso Arizmendi PA-C Attn: Accounting,[address] [place], [address], [facility] - [place] 08/11/2019 18:15:28 OBGyn Episode No OBEpisode recorded.
--- OUTSIDE RECORDS SUMMARY | 2025-06-09 10:59 | XMS_ITS | Clinical Summary ---
Author Organization [facility] Leti Luna Address [address] [place] [address] Care Team Providers Care [employer] Driver Name Role Phone Molina Medina MD Primary Care Provider [phone] Allergies Active Allergy Reactions Criticality Noted Date [...] 20 mg 20 Tablet 05/28/2023 11:45 AM HR BUSINESS PARTNER CONSULTANT 3 Active acyclovir (ZOVIRAX) 400 mg tablet [...] 4 Tablets 20 Tablet 06/21/2024 5:13 PM HR BUSINESS PARTNER CONSULTANT 4 Active polyethylene glycol 3350 (MIRALAX) 17 gram/dose Powder Mix 1 Capful (17 Grams) and drink by mouth 1 time daily as needed for Constipation. 510 Gram 06/29/2024 4:02 PM HR BUSINESS PARTNER CONSULTANT 4 Active naloxone (NARCAN) 4 mg/spray [place], Non-Aerosol EMERGENCY USE ONLY: Administer 1 spray [...] Encounters Date Type Department Care Team Description 05/29/2025 Orders Only [facility] - [address] [place] [address] Alvarado Jang MD Malignant neoplasm of colon, unspecified part of colon (CMS/HCC) 05/15/2025 Orders Only [facility] - [address] [place] [address] Alvarado Jang MD Malignant neoplasm of colon, unspecified part of colon (CMS/HCC) 05/09/2025 Orders Only [facility] - [address] [place] [address] Alvarado Jang MD 05/01/2025 Orders Only [facility] - [address] [place] [address] Alvarado Jang MD Malignant neoplasm of colon, unspecified part of colon (CMS/HCC) 04/17/2025 Orders Only [facility] - [address] [place] [address] Alvarado Jang MD Malignant neoplasm of colon, unspecified part of colon (CMS/HCC) 04/04/2025 External Device Data STL ABSTRACTION Provider, Abstract 04/03/2025 Orders Only [facility] - [address] [place] [address] Alvarado Jang MD Malignant neoplasm of colon, unspecified part of colon (CMS/HCC) 03/21/2025 External Device Data STL ABSTRACTION Provider, Abstract 03/20/2025 Orders Only [facility] - [address] [place] [address] Alvarado Jang MD Malignant neoplasm of [...] on file Legal Sex Female 10:27 AM HR BUSINESS PARTNER CONSULTANT Gender Identity Not on file Sexual [...] 170.2 cm (5' 7) 07/05/2024 11:27 AM HR BUSINESS PARTNER CONSULTANT Body Mass Index 30.57 07/05/2024 11:27 AM HR BUSINESS PARTNER CONSULTANT Plan of Treatment Health Maintenance Due Date [...] years Discontinued Medical Devices Implanted Type Area Statistical Methods Professor Device Identifier Shelf Expiration Date Model / Serial / Lot Hemostat Surg Snow 2x4in 2081 - [id number] Implanted:Qt y: 1 on 06/20/2024 by Randal Betts MD at [facility] N/A: Abdomen [employer]- [employer] [id number] 02/16/2026 2082 / / [id number] Port Procedures [...] [facility] PART A [facility] B [facility] RX [employer] RX Member Subscriber Plan / Payer (Ef fective 2009-Present) Name:Quinton Mckeon Relation to Subscriber:Self Name:Quinton Mckeon Payer ID:Not on file Group ID:[id number] Type:RX Medicare Part D Address: [address] RX HURT PLANS (INTERNAL) [facility] Internal Plans Advance Directives For more information, please contact: [phone] Documents on File Type Date Recorded Patient Last Chalker Expl anation Advance Directive Living Will 06/23/2024 [...] 11:05 AM 05/27/2023 5:55 PM Care Teams [employer] Driver Relationship Specialty Start Date End Date Molina Medina MD PCP - General Family Practice 08/12/22
--- OUTSIDE RECORDS SUMMARY | 2025-06-09 10:59 | XMS_ITS | Encounter Summary ---
Author Organization [facility] Address [address] [place] [address] Care Team Providers Care Truck Assembler Name Role Phone Unavailable Primary Care Provider Unavailabl e Encounter Details Date Type Department Care Team (Latest Contact Info) Description 1950 8:30 AM COMMUNITY SERVICE WORKER - 1950 11:59 PM COMMUNITY SERVICE WORKER Hospital [place] [address] [place] [address] [facility], External Provider [address] [place] [address] Discharge Disposition: Home or Self Care Social History Tobacco Use Types Packs/Day Years Used Date Smoking Tobacco: Never Assessed Comments Unknown Sex and Gender Information Value Date Recorded Sex Assigned at Not on file Legal Sex Female 10:27 AM COMMUNITY SERVICE WORKER Gender Identity Not on file Sexual Orientation Not on file documented as of this encounter Plan of Treatment Not on file documented as of this encounter Procedures Procedure Name Priority Date/Time Associated Diagnosis Comments MRI PRIOR STUDY Routine 1950 8:30 AM COMMUNITY SERVICE WORKER Encounter for administrative examinations, unspecified documented in this encounter Results * MRI PRIOR STUDY (1950 8:30 AM COMMUNITY SERVICE WORKER) Narrative 08/09/2024 8:28 AM COMMUNITY SERVICE WORKER This exam was auto finalized to allow images to be scanned to PACS. us External Provider [facility] MR ORDERABLES Final Res ult documented in this encounter Visit Diagnoses Diagnosis Encounter for administrative examinations, unspecified documented in this encounter
--- OUTSIDE RECORDS SUMMARY | 2025-06-09 10:59 | XMS_ITS | Clinical Summary ---
Author Organization [facility] Address [address] [place] [id number] Care Team Providers Care Mailing Specialist Name Role Phone Unavailable Primary Care Provider [...] - 1-dose 75+ series) 10/11/2023 COVID-19 Vaccine ( - 2024-2 6 season) 2025 Influenza Adult (#1) 2025 Hepatitis A Vaccines Aged Out No long er eligible based on patient's age to complete this topic Meningococcal B Vaccine Aged Out No l onger eligible based on patient's age to complete this topic Meningococcal Vaccine Aged Out No kulwant ching eligible based on patient's age to complete this topic RSV Immunizations Under 20 Months Aged Out No longer eligible based on patient's age to complete this topic
--- OUTSIDE RECORDS SUMMARY | 2025-06-09 10:59 | XMS_ITS | Clinical Summary ---
Author Organization [facility] Address [address] [place] [address] Care Team Providers Care Supervisor Agency Appointments Name Role Phone AdamMolina MD Unavailable [phone] Alvarado Jang MD Unavailable [phone] Jeana Palacios NP Primary Care Provider [phone] Mirella Robbins MD PhD Unavailable [phone] Allergies Active Allergy Reactions Criticality Noted Date [...] 200 mg tablet 01/15/20 25 Active INV-[facility] [id number] (/[id number]) 100 mg tablet Take 2 tablets (200 mg total) by mouth 2 (two) times a day Take with two of the 25 mg tablets for a total dose of 250 mg.Take approximately 12 hours apart on an empty stomach with no food or liquids other than water for 2 hours before and 1 hour after each dose. Active diphenoxylate-atro pine (LOMOTIL) 2.5-0.025 mg per tabletIndications: diarrhea Take 1 tablet by mouth 4 (four) times a day as needed for diarrhea 60 tablet 3 03/27/20 25 Active diclofenac sodium (Voltaren Arthritis Pain) 1 % gelIndications:Ost eoarthritis of the Knee Apply 2 g topically 3 (three) times a day as needed (Pain) 20 g 3 05/01/20 25 Active [facility] [id number] (/[id number]) 25 mg tablet Take 2 tablets (50 mg total) by mouth 2 (two) times a day Take with two of the 100 mg tablets for a total dose of 250 mg. Take approximately 12 hours apart on an empty stomach with no food or liquids other than water for 2 hours before and 1 hour after each dose. Active loperamide (IMODIUM) 2 mg capsuleIndications :Chemotherapy-Brittney evert Diarrhea Take 2 capsules (4 mg total) by mouth every 6 (six) hours as needed for diarrhea 60 capsule 3 05/08/20 25 Active ciprofloxacin (CIPRO) 500 mg tabletIndications: Urinary Tract/Genitourinar y Infection Take 1 tablet (500 mg total) by mouth 2 (two) times a day for 7 days 14 tablet 06/05/20 25 025 Active ondansetron ODT (ZOFRAN-ODT) 8 mg disintegrating tabletIndications: Cancer Chemotherapy-Induc ed Nausea and Vomiting Take 1 tablet (8 mg total) by mouth every 8 (eight) hours as needed for nausea or vomiting 30 tablet 2 04/26/20 25 025 Active Problems Problem Noted Date Diagnosed Date Chemotherapy-induced neutropenia 04/03/2025 Metastasis to liver 02/16/2025 Colon adenocarcinoma 12/22/2024 Encounters Date Type Department Care Team Description 06/09/2025 Orders Only [facility] [address] [facility] 5 [place] [address] Mirella Robbins MD PhD 06/08/2025 Telephone [facility] [place] [facility] [address] [place] [address] Floor 5 [place] [phone] Renetta Hunter, quality system manager Only 06/08/2025 Orders Only [facility] [place] [facility] [address] [place] [address] Floor 5 [place] [address] Mirella Robbins MD PhD Colon adenocarcinoma (HCC) (Primary Dx); Metastasis to liver; Chemotherapy-induced neutropenia 06/05/2025 9:00 AM BANDAGE WINDING MACHINE OPERATOR Infusion [facility] - Infusion [address] [facility] Floor 5 [place] [address] Chemotherapy-induced neutropenia (Primary Dx); Colon adenocarcinoma (HCC); Metastasis to liver 06/05/2025 8:00 AM BANDAGE WINDING MACHINE OPERATOR Office Visit [facility] [place] [place] [facility] [address] [place] [address] 5 [place] [address] Mirella Robbins MD PhD Colon adenocarcinoma (HCC) (Primary Dx); Metastasis to liver 06/05/2025 7:30 AM BANDAGE WINDING MACHINE OPERATOR Clinical Support [facility] [place] [place] [facility] [address] [place] [address] Floor 5 [place] [address] Examination of participant in clinical trial 06/05/2025 7:00 AM BANDAGE WINDING MACHINE OPERATOR Clinical Support [facility] - Lab Collection [address] [facility] Floor 5 [place] [address] Colon adenocarcinoma (HCC); Metastasis to liver 06/05/2025 Orders Only [facility] [place] [place] [facility] [address] [place] [address] 5 [place] [address] Grisel Porter BS Examination of participant in clinical trial (Primary Dx) 06/05/2025 Orders Only [facility] [place] [facility] [address] [place] [address] Floor 5 [place] [phone] Mirella Robbins MD PhD Chronic pain of both knees (Primary Dx) 06/02/2025 11:27 AM BANDAGE WINDING MACHINE OPERATOR - 06/02/2025 11:59 PM BANDAGE WINDING MACHINE OPERATOR Hospital Encounter [facility] [place] [address] [facility] Floor 8 [place] [address] Colon adenocarcinoma (HCC); Metastasis to liver Discharge Disposition: Discharge to home or self care 05/31/2025 Orders Only [facility] [place] [place] [facility] [address] [place] [phone] Grisel Porter BS Examination of participant in clinical trial (Primary Dx) 05/31/2025 Orders Only [facility] [place] [facility] [address] [place] [phone] Grisel Porter BS Examination of participant in clinical trial (Primary Dx) 05/29/2025 9:20 AM BANDAGE WINDING MACHINE OPERATOR Office Visit [facility] [place] [facility] [address] [place] [phone] Mirella Robbins MD PhD Colon adenocarcinoma (HCC) (Primary Dx); Metastasis to liver 05/29/2025 8:45 AM BANDAGE WINDING MACHINE OPERATOR Clinical Support [facility] - Lab Collection [address] [place] [address] Colon adenocarcinoma (HCC); Metastasis to liver 05/29/2025 8:15 AM BANDAGE WINDING MACHINE OPERATOR Clinical Support [facility] [place] [facility] Lab [address] [place] [phone] Colon adenocarcinoma (HCC); Metastasis to liver 05/26/2025 Orders Only [facility] [place] [facility] [address] [place] [phone] Mirella Robbins MD PhD 05/23/2025 Orders Only [facility] Scanning, Provider 05/23/2025 Telephone [facility] [place] [place] [facility] [address] [place] [phone] Renetta Hunter, SHAQUILLE Follow-up 05/22/2025 10:00 AM BANDAGE WINDING MACHINE OPERATOR Infusion [facility] - Infusion [address] [place] [address] Chemotherapy-induced neutropenia (Primary Dx); Colon adenocarcinoma (HCC); Metastasis to liver 05/22/2025 9:00 AM BANDAGE WINDING MACHINE OPERATOR Office Visit [facility] [place] [facility] [address] [place] [phone] Mirella Robbins MD PhD Colon adenocarcinoma (HCC) (Primary Dx); Metastasis to liver 05/22/2025 8:00 AM BANDAGE WINDING MACHINE OPERATOR Clinical Support [facility] - Lab Collection [address] Floor 5 [place] [address] Colon adenocarcinoma (HCC); Metastasis to liver 05/08/2025 9:00 AM CDT Clinical Support [facility] [place] [facility] [address] [facility] Floor 5 [place] [address] Examination of participant in clinical trial 05/08/2025 9:00 AM CDT Infusion [facility] - Infusion [address] Floor 5 [place] [address] Colon adenocarcinoma (HCC) (Primary Dx); Metastasis to liver 05/08/2025 8:00 AM CDT Office Visit [facility] [place] [place] [facility] [address] [place] [address] Floor 5 [place] [address] Matilde Conley NP Colon adenocarcinoma (HCC) (Primary Dx); Metastasis to liver; Chemotherapy-induced neutropenia 05/08/2025 7:45 AM CDT Clinical Support [facility] [place] [place] [facility] [address] [place] [address] Floor 5 [place] [address] Examination of participant in clinical trial 05/08/2025 7:15 AM CDT Clinical Support [facility] - Lab Collection [address] [facility] Floor 5 [place] [address] Colon adenocarcinoma (HCC); Metastasis to liver 05/08/2025 Research Med Pick-Up/CTRU Fire Hazard Inspector [facility] - Infusion [address] 6 [place] [address] Valentine Vick chanelle Colon adenocarcinoma (HCC) (Primary Dx); Metastasis to liver 05/05/2025 11:02 AM CDT - 05/05/2025 11:59 PM CDT Hospital Encounter [facility] [place] [address] Floor 8 [place] [address] Colon adenocarcinoma (HCC); Metastasis to liver Discharge Disposition: Discharge to home or self care 05/02/2025 Orders Only [facility] [place] [facility] [address] [facility] Floor 5 [place] [address] Grisel Porter BS Examination of participant in clinical trial (Primary Dx) 05/01/2025 10:45 AM CDT Research Med Pick-Up/CTRU Fire Hazard Inspector [facility] - Infusion [address] [facility] Floor 6 [place] [address] Metastasis to liver (Primary Dx); Colon adenocarcinoma (HCC) 05/01/2025 9:40 AM CDT Office Visit [facility] [address] [facility] Floor 5 [place] [address] Mirella Robbins MD PhD Colon adenocarcinoma (HCC) (Primary Dx); Metastasis to liver; Chemotherapy-induced neutropenia 05/01/2025 8:45 AM CDT Clinical Support [facility] - Lab Collection [address] [facility] Floor 5 [place] [address] Colon adenocarcinoma (HCC); Metastasis to liver; Chemotherapy-induced neutropenia 04/28/2025 Orders Only [facility] [place] [facility] [address] [facility] Floor 5 [place] [address] Mirella Robbins MD PhD 04/28/[address] [phone] Hellen Cormier, SHAQUILLE Clinical Trial 04/27/2025 Orders Only [facility] [place] [facility] Floor 5 [place] [address] Grisel Porter BS 04/27/2025 Orders Only [facility] [place] [facility] Floor 5 [place] [address] Mirella Robbins MD PhD Colon adenocarcinoma (HCC) (Primary Dx); Metastasis to liver; Chemotherapy-induced neutropenia 04/26/2025 2:30 PM CDT Infusion [facility] - Infusion [address] [facility] Floor 5 [place] [address] Chemotherapy-induced neutropenia (Primary Dx); Colon adenocarcinoma (HCC); Metastasis to liver 04/26/2025 Orders Only [facility] - Infusion [address] [facility] Floor 5 [place] [address] Viridiana Castellanos [facility] 04/26/2025 Orders Only [facility] [place] [facility] [address] [place] [address] [address] [place] [address] Reginald Perez, [facility] 04/26/2025 Orders Only [facility] [place] [facility] [address] [place] [address] 5 [place] [phone] Mirella Robbins MD PhD Metastasis to liver (Primary Dx); Colon adenocarcinoma (HCC) 04/26/2025 Telephone [facility] [place] [facility] [address] [place] [address] [address] [place] [address] Gilles Jasso, SHAQUILLE 04/25/2025 11:00 AM CDT Infusion [facility] - Infusion [address] [place] [address] Floor 5 [place] [address] Chemotherapy-induced neutropenia (Primary Dx); Colon adenocarcinoma (HCC); Metastasis to liver 04/24/2025 2:15 PM CDT Infusion [facility] - Infusion [address] [place] [address] Floor 5 [place] [address] Chemotherapy-induced neutropenia (Primary Dx); Colon adenocarcinoma (HCC); Metastasis to liver 04/24/2025 10:00 AM CDT Office Visit [facility] [place] [facility] [address] [place] [phone] Matilde Conley NP Colon adenocarcinoma (HCC) (Primary Dx); Metastasis to liver; Chemotherapy-induced neutropenia 04/24/2025 9:00 AM CDT Clinical Support [facility] - Lab Collection [address] [place] [address] 5 [place] [address] Colon adenocarcinoma (HCC); Metastasis to liver 04/24/2025 Orders Only [facility] [place] [facility] [address] [place] [phone] Mirella Robbins MD PhD 04/21/2025 Telephone [facility] [place] [facility] [address] [place] [address] 5 [place] [address] Renetta Hunter, SHAQUILLE Test Results 04/20/2025 Orders Only [facility] Scanning, Provider 04/18/2025 Telephone [facility] [place] [facility] [address] [place] [address] 5 [place] [address] Renetta Hunter, RN Follow-up 04/12/2025 Orders Only [facility] [place] [facility] [address] [place] [address] 5 [place] [address] Mirella Robbins MD PhD Colon adenocarcinoma (HCC) (Primary Dx); Metastasis to liver; Chemotherapy-induced neutropenia; Examination of participant in clinical trial 04/10/2025 9:00 AM CDT Clinical Support [facility] [place] [facility] [address] [place] [phone] Examination of participant in clinical trial 04/10/2025 8:00 AM CDT Office Visit [facility] [place] [facility] [address] [place] [phone] Mirella Robbins MD PhD Colon adenocarcinoma (HCC) (Primary Dx); Metastasis to liver 04/10/2025 7:30 AM CDT Clinical Support [facility] [place] [facility] [address] [place] [phone] 04/10/2025 7:00 AM CDT Clinical Support [facility] - Lab Collection [address] [place] [address] 5 [place] [address] Colon adenocarcinoma (HCC); Metastasis to liver 04/10/2025 Research Med Pick-Up/CTRU Fire Hazard Inspector [facility]fusion Pharmacy [address] [place] [address] 6 [place] [address] Valentine Vick [facility] Colon adenocarcinoma (HCC) (Primary Dx); Metastasis to liver 04/10/2025 Documentation [facility] [place] [facility] [address] [place] [phone] Renetta Hunter RN Follow-up 04/04/2025 12:00 PM CDT Infusion [facility] - Infusion [address] [place] [address] Floor 5 [place] [address] Chemotherapy-induced neutropenia (Primary Dx); Colon adenocarcinoma (HCC); Metastasis to liver 04/04/2025 11:00 AM CDT Clinical Support [facility] - Lab Collection [address] [place] [address] Floor 5 [place] [address] Colon adenocarcinoma (HCC); Metastasis to liver; Examination of participant in clinical trial; Colon cancer metastasized to liver 04/04/2025 Orders Only [facility] [place] [facility] [address] [place] [address] 5 [place] [address] Mirella Robbins MD PhD 04/03/2025 9:45 AM CDT Infusion [facility] - Infusion [address] [facility] Floor 5 [place] [address] Chemotherapy-induced neutropenia (Primary Dx); Colon adenocarcinoma (HCC); Metastasis to liver 04/03/2025 9:00 AM CDT Office Visit [facility] [place] [facility] [address] [place] [address] Floor 5 [place] [address] Mirella Robbins MD PhD Colon adenocarcinoma (HCC) (Primary Dx); Metastasis to liver 04/03/2025 8:30 AM CDT Clinical Support [facility] [place] [facility] [address] [place] [address] 5 [place] [address] Examination of participant in clinical trial 04/03/2025 7:30 AM CDT Clinical Support [facility] - Lab Collection [address] [place] [address] Floor 5 [place] [address] Colon adenocarcinoma (HCC); Metastasis to liver 04/03/2025 Orders Only [facility] [place] [facility] [address] [place] [address] 5 [place] [address] Mirella Robbins MD PhD Metastasis to liver (Primary Dx); Colon adenocarcinoma (HCC) 04/03/2025 Orders Only [facility] [place] [facility] [address] [place] [address] 5 [place] [address] Mirella Robbins MD PhD Colon adenocarcinoma (HCC) (Primary Dx); Examination of participant in clinical trial 03/27/2025 11:00 AM CDT Clinical Support [facility] [place] [facility] [address] [place] [address] Floor 5 [place] [address] Examination of participant in clinical trial 03/27/2025 9:00 AM CDT Infusion [facility] - Infusion [address] [place] [address] Floor 6 [place] [address] Metastasis to liver (Primary Dx); Colon adenocarcinoma (HCC) 03/27/2025 8:00 AM CDT Office Visit [facility] [place] [facility] [address] [place] [address] Floor 5 [place] [address] Mirella Robbins MD PhD Colon adenocarcinoma (HCC) (Primary Dx); Metastasis to liver; Colon cancer metastasized to liver 03/27/2025 7:00 AM CDT Clinical Support [facility] [place] - Lab Collection [address] [place] [address] 5 [place] [address] Colon adenocarcinoma (HCC); Metastasis to liver; Colon cancer metastasized to liver 03/27/2025 Orders Only [facility] [place] [facility] [address] [place] [phone] Mirella Robbins MD PhD Metastasis to liver (Primary Dx); Colon adenocarcinoma (HCC) 03/23/2025 Orders Only [facility] Scanning, Provider 03/23/[address] [address] Giovani Jackson, SHAQUILLE 03/23/2025 Telephone [facility] [place] [facility] [address] [place] [phone] Renetta Hunter, SHAQU[place]LE Follow-up 03/22/2025 Telephone [facility] [place] [facility] [address] [place] [phone] Renetta Hunter, SHAQUILLE Follow-up 03/22/2025 Orders Only [facility] [place] [facility] [address] [place] [phone] Mirella Robbins MD PhD Colon adenocarcinoma (HCC) (Primary Dx); Metastasis to liver; Examination of participant in clinical trial 03/22/2025 Orders Only [facility] [place] [facility] [address] [place] [phone] Grisel Porter BS Examination of participant in clinical trial (Primary Dx) 03/21/2025 10:30 AM CDT Clinical Support [facility] [place] [facility] - Lab Collection [address] [place] [address] Colon adenocarcinoma (HCC); Metastasis to liver; Examination of participant in clinical trial 03/21/2025 8:40 AM CDT Office Visit [facility] [place] [facility] [address] [place] [phone] Mirella Robbins MD PhD Colon adenocarcinoma (HCC) (Primary Dx); Metastasis to liver 03/21/2025 8:15 AM CDT Clinical Support [facility] - Lab Collection [address] [place] [address] 5 [place] [address] Colon adenocarcinoma (HCC); Metastasis to liver 03/21/2025 7:45 AM CDT Clinical Support [facility] [place] [facility] [address] [place] [address] 5 [place] [address] Colon adenocarcinoma (HCC); Metastasis to liver 03/21/2025 Orders Only [facility] [place] [facility] [address] [place] [address] 5 [place] [address] Mirella Robbins MD PhD Colon adenocarcinoma (HCC) (Primary Dx); Metastasis to liver; Examination of participant in clinical trial 03/13/2025 12:00 PM CDT Infusion [facility] - Infusion [address] [place] [address] Floor 6 [place] [address] Metastasis to liver (Primary Dx); Colon adenocarcinoma (HCC) 03/13/2025 11:00 AM CDT Office Visit [facility] [place] [facility] [address] [place] [phone] Mirella Robbins MD PhD Colon adenocarcinoma (HCC) (Primary Dx); Metastasis to liver 03/13/2025 10:00 AM CDT Clinical Support [facility] - Lab Collection [address] [place] [address] 5 [place] [address] Colon adenocarcinoma (HCC); Metastasis to liver 03/13/2025 Orders Only [facility] [place] [facility] [address] [place] [phone] Grisel Porter BS Examination of participant in clinical trial (Primary Dx) 03/13/2025 Orders Only [facility] [place] [facility] [address] [place] [phone] Grisel Porter BS Examination of participant in clinical trial (Primary Dx) from Last 3 Months Surgical [...] Passive Smoke Exposure: Never Smokeless Tobacco: Never Tobacco Cessation:Counseling Given: [...] on file Legal Sex Female 6:45 PM BANDAGE WINDING MACHINE OPERATOR Gender Identity Not on file Sexual Orientation Not on file Last Filed Vital Signs Vital Sign Reading Time Taken Comments Blood Pressure 119/77 06/05/2025 8:19 AM BANDAGE WINDING MACHINE OPERATOR Pulse 67 06/05/2025 8:19 AM BANDAGE WINDING MACHINE OPERATOR Temperature 36.6 C (97.9 F) 06/05/2025 8:19 AM BANDAGE WINDING MACHINE OPERATOR Respiratory Rate 16 06/05/2025 8:19 AM BANDAGE WINDING MACHINE OPERATOR Oxygen Saturation 95% 06/05/2025 8:1 9 AM BANDAGE WINDING MACHINE OPERATOR Inhaled Oxygen Concentration - - Weight 86.8 kg (191 lb 6.4 oz) 06/05/2025 8:19 AM BANDAGE WINDING MACHINE OPERATOR Pt unable to remove shoes Height 167.2 cm (5' 5.83) 04/10/2025 8 :11 AM CDT Body Mass Index 31.05 04/10/2025 8:11 AM CDT Plan of Treatment [...] Date/Time Associated Diagnosis Comments URINALYSIS, MICROSCOPIC ONLY STAT 06/05/2025 7:40 AM BANDAGE WINDING MACHINE OPERATOR Colon adenocarcinoma (HCC) Metastasis to liver URINALYSIS AND REFLEX TO MICROSCOPIC AND CULTURE STAT 06/05/2025 7:40 AM BANDAGE WINDING MACHINE OPERATOR Colon adenocarcinoma (HCC) Metastasis to liver URINE CULTURE STAT 06/05/2025 7:40 AM BANDAGE WINDING MACHINE OPERATOR EGFR STAT 06/05/2025 7:28 AM BANDAGE WINDING MACHINE OPERATOR Colon adenocarcinoma (HCC) Metastasis to liver DIFFERENTIAL AUTO STAT 06/05/2025 7:2 8 AM BANDAGE WINDING MACHINE OPERATOR Colon adenocarcinoma (HCC) Metastasis to liver CBC WITH AUTO DIFFERENTIAL STAT 06/05/2025 7:28 AM BANDAGE WINDING MACHINE OPERATOR Colon adenocarcinoma (HCC) Metastasis to liver CEA Routine 06/05/2025 7:28 AM BANDAGE WINDING MACHINE OPERATOR Colon adenocarcinoma (HCC) Metastasis to liver COMPREHENSIVE METABOLIC PANEL STAT 06/05/2025 7:28 AM BANDAGE WINDING MACHINE OPERATOR Colon adenocarcinoma (HCC) Metastasis to liver MAGNESIUM STAT 06/05/2025 7:28 AM BANDAGE WINDING MACHINE OPERATOR Colon adenocarcinoma (HCC) Metastasis to liver PHOSPHORUS STAT 06/05/2025 7:28 AM BANDAGE WINDING MACHINE OPERATOR Colon adenocarcinoma (HCC) Metastasis to liver URIC ACID STAT 06/05/2025 7:28 AM BANDAGE WINDING MACHINE OPERATOR Colon adenocarcinoma (HCC) Metastasis to liver AMYLASE STAT 06/05/2025 7:28 AM BANDAGE WINDING MACHINE OPERATOR Colon adenocarcinoma (HCC) Metastasis to liver LIPASE STAT 06/05/2025 7:28 AM BANDAGE WINDING MACHINE OPERATOR Colon adenocarcinoma (HCC) Metastasis to liver PROTIME-INR STAT 06/05/2025 7:28 AM BANDAGE WINDING MACHINE OPERATOR Colon adenocarcinoma (HCC) Metastasis to liver APTT STAT 06/05/2025 7:28 AM BANDAGE WINDING MACHINE OPERATOR Colon adenocarcinoma (HCC) Metastasis to liver RETICULOCYTES Routine 06/05/2025 7:28 AM BANDAGE WINDING MACHINE OPERATOR Colon adenocarcinoma (HCC) Metastasis to liver CT CHEST ABDOMEN PELVIS W CONTRAST Schedule Routine, Read Routine (OP Routine) 06/02/2025 11:53 AM BANDAGE WINDING MACHINE OPERATOR Colon adenocarcinoma (HCC) Metastasis to liver EGFR Routine 05/29/2025 8:35 AM BANDAGE WINDING MACHINE OPERATOR Colon adenocarcinoma (HCC) Metastasis to liver DIFFERENTIAL AUTO Routine 05/29/2025 8:3 5 AM BANDAGE WINDING MACHINE OPERATOR Colon adenocarcinoma (HCC) Metastasis to liver CBC WITH AUTO DIFFERENTIAL Routine 05/29/2025 8:35 AM BANDAGE WINDING MACHINE OPERATOR Colon adenocarcinoma (HCC) Metastasis to liver COMPREHENSIVE METABOLIC PANEL Routine 05/29/2025 8:35 AM BANDAGE WINDING MACHINE OPERATOR Colon adenocarcinoma (HCC) Metastasis to liver SCAN - LABS 05/23/2025 DIFFERENTIAL AUTO STAT 05/22/2025 8:5 5 AM BANDAGE WINDING MACHINE OPERATOR Colon adenocarcinoma (HCC) Metastasis to liver CBC WITH AUTO DIFFERENTIAL STAT 05/22/2025 8:55 AM BANDAGE WINDING MACHINE OPERATOR Colon adenocarcinoma (HCC) Metastasis to liver RETICULOCYTES Routine 05/22/2025 8:55 AM BANDAGE WINDING MACHINE OPERATOR Colon adenocarcinoma (HCC) Metastasis to liver EGFR STAT 05/22/2025 8:55 AM BANDAGE WINDING MACHINE OPERATOR Colon adenocarcinoma (HCC) Metastasis to liver COMPREHENSIVE METABOLIC PANEL STAT 05/22/2025 8:55 AM BANDAGE WINDING MACHINE OPERATOR Colon adenocarcinoma (HCC) Metastasis to liver MAGNESIUM STAT 05/22/2025 8:55 AM BANDAGE WINDING MACHINE OPERATOR Colon adenocarcinoma (HCC) Metastasis to liver PHOSPHORUS STAT 05/22/2025 8:55 AM BANDAGE WINDING MACHINE OPERATOR Colon adenocarcinoma (HCC) Metastasis to liver URIC ACID STAT 05/22/2025 8:55 AM BANDAGE WINDING MACHINE OPERATOR Colon adenocarcinoma (HCC) Metastasis to liver LIPASE STAT 05/22/2025 8:55 AM BANDAGE WINDING MACHINE OPERATOR Colon adenocarcinoma (HCC) Metastasis to liver PROTIME-INR STAT 05/22/2025 8:55 AM BANDAGE WINDING MACHINE OPERATOR Colon adenocarcinoma (HCC) Metastasis to liver AMYLASE STAT 05/22/2025 8:55 AM BANDAGE WINDING MACHINE OPERATOR Colon adenocarcinoma (HCC) Metastasis to liver APTT STAT 05/22/2025 8:55 AM BANDAGE WINDING MACHINE OPERATOR Colon adenocarcinoma (HCC) Metastasis to liver URINALYSIS, [...] CDT Colon adenocarcinoma (HCC) Metastasis to liver HEPATITIS C ANTIBODY Routine 02/20/2025 11:00 AM CDT Colon adenocarcinoma (HCC) from Last 3 Months or Most Recently Relevant to Health Maintenance Results * (ABNORMAL) Urinalysis reflex to microscopic and culture Urine (06/05/2025 7:40 AM BANDAGE WINDING MACHINE OPERATOR) Color, ur Yellow Yellow Clarity, ur Clear Clear [facility] Specific gravity, ur 1.015 1.003 - 1.030 [facility] pH, urine 6.0 [facility] Comment: Interpretive Data U rine pH is affected by diet, medications, systemic acid-base disturbances, and renal tubular function. pH may affect urinary stone formation. For example, urine pH below 6.0 may help reduce the tendency for calcium phosphate stones and pH greater than 6.0 may reduce the tendency for uric acid stone formation. Source: [facility] Current Interpretive Data was last revised on 2017 Protein, ur ql Negative Negative [facility] Glucose, ur ql Negative Negative [facility] Ketones, ur Negative Negative [facility] Bilirubin, ur Negative Negative [facility] Blood, ur Negative Negative [facility] Urobilinogen, ur <2.0 <2.0 mg/dL [facility] Nitrite, ur Negative Negative [facility] Leukocyte esterase, ur 2+(A) [facility] UA reflex comment Reflex to microscopic UA will be performed. [facility] Urine 06/05/2025 7:40 AM BANDAGE WINDING MACHINE OPERATOR 06/05/2025 7:40 AM BANDAGE WINDING MACHINE OPERATOR us Mirella Robbins MD PhD LAB MICROBIOLOGY - GENERAL ORDERABLES Final Result [facility] Department [place] [address] * (ABNORMAL) Urinalysis, microscopic only (06/05/2025 7:40 AM BANDAGE WINDING MACHINE OPERATOR) WBC, ur 21-50(A) 0 - 5 /HPF RBC, ur 3-5(A) 0 - 2 /HPF [facility] Epithelial cells, squamous, ur 6-10(A) 0 - 5 /HPF [facility] Epithelial cells, transitional, ur 1-5 0 - 0 /HPF [facility] Mucous, ur Present(A) [facility] Hyaline casts, ur 1-5 0 - 10 /LPF [facility] Culture Reflex Comment Reflex to urine culture will be performed. [facility] Urine 06/05/2025 7:40 AM BANDAGE WINDING MACHINE OPERATOR 06/05/2025 7:40 AM BANDAGE WINDING MACHINE OPERATOR Mirella Robbins MD PhD LAB URINE ORDERABLES Final Result Performing Organization Address [facility] Co de Phone Number [facility] Department [place] [address] * Urine culture Urine (06/05/2025 7:40 AM BANDAGE WINDING MACHINE OPERATOR) Report Final Report: Less than 100,000 colonies/mL (clinically insignificant growth based on current clinical standards) Organism (CLINICALLY INSIGNIFICANT GROWTH [facility] Urine 06/05/2025 7:40 AM BANDAGE WINDING MACHINE OPERATOR 06/05/2025 8:15 AM BANDAGE WINDING MACHINE OPERATOR Narrative [facility] - 06/06/2025 10:42 AM BANDAGE WINDING MACHINE OPERATOR Urine culture reflexed based upon urinalysis results. Testing performed by [facility] Microbiology Laboratory ([phone]) Mirella Robbins MD PhD LAB MICROBIOLOGY - GENERAL ORDERABLES Final Result Performing Organization Address [facility] de Phone Number [facility] Department [place] [address] * eGFR (06/05/2025 7:28 AM BANDAGE WINDING MACHINE OPERATOR) eGFR 76 >=60 mL/min/1. 73 m2 Comment: [...] interpretive data was last reviewed 2021. Blood 06/05/2025 7:28 AM BANDAGE WINDING MACHINE OPERATOR 06/05/2025 7:33 AM BANDAGE WINDING MACHINE OPERATOR Mirella Robbins MD PhD LAB BLOOD ORDERABLES Final Result [facility] Department [place] [address] * (ABNORMAL) Differential, auto (06/05/2025 7:28 AM BANDAGE WINDING MACHINE OPERATOR) Neutrophil abs 0.90(L) 1.50 - 6.50 K/cumm Comment:Testing performed by : [facility], [address] [place], [place] [phone] Lymphocyte abs 1.49 0.80 - 3.30 K/cumm [facility] Comment:Testing performed by : [facility], [address] [place] [phone] Monocyte abs 0.34 0.20 - 0.80 K/cumm [facility] Comment:Testing performed by : [facility], [address] [place] [phone] Eosinophil abs 0.20 0.00 - 0.50 K/cumm [facility] Comment:Testing performed by : [facility], [address] [place] [phone] Basophil abs 0.03 0.00 - 0.10 K/cumm [facility] Comment:Testing performed by : [facility], [address] [place] [phone] Neutrophil pct 30.6 % [facility] Comment: Interpretive Data Percent cell count reference ranges are not reported, since discordance with absolute values may lead to misinterpretation of CBC data. Current Interpretive Data was last revised on 2017. Testing performed by: [facility], [address] [place] [address] Lymphocyte pct 50.4 % [facility] Comment: Interpretive Data Percent cell count reference ranges are not reported, since discordance with absolute values may lead to misinterpretation of CBC data. Current Interpretive Data was last revised on 2017. Testing performed by: [facility], [address] [place] [phone] Monocyte pct 11.4 % [facility] Comment: Interpretive Data Percent cell count reference ranges are not reported, since discordance with absolute values may lead to misinterpretation of CBC data. Current Interpretive Data was last revised on 2017. Testing performed by: [facility], [address] [place] [phone] Eosinophil pct 6.8 % [facility] Comment: Interpretive Data Percent cell count reference ranges are not reported, since discordance with absolute values may lead to misinterpretation of CBC data. Current Interpretive Data was last revised on 2017. Testing performed by: [facility], [address] [place] [phone] Basophil pct 0.8 % [facility] Comment: Interpretive Data Percent cell count reference ranges are not reported, since discordance with absolute values may lead to misinterpretation of CBC data. Current Interpretive Data was last revised on 2017. Testing performed by: [facility], [address] [place] [phone] Blood 06/05/2025 7:28 AM BANDAGE WINDING MACHINE OPERATOR 06/05/2025 7:31 AM BANDAGE WINDING MACHINE OPERATOR us Mirella Robbins MD PhD LAB BLOOD ORDERABLES Final Result [facility] Department [place] [address] * (ABNORMAL) CBC with auto differential (06/05/2025 7:28 AM BANDAGE WINDING MACHINE OPERATOR) WBC 2.95(L) 3.80 - 9.90 K/cumm Comment:Testing performed by : [facility], [address] [place] [phone] Hgb 10.7(L) 11.9 - 15.5 g/dL [facility] Comment:Testing performed by : [facility], [address] [place], [place] [phone] Hct 32.6(L) 35.6 - 45.5 % [facility] Comment:Testing performed by : [facility], [address] [place], [place] [phone] Plt 119(L) 150 - 400 K/cumm [facility] Comment:Testing performed by : [facility], [address] [place], [place] [phone] MPV 8.0 6.8 - 10.4 fL [facility] Comment:Testing performed by : [facility], [address] [place], [place] [phone] RBC 3.39(L) 3.90 - 5.20 M/cumm [facility] Comment:Testing performed by : [facility], [address] [place], [place] [phone] MCV 96.2 81.3 - 96.4 fL [facility] Comment:Testing performed by : [facility], [address] [place] [address] MCH 31.5 27.1 - 33.3 pg [facility] Comment:Testing performed by : [facility], [address] [place] [address] MCHC 32.7 32.3 - 35.7 g/dL [facility] Comment:Testing performed by : [facility], [address] [place] [address] RDW CV 15.4(H) 11.1 - 14.9 % [facility] Comment:Testing performed by : [facility], [address] [place] [address] NRBC abs 0.00 0.00 - 0.01 K/cumm [facility] Comment:Testing performed by : [facility], [address] [place] [address] Blood 06/05/2025 7:28 AM BANDAGE WINDING MACHINE OPERATOR 06/05/2025 7:31 AM BANDAGE WINDING MACHINE OPERATOR us Mirella Robbins MD PhD LAB BLOOD ORDERABLES Final Result Performing Organization Address [facility] Co de Phone Number [facility] [place] [address] * aPTT (06/05/2025 7:28 AM BANDAGE WINDING MACHINE OPERATOR) aPTT 30 26 - 38 sec Comment: Interpretive Data Heparin therapeutic range: 66.0 - 100.0 seconds. Range based on correlation with therapeutic heparin activity range of 0.3 - 0.7 Units/mL. Blood 06/05/2025 7:28 AM BANDAGE WINDING MACHINE OPERATOR 06/05/2025 8:11 AM BANDAGE WINDING MACHINE OPERATOR us Mirella Robbins MD PhD LAB BLOOD ORDERABLES Final Result Performing Organization Address [facility] de Phone Number [facility] [place] [address] * Protime-INR (06/05/2025 7:28 AM BANDAGE WINDING MACHINE OPERATOR) PT 10.7 10.2 - 13.5 sec INR 0.95 0.90 - 1.20 [facility] Comment: Interpretive data Oral anticoagulant therapeutic ranges: Venous thromboembolism prophylaxis or treatment: 2.0-3.0 CARDIOLOGY Standard range: 2.0-3.0 High-intensity range: 2.5-3.5 Refer to indication-specific guidelines for appropriate target ranges for prosthetic heart valve replacement. Current interpretive data was last revised on 2019. Blood 06/05/2025 7:28 AM BANDAGE WINDING MACHINE OPERATOR 06/05/2025 8:11 AM BANDAGE WINDING MACHINE OPERATOR us Mirella Robbins MD PhD LAB BLOOD ORDERABLES Final Result Performing Organization Address [facility] Co de Phone Number [facility] [place] [place] [address] * Reticulocyte Count (06/05/2025 7:28 AM BANDAGE WINDING MACHINE OPERATOR) Pathologist [facility] Retics, absolute 33 20 - 100 K/cumm Comment:Testing performed by : [facility], [address] [place] [phone] Retics 1.0 0.5 - 1.8 % [facility] Comment:Testing performed by : [facility], [address] [place] [phone] Blood 06/05/2025 7:28 AM BANDAGE WINDING MACHINE OPERATOR 06/05/2025 7:31 AM BANDAGE WINDING MACHINE OPERATOR us Mirella Robbins MD PhD LAB BLOOD ORDERABLES Final Result [facility] Department [place] [address] * Uric acid (06/05/2025 7:28 AM BANDAGE WINDING MACHINE OPERATOR) [facility] Uric acid 3.6 2.5 - 7.0 mg/dL Blood 06/05/2025 7:28 AM BANDAGE WINDING MACHINE OPERATOR 06/05/2025 7:33 AM BANDAGE WINDING MACHINE OPERATOR us Mirella Robbins MD PhD LAB BLOOD ORDERABLES Final Result [facility] Department [place] [address] * Phosphorus (06/05/2025 7:28 AM BANDAGE WINDING MACHINE OPERATOR) [facility] Phosphorus, pl 2.8 2.3 - 4.5 mg/dL Blood 06/05/2025 7:28 AM BANDAGE WINDING MACHINE OPERATOR 06/05/2025 7:33 AM BANDAGE WINDING MACHINE OPERATOR us Mierlla Robbins MD PhD LAB BLOOD ORDERABLES Final Result [facility] Department [place] [address] * Magnesium (06/05/2025 7:28 AM BANDAGE WINDING MACHINE OPERATOR) Pathologist [facility] Magnesium 1.9 1.4 - 2.5 mg/dL Blood 06/05/2025 7:28 AM BANDAGE WINDING MACHINE OPERATOR 06/05/2025 7:33 AM BANDAGE WINDING MACHINE OPERATOR us Mirella Robbins MD PhD LAB BLOOD ORDERABLES Final Result Performing Organization Address [facility] Phone Number [facility] [place] [place] [address] * Lipase (06/05/2025 7:28 AM BANDAGE WINDING MACHINE OPERATOR) Pathologist [facility] Lipase 23 10 - 99 Units/L Blood 06/05/2025 7:28 AM BANDAGE WINDING MACHINE OPERATOR 06/05/2025 7:33 AM BANDAGE WINDING MACHINE OPERATOR us Mirella Robbins MD PhD LAB BLOOD ORDERABLES Final Result Performing Organization Address [facility] Number [facility] [place] [address] * (ABNORMAL) CEA (06/05/2025 7:28 AM BANDAGE WINDING MACHINE OPERATOR) Pathologist [facility] CEA 150.0(H) <=5.0 ng/mL Comment: Interpretive Data: Reference Range: Non-Smokers: 0.0 5.0 ng/mL Smokers: 0.0 6.5 ng/mL The Shae CEA assay procedure was used. Results from different manufacturers or methods may not be comparable. Serial testing should be performed using the same method. Current interpretive data was last revised 2021. Blood 06/05/2025 7:28 AM BANDAGE WINDING MACHINE OPERATOR 06/05/2025 8:11 AM BANDAGE WINDING MACHINE OPERATOR us Mirella Robbins MD PhD LAB BLOOD ORDERABLES Final Result Performing Organization Address [facility] Phone Number [facility] [place] [place] [address] * Amylase (06/05/2025 7:28 AM BANDAGE WINDING MACHINE OPERATOR) Amylase 64 30 - 99 Units/L Blood 06/05/2025 7:28 AM BANDAGE WINDING MACHINE OPERATOR 06/05/2025 7:33 AM BANDAGE WINDING MACHINE OPERATOR Mirella Robbins MD PhD LAB BLOOD ORDERABLES Final Result [facility] Department [place] [address] * (ABNORMAL) Comprehensive metabolic panel (06/05/2025 7:28 AM BANDAGE WINDING MACHINE OPERATOR) Sodium 141 135 - 145 mmol/L Potassium, pl 4.2 3.3 - 4.9 mmol/L [facility] Chloride 103 97 - 110 mmol/L [facility] CO2 32 22 - 32 mmol/L [facility] Anion gap 6 2 - 15 mmol/L [facility] BUN 11 6 - 25 mg/dL [facility] Creatinine 0.80 0.60 - 1.10 mg/dL [facility] Glucose 113 70 - 199 mg/dL [facility] Comment: Interpretive Data Fasting glucose >/= 126 [...] interpretive data was last revised 2022. Calcium 9.1 8.5 - 10.3 mg/dL [facility] Bilirubin, total 0.2 0.1 - 1.2 mg/dL [facility] Protein, pl 6.4(L) 6.5 - 8.5 g/dL [facility] Albumin 3.4(L) 3.5 - 5.0 g/dL [facility] Alk phos 92 40 - 130 Units/L [facility] ALT 8 7 - 45 Units/L [facility] AST 23 10 - 45 Units/L [facility] Blood 06/05/2025 7:28 AM BANDAGE WINDING MACHINE OPERATOR 06/05/2025 7:33 AM BANDAGE WINDING MACHINE OPERATOR us Mirella Robbins MD PhD LAB BLOOD ORDERABLES Final Result [facility] Department [place] [address] * CT chest abdomen pelvis with contrast (06/02/2025 11:53 AM BANDAGE WINDING MACHINE OPERATOR) Anatomical Region Laterality Modality Body N/A Computed Tomogra phy 06/02/2025 12:1 8 PM BANDAGE WINDING MACHINE OPERATOR Impressions 06/02/2025 12:18 PM BANDAGE WINDING MACHINE OPERATOR 1. Unchanged to minimally increased bilateral pulmonary metastases. 2. Ablation changes within the liver with increase in size of multiple adjacent hepatic metastases in the right hemiliver. 3. Stable bilateral adnexal cystic lesions. Electronically signed by: Kenya Greene M.D. Narrative 06/02/2025 12:18 PM BANDAGE WINDING MACHINE OPERATOR EXAMINATION: CT CHEST ABDOMEN PELVIS W CONTRAST HISTORY: Metastatic lung cancer, follow-up. TECHNIQUE: Transaxial computed tomographic images of the chest, abdomen, and pelvis were obtained after the administration of Optiray 350 69 mL according to standard protocol. COMPARISON: CT dated 05/05/2025 FINDINGS: Chest: Unchanged to minimally increased bilateral pulmonary nodules. For reference, a right lower lobe pulmonary nodule along the fissure now measures 0.7 cm, previously 0.5 cm (series 3, image 112). A right middle lobe pulmonary nodule measures 1.3 cm, previously 1.2 cm (series 3, image 76). No pleural effusion or pneumothorax. The central airways are patent. No thoracic lymphadenopathy. The thyroid gland is unremarkable. Right chest port catheter tip terminates at the superior cavoatrial junction. The thoracic aorta is normal in caliber with scattered atherosclerotic calcifications. Heart size is normal. No pericardial effusion. Multivessel coronary artery disease. Abdomen/pelvis: Changes of micro with ablation within hepatic segments 2, 5, 8, and 3. There is been increase in size of adjacent liver lesions in the right hemiliver. For reference, a lesion in segment 5/6 now measures approximately 3.2 cm, previously 2.5 cm. A lesion in the right hemiliver abutting the segment 5/8 ablation cavity now measures approximately 4.5 x 4.1 cm, previously 3.7 x 3.7 cm when remeasured in a similar fashion. No biliary duct dilation. The gallbladder is normal. The portal veins are patent. Unchanged cystic lesion in the spleen with scattered splenic granulomas. The adrenal glands are normal. There is fatty atrophy of the pancreas. The kidneys enhance symmetrically. Small left renal cysts. No hydronephrosis or renal stone. The bladder is decompressed. Unchanged bilateral adnexal cystic lesions. For reference, the larger within the right adnexa measures approximately 4.5 cm, unchanged. The uterus is anteverted. Stable changes of right hemicolectomy. No bowel obstruction. No pneumoperitoneum or ascites. No abdominal or pelvic lymphadenopathy. Atherosclerotic but nonaneurysmal abdominal aorta. Unchanged mild L2 on L3 superior endplate compression deformities. Multi level osseous hemangiomas. No new destructive osseous lesion. Procedure Note Kenya Greene MD - 06/02/2025 EXAMINATION: CT CHEST ABDOMEN PELVIS W CONTRAST HISTORY: Metastatic lung cancer, follow-up. TECHNIQUE: Transaxial computed tomographic images of the chest, abdomen, and pelvis were obtained after the administration of Optiray 350 69 mL according to standard protocol. COMPARISON: CT dated 05/05/2025 FINDINGS: Chest: Unchanged to minimally increased bilateral pulmonary nodules. For reference, a right lower lobe pulmonary nodule along the fissure now measures 0.7 cm, previously 0.5 cm (series 3, image 112). A right middle lobe pulmonary nodule measures 1.3 cm, previously 1.2 cm (series 3, image 76). No pleural effusion or pneumothorax. The central airways are patent. No thoracic lymphadenopathy. The thyroid gland is unremarkable. Right chest port catheter tip terminates at the superior cavoatrial junction. The thoracic aorta is normal in caliber with scattered atherosclerotic calcifications. Heart size is normal. No pericardial effusion. Multivessel coronary artery disease. Abdomen/pelvis: Changes of micro with ablation within hepatic segments 2, 5, 8, and 3. There is been increase in size of adjacent liver lesions in the right hemiliver. For reference, a lesion in segment 5/6 now measures approximately 3.2 cm, previously 2.5 cm. A lesion in the right hemiliver abutting the segment 5/8 ablation cavity now measures approximately 4.5 x 4.1 cm, previously 3.7 x 3.7 cm when remeasured in a similar fashion. No biliary duct dilation. The gallbladder is normal. The portal veins are patent. Unchanged cystic lesion in the spleen with scattered splenic granulomas. The adrenal glands are normal. There is fatty atrophy of the pancreas. The kidneys enhance symmetrically. Small left renal cysts. No hydronephrosis or renal stone. The bladder is decompressed. Unchanged bilateral adnexal cystic lesions. For reference, the larger within the right adnexa measures approximately 4.5 cm, unchanged. The uterus is anteverted. Stable changes of right hemicolectomy. No bowel obstruction. No pneumoperitoneum or ascites. No abdominal or pelvic lymphadenopathy. Atherosclerotic but nonaneurysmal abdominal aorta. Unchanged mild L2 on L3 superior endplate compression deformities. Multi level osseous hemangiomas. No new destructive osseous lesion. IMPRESSION: 1. Unchanged to minimally increased bilateral pulmonary metastases. 2. Ablation changes within the liver with increase in size of multiple adjacent hepatic metastases in the right hemiliver. 3. Stable bilateral adnexal cystic lesions. Electronically signed by: Kenya Greene M.D. Mirella Robbins MD PhD IMG CT PROCEDURES Final Res ult * eGFR (05/29/2025 8:35 AM BANDAGE WINDING MACHINE OPERATOR) eGFR 76 >=60 mL/min/1. 73 m2 Comment: [...] interpretive data was last reviewed 2021. Blood 05/29/2025 8:35 AM BANDAGE WINDING MACHINE OPERATOR 05/29/2025 8:40 AM BANDAGE WINDING MACHINE OPERATOR us Mirella Robbins MD PhD LAB BLOOD ORDERABLES Final Result [facility] Department [place] [address] * (ABNORMAL) Differential, auto (05/29/2025 8:35 AM BANDAGE WINDING MACHINE OPERATOR) Neutrophil abs 1.36(L) 1.50 - 6.50 K/cumm Comment:Testing performed by : [facility], [address] [place], [place] [id number] Lymphocyte abs 1.07 0.80 - 3.30 K/cumm [facility] Comment:Testing performed by : [facility], [address] [place], [place] [id number] Monocyte abs 0.39 0.20 - 0.80 K/cumm [facility] Comment:Testing performed by : [facility], [address] [place], [place] [id number] Eosinophil abs 0.22 0.00 - 0.50 K/cumm [facility] Comment:Testing performed by : [facility], [address] [place], [place] [id number] Basophil abs 0.02 0.00 - 0.10 K/cumm [facility] Comment:Testing performed by : [facility], [address] [place], [place] [phone] Neutrophil pct 44.4 % [facility] Comment: Interpretive Data Percent cell count reference ranges are not reported, since discordance with absolute values may lead to misinterpretation of CBC data. Current Interpretive Data was last revised on 2017. Testing performed by: [facility], [address] [place] [phone] Lymphocyte pct 35.0 % CERVERONIKA ACOSTA Comment: Interpretive Data Percent cell count reference ranges are not reported, since discordance with absolute values may lead to misinterpretation of CBC data. Current Interpretive Data was last revised on 2017. Testing performed by: [facility], [address] [place] [phone] Monocyte pct 12.6 % CERVERONIKA ACOSTA Comment: Interpretive Data Percent cell count reference ranges are not reported, since discordance with absolute values may lead to misinterpretation of CBC data. Current Interpretive Data was last revised on 2017. Testing performed by: [facility], [address] [place] [phone] Eosinophil pct 7.3 % CERVERONIKA ACOSTA Comment: Interpretive Data Percent cell count reference ranges are not reported, since discordance with absolute values may lead to misinterpretation of CBC data. Current Interpretive Data was last revised on 2017. Testing performed by: [facility], [address] [place] [phone] Basophil pct 0.7 % [facility]STON ACOSTA Comment: Interpretive Data Percent cell count reference ranges are not reported, since discordance with absolute values may lead to misinterpretation of CBC data. Current Interpretive Data was last revised on 2017. Testing performed by: [facility], [address] [place] [phone] Blood 05/29/2025 8:35 AM BANDAGE WINDING MACHINE OPERATOR 05/29/2025 8:39 AM BANDAGE WINDING MACHINE OPERATOR us Mirella Robbins MD PhD LAB BLOOD ORDERABLES Final Result [facility] ENRIQUEZ [facility] Department [place] [address] * (ABNORMAL) CBC with auto differential (05/29/2025 8:35 AM BANDAGE WINDING MACHINE OPERATOR) WBC 3.06(L) 3.80 - 9.90 K/cumm Comment:Testing performed by : [facility], [address] [place], [place] [phone] Hgb 11.0(L) 11.9 - 15.5 g/dL CERNER BJ Comment:Testing performed by : [facility], [address] [place], [place] [phone] Hct 33.5(L) 35.6 - 45.5 % CERNER BJ Comment:Testing performed by : [facility], [address] [place], [place] [phone] Plt 148(L) 150 - 400 K/cumm CERNER BJ Comment:Testing performed by : [facility], [address] [place], [place] [phone] MPV 8.0 6.8 - 10.4 fL CERNER BJ Comment:Testing performed by : [facility], [address] [place], [place] [phone] RBC 3.50(L) 3.90 - 5.20 M/cumm CERNER BJ Comment:Testing performed by : [facility], [address] [place], [place] [phone] MCV 95.8 81.3 - 96.4 fL CERNER BJ Comment:Testing performed by : [facility], [address] [place], [place] [phone] MCH 31.6 27.1 - 33.3 pg CERNER BJ Comment:Testing performed by : [facility], [address] [place], [place] [phone] MCHC 33.0 32.3 - 35.7 g/dL CERNER BJ Comment:Testing performed by : [facility], [address] [place] [address] RDW CV 15.4(H) 11.1 - 14.9 % CERNER BJ Comment:Testing performed by : [facility], [address] [place], [place] [phone] NRBC abs 0.00 0.00 - 0.01 K/cumm CERNER BJ Comment:Testing performed by : [facility], [address] [place] [phone] Blood 05/29/2025 8:35 AM BANDAGE WINDING MACHINE OPERATOR 05/29/2025 8:39 AM BANDAGE WINDING MACHINE OPERATOR us Mirella Robbins MD PhD LAB BLOOD ORDERABLES Final Result [facility] Department [place] [address] * (ABNORMAL) Comprehensive metabolic panel (05/29/2025 8:35 AM BANDAGE WINDING MACHINE OPERATOR) Sodium 142 135 - 145 mmol/L Potassium, pl 4.2 3.3 - 4.9 mmol/L [facility] Chloride 105 97 - 110 mmol/L [facility] CO2 30 22 - 32 mmol/L [facility] Anion gap 7 2 - 15 mmol/L [facility] BUN 11 6 - 25 mg/dL [facility] Creatinine 0.80 0.60 - 1.10 mg/dL [facility] Glucose 120 70 - 199 mg/dL [facility] Comment: Interpretive Data Fasting glucose >/= 126 [...] Calcium 9.3 8.5 - 10.3 mg/dL [facility] Bilirubin, total 0.3 0.1 - 1.2 mg/dL [facility] Protein, pl 6.6 6.5 - 8.5 g/dL [facility] Albumin 3.4(L) 3.5 - 5.0 g/dL [facility] Alk phos 104 40 - 130 Units/L CERNER B[facility] ALT 9 7 - 45 Units/L [facility]ER [facility] AST 22 10 - 45 Units/L [facility] Blood 05/29/2025 8:35 AM BANDAGE WINDING MACHINE OPERATOR 05/29/2025 8:40 AM BANDAGE WINDING MACHINE OPERATOR Mirella Robbins MD PhD LAB BLOOD ORDERABLES Final Result [facility] Department [place] [address] * SCAN - LABS (05/23/2025) Provider Scanning Final Result * (ABNORMAL) Differential, auto (05/22/2025 8:55 AM BANDAGE WINDING MACHINE OPERATOR) Neutrophil abs 1.02(L) 1.50 - 6.50 K/cumm Comment:Testing performed by : [facility], [address] [place], [place] [phone] Lymphocyte abs 1.32 0.80 - 3.30 [facility]umm [facility] Comment[facility]Testing performed by : [facility], [address] [place], [place] [phone] Monocyte abs 0.42 0.20 - 0.80 K/cumm [facility] Comment:Testing performed by : [facility], [address] [place] [phone] Eosinophil abs 0.22 0.00 - 0.50 K/cumm [facility] Comment:Testing performed by : [facility], [address] [place] [phone] Basophil abs 0.02 0.00 - 0.10 K/cumm [facility] Comment:Testing performed by : [facility], [address] [place] [phone] Neutrophil pct 33.9 % [facility] Comment: Interpretive Data Percent cell count reference ranges are not reported, since discordance with absolute values may lead to misinterpretation of CBC data. Current Interpretive Data was last revised on 2017. Testing performed by: [facility], [address] [place] [phone] Lymphocyte pct 43.9 % [facility] Comment: Interpretive Data Percent cell count reference ranges are not reported, since discordance with absolute values may lead to misinterpretation of CBC data. Current Interpretive Data was last revised on 2017. Testing performed by: [facility], [address] [place] [phone] Monocyte pct 14.1 % HOUSTON ACOSTA Comment: Interpretive Data Percent cell count reference ranges are not reported, since discordance with absolute values may lead to misinterpretation of CBC data. Current Interpretive Data was last revised on 2017. Testing performed by: [facility], [address] [place], [place] [phone] Eosinophil pct 7.4 % HOUSTON ACOSTA Comment: Interpretive Data Percent cell count reference ranges are not reported, since discordance with absolute values may lead to misinterpretation of CBC data. Current Interpretive Data was last revised on 2017. Testing performed by: [facility], [address] [place], [place] [phone] Basophil pct 0.7 % HOUSTON ACOSTA Comment: Interpretive Data Percent cell count reference ranges are not reported, since discordance with absolute values may lead to misinterpretation of CBC data. Current Interpretive Data was last revised on 2017. Testing performed by: [facility], [address] [place] [phone] Blood 05/22/2025 8:55 AM BANDAGE WINDING MACHINE OPERATOR 05/22/2025 8:59 AM BANDAGE WINDING MACHINE OPERATOR us Mirella Robbins MD PhD LAB BLOOD ORDERABLES Final Result HOUSTON ACOSTA [facility] Department [place] [address] * (ABNORMAL) CBC with auto differential (05/22/2025 8:55 AM BANDAGE WINDING MACHINE OPERATOR) WBC 3.01(L) 3.80 - 9.90 K/cumm Comment:Testing performed by : [facility], [address] [place] [phone] Hgb 11.1(L) 11.9 - 15.5 g/dL NETTANER BJ Comment:Testing performed by : [facility], [address] [place], [place] [phone] Hct 33.7(L) 35.6 - 45.5 % CERNER BJ Comment:Testing performed by : [facility], [address] [place], [place] [phone] Plt 146(L) 150 - 400 K/cumm CERNER BJ Comment:Testing performed by : [facility], [address] [place], [place] [phone] MPV 7.8 6.8 - 10.4 fL CERNER BJ Comment:Testing performed by : [facility], [address] [place], [place] [phone] RBC 3.47(L) 3.90 - 5.20 M/cumm CERNER BJ Comment:Testing performed by : [facility], [address] [place], [place] [phone] MCV 97.0(H) 81.3 - 96.4 fL CERNER BJ Comment:Testing performed by : [facility], [address] [place], [place] [phone] MCH 32.0 27.1 - 33.3 pg CERNER BJ Comment:Testing performed by : [facility], [address] [place], [place] [phone] MCHC 33.0 32.3 - 35.7 g/dL CERNER BJ Comment:Testing performed by : [facility], [address] [place], [place] [phone] RDW CV 15.6(H) 11.1 - 14.9 % CERNER BJ Comment:Testing performed by : [facility], [address] [place], [place] [phone] NRBC abs 0.00 0.00 - 0.01 K/cumm CERNER BJ Comment:Testing performed by : [facility], [address] [place], [place] [phone] Blood 05/22/2025 8:55 AM BANDAGE WINDING MACHINE OPERATOR 05/22/2025 8:59 AM BANDAGE WINDING MACHINE OPERATOR Mirella Robbins MD PhD LAB BLOOD ORDERABLES Final Result [facility] Department [place] [address] * Reticulocyte Count (05/22/2025 8:55 AM BANDAGE WINDING MACHINE OPERATOR) Retics, absolute 35 20 - 100 K/cumm Comment:Testing performed by : [facility], [address] [place] [phone] Retics 1.0 0.5 - 1.8 % [facility] Comment:Testing performed by : [facility], [address] [place] [phone] Blood 05/22/2025 8:55 AM BANDAGE WINDING MACHINE OPERATOR 05/22/2025 8:59 AM BANDAGE WINDING MACHINE OPERATOR Mirella Robbins MD PhD LAB BLOOD ORDERABLES Final Result Performing Organization Address [facility] Co de Phone Number [facility] Department [place] [address] * eGFR (05/22/2025 8:55 AM BANDAGE WINDING MACHINE OPERATOR) eGFR 77 >=60 mL/min/1. 73 m2 Comment: [...] last reviewed 2021. Blood 05/22/2025 8:55 AM BANDAGE WINDING MACHINE OPERATOR 05/22/2025 9:01 AM BANDAGE WINDING MACHINE OPERATOR us Mirella Robbins MD PhD LAB BLOOD ORDERABLES Final Result Performing Organization Address [facility] de Phone Number [facility] [place] [address] * aPTT (05/22/2025 8:55 AM BANDAGE WINDING MACHINE OPERATOR) aPTT 28 26 - 38 sec Comment: Interpretive Data Heparin therapeutic range: 66.0 - 100.0 seconds. Range based on correlation with therapeutic heparin activity range of 0.3 - 0.7 Units/mL. Current interpretive data was last revised on 2023. Blood 05/22/2025 8:55 AM BANDAGE WINDING MACHINE OPERATOR 05/22/2025 9:12 AM BANDAGE WINDING MACHINE OPERATOR us Mirella Robbins MD PhD LAB BLOOD ORDERABLES Final Result Performing Organization Address [facility] de Phone Number [facility] [place] [address] * Protime-INR (05/22/2025 8:55 AM BANDAGE WINDING MACHINE OPERATOR) PT 10.2 10.2 - 13.5 sec INR 0.90 0.90 - 1.20 [facility] Comment: Interpretive data Oral anticoagulant therapeutic ranges: Venous thromboembolism prophylaxis or treatment: 2.0-3.0 CARDIOLOGY Standard range: 2.0-3.0 High-intensity range: 2.5-3.5 Refer to indication-specific guidelines for appropriate target ranges for prosthetic heart valve replacement. Current interpretive data was last revised on 2019. Blood 05/22/2025 8:55 AM BANDAGE WINDING MACHINE OPERATOR 05/22/2025 9:12 AM BANDAGE WINDING MACHINE OPERATOR us Mirella Robbins MD PhD LAB BLOOD ORDERABLES Final Result [facility] Department [place] [address] * Uric acid (05/22/2025 8:55 AM BANDAGE WINDING MACHINE OPERATOR) Uric acid 3.9 2.5 - 7.0 mg/dL Blood 05/22/2025 8:55 AM BANDAGE WINDING MACHINE OPERATOR 05/22/2025 9:01 AM BANDAGE WINDING MACHINE OPERATOR Mirella Robbins MD PhD LAB BLOOD ORDERABLES Final Result Performing Organization Address [facility] Co de Phone Number [facility] Department [place] [address] * Phosphorus (05/22/2025 8:55 AM BANDAGE WINDING MACHINE OPERATOR) Phosphorus, pl 3.5 2.3 - 4.5 mg/dL Blood 05/22/2025 8:55 AM BANDAGE WINDING MACHINE OPERATOR 05/22/2025 9:01 AM BANDAGE WINDING MACHINE OPERATOR Mirella Robbins MD PhD LAB BLOOD ORDERABLES Final Result Performing Organization Address City/[facility] Co de Phone Number [facility] [place] [address] * Magnesium (05/22/2025 8:55 AM BANDAGE WINDING MACHINE OPERATOR) Magnesium 1.8 1.4 - 2.5 mg/dL Blood 05/22/2025 8:55 AM BANDAGE WINDING MACHINE OPERATOR 05/22/2025 9:01 AM BANDAGE WINDING MACHINE OPERATOR Mirella Robbins MD PhD LAB BLOOD ORDERABLES Final Result Performing Organization Address [facility] Co de Phone Number [facility] [place] [address] * Lipase (05/22/2025 8:55 AM BANDAGE WINDING MACHINE OPERATOR) Pathologist [facility] Lipase 31 10 - 99 Units/L Blood 05/22/2025 8:55 AM BANDAGE WINDING MACHINE OPERATOR 05/22/2025 9:01 AM BANDAGE WINDING MACHINE OPERATOR Mirella Robbins MD PhD LAB BLOOD ORDERABLES Final Result Performing Organization Address [facility] Co de Phone Number [facility] [place] [address] * Amylase (05/22/2025 8:55 AM BANDAGE WINDING MACHINE OPERATOR) [facility] Amylase 62 30 - 99 Units/L Blood 05/22/2025 8:55 AM BANDAGE WINDING MACHINE OPERATOR 05/22/2025 9:01 AM BANDAGE WINDING MACHINE OPERATOR Mirella Robbins MD PhD LAB BLOOD ORDERABLES Final Result Performing Organization Address [facility] Phone Number [facility] Department [place] [address] * (ABNORMAL) Comprehensive metabolic panel (05/22/2025 8:55 AM BANDAGE WINDING MACHINE OPERATOR) [facility] Sodium 141 135 - 145 mmol/L Potassium, pl 4.1 3.3 - 4.9 mmol/L [facility] Chloride 106 97 - 110 mmol/L [facility] CO2 29 22 - 32 mmol/L [facility] Anion gap 6 2 - 15 mmol/L [facility] BUN 12 6 - 25 mg/dL [facility] Creatinine 0.79 0.60 - 1.10 mg/dL [facility] Glucose 104 70 - 199 mg/dL [facility] Comment: Interpretive Data Fasting glucose >/= 126 [...] 2022. Calcium 9.3 8.5 - 10.3 mg/dL [facility] Bilirubin, total 0.2 0.1 - 1.2 mg/dL [facility] Protein, pl 6.3(L) 6.5 - 8.5 g/dL [facility] Albumin 3.5 3.5 - 5.0 g/dL [facility] Alk phos 92 40 - 130 Units/L [facility] ALT 11 7 - 45 Units/L [facility] AST 26 10 - 45 Units/L [facility] Blood 05/22/2025 8:55 AM BANDAGE WINDING MACHINE OPERATOR 05/22/2025 9:01 AM BANDAGE WINDING MACHINE OPERATOR us Mirella Robbins MD PhD LAB BLOOD ORDERABLES Final Result [facility] Department [place] [address] * (ABNORMAL) Urinalysis reflex to microscopic and culture Urine (05/08/2025 8:17 AM CDT) Color, ur Yellow Yellow Clarity, ur Clear Clear [facility] Specific gravity, ur 1.023 1.003 - 1.030 [facility] pH, urine 6.0 [facility] Comment: Interpretive Data U rine pH is affected by diet, medications, systemic acid-base disturbances, and renal tubular function. pH may affect urinary stone formation. For example, urine pH below 6.0 may help reduce the tendency for calcium phosphate stones and pH greater than 6.0 may reduce the tendency for uric acid stone formation. Source: [facility] [employer] Current Interpretive Data was last revised on 2017 Protein, ur ql Trace Negative [facility] Glucose, ur ql Negative Negative [facility] Ketones, ur Negative Negative [facility] Bilirubin, ur Negative Negative [facility] Blood, ur Negative Negative [facility] Urobilinogen, ur <2.0 <2.0 mg/dL [facility] Nitrite, ur Negative Negative [facility] Leukocyte esterase, ur Trace(A) [facility] UA reflex comment Reflex to microscopic UA will be performed. [facility] Urine 05/08/2025 8:17 AM CDT 05/08/2025 8:17 AM CDT Mirella Robbins MD PhD LAB MICROBIOLOGY - GENERAL ORDERABLES Final Result Performing Organization Address City/[facility] Co de Phone Number [facility] [place] [address] * (ABNORMAL) Urinalysis, microscopic only (05/08/2025 8:17 AM CDT) WBC, ur 11-20(A) 0 - 5 /HPF RBC, ur 3-5(A) 0 - 2 /HPF [facility] Epithelial cells, squamous, ur 6-10(A) 0 - 5 /HPF [facility] Bacteria, ur Trace(A) [facility] Mucous, ur Present(A) [facility] Hyaline casts, ur 6-10 0 - 10 /LPF [facility] Culture Reflex Comment Reflex to urine culture will be performed. [facility] Urine 05/08/2025 8:17 AM CDT 05/08/2025 8:17 AM CDT us Mirella Robbins MD PhD LAB URINE ORDERABLES Final Result Performing Organization Address [facility] Co de Phone Number [facility] Department [place] [address] * eGFR (05/08/2025 7:56 AM CDT) eGFR [...] BLOOD ORDERABLES Final Result [facility] ACOSTA [facility] [place] [address] * (ABNORMAL) Differential, auto (05/08/2025 7:56 AM CDT) Neutrophil abs 1.39(L) 1.50 - 6.50 K/cumm Comment:Testing performed by : [facility], [address] [place], [place] [phone] Lymphocyte abs 1.48 0.80 - 3.30 K/cumm [facility] ACOSTA Comment:Testing performed by : [facility], [address] [place], [place] [phone] Monocyte abs 0.21 0.20 - 0.80 K/cumm [facility] ACOSTA Comment:Testing performed by : [facility], [address] [place] [address] Eosinophil abs 0.19 0.00 - 0.50 K/cumm [facility] ACOSTA Comment:Testing performed by : [facility], [address] [place] [address] Basophil abs 0.03 0.00 - 0.10 K/cumm [facility]ST[facility] ACOSTA Comment:Testing performed by : [facility], [address] [place] [address] Neutrophil pct 42.3 % [facility] ACOSTA Comment: Interpretive Data Percent cell count reference ranges are not reported, since discordance with absolute values may lead to misinterpretation of CBC data. Current Interpretive Data was last revised on 2017. Testing performed by: [facility], [address] [place] [phone] Lymphocyte pct 44.8 % [facility] ACOSTA Comment: Interpretive Data Percent cell count reference ranges are not reported, since discordance with absolute values may lead to misinterpretation of CBC data. Current Interpretive Data was last revised on 2017. Testing performed by: [facility], [address] [place] [phone] Monocyte pct 6.3 % [facility] ACOSTA Comment: Interpretive Data Percent cell count reference ranges are not reported, since discordance with absolute values may lead to misinterpretation of CBC data. Current Interpretive Data was last revised on 2017. Testing performed by: [facility], [address] [place] [address] Eosinophil pct 5.6 % [facility] ACOSTA Comment: Interpretive Data Percent cell count reference ranges are not reported, since discordance with absolute values may lead to misinterpretation of CBC data. Current Interpretive Data was last revised on 2017. Testing performed by: [facility], [address] [place] [phone] Basophil pct 1.0 % [facility] ACOSTA Comment: Interpretive Data Percent cell count reference ranges are not reported, since discordance with absolute values may lead to misinterpretation of CBC data. Current Interpretive Data was last revised on 2017. Testing performed by: [facility], [address] [place] [phone] Blood 05/08/2025 7:56 AM CDT 05/08/2025 7:57 AM CDT us Mirella Robbins MD PhD LAB BLOOD ORDERABLES Final Result [facility] [place] [address] * (ABNORMAL) CBC with auto differential (05/08/2025 7:56 AM CDT) WBC 3.29(L) 3.80 - 9.90 K/cumm Comment:Testing performed by : [facility], [address] [place] [address] Hgb 11.2(L) 11.9 - 15.5 g/dL CERNER BJ Comment:Testing performed by : [facility], [address] [place] [address] Hct 33.1(L) 35.6 - 45.5 % CERNER BJ Comment:Testing performed by : [facility], [address] [place] [address] Plt 98(L) 150 - 400 K/cumm CERNER BJ Comment:Testing performed by : [facility], [address] [place] [address] MPV 8.4 6.8 - 10.4 fL CERNER BJ Comment:Testing performed by : [facility], [address] [place] [address] RBC 3.39(L) 3.90 - 5.20 M/cumm CERNER BJ Comment:Testing performed by : [facility], [address] [place] [address] MCV 97.7(H) 81.3 - 96.4 fL CERNER BJ Comment:Testing performed by : [facility], [address] [place] [address] MCH 33.1 27.1 - 33.3 pg [facility]ERNER BJ Comment:Testing performed by : [facility], [address] [place] [address] MCHC 33.9 32.3 - 35.7 g/dL [facility]J Comment:Testing performed by : [facility], [address] [place] [address] RDW CV 15.2(H) 11.1 - 14.9 % CERNER BJ Comment:Testing performed by : [facility], [address] [place] [phone] NRBC abs 0.00 0.00 - 0.01 K/cumm [facility] Comment:Testing performed by : [facility], [address] [place] [phone] Blood 05/08/2025 7:56 AM CDT 05/08/2025 7:57 AM CDT Mirella Robbins MD PhD LAB BLOOD ORDERABLES Final Result Performing Organization Address [facility] de Phone Number [facility] Department [place] [address] * aPTT (05/08/2025 7:56 AM CDT) aPTT [...] BLOOD ORDERABLES Final Result Performing Organization Address [facility] de Phone Number [facility] Department [place] [address] * (ABNORMAL) Protime-INR (05/08/2025 7:56 AM CDT) PT 9.9(L) 10.2 - 13.5 sec INR 0.87(L) 0.90 - 1.20 [facility] Comment: Interpretive data Oral anticoagulant therapeutic ranges: Venous thromboembolism prophylaxis or treatment: 2.0-3.0 CARDIOLOGY Standard range: 2.0-3.0 High-intensity range: 2.5-3.5 Refer to indication-specific guidelines for appropriate target ranges for prosthetic heart valve replacement. Current interpretive data was last revised on 2019. Blood 05/08/2025 7:56 AM CDT 05/08/2025 8:05 AM CDT Result [facility] Mirella Robbins MD PhD LAB BLOOD ORDERABLES Final Result Performing Organization Address [facility] Co de Phone Number [facility] [place] [address] * Reticulocyte Count (05/08/2025 7:56 AM CDT) [facility] Retics, absolute 23 20 - 100 K/cumm Comment:Testing performed by : [facility], [address] [place] [phone] Retics 0.7 0.5 - 1.8 % [facility] Comment:Testing performed by : [facility], [address] [place] [phone] Blood 05/08/2025 7:56 AM CDT 05/08/2025 7:57 AM CDT Result [facility] Mirella Robbins MD PhD LAB BLOOD ORDERABLES Final Result Performing Organization Address [facility] Co de Phone Number [facility] Department [place] [address] * Uric acid (05/08/2025 7:56 AM CDT) [facility] Uric acid 4.5 2.5 - 7.0 mg/dL Blood 05/08/2025 7:56 AM CDT 05/08/2025 7:58 AM CDT Result [facility] Mirella Robbins MD PhD LAB BLOOD ORDERABLES Final Result Performing Organization Address City/[facility]/[place] [address] * Phosphorus (05/08/2025 7:56 AM CDT) Phosphorus, pl 3.1 2.3 - 4.5 mg/dL Blood 05/08/2025 7:56 AM CDT 05/08/2025 7:58 AM CDT us Mirella Robbins MD PhD LAB BLOOD ORDERABLES Final Result Performing Organization Address [facility] de Phone Number [facility] [place] [address] * Magnesium (05/08/2025 7:56 AM CDT) [facility] Magnesium 2.2 1.4 - 2.5 mg/dL Blood 05/08/2025 7:56 AM CDT 05/08/2025 7:58 AM CDT us Mirella Robbins MD PhD LAB BLOOD ORDERABLES Final Result Performing Organization Address [facility] Phone Number [facility] [place] [address] * Lipase (05/08/2025 7:56 AM CDT) [facility] Lipase 39 10 - 99 Units/L Blood 05/08/2025 7:56 AM CDT 05/08/2025 7:58 AM CDT us Mirella Robbins MD PhD LAB BLOOD ORDERABLES Final Result Performing Organization Address [facility] [place] [address] * (ABNORMAL) CEA (05/08/2025 7:56 AM CDT) [facility] CEA 90.7(H) <=5.0 ng/mL Comment: Interpretive [...] BLOOD ORDERABLES Final Result Performing Organization Address City/[facility]/ZIP Co de Phone Number [facility] Department [place] [address] * Amylase (05/08/2025 7:56 AM CDT) Pathologist [facility] Amylase 62 30 - 99 Units/L Blood 05/08/2025 7:56 AM CDT 05/08/2025 7:58 AM CDT Mirella Robbins MD PhD LAB BLOOD ORDERABLES Final Result Performing Organization Address [facility] de Phone Number [facility] [place] [address] * Comprehensive metabolic panel (05/08/2025 7:56 AM CDT) Pathologist [facility] Sodium 142 135 - 145 mmol/L Potassium, pl 4.3 3.3 - 4.9 mmol/L [facility] Chloride 106 97 - 110 mmol/L [facility] CO2 29 22 - 32 mmol/L [facility] Anion gap 7 2 - 15 mmol/L [facility] BUN 19 6 - 25 mg/dL [facility] Creatinine 0.80 0.60 - 1.10 mg/dL [facility] Glucose 113 70 - 199 mg/dL [facility] Comment: Interpretive Data Fasting glucose >/= 126 [...] 2022. Calcium 9.4 8.5 - 10.3 mg/dL [facility] Bilirubin, total 0.2 0.1 - 1.2 mg/dL [facility] Protein, pl 6.5 6.5 - 8.5 g/dL [facility] Albumin 3.6 3.5 - 5.0 g/dL [facility] Alk phos 109 40 - 130 Units/L [facility] ALT 12 7 - 45 Units/L [facility] AST 23 10 - 45 Units/L [facility] Blood 05/08/2025 7:56 AM CDT 05/08/2025 7:58 AM CDT us Mirella Robbins MD PhD LAB BLOOD ORDERABLES Final Result [facility] Department [place] [address] * CT chest abdomen pelvis with contrast [...] Electronically signed by: Chester Worthy MD, MPHS us Mirella Robbins MD PhD IMG CT PROCEDURES Final Res ult * eGFR (05/01/2025 9:19 AM CDT) Pathologist [facility] eGFR 65 >=60 mL/min/1. 73 [...] 05/01/2025 9:22 AM CDT us Matilde Conley [employer] LAB BLOOD ORDERABLES Frida blackwell Result [facility] Department [place] [address] * (ABNORMAL) CBC with auto differential (05/01/2025 9:19 AM CDT) [facility] WBC 5.03 3.80 - 9.90 K/cumm Comment:Testing performed by : [facility], [address] [place] [phone] Hgb 11.4(L) 11.9 - 15.5 g/dL [facility] Comment:Testing performed by : [facility], [address] [place] [phone] Hct 34.1(L) 35.6 - 45.5 % [facility] Comment:Testing performed by : [facility], [address] [place] [address] Plt 120(L) 150 - 400 K/cumm CERVERONIKA BJ Comment:Testing performed by : [facility], [address] [place] [address] MPV 7.9 6.8 - 10.4 fL [facility] Comment:Testing performed by : [facility], [address] [place] [address] RBC 3.45(L) 3.90 - 5.20 M/cumm CERVERONIKA [facility]J Comment:Testing performed by : [facility], [address] [place] [address] MCV 98.9(H) 81.3 - 96.4 fL [facility] Comment:Testing performed by : [facility], [address] [place] [address] MCH 32.9 27.1 - 33.3 pg [facility] Comment:Testing performed by : [facility], [address] [place] [address] MCHC 33.3 32.3 - 35.7 g/dL [facility] Comment:Testing performed by : [facility], [address] [place] [address] RDW CV 15.4(H) 11.1 - 14.9 % [facility] Comment:Testing performed by : [facility], [address] [place] [address] NRBC abs 0.00 0.00 - 0.01 K/cumm [facility] Comment:Testing performed by : [facility], [address] [place] [address] Blood 05/01/2025 9:19 AM CDT 05/01/2025 9:20 AM CDT us Matilde Conley [employer] LAB BLOOD ORDERABLES Edit ed Result - Final [facility] Department [place] [address] * (ABNORMAL) Manual Differential (05/01/2025 9:19 AM CDT) Cells Counted 200 Comment:Testing performed by : [facility], [address] [place], [place] [phone] Neutrophil abs 2.77 1.50 - 6.50 K/cumm [facility] Comment:Testing performed by : [facility], [address] [place], [place] [phone] Lymphocyte abs 1.31 0.80 - 3.30 K/cumm [facility] Comment:Testing performed by : [facility], [address] [place], [place] [phone] Monocyte abs 0.55 0.20 - 0.80 K/cumm [facility] Comment:Testing performed by : [facility], [address] [place], [place] [phone] Eosinophil abs 0.15 0.00 - 0.50 K/cumm [facility] Comment:Testing performed by : [facility], [address] [place], [place] [phone] Basophil abs 0.05 0.00 - 0.10 K/cumm [facility] Comment:Testing performed by : [facility], [address] [place] [phone] Neutrophil pct 55.0 % [facility] Comment: Interpretive Data Percent cell count reference ranges are not reported, since discordance with absolute values may lead to misinterpretation of CBC data. Current Interpretive Data was last revised on 2017. Testing performed by: [facility], [address] [place] [phone] Lymphocyte pct 26.0 % [facility] Comment: Interpretive Data Percent cell count reference ranges are not reported, since discordance with absolute values may lead to misinterpretation of CBC data. Current Interpretive Data was last revised on 2017. Testing performed by: [facility], [address] [place] [phone] Monocyte pct 11.0 % [facility] Comment: Interpretive Data Percent cell count reference ranges are not reported, since discordance with absolute values may lead to misinterpretation of CBC data. Current Interpretive Data was last revised on 2017. Testing performed by: [facility], [address] [place] [phone] Eosinophil pct 3.0 % [facility] Comment: Interpretive Data Percent cell count reference ranges are not reported, since discordance with absolute values may lead to misinterpretation of CBC data. Current Interpretive Data was last revised on 2017. Testing performed by: [facility], [address] [place] [phone] Basophil pct 1.0 % [facility] Comment: Interpretive Data Percent cell count reference ranges are not reported, since discordance with absolute values may lead to misinterpretation of CBC data. Current Interpretive Data was last revised on 2017. Testing performed by: [facility], [address] [place] [phone] Metamyelocyte pct 3.0(H) 0.0 - 0.0 % [facility] Comment:Testing performed by : [facility], [address] [place] [phone] Myelocyte pct 1.0(H) 0.0 - 0.0 % [facility] Comment:Testing performed by : [facility], [address] [place] [phone] Promyelocyte pct 1.0(H) 0.0 - 0.0 % [facility] Comment:Testing performed by : [facility], [address] [place] [phone] Variant lymph pct 2.0(H) 0.0 - 0.0 % [facility] Comment:Testing performed by : [facility], [address] [place], [place] [phone] Polychromasia 1+(A) [facility] Comment:Testing performed by : [facility], [address] [place] [phone] Anisocytosis 1+(A) [facility] Comment:Testing performed by : [facility], [address] [place] [phone] Microcytes 1+(A) [facility] Comment:Testing performed by : [facility], [address] [place] [phone] Macrocytes 1+(A) [facility] Comment:Testing performed by : [facility], [address] [place] [phone] Teardrop cells 1+(A) [facility] Comment:Testing performed by : [facility], [address] [place] [phone] Platelet estimate Decreased (A) [facility] Comment:Testing performed by : [facility], [address] [place] [phone] Giant platelets Present(A ) [facility] Comment:Testing performed by : [facility], [address] [place] [phone] Blood 05/01/2025 9:19 AM CDT 05/01/2025 9:20 AM CDT us Matilde Conley [employer] LAB BLOOD ORDERABLES Frida l Result [facility] Department [place] [address] * Comprehensive metabolic panel (05/01/2025 9:19 AM CDT) Sodium 143 135 - 145 mmol/L Potassium, pl 4.5 3.3 - 4.9 mmol/L [facility] Chloride 104 97 - 110 mmol/L [facility] CO2 32 22 - 32 mmol/L [facility] Anion gap 7 2 - 15 mmol/L [facility] BUN 11 6 - 25 mg/dL [facility] Creatinine 0.91 0.60 - 1.10 mg/dL [facility] Glucose 107 70 - 199 mg/dL [facility] Comment: Interpretive Data Fasting glucose >/= 126 [...] Calcium 9.5 8.5 - 10.3 mg/dL [facility] Bilirubin, total 0.2 0.1 - 1.2 mg/dL [facility] Protein, pl 6.6 6.5 - 8.5 g/dL [facility] Albumin 3.7 3.5 - 5.0 g/dL [facility] Alk phos 108 40 - 130 Units/L [facility] ALT 11 7 - 45 Units/L [facility] AST 22 10 - 45 Units/L [facility] Blood 05/01/2025 9:19 AM CDT 05/01/2025 9:22 AM CDT us Matilde Conley [employer] LAB BLOOD ORDERABLES Frida blackwell Result [facility] Department [place] [address] * eGFR (04/24/2025 9:25 AM CDT) eGFR [...] BLOOD ORDERABLES Final Result [facility] Department [place] [address] * (ABNORMAL) Differential, auto (04/24/2025 9:25 AM CDT) Neutrophil abs 0.73(L) 1.50 - 6.50 K/cumm Comment:Testing performed by : [facility], [address] [place], [place] [phone] Lymphocyte abs 1.34 0.80 - 3.30 K/cumm [facility] Comment:Testing performed by : [facility], [address] [place], [place] [phone] Monocyte abs 0.25 0.20 - 0.80 K/cumm [facility] Comment:Testing performed by : [facility], [address] [place] [phone] Eosinophil abs 0.16 0.00 - 0.50 K/cumm [facility] Comment:Testing performed by : [facility], [address] [place] [phone] Basophil abs 0.03 0.00 - 0.10 K/cumm [facility] Comment:Testing performed by : [facility], [address] [place] [phone] Neutrophil pct 29.2 % [facility] Comment: Interpretive Data Percent cell count reference ranges are not reported, since discordance with absolute values may lead to misinterpretation of CBC data. Current Interpretive Data was last revised on 2017. Testing performed by: [facility], [address] [place] [phone] Lymphocyte pct 53.4 % [facility] Comment: Interpretive Data Percent cell count reference ranges are not reported, since discordance with absolute values may lead to misinterpretation of CBC data. Current Interpretive Data was last revised on 2017. Testing performed by: [facility], [address] [place] [phone] Monocyte pct 9.8 % [facility] Comment: Interpretive Data Percent cell count reference ranges are not reported, since discordance with absolute values may lead to misinterpretation of CBC data. Current Interpretive Data was last revised on 2017. Testing performed by: [facility], [address] [place] [phone] Eosinophil pct 6.5 % [facility] Comment: Interpretive Data Percent cell count reference ranges are not reported, since discordance with absolute values may lead to misinterpretation of CBC data. Current Interpretive Data was last revised on 2017. Testing performed by: [facility], [address] [place] [phone] Basophil pct 1.1 % [facility] Comment: Interpretive Data Percent cell count reference ranges are not reported, since discordance with absolute values may lead to misinterpretation of CBC data. Current Interpretive Data was last revised on 2017. Testing performed by: [facility], [address] [place] [phone] Blood 04/24/2025 9:25 AM CDT 04/24/2025 9:26 AM CDT us Mirella Robbins MD PhD LAB BLOOD ORDERABLES Final Result [facility] Department [place] [address] * (ABNORMAL) CBC with auto differential (04/24/2025 9:25 AM CDT) WBC 2.50(L) 3.80 - 9.90 K/cumm Comment:Testing performed by : [facility], [address] [place] [phone] Hgb 11.6(L) 11.9 - 15.5 g/dL [facility] Comment:Testing performed by : [facility], [address] [place] [address] Hct 34.6(L) 35.6 - 45.5 % [facility] Comment:Testing performed by : [facility], [address] [place], [place] [phone] Plt 179 150 - 400 K/cumm [facility] Comment:Testing performed by : [facility], [address] [place], [place] [phone] MPV 8.6 6.8 - 10.4 fL [facility] Comment:Testing performed by : [facility], [address] [place], [place] [phone] RBC 3.46(L) 3.90 - 5.20 M/cumm [facility] Comment:Testing performed by : [facility], [address] [place], [place] [phone] MCV 100.0(H) 81.3 - 96.4 fL [facility] Comment:Testing performed by : [facility], [address] [place], [place] [phone] MCH 33.4(H) 27.1 - 33.3 pg [facility] Comment:Testing performed by : [facility], [address] [place] [address] MCHC 33.4 32.3 - 35.7 g/dL [facility] Comment:Testing performed by : [facility], [address] [place] [address] RDW CV 15.6(H) 11.1 - 14.9 % [facility] Comment:Testing performed by : [facility], [address] [place] [address] NRBC abs 0.00 0.00 - 0.01 K/cumm [facility] Comment:Testing performed by : [facility], [address] [place], [place] [phone] Blood 04/24/2025 9:25 AM CDT 04/24/2025 9:26 AM CDT Mirella Robbins MD PhD LAB BLOOD ORDERABLES Final Result Performing Organization Address [facility] Co de Phone Number [facility] [place] [place] [address] * aPTT (04/24/2025 9:25 AM CDT) aPTT 30 26 - 38 sec Comment: Interpretive Data Heparin therapeutic range: 66.0 - 100.0 seconds. Range based on correlation with therapeutic heparin activity range of 0.3 - 0.7 Units/mL. Current interpretive data was last revised on 2023. Blood 04/24/2025 9:25 AM CDT 04/24/2025 9:44 AM CDT Result [facility] Mirella Robbins MD PhD LAB BLOOD ORDERABLES Final Result Performing Organization Address [facility] de Phone Number [facility] [place] [place] [address] * Protime-INR (04/24/2025 9:25 AM CDT) PT 10.6 10.2 - 13.5 sec INR 0.94 0.90 - 1.20 [facility] Comment: Interpretive data Oral anticoagulant therapeutic ranges: Venous thromboembolism prophylaxis or treatment: 2.0-3.0 CARDIOLOGY Standard range: 2.0-3.0 High-intensity range: 2.5-3.5 Refer to indication-specific guidelines for appropriate target ranges for prosthetic heart valve replacement. Current interpretive data was last revised on 2019. Blood 04/24/2025 9:25 AM CDT 04/24/2025 9:44 AM CDT Result [facility] Mirella Robbins MD PhD LAB BLOOD ORDERABLES Final Result Performing Organization Address [facility] Co de Phone Number [facility] [place] [address] * Reticulocyte Count (04/24/2025 9:25 AM CDT) Pathologist [facility] Retics, absolute 23 20 - 100 K/cumm Comment:Testing performed by : [facility], [address] [place] [phone] Retics 0.7 0.5 - 1.8 % [facility] Comment:Testing performed by : [facility], [address] [place] [phone] Blood 04/24/2025 9:25 AM CDT 04/24/2025 9:26 AM CDT us Mirella Robbins MD PhD LAB BLOOD ORDERABLES Final Result Performing Organization Address City/[facility]/ZIP Co de Phone Number [facility] Department [place] [address] * Uric acid (04/24/2025 9:25 AM CDT) [facility] Uric acid 4.4 2.5 - 7.0 mg/dL Blood 04/24/2025 9:25 AM CDT 04/24/2025 9:28 AM CDT us Mirella Robbins MD PhD LAB BLOOD ORDERABLES Final Result Performing Organization Address City/[facility] Co de Phone Number [facility] Department [place] [address] * Phosphorus (04/24/2025 9:25 AM CDT) Pathologist [facility] Phosphorus, pl 3.6 2.3 - 4.5 mg/dL Blood 04/24/2025 9:25 AM CDT 04/24/2025 9:28 AM CDT us Mirella Robbins MD PhD LAB BLOOD ORDERABLES Final Result Performing Organization Address City/[facility]/ZIP Co de Phone Number [facility] Department [place] [address] * Magnesium (04/24/2025 9:25 AM CDT) [facility] Magnesium 2.0 1.4 - 2.5 mg/dL Blood 04/24/2025 9:25 AM CDT 04/24/2025 9:28 AM CDT Mirella Robbins MD PhD LAB BLOOD [place] [address] * Lipase (04/24/2025 9:25 AM CDT) [facility] Lipase 41 10 - 99 Units/L Blood 04/24/2025 9:25 AM CDT 04/24/2025 9:28 AM CDT Mirella Robbins MD PhD LAB BLOOD ORDERABLES Final Result Performing Organization Address City/[facility]/[place] [address] * Amylase (04/24/2025 9:25 AM CDT) [facility] Amylase 75 30 - 99 Units/L Blood 04/24/2025 9:25 AM CDT 04/24/2025 9:28 AM CDT Mirella Robbins MD PhD LAB BLOOD ORDERABLES Final Result Performing Organization Address City/[facility]/[place] [address] * Comprehensive metabolic panel (04/24/2025 9:25 AM CDT) [facility] Sodium 144 135 - 145 mmol/L Potassium, pl 4.7 3.3 - 4.9 mmol/L [facility] Chloride 105 97 - 110 mmol/L [facility] CO2 29 22 - 32 mmol/L [facility] Anion gap 10 2 - 15 mmol/L [facility] BUN 14 6 - 25 mg/dL [facility] Creatinine 0.82 0.60 - 1.10 mg/dL [facility] [facility] Glucose 98 70 - 199 mg/dL [facility] Comment: Interpretive Data Fasting glucose >/= 126 [...] 2022. Calcium 9.3 8.5 - 10.3 mg/dL [facility] Bilirubin, total 0.2 0.1 - 1.2 mg/dL [facility] Protein, pl 6.5 6.5 - 8.5 g/dL [facility] Albumin 3.8 3.5 - 5.0 g/dL [facility] Alk phos 100 40 - 130 Units/L [facility] ALT 11 7 - 45 Units/L [facility] AST 27 10 - 45 Units/L [facility] Blood 04/24/2025 9:25 AM CDT 04/24/2025 9:28 AM CDT us Mirella Robbins MD PhD LAB BLOOD ORDERABLES Final Result [facility] One [facility] [place] [address] * SCAN - LABS (04/20/2025) us Provider Scanning Edited Result - Final * (ABNORMAL) Urinalysis reflex to microscopic and culture Urine (04/10/2025 7:51 AM CDT) Color, ur Yellow Yellow Clarity, ur Clear Clear [facility] Specific gravity, ur 1.017 1.003 - 1.030 [facility] pH, urine 6.0 [facility] Comment: Interpretive Data U rine pH is affected by diet, medications, systemic acid-base disturbances, and renal tubular function. pH may affect urinary stone formation. For example, urine pH below 6.0 may help reduce the tendency for calcium phosphate stones and pH greater than 6.0 may reduce the tendency for uric acid stone formation. Source: [facility] Current Interpretive Data was last revised on 2017 Protein, ur ql Negative Negative [facility] Glucose, ur ql Negative Negative [facility] Ketones, ur Negative Negative [facility] Bilirubin, ur Negative Negative [facility] Blood, ur Negative Negative [facility] Urobilinogen, ur <2.0 <2.0 mg/dL [facility] Nitrite, ur Negative Negative [facility] Leukocyte esterase, ur 1+(A) [facility] UA reflex comment Reflex to microscopic UA will be performed. [facility] Urine 04/10/2025 7:51 AM CDT 04/10/2025 7:51 AM CDT us Mirella Robbins MD PhD LAB MICROBIOLOGY - GENERAL ORDERABLES Final Result [facility] Department [place] [address] * (ABNORMAL) Urinalysis, microscopic only (04/10/2025 7:51 AM CDT) WBC, ur 0-5 0 - 5 /HPF RBC, ur 3-5(A) 0 - 2 /HPF [facility] Epithelial cells, squamous, ur 1-5 0 - 5 /HPF [facility] Epithelial cells, transitional, ur 1-5 0 - 0 /HPF [facility] Mucous, ur Present(A) [facility] Culture Reflex Comment Reflex conditions for urine culture (WBC >10) not met. [facility] Urine 04/10/2025 7:51 AM CDT 04/10/2025 7:51 AM CDT Mirella Robbins MD PhD LAB URINE ORDERABLES Final Result Performing Organization Address City/[facility] Co de Phone Number [facility] Department [place] [address] * (ABNORMAL) eGFR (04/10/2025 7:40 AM CDT) [...] BLOOD ORDERABLES Final Result Performing Organization Address City/[facility]/ZIP Co de Phone Number [facility] Department [place] [address] * (ABNORMAL) CBC with auto differential (04/10/2025 7:40 AM CDT) WBC 4.20 3.80 - 9.90 K/cumm Comment:Testing performed by : [facility], [address] [place] [phone] Hgb 10.8(L) 11.9 - 15.5 g/dL [facility] Comment:Testing performed by : [facility], [address] [place] [address] Hct 31.3(L) 35.6 - 45.5 % [facility] Comment:Testing performed by : [facility], [address] [place], [place] [phone] Plt 135(L) 150 - 400 K/cumm [facility] BJ Comment:Testing performed by : [facility], [address] [place], [place] [phone] MPV 7.7 6.8 - 10.4 fL [facility] Comment:Testing performed by : [facility], [address] [place], [place] [phone] RBC 3.17(L) 3.90 - 5.20 M/cumm [facility] Comment:Testing performed by : [facility], [address] [place], [place] [phone] MCV 98.8(H) 81.3 - 96.4 fL [facility] Comment:Testing performed by : [facility], [address] [place] [address] MCH 34.0(H) 27.1 - 33.3 pg [facility] Comment:Testing performed by : [facility], [address] [place] [address] MCHC 34.5 32.3 - 35.7 g/dL [facility] Comment:Testing performed by : [facility], [address] [place] [address] RDW CV 16.0(H) 11.1 - 14.9 % [facility] Comment:Testing performed by : [facility], [address] [place] [address] NRBC abs 0.00 0.00 - 0.01 K/cumm [facility] Comment:Testing performed by : [facility], [address] [place] [address] Blood 04/10/2025 7:40 AM CDT 04/10/2025 7:47 AM CDT us Mirella Robbins MD PhD LAB BLOOD ORDERABLES Edited Result - Final [facility] One [facility] Department [place] [address] * (ABNORMAL) Manual Differential (04/10/2025 7:40 AM CDT) Cells Counted 197 Comment:Testing performed by : [facility], [address] [place], [place] [phone] Neutrophil abs 1.68 1.50 - 6.50 K/cumm CERNER KARLA Comment:Testing performed by : [facility], [address] [place], [place] [phone] Lymphocyte abs 1.55 0.80 - 3.30 K/cumm [facility] Comment:Testing performed by : [facility], [address] [place], [place] [phone] Monocyte abs 0.71 0.20 - 0.80 K/cumm [facility] Comment:Testing performed by : [facility], [address] [place], [place] [phone] Eosinophil abs 0.25 0.00 - 0.50 K/cumm [facility] Comment:Testing performed by : [facility], [address] [place] [phone] Basophil abs 0.00 0.00 - 0.10 K/cumm CERVERONIKA ACOSTA Comment:Testing performed by : [facility], [address] [place] [phone] Neutrophil pct 40.0 % [facility] Comment: Interpretive Data Percent cell count reference ranges are not reported, since discordance with absolute values may lead to misinterpretation of CBC data. Current Interpretive Data was last revised on 2017. Testing performed by: [facility], [address] [place] [phone] Lymphocyte pct 37.0 % [facility] Comment: Interpretive Data Percent cell count reference ranges are not reported, since discordance with absolute values may lead to misinterpretation of CBC data. Current Interpretive Data was last revised on 2017. Testing performed by: [facility], [address] [place] [phone] Monocyte pct 17.0 % [facility] Comment: Interpretive Data Percent cell count reference ranges are not reported, since discordance with absolute values may lead to misinterpretation of CBC data. Current Interpretive Data was last revised on 2017. Testing performed by: [facility], [address] [place] [phone] Eosinophil pct 6.0 % [facility] Comment: Interpretive Data Percent cell count reference ranges are not reported, since discordance with absolute values may lead to misinterpretation of CBC data. Current Interpretive Data was last revised on 2017. Testing performed by: [facility], [address] [place], [place] [phone] Basophil pct 0.0 % [facility] Comment: Interpretive Data Percent cell count reference ranges are not reported, since discordance with absolute values may lead to misinterpretation of CBC data. Current Interpretive Data was last revised on 2017. Testing performed by: [facility], [address] [place] [phone] Myelocyte pct 1.0(H) 0.0 - 0.0 % [facility] Comment:Testing performed by : [facility], [address] [place] [phone] Hypochromasia 1+(A) [facility] Comment:Testing performed by : [facility], [address] [place] [phone] Anisocytosis 1+(A) [facility] Comment:Testing performed by : [facility], [address] [place] [phone] Poikilocytosis 1+(A) [facility] Comment:Testing performed by : [facility], [address] [place] [phone] Elliptocytes 1+(A) [facility] Comment:Testing performed by : [facility], [address] [place] [phone] Platelet estimate Decreased (A) [facility] Comment:Testing performed by : [facility], [address] [place] [phone] Blood 04/10/2025 7:40 AM CDT 04/10/2025 7:47 AM CDT Mirella Robbins MD PhD LAB BLOOD ORDERABLES Final Result Performing Organization Address [facility] de Phone Number [facility] Department [place] [address] * aPTT (04/10/2025 7:40 AM CDT) aPTT [...] BLOOD ORDERABLES Final Result Performing Organization Address [facility] de Phone Number [facility] Department [place] [address] * Protime-INR (04/10/2025 7:40 AM CDT) PT 10.4 10.2 - 13.5 sec INR 0.92 0.90 - 1.20 [facility] Comment: Interpretive data Oral anticoagulant therapeutic ranges: Venous thromboembolism prophylaxis or treatment: 2.0-3.0 CARDIOLOGY Standard range: 2.0-3.0 High-intensity range: 2.5-3.5 Refer to indication-specific guidelines for appropriate target ranges for prosthetic heart valve replacement. Current interpretive data was last revised on 2019. Blood 04/10/2025 7:40 AM CDT 04/10/2025 8:20 AM CDT Mirella Robbins MD PhD LAB BLOOD ORDERABLES Final Result Performing Organization Address City/[facility]/ZIP Co de Phone Number [facility] [place] [address] * Reticulocyte Count (04/10/2025 7:40 AM CDT) Retics, absolute 57 20 - 100 K/cumm Comment:Testing performed by : [facility], [address] [place] [phone] Retics 1.8 0.5 - 1.8 % [facility] Comment:Testing performed by : [facility], [address] [place] [phone] Blood 04/10/2025 7:40 AM CDT 04/10/2025 7:47 AM CDT Mirella Robbins MD PhD LAB BLOOD ORDERABLES Final Result Performing Organization Address City/[facility]/[place] [address] * Uric acid (04/10/2025 7:40 AM CDT) Pathologist [facility] Uric acid 4.7 2.5 - 7.0 mg/dL Blood 04/10/2025 7:40 AM CDT 04/10/2025 7:48 AM CDT Mirella Robbins MD PhD LAB BLOOD [place] [address] * Phosphorus (04/10/2025 7:40 AM CDT) Phosphorus, pl 3.2 2.3 - 4.5 mg/dL Blood 04/10/2025 7:40 AM CDT 04/10/2025 7:48 AM CDT us Mirella Robbins MD PhD LAB BLOOD ORDERABLES Final Result Performing Organization Address [facility] de Phone Number [facility] [place] [address] * Magnesium (04/10/2025 7:40 AM CDT) Pathologist [facility] Magnesium 2.1 1.4 - 2.5 mg/dL Blood 04/10/2025 7:40 AM CDT 04/10/2025 7:48 AM CDT us Mirella Robbins MD PhD LAB BLOOD ORDERABLES Final Result Performing Organization Address [facility] de Phone Number [facility] [address] * Lipase (04/10/2025 7:40 AM CDT) Pathologist [facility] Lipase 87 10 - 99 Units/L Blood 04/10/2025 7:40 AM CDT 04/10/2025 7:48 AM CDT Mirella Robbins MD PhD LAB BLOOD ORDERABLES Final Result Performing Organization Address [facility] [place] [address] * (ABNORMAL) CEA (04/10/2025 7:40 AM CDT) Pathologist [facility] CEA 31.8(H) <=5.0 ng/mL Comment: Interpretive Data: [...] BLOOD ORDERABLES Final Result Performing Organization Address [facility] de Phone Number [facility] Department [place] [address] * Amylase (04/10/2025 7:40 AM CDT) Amylase 83 30 - 99 Units/L Blood 04/10/2025 7:40 AM CDT 04/10/2025 7:48 AM CDT Mirella Robbins MD PhD LAB BLOOD ORDERABLES Final Result Performing Organization Address [facility] Phone Number [facility] Department [place] [address] * Comprehensive metabolic panel (04/10/2025 7:40 AM CDT) Pathologist [facility] Sodium 143 135 - 145 mmol/L Potassium, pl 4.6 3.3 - 4.9 mmol/L [facility] Chloride 106 97 - 110 mmol/L [facility] CO2 30 22 - 32 mmol/L [facility] Anion gap 7 2 - 15 mmol/L [facility] BUN 15 6 - 25 mg/dL [facility] Creatinine 0.99 0.60 - 1.10 mg/dL [facility] Glucose 99 70 - 199 mg/dL [facility] Comment: Interpretive Data Fasting glucose >/= 126 [...] 2022. Calcium 9.4 8.5 - 10.3 mg/dL [facility] Bilirubin, total 0.2 0.1 - 1.2 mg/dL [facility] Protein, pl 6.5 6.5 - 8.5 g/dL [facility] Albumin 3.7 3.5 - 5.0 g/dL [facility] Alk phos 103 40 - 130 Units/L [facility] ALT 8 7 - 45 Units/L [facility] AST 18 10 - 45 Units/L [facility] Blood 04/10/2025 7:40 AM CDT 04/10/2025 7:48 AM CDT Mirella Robbins MD PhD LAB BLOOD ORDERABLES Final Result [facility] One [facility] Department of Laboratories [place] [id number] * (ABNORMAL) Differential, auto (04/04/2025 10:35 AM CDT) Neutrophil abs 7.98(H) 1.50 - 6.50 K/cumm Comment:Testing performed by : [facility], [address] [place], [place] [phone] Lymphocyte abs 0.69(L) 0.80 - 3.30 K/cumm [facility] Comment:Testing performed by : [facility], [address] [place] [phone] Monocyte abs 0.65 0.20 - 0.80 K/cumm [facility] Comment:Testing performed by : [facility], [address] [place], [place] [phone] Eosinophil abs 0.09 0.00 - 0.50 K/cumm [facility] Comment:Testing performed by : [facility], [address] [place], [place] [phone] Basophil abs 0.06 0.00 - 0.10 K/cumm [facility] Comment:Testing performed by : [facility], [address] [place] [phone] Neutrophil pct 84.3 % [facility]ERONIKA ACOSTA Comment: Interpretive Data Percent cell count reference ranges are not reported, since discordance with absolute values may lead to misinterpretation of CBC data. Current Interpretive Data was last revised on 2017. Testing performed by: [facility], [address] [place] [phone] Lymphocyte pct 7.3 % [facility] ACO[facility] Comment: Interpretive Data Percent cell count reference ranges are not reported, since discordance with absolute values may lead to misinterpretation of CBC data. Current Interpretive Data was last revised on 2017. Testing performed by: [facility], [address] [place] [phone] Monocyte pct 6.9 % [facility] ACO[facility] Comment: Interpretive Data Percent cell count reference ranges are not reported, since discordance with absolute values may lead to misinterpretation of CBC data. Current Interpretive Data was last revised on 2017. Testing performed by: [facility], [address] [place] [phone] Eosinophil pct 1.0 % [facility] ACO[facility] Comment: Interpretive Data Percent cell count reference ranges are not reported, since discordance with absolute values may lead to misinterpretation of CBC data. Current Interpretive Data was last revised on 2017. Testing performed by: [facility], [address] [place] [phone] Basophil pct 0.6 % [facility] ACO[facility] Comment: Interpretive Data Percent cell count reference ranges are not reported, since discordance with absolute values may lead to misinterpretation of CBC data. Current Interpretive Data was last revised on 2017. Testing performed by: [facility], [address] [place] [phone] Blood 04/04/2025 10:3 5 AM CDT 04/04/2025 10:42 AM CDT us Mirella Robbins MD PhD LAB BLOOD ORDERABLES Final Result [facility] Department [place] [address] * (ABNORMAL) CBC with auto differential (04/04/2025 10:35 AM CDT) WBC 9.47 3.80 - 9.90 K/cumm Comment:Testing performed by : [facility], [address] [place] [address] Hgb 11.4(L) 11.9 - 15.5 g/dL [facility] Comment:Testing performed by : [facility], [address] [place] [address] Hct 33.1(L) 35.6 - 45.5 % [facility] Comment:Testing performed by : [facility], [address] [place] [address] Plt 149(L) 150 - 400 K/cumm [facility] Comment:Testing performed by : [facility], [address] [place] [address] MPV 7.7 6.8 - 10.4 fL [facility] Comment:Testing performed by : [facility], [address] [place] [address] RBC 3.37(L) 3.90 - 5.20 M/cumm C[facility] BJ Comment:Testing performed by : [facility], [address] [place] [address] MCV 98.4(H) 81.3 - 96.4 fL [facility] Comment:Testing performed by : [facility], [address] [place] [address] MCH 33.8(H) 27.1 - 33.3 pg [facility] Comment:Testing performed by : [facility], [address] [place] [address] MCHC 34.4 32.3 - 35.7 g/dL [facility] Comment:Testing performed by : [facility], [address] [place] [address] RDW CV 16.5(H) 11.1 - 14.9 % [facility] Comment:Testing performed by : [facility], [address] [place] [phone] NRBC abs 0.00 0.00 - 0.01 K/cumm [facility] Comment:Testing performed by : [facility], [facility] [place] [phone] Blood 04/04/2025 10:3 5 AM CDT 04/04/2025 10:42 AM CDT Mirella Robbins MD PhD LAB BLOOD ORDERABLES Final Result [facility] Department [place] [address] * eGFR (04/04/2025 10:34 AM CDT) eGFR [...] PhD LAB BLOOD ORDERABLES Final Result [facility] Department [place] [address] * (ABNORMAL) Comprehensive metabolic panel (04/04/2025 10:34 AM CDT) Sodium 144 135 - 145 mmol/L Potassium, pl 4.4 3.3 - 4.9 mmol/L [facility] Chloride 106 97 - 110 mmol/L [facility] CO2 30 22 - 32 mmol/L [facility] Anion gap 8 2 - 15 mmol/L [facility] BUN 12 6 - 25 mg/dL [facility] Creatinine 0.82 0.60 - 1.10 mg/dL [facility] Glucose 122 70 - 199 mg/dL [facility] Comment: Interpretive Data Fasting glucose >/= 126 [...] 2022. Calcium 9.6 8.5 - 10.3 mg/dL [facility] Bilirubin, total 0.3 0.1 - 1.2 mg/dL [facility] Protein, pl 6.4(L) 6.5 - 8.5 g/dL [facility] Albumin 3.6 3.5 - 5.0 g/dL [facility] Alk phos 106 40 - 130 Units/L [facility] ALT 10 7 - 45 Units/L [facility] AST 23 10 - 45 Units/L [facility] Blood 04/04/2025 10:3 4 AM CDT 04/04/2025 10:48 AM CDT us Mirella Robbins MD PhD LAB BLOOD ORDERABLES Final Result [facility] One [facility] [place] [address] * eGFR (04/03/2025 7:53 AM CDT) Pathologist [facility] eGFR 71 >=60 mL/min/1. 73 m2 Comment: [...] PhD LAB BLOOD ORDERABLES Final Result [facility] [place] [address] * (ABNORMAL) Differential, auto (04/03/2025 7:53 AM CDT) [facility] Neutrophil abs 0.84(L) 1.50 - 6.50 K/cumm Comment:Testing performed by : [facility], [address] [place] [phone] Lymphocyte abs 1.72 0.80 - 3.30 K/cumm [facility] Comment:Testing performed by : [facility], [address] [place] [phone] Monocyte abs 0.25 0.20 - 0.80 K/cumm [facility] Comment:Testing performed by : [facility], [address] [place] [phone] Eosinophil abs 0.14 0.00 - 0.50 K/cumm [facility] Comment:Testing performed by : [facility], [address] [place] [phone] Basophil abs 0.02 0.00 - 0.10 K/cumm [facility] Comment:Testing performed by : [facility], [address] [place] [phone] Neutrophil pct 28.3 % [facility] Comment: Interpretive Data Percent cell count reference ranges are not reported, since discordance with absolute values may lead to misinterpretation of CBC data. Current Interpretive Data was last revised on 2017. Testing performed by: [facility], [address] [place] [phone] Lymphocyte pct 58.1 % [facility] Comment: Interpretive Data Percent cell count reference ranges are not reported, since discordance with absolute values may lead to misinterpretation of CBC data. Current Interpretive Data was last revised on 2017. Testing performed by: [facility], [address] [place] [phone] Monocyte pct 8.4 % [facility] Comment: Interpretive Data Percent cell count reference ranges are not reported, since discordance with absolute values may lead to misinterpretation of CBC data. Current Interpretive Data was last revised on 2017. Testing performed by: [facility], [address] [place] [phone] Eosinophil pct 4.6 % [facility] Comment: Interpretive Data Percent cell count reference ranges are not reported, since discordance with absolute values may lead to misinterpretation of CBC data. Current Interpretive Data was last revised on 2017. Testing performed by: [facility], [address] [place] [phone] Basophil pct 0.5 % [facility] Comment: Interpretive Data Percent cell count reference ranges are not reported, since discordance with absolute values may lead to misinterpretation of CBC data. Current Interpretive Data was last revised on 2017. Testing performed by: [facility], [address] [place] [phone] Blood 04/03/2025 7:53 AM CDT 04/03/2025 7:55 AM CDT us Mirella Robbins MD PhD LAB BLOOD ORDERABLES Final Result [facility] Department [place] [address] * (ABNORMAL) CBC with auto differential (04/03/2025 7:53 AM CDT) WBC 2.95(L) 3.80 - 9.90 K/cumm Comment:Testing performed by : [facility], [address] [place] [address] Hgb 11.0(L) 11.9 - 15.5 g/dL [facility] Comment:Testing performed by : [facility], [address] [place] [address] Hct 32.1(L) 35.6 - 45.5 % [facility] Comment:Testing performed by : [facility], [address] [place] [address] Plt 148(L) 150 - 400 K/cumm [facility] Comment:Testing performed by : [facility], [address] [place] [address] MPV 7.3 6.8 - 10.4 fL [facility] Comment:Testing performed by : [facility], [address] [place] [address] RBC 3.25(L) 3.90 - 5.20 M/cumm [facility] Comment:Testing performed by : [facility], [address] [place] [address] MCV 98.7(H) 81.3 - 96.4 fL [facility] Comment:Testing performed by : [facility], [address] [place], [place] [phone] MCH 33.8(H) 27.1 - 33.3 pg [facility] Comment:Testing performed by : [facility], [address] [place], [place] [phone] MCHC 34.2 32.3 - 35.7 g/dL [facility] Comment:Testing performed by : [facility], [address] [place], [place] [phone] RDW CV 16.5(H) 11.1 - 14.9 % [facility] Comment:Testing performed by : [facility], [address] [place], [place] [phone] NRBC abs 0.00 0.00 - 0.01 K/cumm [facility] Comment:Testing performed by : [facility], [address] [place], [place] [phone] Blood 04/03/2025 7:53 AM CDT 04/03/2025 7:55 AM CDT us Mirella Robbins MD PhD LAB BLOOD ORDERABLES Final Result [facility] [place] [id number] * aPTT (04/03/2025 7:53 AM CDT) aPTT 29 26 - 38 sec Comment: Interpretive Data Heparin therapeutic range: 66.0 - 100.0 seconds. Range based on correlation with therapeutic heparin activity range of 0.3 - 0.7 Units/mL. Current interpretive data was last revised on 2023. Blood 04/03/2025 7:53 AM CDT 04/03/2025 8:19 AM CDT us Mirella Robbins MD PhD LAB BLOOD ORDERABLES Final Result [facility] [place] [address] * (ABNORMAL) Protime-INR (04/03/2025 7:53 AM CDT) [facility] PT 9.7(L) 10.2 - 13.5 sec INR 0.86(L) 0.90 - 1.20 [facility] Comment: Interpretive data Oral anticoagulant therapeutic ranges: Venous thromboembolism prophylaxis or treatment: 2.0-3.0 CARDIOLOGY Standard range: 2.0-3.0 High-intensity range: 2.5-3.5 Refer to indication-specific guidelines for appropriate target ranges for prosthetic heart valve replacement. Current interpretive data was last revised on 2019. Blood 04/03/2025 7:53 AM CDT 04/03/2025 8:19 AM CDT Mirella Robbins MD PhD LAB BLOOD ORDERABLES Final Result Performing Organization Address City/[facility]/ZIP Co de Phone Number [facility] Department [place] [address] * Reticulocyte Count (04/03/2025 7:53 AM CDT) [facility] Retics, absolute 36 20 - 100 K/cumm Comment:Testing performed by : [facility], [address] [place] [phone] Retics 1.1 0.5 - 1.8 % [facility] Comment:Testing performed by : [facility], [address] [place] [phone] Blood 04/03/2025 7:53 AM CDT 04/03/2025 7:55 AM CDT Mirella Robbins MD PhD LAB BLOOD ORDERABLES Final Result [facility] [place] [address] * Uric acid (04/03/2025 7:53 AM CDT) [facility] Uric acid 4.0 2.5 - 7.0 mg/dL Blood 04/03/2025 7:53 AM CDT 04/03/2025 7:57 AM CDT us Mirella Robbins MD PhD LAB BLOOD ORDERABLES Final Result Performing Organization Address City/[facility] Co de Phone Number [facility] [place] [address] * Phosphorus (04/03/2025 7:53 AM CDT) [facility] Phosphorus, pl 2.7 2.3 - 4.5 mg/dL Blood 04/03/2025 7:53 AM CDT 04/03/2025 7:57 AM CDT us Mirella Robbins MD PhD LAB BLOOD ORDERABLES Final Result Performing Organization Address City/[facility] Co de Phone Number [facility] [place] [place] [address] * Magnesium (04/03/2025 7:53 AM CDT) [facility] Magnesium 1.9 1.4 - 2.5 mg/dL Blood 04/03/2025 7:53 AM CDT 04/03/2025 7:57 AM CDT us Mirella Robbins MD PhD LAB BLOOD ORDERABLES Final Result Performing Organization Address City/[facility] Co de Phone Number [facility] [place] [address] * Lipase (04/03/2025 7:53 AM CDT) [facility] Lipase 67 10 - 99 Units/L Blood 04/03/2025 7:53 AM CDT 04/03/2025 7:57 AM CDT us Mirella Robbins MD PhD LAB BLOOD ORDERABLES Final Result Performing Organization Address [facility] de Phone Number [facility] [place] [address] * (ABNORMAL) CEA (04/03/2025 7:53 AM CDT) [facility] CEA 37.7(H) <=5.0 ng/mL Comment: Interpretive [...] BLOOD ORDERABLES Final Result Performing Organization Address [facility] Co de Phone Number [facility] [place] [address] * Amylase (04/03/2025 7:53 AM CDT) [facility] Amylase 75 30 - 99 Units/L Blood 04/03/2025 7:53 AM CDT 04/03/2025 7:57 AM CDT Result [facility] Mirella Robbins MD PhD LAB BLOOD ORDERABLES Final Result Performing Organization Address [facility] Co de Phone Number [facility] [place] [address] * (ABNORMAL) Comprehensive metabolic panel (04/03/2025 7:53 AM CDT) [facility] Sodium 143 135 - 145 mmol/L Potassium, pl 4.0 3.3 - 4.9 mmol/L [facility] Chloride 106 97 - 110 mmol/L [facility] CO2 28 22 - 32 mmol/L [facility] Anion gap 9 2 - 15 mmol/L [facility] BUN 13 6 - 25 mg/dL [facility] Creatinine 0.85 0.60 - 1.10 mg/dL [facility] Glucose 152 70 - 199 mg/dL [facility] Comment: Interpretive Data Fasting glucose >/= 126 [...] 2022. Calcium 9.3 8.5 - 10.3 mg/dL [facility] Bilirubin, total 0.2 0.1 - 1.2 mg/dL [facility] Protein, pl 6.3(L) 6.5 - 8.5 g/dL [facility] Albumin 3.6 3.5 - 5.0 g/dL [facility] Alk phos 101 40 - 130 Units/L [facility] ALT 10 7 - 45 Units/L [facility] AST 24 10 - 45 Units/L [facility] Blood 04/03/2025 7:53 AM CDT 04/03/2025 7:57 AM CDT Mirella Robbins MD PhD LAB BLOOD ORDERABLES Final Result [facility] Department of Laboratories [place], [place] [id number] * (ABNORMAL) Urinalysis reflex to microscopic and culture Urine (04/03/2025 7:42 AM CDT) Color, ur Yellow Yellow Clarity, ur Clear Clear [facility] Specific gravity, ur 1.022 1.003 - 1.030 [facility] pH, urine 6.0 [facility] Comment: Interpretive Data U rine pH is affected by diet, medications, systemic acid-base disturbances, and renal tubular function. pH may affect urinary stone formation. For example, urine pH below 6.0 may help reduce the tendency for calcium phosphate stones and pH greater than 6.0 may reduce the tendency for uric acid stone formation. Source: [facility] Current Interpretive Data was last revised on 2017 Protein, ur ql Trace Negative [facility] Glucose, ur ql Negative Negative [facility] Ketones, ur Negative Negative [facility] Bilirubin, ur Negative Negative [facility] Blood, ur Negative Negative [facility] Urobilinogen, ur <2.0 <2.0 mg/dL [facility] Nitrite, ur Negative Negative [facility] Leukocyte esterase, ur 1+(A) [facility] UA reflex comment Reflex to microscopic UA will be performed. [facility] Urine 04/03/2025 7:42 AM CDT 04/03/2025 9:30 AM CDT us Mirella Robbins MD PhD LAB MICROBIOLOGY - GENERAL ORDERABLES Final Result [facility] Department [place] [address] * (ABNORMAL) Urinalysis, microscopic only (04/03/2025 7:42 AM CDT) WBC, ur 0-5 0 - 5 /HPF RBC, ur 3-5(A) 0 - 2 /HPF [facility] Epithelial cells, squamous, ur 6-10(A) 0 - 5 /HPF [facility] Epithelial cells, transitional, ur 1-5 0 - 0 /HPF [facility] Bacteria, ur Trace(A) [facility] Mucous, ur Present(A) [facility] Hyaline casts, ur 1-5 0 - 10 /LPF [facility] Culture Reflex Comment Reflex conditions for urine culture (WBC >10) not met. [facility] Urine 04/03/2025 7:42 AM CDT 04/03/2025 9:30 AM CDT us Mirella Robbins MD PhD LAB URINE ORDERABLES Final Result Performing Organization Address City/[facility]/ZIP Co de Phone Number [facility] Department [place] [address] * eGFR (03/27/2025 7:19 AM CDT) eGFR [...] BLOOD ORDERABLES Final Result Performing Organization Address City/[facility] Co de Phone Number [facility] Department [place] [address] * Differential, auto (03/27/2025 7:19 AM CDT) Neutrophil abs 1.70 1.50 - 6.50 K/cumm Comment:Testing performed by : [facility], [address] [place] [phone] Lymphocyte abs 2.43 0.80 - 3.30 K/cumm [facility] Comment:Testing performed by : [facility], [facility] [place] [phone] Monocyte abs 0.37 0.20 - 0.80 K/cumm [facility] Comment:Testing performed by : [facility], [address] [place] [phone] Eosinophil abs 0.21 0.00 - 0.50 K/cumm [facility] Comment:Testing performed by : [facility], [address] [place] [phone] Basophil abs 0.02 0.00 - 0.10 K/cumm [facility] Comment:Testing performed by : [facility], [address] [place] [phone] Neutrophil pct 35.9 % [facility] Comment: Interpretive Data Percent cell count reference ranges are not reported, since discordance with absolute values may lead to misinterpretation of CBC data. Current Interpretive Data was last revised on 2017. Testing performed by: [facility], [address] [place] [phone] Lymphocyte pct 51.4 % [facility] Comment: Interpretive Data Percent cell count reference ranges are not reported, since discordance with absolute values may lead to misinterpretation of CBC data. Current Interpretive Data was last revised on 2017. Testing performed by: [facility], [address] [place] [phone] Monocyte pct 7.8 % [facility] Comment: Interpretive Data Percent cell count reference ranges are not reported, since discordance with absolute values may lead to misinterpretation of CBC data. Current Interpretive Data was last revised on 2017. Testing performed by: [facility], [address] [place] [phone] Eosinophil pct 4.4 % [facility] Comment: Interpretive Data Percent cell count reference ranges are not reported, since discordance with absolute values may lead to misinterpretation of CBC data. Current Interpretive Data was last revised on 2017. Testing performed by: [facility], [address] [place] [phone] Basophil pct 0.5 % [facility] Comment: Interpretive Data Percent cell count reference ranges are not reported, since discordance with absolute values may lead to misinterpretation of CBC data. Current Interpretive Data was last revised on 2017. Testing performed by: [facility], [address] [place] [address] Blood 03/27/2025 7:19 AM CDT 03/27/2025 7:21 AM CDT us Mirella Robbins MD PhD LAB BLOOD ORDERABLES Final Result [facility] Department [place] [address] * (ABNORMAL) CBC with auto differential (03/27/2025 7:19 AM CDT) WBC 4.72 3.80 - 9.90 K/cumm Comment:Testing performed by : [facility], [address] [place] [address] Hgb 11.8(L) 11.9 - 15.5 g/dL [facility] Comment:Testing performed by : [facility], [address] [place] [address] Hct 34.7(L) 35.6 - 45.5 % [facility] Comment:Testing performed by : [facility], [address] [place] [address] Plt 173 150 - 400 K/cumm [facility] Comment:Testing performed by : [facility], [address] [place] [address] MPV 7.3 6.8 - 10.4 fL [facility] Comment:Testing performed by : [facility], [address] [place] [address] RBC 3.53(L) 3.90 - 5.20 M/cumm [facility] Comment:Testing performed by : [facility], [address] [place] [address] MCV 98.3(H) 81.3 - 96.4 fL [facility] Comment:Testing performed by : [facility], [address] [place], [place] [phone] MCH 33.4(H) 27.1 - 33.3 pg [facility] Comment:Testing performed by : [facility], [address] [place], [place] [phone] MCHC 34.0 32.3 - 35.7 g/dL [facility] Comment:Testing performed by : [facility], [address] [place], [place] [phone] RDW CV 16.6(H) 11.1 - 14.9 % [facility] Comment:Testing performed by : [facility], [address] [place], [place] [phone] NRBC abs 0.00 0.00 - 0.01 K/cumm [facility] Comment:Testing performed by : [facility], [address] [place], [place] [phone] Blood 03/27/2025 7:19 AM CDT 03/27/2025 7:21 AM CDT Mirella Robbins MD PhD LAB BLOOD ORDERABLES Final Result Performing Organization Address City/[facility] Co de Phone Number [facility] Department [place] [address] * aPTT (03/27/2025 7:19 AM CDT) aPTT [...] BLOOD ORDERABLES Final Result Performing Organization Address City/State/[facility] Co de Phone Number [facility] Department [place] [address] * (ABNORMAL) Protime-INR (03/27/2025 7:19 AM CDT) [facility] PT 9.6(L) 10.2 - 13.5 sec INR 0.85(L) 0.90 - 1.20 [facility] Comment: Interpretive data Oral anticoagulant therapeutic ranges: Venous thromboembolism prophylaxis or treatment: 2.0-3.0 CARDIOLOGY Standard range: 2.0-3.0 High-intensity range: 2.5-3.5 Refer to indication-specific guidelines for appropriate target ranges for prosthetic heart valve replacement. Current interpretive data was last revised on 2019. Blood 03/27/2025 7:19 AM CDT 03/27/2025 7:50 AM CDT Mirella Robbins MD PhD LAB BLOOD ORDERABLES Final Result Performing Organization Address City/[facility] Co de Phone Number [facility] [place] [address] * Reticulocyte Count (03/27/2025 7:19 AM CDT) [facility] Retics, absolute 44 20 - 100 K/cumm Comment:Testing performed by : [facility], [address] [place] [phone] Retics 1.2 0.5 - 1.8 % [facility] Comment:Testing performed by : [facility], [address] [place] [phone] Blood 03/27/2025 7:19 AM CDT 03/27/2025 7:21 AM CDT Mirella Robbins MD PhD LAB BLOOD ORDERABLES Final Result Performing Organization Address City/[facility] Co de Phone Number [facility] Department [place] [address] * Uric acid (03/27/2025 7:19 AM CDT) Uric acid 4.1 2.5 - 7.0 mg/dL Blood 03/27/2025 7:19 AM CDT 03/27/2025 7:22 AM CDT Mirella Robbins MD PhD LAB BLOOD ORDERABLES Final Result Performing Organization Address City/[facility] Co de Phone Number [facility] Department [place] [address] * Phosphorus (03/27/2025 7:19 AM CDT) Pathologist [facility] Phosphorus, pl 3.5 2.3 - 4.5 mg/dL Blood 03/27/2025 7:19 AM CDT 03/27/2025 7:22 AM CDT Mirella Robbins MD PhD LAB BLOOD ORDERABLES Final Result Performing Organization Address [facility] de Phone Number [facility] [place] [place] [address] * Magnesium (03/27/2025 7:19 AM CDT) [facility] Magnesium 2.0 1.4 - 2.5 mg/dL Blood 03/27/2025 7:19 AM CDT 03/27/2025 7:22 AM CDT Mirella Robbins MD PhD LAB BLOOD ORDERABLES Final Result Performing Organization Address City/[facility] de Phone Number [facility] [place] [address] * Lipase (03/27/2025 7:19 AM CDT) Pathologist [facility] Lipase 55 10 - 99 Units/L Blood 03/27/2025 7:19 AM CDT 03/27/2025 7:22 AM CDT Mriella Robbins MD PhD LAB BLOOD ORDERABLES Final Result Performing Organization Address City/[facility]/ZIP Co de Phone Number [facility] Department [place] [address] * Amylase (03/27/2025 7:19 AM CDT) Pathologist [facility] Amylase 75 30 - 99 Units/L Blood 03/27/2025 7:19 AM CDT 03/27/2025 7:22 AM CDT Mirella Robbins MD PhD LAB BLOOD ORDERABLES Final Result Performing Organization Address [facility] de Phone Number [facility] Department [place] [address] * Comprehensive metabolic panel (03/27/2025 7:19 AM CDT) Pathologist [facility] Sodium 140 135 - 145 mmol/L Potassium, pl 4.5 3.3 - 4.9 mmol/L [facility] Chloride 105 97 - 110 mmol/L [facility] CO2 27 22 - 32 mmol/L [facility] Anion gap 8 2 - 15 mmol/L [facility] BUN 17 6 - 25 mg/dL [facility] Creatinine 0.92 0.60 - 1.10 mg/dL [facility] Glucose 126 70 - 199 mg/dL [facility] Comment: Interpretive Data Fasting glucose >/= 126 [...] 2022. Calcium 9.6 8.5 - 10.3 mg/dL [facility] Bilirubin, total 0.2 0.1 - 1.2 mg/dL [facility] Protein, pl 6.8 6.5 - 8.5 g/dL [facility] Albumin 3.8 3.5 - 5.0 g/dL [facility] Alk phos 123 40 - 130 Units/L [facility] ALT 13 7 - 45 Units/L [facility] AST 27 10 - 45 Units/L [facility] Blood 03/27/2025 7:19 AM CDT 03/27/2025 7:22 AM CDT Result [facility] Mirella Robbins MD PhD LAB BLOOD ORDERABLES Final Result Performing Organization Address City/[facility]/ZIP Co de Phone Number [facility] [place] [place] [address] * SCAN - LABS (03/23/2025) Provider Scanning [...] MD PhD LAB BLOOD ORDERABLES Final Result [facility] [place] [address] * (ABNORMAL) Protime-INR (03/21/2025 10:26 AM CDT) PT 10.1(L) 10.2 - 13.5 sec INR 0.89(L) 0.90 - 1.20 [facility] Comment: Interpretive data Oral anticoagulant therapeutic ranges: Venous thromboembolism prophylaxis or treatment: 2.0-3.0 CARDIOLOGY Standard range: 2.0-3.0 High-intensity range: 2.5-3.5 Refer to indication-specific guidelines for appropriate target ranges for prosthetic heart valve replacement. Current interpretive data was last revised on 2019. Blood 03/21/2025 10:2 6 AM CDT 03/21/2025 10:45 AM CDT Mirella Robbins MD PhD LAB BLOOD ORDERABLES Final Result Performing Organization Address City/[facility]/ZIP Co de Phone Number [facility] Department [place] [address] * eGFR (03/21/2025 8:44 AM CDT) eGFR [...] LAB BLOOD ORDERABLES Final Result [facility] [place] [address] * (ABNORMAL) Differential, auto (03/21/2025 8:44 AM CDT) Neutrophil abs 1.12(L) 1.50 - 6.50 K/cumm Comment:Testing performed by : [facility], [address] [place] [phone] Lymphocyte abs 1.89 0.80 - 3.30 K/cumm [facility] Comment:Testing performed by : [facility], [address] [place] [phone] Monocyte abs 0.32 0.20 - 0.80 K/cumm [facility] Comment:Testing performed by : [facility], [address] [place], [place] [phone] Eosinophil abs 0.28 0.00 - 0.50 K/cumm [facility] Comment:Testing performed by : [facility], [address] [place] [phone] Basophil abs 0.02 0.00 - 0.10 K/cumm [facility] Comment:Testing performed by : [facility], [address] [place] [phone] Neutrophil pct 30.8 % [facility] Comment: Interpretive Data Percent cell count reference ranges are not reported, since discordance with absolute values may lead to misinterpretation of CBC data. Current Interpretive Data was last revised on 2017. Testing performed by: [facility], [address] [place] [phone] Lymphocyte pct 52.0 % [facility] Comment: Interpretive Data Percent cell count reference ranges are not reported, since discordance with absolute values may lead to misinterpretation of CBC data. Current Interpretive Data was last revised on 2017. Testing performed by: [facility], [address] [place] [phone] Monocyte pct 8.9 % [facility] Comment: Interpretive Data Percent cell count reference ranges are not reported, since discordance with absolute values may lead to misinterpretation of CBC data. Current Interpretive Data was last revised on 2017. Testing performed by: [facility], [address] [place] [phone] Eosinophil pct 7.8 % [facility] Comment: Interpretive Data Percent cell count reference ranges are not reported, since discordance with absolute values may lead to misinterpretation of CBC data. Current Interpretive Data was last revised on 2017. Testing performed by: [facility], [address] [place] [phone] Basophil pct 0.5 % [facility] Comment: Interpretive Data Percent cell count reference ranges are not reported, since discordance with absolute values may lead to misinterpretation of CBC data. Current Interpretive Data was last revised on 2017. Testing performed by: [facility], [address] [place] [phone] Blood 03/21/2025 8:44 AM CDT 03/21/2025 8:55 AM CDT us Mirella Robbins MD PhD LAB BLOOD ORDERABLES Final Result [facility] [place] [address] * Critical Result Callback Hematology (03/21/2025 8:44 AM CDT) Date Notified [id number] Time Notified 949 [facility] TestName aPTT [facility] Called/Read Back Emy Davies [facility] Credentials [facility] Called By janay [facility] Blood 03/21/2025 8:44 AM CDT 03/21/2025 9:04 AM CDT us Mirella Robbins MD PhD LAB BLOOD ORDERABLES Final Result [facility] [place] [address] * (ABNORMAL) CBC with auto differential (03/21/2025 8:44 AM CDT) WBC 3.63(L) 3.80 - 9.90 K/cumm Comment:Testing performed by : [facility], [address] [place] [address] Hgb 11.8(L) 11.9 - 15.5 g/dL [facility] Comment:Testing performed by : [facility], [address] [place] [address] Hct 34.8(L) 35.6 - 45.5 % [facility] Comment:Testing performed by : [facility], [address] [place] [address] Plt 138(L) 150 - 400 K/cumm [facility] Comment:Testing performed by : [facility], [address] [place] [address] MPV 7.8 6.8 - 10.4 fL [facility] Comment:Testing performed by : [facility], [address] [place] [address] RBC 3.52(L) 3.90 - 5.20 M/cumm [facility] Comment:Testing performed by : [facility], [address] [place] [address] MCV 98.7(H) 81.3 - 96.4 fL [facility] Comment:Testing performed by : [facility], [address] [place] [address] MCH 33.5(H) 27.1 - 33.3 pg [facility] Comment:Testing performed by : [facility], [address] [place] [address] MCHC 33.9 32.3 - 35.7 g/dL [facility] Comment:Testing performed by : [facility], [address] [place] [address] RDW CV 17.2(H) 11.1 - 14.9 % [facility] Comment:Testing performed by : [facility], [address] [place] [phone] NRBC abs 0.00 0.00 - 0.01 K/cumm [facility] Comment:Testing performed by : [facility], [address] [place] [phone] Blood 03/21/2025 8:44 AM CDT 03/21/2025 8:55 AM CDT Result [facility] Mirella Robbins MD PhD LAB BLOOD ORDERABLES Final Result Performing Organization Address [facility] de Phone Number [facility] [place] [address] * (ABNORMAL) aPTT (03/21/2025 8:44 AM CDT) aPTT >150(C) 28 - 38 sec Comment: No clot detected in sample Repeated and verified - [id number] - 03/21/25, 9:44 AM Interpretive Data Heparin therapeutic range: 66.0 - 100.0 seconds. Range based on correlation with therapeutic heparin activity range of 0.3 - 0.7 Units/mL. Current interpretive data was last revised on 2023. Blood 03/21/2025 8:44 AM CDT 03/21/2025 9:01 AM CDT Result [facility] Mirella Robbins MD PhD LAB BLOOD ORDERABLES Final Result Performing Organization Address [facility] de Phone Number [facility] [place] [address] * (ABNORMAL) Protime-INR (03/21/2025 8:44 AM CDT) PT 37.4(H) 10.2 - 13.5 sec INR 3.39(H) 0.90 - 1.20 [facility] Comment: Interpretive data Oral anticoagulant therapeutic ranges: Venous thromboembolism prophylaxis or treatment: 2.0-3.0 CARDIOLOGY Standard range: 2.0-3.0 High-intensity range: 2.5-3.5 Refer to indication-specific guidelines for appropriate target ranges for prosthetic heart valve replacement. Current interpretive data was last revised on 2019. Blood 03/21/2025 8:44 AM CDT 03/21/2025 9:01 AM CDT Mirella Robbins MD PhD LAB BLOOD ORDERABLES Final Result Performing Organization Address [facility] de Phone Number [facility] [place] [address] * Reticulocyte Count (03/21/2025 8:44 AM CDT) Retics, absolute 29 20 - 100 K/cumm Comment:Testing performed by : [facility], [address] [place] [phone] Retics 0.8 0.5 - 1.8 % [facility] Comment:Testing performed by : [facility], [address] [place] [phone] Blood 03/21/2025 8:44 AM CDT 03/21/2025 8:55 AM CDT Result [facility] Mirella Robbins MD PhD LAB BLOOD ORDERABLES Final Result Performing Organization Address [facility] de Phone Number [facility] [place] [address] * Uric acid (03/21/2025 8:44 AM CDT) Uric acid 3.3 2.5 - 7.0 mg/dL Blood 03/21/2025 8:44 AM CDT 03/21/2025 8:50 AM CDT us Mirella Robbins MD PhD LAB BLOOD ORDERABLES Final Result Performing Organization Address [facility] Co de Phone Number [facility] [place] [address] * Phosphorus (03/21/2025 8:44 AM CDT) Phosphorus, pl 3.4 2.3 - 4.5 mg/dL Blood 03/21/2025 8:44 AM CDT 03/21/2025 8:50 AM CDT Mirella Robbins MD PhD LAB BLOOD ORDERABLES Final Result Performing Organization Address City/[facility] Co de Phone Number [facility] [place] [address] * Magnesium (03/21/2025 8:44 AM CDT) Pathologist [facility] Magnesium 2.0 1.4 - 2.5 mg/dL Blood 03/21/2025 8:44 AM CDT 03/21/2025 8:50 AM CDT Mirella Robbins MD PhD LAB BLOOD ORDERABLES Final Result Performing Organization Address [facility] de Phone Number [facility] [place] [address] * Lipase (03/21/2025 8:44 AM CDT) Pathologist [facility] Lipase 61 10 - 99 Units/L Blood 03/21/2025 8:44 AM CDT 03/21/2025 8:50 AM CDT Mirella Robbins MD PhD LAB BLOOD ORDERABLES Final Result Performing Organization Address City/[facility] Co de Phone Number [facility] [place] [address] * Amylase (03/21/2025 8:44 AM CDT) Amylase 87 30 - 99 Units/L Blood 03/21/2025 8:44 AM CDT 03/21/2025 8:50 AM CDT us Mirella Robbins MD PhD LAB BLOOD ORDERABLES Final Result [facility] [place] [address] * Comprehensive metabolic panel (03/21/2025 8:44 AM CDT) Sodium 140 135 - 145 mmol/L Potassium, pl 4.5 3.3 - 4.9 mmol/L [facility] Chloride 103 97 - 110 mmol/L [facility] CO2 30 22 - 32 mmol/L [facility] Anion gap 7 2 - 15 mmol/L [facility] BUN 9 6 - 25 mg/dL [facility] Creatinine 0.87 0.60 - 1.10 mg/dL [facility] Glucose 110 70 - 199 mg/dL [facility] Comment: Interpretive Data Fasting glucose >/= 126 [...] 2022. Calcium 9.5 8.5 - 10.3 mg/dL [facility] Bilirubin, total 0.3 0.1 - 1.2 mg/dL [facility] Protein, pl 6.7 6.5 - 8.5 g/dL [facility] Albumin 3.8 3.5 - 5.0 g/dL [facility] Alk phos 108 40 - 130 Units/L [facility] ALT 12 7 - 45 Units/L [facility] AST 27 10 - 45 Units/L [facility] Blood 03/21/2025 8:44 AM CDT 03/21/2025 8:50 AM CDT us Mirella Robbins MD PhD LAB BLOOD ORDERABLES Final Result Performing Organization Address City/[facility] Co de Phone Number [facility] Department [place] [address] * eGFR (03/13/2025 10:25 AM CDT) eGFR [...] BLOOD ORDERABLES Final Result Performing Organization Address City/[facility] Co de Phone Number [facility] Department [place] [address] * (ABNORMAL) Differential, auto (03/13/2025 10:25 AM CDT) Neutrophil abs 1.42(L) 1.50 - 6.50 K/cumm Comment:Testing performed by : [facility], [address] [place] [phone] Lymphocyte abs 1.20 0.80 - 3.30 K/cumm [facility] Comment:Testing performed by : [facility], [facility] [place] [address] Monocyte abs 0.33 0.20 - 0.80 K/cumm [facility] Comment:Testing performed by : [facility], [address] [place] [phone] Eosinophil abs 0.12 0.00 - 0.50 K/cumm [facility] Comment:Testing performed by : [facility], [address] [place] [phone] Basophil abs 0.02 0.00 - 0.10 K/cumm [facility] Comment:Testing performed by : [facility], [address] [place] [phone] Neutrophil pct 46.0 % [facility] Comment: Interpretive Data Percent cell count reference ranges are not reported, since discordance with absolute values may lead to misinterpretation of CBC data. Current Interpretive Data was last revised on 2017. Testing performed by: [facility], [address] [place] [phone] Lymphocyte pct 39.0 % [facility] Comment: Interpretive Data Percent cell count reference ranges are not reported, since discordance with absolute values may lead to misinterpretation of CBC data. Current Interpretive Data was last revised on 2017. Testing performed by: [facility], [address] [place] [phone] Monocyte pct 10.6 % [facility] Comment: Interpretive Data Percent cell count reference ranges are not reported, since discordance with absolute values may lead to misinterpretation of CBC data. Current Interpretive Data was last revised on 2017. Testing performed by: [facility], [address] [place] [phone] Eosinophil pct 4.0 % [facility] Comment: Interpretive Data Percent cell count reference ranges are not reported, since discordance with absolute values may lead to misinterpretation of CBC data. Current Interpretive Data was last revised on 2017. Testing performed by: [facility], [address] [place] [phone] Basophil pct 0.5 % [facility] Comment: Interpretive Data Percent cell count reference ranges are not reported, since discordance with absolute values may lead to misinterpretation of CBC data. Current Interpretive Data was last revised on 2017. Testing performed by: [facility], [address] [place] [address] Blood 03/13/2025 10:2 5 AM CDT 03/13/2025 10:32 AM CDT us Mirella Robbins MD PhD LAB BLOOD ORDERABLES Final Result [facility] Department [place] [address] * (ABNORMAL) CBC with auto differential (03/13/2025 10:25 AM CDT) WBC 3.09(L) 3.80 - 9.90 K/cumm Comment:Testing performed by : [facility], [address] [place] [address] Hgb 11.7(L) 11.9 - 15.5 g/dL [facility] Comment:Testing performed by : [facility], [address] [place] [address] Hct 34.4(L) 35.6 - 45.5 % [facility] Comment:Testing performed by : [facility], [address] [place] [address] Plt 142(L) 150 - 400 K/cumm [facility] Comment:Testing performed by : [facility], [address] [place] [address] MPV 7.3 6.8 - 10.4 fL [facility] Comment:Testing performed by : [facility], [address] [place] [address] RBC 3.49(L) 3.90 - 5.20 M/cumm [facility] Comment:Testing performed by : [facility], [address] [place] [address] MCV 98.8(H) 81.3 - 96.4 fL [facility] Comment:Testing performed by : [facility], [address] [place], [place] [phone] MCH 33.6(H) 27.1 - 33.3 pg [facility] Comment:Testing performed by : [facility], [address] [place], [place] [phone] MCHC 34.0 32.3 - 35.7 g/dL [facility] Comment:Testing performed by : [facility], [address] [place], [place] [phone] RDW CV 18.0(H) 11.1 - 14.9 % [facility] Comment:Testing performed by : [facility], [address] [place], [place] [phone] NRBC abs 0.00 0.00 - 0.01 K/cumm [facility] Comment:Testing performed by : [facility], [address] [place], [place] [phone] Blood 03/13/2025 10:2 5 AM CDT 03/13/2025 10:32 AM CDT Mirella Robbins MD PhD LAB BLOOD ORDERABLES Final Result [facility] Department [place] [address] * aPTT (03/13/2025 10:25 AM CDT) [facility] aPTT 29 26 - 38 sec Comment: Interpretive Data Heparin therapeutic range: 66.0 - 100.0 seconds. Range based on correlation with therapeutic heparin activity range of 0.3 - 0.7 Units/mL. Current interpretive data was last revised on 2023. Blood 03/13/2025 10:2 5 AM CDT 03/13/2025 10:46 AM CDT Mirella Robbins MD PhD LAB BLOOD ORDERABLES Final Result Performing Organization Address [facility] Co de Phone Number [facility] [place] [address] * (ABNORMAL) Protime-INR (03/13/2025 10:25 AM CDT) Pathologist [facility] PT 10.0(L) 10.2 - 13.5 sec INR 0.88(L) 0.90 - 1.20 [facility] Comment: Interpretive data Oral anticoagulant therapeutic ranges: Venous thromboembolism prophylaxis or treatment: 2.0-3.0 CARDIOLOGY Standard range: 2.0-3.0 High-intensity range: 2.5-3.5 Refer to indication-specific guidelines for appropriate target ranges for prosthetic heart valve replacement. Current interpretive data was last revised on 2019. Blood 03/13/2025 10:2 5 AM CDT 03/13/2025 10:46 AM CDT Mirella Robbins MD PhD LAB BLOOD ORDERABLES Final Result Performing Organization Address [facility] de Phone Number [facility] [place] [address] * Reticulocyte Count (03/13/2025 10:25 AM CDT) Pathologist [facility] Retics, absolute 34 20 - 100 K/cumm Comment:Testing performed by : [facility], [address] [place] [phone] Retics 1.0 0.5 - 1.8 % [facility] Comment:Testing performed by : [facility], [address] [place] [phone] Blood 03/13/2025 10:2 5 AM CDT 03/13/2025 10:32 AM CDT Mirella Robbins MD PhD LAB BLOOD ORDERABLES Final Result Performing Organization Address [facility] de Phone Number [facility] Department [place] [address] * Uric acid (03/13/2025 10:25 AM CDT) Uric acid 3.3 2.5 - 7.0 mg/dL Blood 03/13/2025 10:2 5 AM CDT 03/13/2025 10:33 AM CDT Mirella Robbins MD PhD LAB BLOOD ORDERABLES Final Result [facility] [place] [address] * Phosphorus (03/13/2025 10:25 AM CDT) Pathologist [facility] Phosphorus, pl 3.5 2.3 - 4.5 mg/dL Blood 03/13/2025 10:2 5 AM CDT 03/13/2025 10:33 AM CDT Mirella Robbins MD PhD LAB BLOOD [place] [address] * Magnesium (03/13/2025 10:25 AM CDT) Pathologist [facility] Magnesium 2.1 1.4 - 2.5 mg/dL Blood 03/13/2025 10:2 5 AM CDT 03/13/2025 10:33 AM CDT Mirella Robbins MD PhD LAB BLOOD ORDERABLES Final Result Performing Organization Address City/[facility]/[place] [address] * Lipase (03/13/2025 10:25 AM CDT) Pathologist [facility] Lipase 61 10 - 99 Units/L Blood 03/13/2025 10:2 5 AM CDT 03/13/2025 10:33 AM CDT Mirella Robbins MD PhD LAB BLOOD ORDERABLES Final Result Performing Organization Address City/[facility] Co de Phone Number [facility] Department [place] [address] * Amylase (03/13/2025 10:25 AM CDT) Amylase 86 30 - 99 Units/L Blood 03/13/2025 10:2 5 AM CDT 03/13/2025 10:33 AM CDT Mirella Robbins MD PhD LAB BLOOD ORDERABLES Final Result Performing Organization Address [facility] de Phone Number [facility] Department [place] [address] * Comprehensive metabolic panel (03/13/2025 10:25 AM CDT) Pathologist [facility] Sodium 142 135 - 145 mmol/L Potassium, pl 4.6 3.3 - 4.9 mmol/L [facility] Chloride 105 97 - 110 mmol/L [facility] CO2 29 22 - 32 mmol/L [facility] Anion gap 8 2 - 15 mmol/L [facility] BUN 13 6 - 25 mg/dL [facility] Creatinine 0.86 0.60 - 1.10 mg/dL [facility] Glucose 107 70 - 199 mg/dL [facility] Comment: Interpretive Data Fasting glucose >/= 126 [...] Calcium 9.6 8.5 - 10.3 mg/dL [facility] Bilirubin, total 0.4 0.1 - 1.2 mg/dL [facility] Protein, pl 6.8 6.5 - 8.5 g/dL [facility] Albumin 3.9 3.5 - 5.0 g/dL [facility] Alk phos 108 40 - 130 Units/L [facility] ALT 19 7 - 45 Units/L [facility] AST 25 10 - 45 Units/L [facility] Blood 03/13/2025 10:2 5 AM CDT 03/13/2025 10:33 AM CDT Mirella Robbins MD PhD LAB BLOOD ORDERABLES Final Result Performing Organization Address City/[facility] Co de Phone Number [facility] [place] [address] * Hepatitis C antibody Blood (02/20/2025 11:00 AM CDT) Hep C Ab Nonreactive Nonreactive Comment:Antibodies to HCV no t detected. Does NOT exclude the possibility of recent exposure to HCV. Current interpretive data was last revised on 22 Blood 02/20/2025 11:0 0 AM CDT 02/20/2025 11:52 AM CDT Mirella Robbins MD PhD LAB MICROBIOLOGY - GENERAL ORDERABLES Final Result [facility] [place] [address] from Last 3 Months or Most Recently Relevant to Health Maintenance Insurance MEDICARE [facility] MEDICARE [facility] MEDICARE SUPPLEMENT MEDICARE [facility] MEDICARE SUPPLEMENT Advance Directives For more information, please contact: [phone] * Full Code (Latest Code Status on File) Date Activated Date Inactivated Comments 03/03/2025 9:36 AM 03/04/2025 4:53 AM Care Teams Supervisor Agency Appointments Relationship Specialty Start Date End Date Jeana Palacios NP [address] [place] [address] PCP - General Nurse Practitioner 12/09/24 Molina Medina MD 12/07/24 Alvarado Jang MD [address] [phone] Referring Physician Hematology 12/07/24 Mirella Robbins MD PhD [address] [place] [address] Medical Oncologist/Line Worker Medical Oncology 12/09/24
--- OUTSIDE RECORDS SUMMARY | 2025-06-09 10:59 | XMS_ITS | Encounter Summary ---
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
--- OUTSIDE RECORDS SUMMARY | 2025-06-09 10:59 | XMS_ITS | Encounter Summary ---
Author Organization [facility] [employer] [facility] Address [address] [place] [address] Phone Care Team Providers Care Tongue Binder Name Role Phone Molina Medina MD Unavailable [phone] Alvarado Jang MD Unavailable [phone] Jeana Palacios NP Primary Care Provider [phone] Mirella Robbins MD PhD Unavailable [phone] Reason for Referral * Consultation (Routine) - Denied Specialty Diagnoses / Procedures Referred By Contac t Referred To Contact Rheumatology Diagnoses Chronic pain of both knees Mirella Robbins MD PhD [address] [employer] [facility] [address] [place] [address] Phone: tel: fax: [facility] (All Locations) Referral ID Status Reason Start Date Expiration Date V isits Requested Visits Authorized [id number] Denied Specialty Services Required 06/05/2025 07/05/2026 1 0 Question Answer Please select the performing region: [facility] (All Locations) [[id number]] Service Line General Rheumatology # of visits: 1 Comments Referral for pt with arthritic knee pain requesting referral for rheumatology. STMENT SPECIALIST Encounter Details Date Type Department Care Team (Late st Contact Info) Description 06/05/2025 Orders Only [facility] Medicine Oncology [address] 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 Gender Identity Not on file Sexual Orientation Not on file documented as of this encounter Functional Status documented as of this encounter Plan of Treatment Scheduled Referrals Name Type Priority Associated Diagnoses Order Schedule Ambulatory referral to Rheumatology Outpatient Referral Routine Chronic pain of both knees Expected: 08/05/2025 (Approximate), Expires: 06/05/2026 documented as of this encounter Visit Diagnoses Diagnosis Chronic pain of both knees- Primary documented in this encounter Care Teams Tongue Binder Relationship Specialty Start Date End Date Jeana Palacios NP [address] [place] [address] PCP - General Nurse Practitioner 12/09/24 Molina Medina MD 12/07/24 Alvarado Jang MD [address] [place] [address] Referring Physician Hematology 12/07/24 Mirella Robbins MD PhD [address] [place] [address] Medical Oncologist/Labor And Delivery Nurse Medical Oncology 12/09/24 documented as of this encounter
--- OUTSIDE RECORDS SUMMARY | 2025-06-09 10:59 | XMS_ITS ---
Author Organization [facility] Leti Luna Address [address] [place] [address] Care Team Providers Care Community Health Advisor Name Role Phone Molina Medina MD Primary Care Provider [phone] Active Problems Problem Noted Date Diagnosed Date [...]
--- OUTSIDE RECORDS SUMMARY | 2025-06-09 10:59 | XMS_ITS | Encounter Summary ---
Author Organization [facility] [employer] [facility] Address [address] [place] [address] Phone Care Team Providers Care Follow Up Specialist Name Role Phone Molina Medina MD Unavailable [phone] Alvarado Jang MD Unavailable [phone] Jeana Palacios NP Primary Care Provider [phone] Mirella Robbins MD PhD Unavailable [phone] Encounter Details Date Type Department Care Team (Late st Contact Info) Description 06/09/2025 Orders Only [facility] Medicine Oncology [address] [facility] [address] [place] [address] Mirella Robbins MD PhD [address] [facility] [address] [place], [place] [id number] Social History Tobacco Use Types Packs/Day Years [...] on file 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 Gender Identity Not on file Sexual Orientation Not on file documented as of this encounter Plan of Treatment Not on file documented as of this encounter Visit Diagnoses Not on filedocumented in this encounter Care Teams Follow Up Specialist Relationship Specialty Start Date End Date Jeana Palacios NP [address] [place] [address] PCP - General Nurse Practitioner 12/09/24 Molina Medina MD 12/07/24 Alvarado Jang MD [address] [address] Referring Physician Hematology 12/07/24 Mirella Robbins MD PhD [address] [place] [address] Medical Oncologist/Publication Director Medical Oncology 12/09/24 documented as of this encounter
--- OUTSIDE RECORDS SUMMARY | 2025-06-09 10:59 | XMS_ITS | Encounter Summary ---
Author Organization [facility] [employer] [facility] Address [address] [place] [address] Phone Care Team Providers Care Manager Switch Name Role Phone Molina Medina MD Unavailable [phone] Alvarado Jang MD Unavailable [phone] Jeana Palacios NP Primary Care Provider [phone] Mirella Robbins MD PhD Unavailable [phone] Encounter Details Date Type Department Care Team (Late st Contact Info) Description 06/08/2025 Orders Only [facility] Medicine Oncology [address] [facility] Floor [address] [place] [address] Mirella Robbins MD PhD [address] [facility] [address] [place], [place] [id number] Colon adenocarcinoma (HCC) (Primary Dx); Metastasis to liver; Chemotherapy-induced neutropenia Social History Tobacco Use Types Packs/Day Years [...] on file 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 Gender Identity Not on file Sexual Orientation Not on file documented as of this encounter Plan of Treatment Scheduled Orders Name Type Priority Associated Diagnoses Orde r Schedule CBC with auto differential Lab Routine Colon adenocarcinoma (HCC) Metastasis to liver Chemotherapy-induced neutropenia Expected: 06/09/2025, Expires: 09/07/2025 Comprehensive metabolic panel Lab Routine Colon adenocarcinoma (HCC) Metastasis to liver Chemotherapy-induced neutropenia Expected: 06/09/2025, Expires: 09/07/2025 documented as of this encounter Visit Diagnoses Diagnosis Colon adenocarcinoma (HCC)- Primary Malignant neoplasm of colon, unspecified site Metastasis to liver Secondary malignant neoplasm of liver Chemotherapy-induced neutropenia Drug induced neutropenia documented in this encounter Care Teams Manager Switch Relationship Specialty Start Date End Date Jeana Palacios NP [address] [place] [address] PCP - General Nurse Practitioner 12/09/24 Molina Medina MD 12/07/24 Alvarado Jang MD [address] [address] Referring Physician Hematology 12/07/24 Mirella Robbins MD PhD [address] [place] [address] Medical Oncologist/Cash Poster Medical Oncology 12/09/24 documented as of this encounter
--- OUTSIDE RECORDS SUMMARY | 2025-06-09 10:59 | XMS_ITS | Encounter Summary ---
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 Gender Identity Not on file Sexual Orientation Not on file documented as of this encounter Plan of Treatment Not on file documented as of this encounter Procedures Procedure Name Priority Date/Time Associated Diagnosis Comments SCAN - LABS 05/23/2025 documented in this encounter Results * SCAN - LABS (05/23/2025) us Provider Scanning Final Result documented in this encounter Visit Diagnoses Not on filedocumented in this encounter Care Teams Juice Weigher Relationship Specialty Start Date End Date Jeana Palacios NP [address] [place] [address] PCP - General Nurse Practitioner 12/09/24 Molina Medina MD 12/07/24 Alvarado Jang MD [address] [address] Referring Physician Hematology 12/07/24 Mirella Robbins MD PhD [address] [place] [address] Medical Oncologist/Ice Carver Medical Oncology 12/09/24 documented as of this encounter
[2025-06-09 11:15] LABS: Hematocrit 40.8 % (35.0-42.0); Hemoglobin 12.3 g/dL (11.7-13.8); Immature Granulocyte Percent A 0.8 % (0.0-0.0); Lymphocytes Absolute Auto 1.14 K/mm3 (1.10-4.50); Mean Corpuscular HGB Conc 30.1 g/dL (32-36); Mean Corpuscular Hemoglobin 31.5 pg (27.0-31.0); Mean Corpuscular Volume 104.6 fL (78.0-102.0); Nucleated Red Blood Cells Absolute Auto 0.00 K/mm3 (0.00-0.00); Nucleated Red Blood Cells Perc 0.0 % (0-0.0); Platelet Count Result 204 K/mm3 (150-420); Red Blood Count 3.90 M/mm3 (4.20-5.40); White Blood Count 5.2 K/mm3 (4.8-10.8)
[2025-06-09 11:42] LABS: Alanine Aminotransferase 13 U/L (6-35); Albumin Level 3.9 g/dL (3.5-5.1); Alkaline Phosphatase 119 U/L (38-126); Anion Gap 10 mmol/L (4-12); Aspartate Amino Transferase 31 U/L (14-36); Bilirubin,Total 0.1 mg/dL (0.2-1.3); Blood Urea Nitrogen 10 mg/dL (7-17); Calcium 9.4 mg/dL (8.4-10.2); Carbon Dioxide 32 mmol/L (22-30); Chloride 103 mmol/L (98-107); Estimated Glomerular Filt Rate > 60; Glucose 115 mg/dL (65-110); Osmolality Calculated 300 mOsm/kg (285-295); Potassium 4.2 mmol/L (3.4-5.0); Sodium 145 mmol/L (137-145); Total Protein 6.6 g/dL (6.3-8.2)
== END 2025-06-09 10:53 | disposition home or self-care (01) ==
LOC: CHSLAB 10:57
PROVIDERS: PCP Nurse Practitioner Adult Health
DX: C18.9 Malignant neoplasm of colon, unspecified (principal); C78.7 Secondary malignant neoplasm of liver and intrahepatic bile duct; D70.1 Agranulocytosis secondary to cancer chemotherapy; T45.1X5A Adverse effect of antineoplastic and immunosuppressive drugs, initial encounter
CPT/HCPCS: 36415; 80053; 85025

== ENCOUNTER 2025-06-20 11:11 | Outpatient (CLI) | payer MEDICARE, SELFPAY ==
[2025-06-20 12:16] LABS: Alanine Aminotransferase 15 U/L (6-35); Albumin Level 3.8 g/dL (3.5-5.1); Alkaline Phosphatase 117 U/L (38-126); Anion Gap 9 mmol/L (4-12); Aspartate Amino Transferase 33 U/L (14-36); Bilirubin,Total 0.4 mg/dL (0.2-1.3); Blood Urea Nitrogen 14 mg/dL (7-17); Calcium 9.6 mg/dL (8.4-10.2); Carbon Dioxide 30 mmol/L (22-30); Chloride 103 mmol/L (98-107); Estimated Glomerular Filt Rate > 60; Glucose 113 mg/dL (65-110); Osmolality Calculated 295 mOsm/kg (285-295); Potassium 4.5 mmol/L (3.4-5.0); Sodium 142 mmol/L (137-145); Total Protein 6.4 g/dL (6.3-8.2)
[2025-06-20 14:54] LABS: Hematocrit 36.5 % (35.0-42.0); Hemoglobin 11.5 g/dL (11.7-13.8); Mean Corpuscular HGB Conc 31.5 g/dL (32-36); Mean Corpuscular Hemoglobin 31.1 pg (27.0-31.0); Mean Corpuscular Volume 98.6 fL (78.0-102.0); Platelet Count Result 192 K/mm3 (150-420); Red Blood Count 3.70 M/mm3 (4.20-5.40); White Blood Count 2.7 K/mm3 (4.8-10.8)
[2025-06-20 15:58] LABS: Band Neutrophils Percent 0 % (0-6); Eosinophils Absolute Manual 0.21 K/mm3 (0.02-0.50); Eosinophils Percent Manual 8 % (1-6); Lymphocytes Absolute Manual 1.35 K/mm3 (1.1-4.5); Lymphocytes Percent Manual 50 % (18-44); Monocytes Absolute Manual 0.40 K/mm3 (0.1-0.90); Monocytes Percent Manual 15 % (3-9); Myelocytes Percent 1 %; Neutrophils Absolute Manual 0.70 K/mm3 (1.3-6.7); Neutrophils Percent Manual 26 % (46-73); Total Cells Counted 100
== END 2025-06-20 11:12 | disposition home or self-care (01) ==
LOC: CHSLAB 11:16
PROVIDERS: PCP Nurse Practitioner Adult Health
DX: C18.9 Malignant neoplasm of colon, unspecified (principal); C78.7 Secondary malignant neoplasm of liver and intrahepatic bile duct; D70.1 Agranulocytosis secondary to cancer chemotherapy; T45.1X5A Adverse effect of antineoplastic and immunosuppressive drugs, initial encounter
CPT/HCPCS: 36415; 36591; 80053; 85025